=== PATIENT | male | born 1950 | race Caucasian/White ===

== ENCOUNTER → 2016-10-02 | Outpatient (CLI) | payer MEDICARE, MEDICAID ==
[~2016-10-02] MED LIST: /PANT40TA; /WARF25TA; /WARF5TA; ALBU83IN; ALBU83IN INH; AMO500 PO; ARIC10TA PO; ASPEC81 PO; ATROVENT0.02%; COMBAER6 INH; DILA100C; DRIS50002 PO; FERR325T3 PO; FIBE625T PO; FIBERCON PO; HABITROL14 TOPICAL; HABITROL21 TOPICAL; HABITROL7 TOPICAL; IPRASOL4 INH; KEPPRA; LASI40TA PO; METAMUCIL PO; NICOTROLIN PO; No Historical Meds; PRED10TA PO; PROT1TAB2 PO; PROTONIX40 PO; PULM0.5S INH; ROBITUSSDM PO; TRAN15TA; TYLE325T5 PO; TYLENOL500 PO; VYTORIN10 PO; WELLBSR150 PO; ZANTAC150 PO; ZETI10TA; ZETI10TA2 PO; ZETIA PO; ZITH250T PO; ZOCO10TA; ZOCO10TA PO; ZOCOR10 PO; [UNRECOGNIZED DRUG - CODE] PO; [UNRECOGNIZED DRUG - CODE] PO; fibercon
[2016-10-02 09:35] LABS: INR 0.96
[2016-10-02 09:36] LABS: BASO # 0.1 K/mm3 (0.0-0.2); BASO % 1.9 % (0.0-1.0); EOS # 0.2 K/mm3 (0.0-0.50); EOS % 2.5 % (0.0-3.0); LARGE UNSTAINED CELL # 0.1 K/mm3 (0.0-0.4); LARGE UNSTAINED CELL % 1.8 % (0.0-4.0); LYMPH # 1.8 K/mm3 (1.5-4.5); LYMPH % 22.4 % (24.0-44.0); MEAN CORPUSCULAR HEMOGLOBIN 30.8 pg (27.0-33.0); MEAN CORPUSCULAR HGB CONC 33.6 g/dl (32.0-36.5); MEAN CORPUSCULAR VOLUME 91.8 fl (80.0-96.0); MONO # 0.5 K/mm3 (0.0-0.8); MONO % 6.9 % (0.0-5.0); NEUTROPHILS # 4.7 K/mm3 (1.8-7.7); NEUTROPHILS % 64.4 % (36.0-66.0); PLATELET COUNT, AUTOMATED 187 k/mm3 (150-450); RED CELL DISTRIBUTION WIDTH 12.6 % (11.5-14.5); WHITE BLOOD COUNT 7.3 K/mm3 (4.0-10.0)
[2016-10-02 10:00] LABS: VITAMIN B12 LEVEL 485 PG/ML (247-911)
[2016-10-02 10:06] LABS: ALBUMIN 3.8 GM/DL (3.2-5.2); ALBUMIN/GLOBULIN RATIO 1.36 (1.00-1.93); ALKALINE PHOSPHATASE 85 U/L (45-117); ALT/SGPT 23 U/L (12-78); ANION GAP 7 MEQ/L (8-16); AST/SGOT 23 U/L (15-37); BILIRUBIN,TOTAL 0.4 MG/DL (0.2-1.0); BLOOD UREA NITROGEN 13 MG/DL (7-18); CARBON DIOXIDE LEVEL 37 MEQ/L (21-32); CHLORIDE LEVEL 100 MEQ/L (98-107); GLOMERULAR FILTRATION RATE > 60.0 (>49); GLUCOSE, FASTING 88 MG/DL (80-110); POTASSIUM SERUM 3.4 MEQ/L (3.5-5.1); SODIUM LEVEL 144 MEQ/L (136-145); TOTAL PROTEIN 6.6 GM/DL (6.4-8.2)
[2016-10-04 10:48] LABS: PRETREATED FOLATE FOR RBCFOL 9.4 NG/ML
== END ==
LOC: M WUC 08:12
PROVIDERS: ATTEND Family Medicine
DX: Z01.818 Encounter for other preprocedural examination (principal); F03.90 Unspecified dementia, unspecified severity, without behavioral disturbance, psychotic disturbance, mood disturbance, and anxiety

== ENCOUNTER → 2016-10-10 | Outpatient (CLI) | payer MEDICARE, MEDICAID ==
[~2016-10-10] MED LIST changes: +COMBIVENT MDI INH
[2016-10-10 12:00] LABS: MEAN CORPUSCULAR HEMOGLOBIN 32.1 pg (27.0-33.0); MEAN CORPUSCULAR HGB CONC 34.8 g/dl (32.0-36.5); MEAN CORPUSCULAR VOLUME 92.2 fl (80.0-96.0); WHITE BLOOD COUNT 9.5 K/mm3 (4.0-10.0)
[2016-10-10 12:08] LABS: ALBUMIN 3.9 GM/DL (3.2-5.2); ANION GAP 6 MEQ/L (8-16); BLOOD UREA NITROGEN 12 MG/DL (7-18); CALCIUM LEVEL 8.9 MG/DL (8.8-10.2); CARBON DIOXIDE LEVEL 37 MEQ/L (21-32); CHLORIDE LEVEL 98 MEQ/L (98-107); CREATININE FOR GFR 0.78 MG/DL (0.70-1.30); GLOMERULAR FILTRATION RATE > 60.0 (>49); GLUCOSE, FASTING 106 MG/DL (80-110); PHOSPHORUS LEVEL 2.6 MG/DL (2.5-4.9); POTASSIUM SERUM 3.8 MEQ/L (3.5-5.1); SODIUM LEVEL 141 MEQ/L (136-145)
== END ==
LOC: M SMT 08:09
PROVIDERS: ATTEND Dentist Oral and Maxillofacial Surgery
DX: Z01.818 Encounter for other preprocedural examination (principal); K02.9 Dental caries, unspecified

== ENCOUNTER → 2016-10-11 | Day surgery (SDC) | payer MEDICARE, MEDICAID ==
[~2016-10-11] VITALS: Ht 165.1 cm; Wt 73.5 kg
[~2016-10-11] MED LIST changes: +GLYCOPYRROLATE INJ 0.2 MG/ML 2 ML VIAL As Ordered ONE; +IBUPROFEN 100 MG/5 ML SUSP UDC As Ordered ONE; +IBUPROFEN 100 MG/5 ML SUSP UDC PO ONE; +LIDOCAINE 2% INJ 100 MG/5 ML SDV (FOR ANES.) As Ordered ONE; +LIDOCAINE 2% W/ EPINEPHRINE 1.7 ML DENTAL INJ As Ordered ONE; +LIDOCAINE 2% W/ EPINEPHRINE 1.7 ML DENTAL INJ XX ONE; +LR 1,000 ML IV SCH; +METOCLOPRAMIDE INJ 10MG/2ML VIAL (J2765) As Ordered ONE; +METOCLOPRAMIDE INJ 10MG/2ML VIAL (J2765) IV PRN; +MIDAZOLAM INJ 2 MG/2 ML VIAL (J2250) As Ordered ONE; +NEOSTIGMINE 1MG/ML 5 ML SYRINGE (J2710) As Ordered ONE; +ONDANSETRON 4MG/2ML VIAL (J2405) As Ordered ONE; +ONDANSETRON 4MG/2ML VIAL (J2405) IV PRN; +PROPOFOL 200 MG/20 ML VIAL As Ordered ONE; +ROCURONIUM BROMIDE 50 MG/5 ML VIAL As Ordered ONE; +dexameTHASONE 4 MG/ML 1ML VIAL (J1100) As Ordered ONE; +fentaNYL 100 MCG/2 ML INJECTION (J3010) As Ordered ONE
[2016-10-11] MEDS: fentaNYL 100 MCG/2 ML INJECTION (J3010) IV PRN ×2 (12:43→12:50)
[2016-10-11 14:32] VITALS: BP 125/81
--- NOTE | 2016-10-11 16:47 | RO ---
DATE OF PROCEDURE: 10/11/2016 PREPROCEDURE DIAGNOSIS: Carious and nonrestorable teeth #6, 7, 8, 9, 10, 11, 20, 22, 27. POSTPROCEDURE DIAGNOSIS: Carious and nonrestorable teeth #6, 7, 8, 9, 10, 11, 20, 22, 27 with the addition of retained roots of tooth #12. OPERATIVE PROCEDURE: Surgical removal of all remaining teeth, 6, 7, 8, 9, 10, 11, 12, 20, 22 and 27. SURGEON: Chris Garzon DMD SUPERVISOR WOUND: ANESTHESIA: General endotracheal. INDICATION: He is a 65-year-old male who has high functioning mental retardation as well as asthma history on multiple medications. The patient requires removal of all remaining teeth due to carious and periodontal disease felt necessary to be performed in the operating room under general anesthesia. DESCRIPTION OF PROCEDURE: The patient was brought to the OR per anesthesia, placed supine upon the OR table. Wherein general endotracheal anesthesia was undertaken without difficulty. After using sterile prep and drape, for intraoral procedure, throat pack was placed. 2% Xylocaine with 1:100,000 epinephrine, approximately 4 mL were injected in infiltration fashion along remaining teeth. Attention first to the mandible, 20, 22 and 27. After laying buccal flaps in these areas after incision with #15 scalpel blade, buccal bone was removed as necessary with Gary drill and copious sterile saline for access as well as to mobilize the teeth, tooth #20 in particular had caries deep and the tooth fractured down to approximately the apical one-third remaining root which had to be elevated separately. The teeth were then elevated and removed. Bone was smoothed. The sockets were lightly curetted, irrigated and enclosed with Gelfoam #3-0 gut interrupted sutures for hemostasis. Attention then turned to the maxilla of teeth #6 through 12. A #15 scalpel blade used to make a full thickness incision, carried from the distal buccal releases on bilateral maxilla. Carried forward to the midline. Full thickness flap was then raised, the periosteal elevator exposed in the area of the broken down retained teeth. Bucca bone support was removed as necessary for access and to mobilize them. The teeth were then elevated and delivered with upper forceps. The buccal alveoloplasty was performed as necessary and sockets were lightly curetted, irrigated copiously and then closed with #3-0 gut continuous interlocking suture. At the termination of the procedure, the oropharynx was inspected, found to be free of debris with no active heme. Throat pack was removed and patient was awakened per anesthesia. ESTIMATED BLOOD LOSS: Approximately 30 mL. FLUIDS: 1200 mL of crystalloid solution. COUNTS: Needle and sponge counts were correct. Teeth were sent for identification only to pathology. DISPOSITION: The patient was extubated in the operating room, taken to the recovery room breathing spontaneously in stable condition.
== END | disposition home or self-care (01) ==
LOC: M SDC 09:06
PROVIDERS: ATTEND Dentist Oral and Maxillofacial Surgery
DX: K02.9 Dental caries, unspecified (principal); I10 Essential (primary) hypertension; J44.9 Chronic obstructive pulmonary disease, unspecified; Z99.81 Dependence on supplemental oxygen; F70 Mild intellectual disabilities; K21.9 Gastro-esophageal reflux disease without esophagitis; K59.00 Constipation, unspecified; F03.90 Unspecified dementia, unspecified severity, without behavioral disturbance, psychotic disturbance, mood disturbance, and anxiety
CPT/HCPCS: 41899; 88300; J1100; J2250; J2405; J2710; J2765; J3010

== ENCOUNTER 2016-10-14 15:58 | Inpatient (IN) | payer MEDICARE, MEDICAID ==
[~2016-10-14] VITALS: Ht 172.7 cm; Wt 57.8 kg
[~2016-10-14 15:58] MED LIST changes: -COMBIVENT MDI INH; -GLYCOPYRROLATE INJ 0.2 MG/ML 2 ML VIAL As Ordered ONE; -IBUPROFEN 100 MG/5 ML SUSP UDC As Ordered ONE; -IBUPROFEN 100 MG/5 ML SUSP UDC PO ONE; -LIDOCAINE 2% INJ 100 MG/5 ML SDV (FOR ANES.) As Ordered ONE; -LIDOCAINE 2% W/ EPINEPHRINE 1.7 ML DENTAL INJ As Ordered ONE; -LIDOCAINE 2% W/ EPINEPHRINE 1.7 ML DENTAL INJ XX ONE; -LR 1,000 ML IV SCH; -METOCLOPRAMIDE INJ 10MG/2ML VIAL (J2765) As Ordered ONE; -METOCLOPRAMIDE INJ 10MG/2ML VIAL (J2765) IV PRN; -MIDAZOLAM INJ 2 MG/2 ML VIAL (J2250) As Ordered ONE; -NEOSTIGMINE 1MG/ML 5 ML SYRINGE (J2710) As Ordered ONE; -ONDANSETRON 4MG/2ML VIAL (J2405) As Ordered ONE; -ONDANSETRON 4MG/2ML VIAL (J2405) IV PRN; -PROPOFOL 200 MG/20 ML VIAL As Ordered ONE; -ROCURONIUM BROMIDE 50 MG/5 ML VIAL As Ordered ONE; -dexameTHASONE 4 MG/ML 1ML VIAL (J1100) As Ordered ONE; -fentaNYL 100 MCG/2 ML INJECTION (J3010) As Ordered ONE
[2016-10-14 18:20] LABS: BASO % 0.1 % (0.0-1.0); EOS % 0.3 % (0.0-3.0); LARGE UNSTAINED CELL # 0.1 K/mm3 (0.0-0.4); LYMPH # 0.8 K/mm3 (1.5-4.5); MEAN CORPUSCULAR HEMOGLOBIN 31.6 pg (27.0-33.0); MEAN CORPUSCULAR HGB CONC 34.2 g/dl (32.0-36.5); MEAN CORPUSCULAR VOLUME 92.4 fl (80.0-96.0); MONO # 0.9 K/mm3 (0.0-0.8); NEUTROPHILS # 10.7 K/mm3 (1.8-7.7); NEUTROPHILS % 85.6 % (36.0-66.0); PLATELET COUNT, AUTOMATED 172 k/mm3 (150-450); RED CELL DISTRIBUTION WIDTH 11.8 % (11.5-14.5); WHITE BLOOD COUNT 12.5 K/mm3 (4.0-10.0)
[2016-10-14 18:32] LABS: ALBUMIN/GLOBULIN RATIO 0.79 (1.00-1.93); ALKALINE PHOSPHATASE 84 U/L (45-117); ALT/SGPT 19 U/L (12-78); ANION GAP 5 MEQ/L (8-16); AST/SGOT 17 U/L (15-37); BILIRUBIN,DIRECT 0.1 MG/DL (0.0-0.2); BILIRUBIN,TOTAL 0.3 MG/DL (0.2-1.0); BLOOD UREA NITROGEN 6 MG/DL (7-18); CALCIUM LEVEL 8.3 MG/DL (8.8-10.2); CARBON DIOXIDE LEVEL 35 MEQ/L (21-32); CHLORIDE LEVEL 97 MEQ/L (98-107); CREATININE FOR GFR 0.67 MG/DL (0.70-1.30); GLOMERULAR FILTRATION RATE > 60.0 (>49); GLUCOSE, FASTING 128 MG/DL (80-110); POTASSIUM SERUM 3.4 MEQ/L (3.5-5.1); SODIUM LEVEL 137 MEQ/L (136-145); TOTAL PROTEIN 6.8 GM/DL (6.4-8.2)
[2016-10-14] MEDS ORDERED: ACETAMINOPHEN 325 MG TAB As Ordered ONE (18:35)
--- NOTE | 2016-10-14 19:07 | REP ---
Chest x-ray: Two views. History: Fever. Comparison chest x-ray is from June 24, 2016. Findings: There is a fairly large dense infiltrate in the left lower lobe. Some consolidation is seen in the lingular segment distribution as well. There is slight blunting of the left posterior pleural angle. Heart is at the upper range of normal in size. There are old healed rib fractures on the right and an old healed clavicle fracture is seen on the left. Impression: Infiltrates in the left base involving the left lower lobe and lingula consistent with pneumonia. Signed by Delroy Steward MD 10/14/2016 07:47 P
[2016-10-14] MEDS ORDERED: IPRASOL4 INH (21:51)
[2016-10-14] MEDS ORDERED: COMBIVENT MDI INH (21:51)
[2016-10-14] MEDS ORDERED: cefTRIAXone SOD 1 GM VIAL (J0696) As Ordered ONE (21:54)
[2016-10-14] MEDS ORDERED: AZITHROMYCIN INJ 500MG VIAL (J0456) As Ordered ONE (21:54)
[2016-10-14] MEDS ORDERED: BISACODYL 5 MG TAB PO PRN (23:00)
[2016-10-14] MEDS ORDERED: METOCLOPRAMIDE INJ 10MG/2ML VIAL (J2765) IV PRN (23:00)
--- NOTE | 2016-10-14 23:50 | EDDOCDS ---
Nurse's Notes [facility] Name: Guido Hu Age: 65 yrs Sex: Male : 1950 Arrival Date: 10/14/2016 Time: 15:58 Bed 15 Private MD: Diagnosis: Pneumonia, unspecified organism;Abnormal electrocardiogram [ECG] [EKG] Presentation: 10/14 16:04 Presenting complaint: EMS states: pt had 10 teeth pulled 4 days ago and today started mk4 shivering and had a low oxygen. Adult Sepsis Screening: The patient does not have new or worsening altered mentation. Systolic blood pressure is greater than 100. Patient has a qSOFA score of 1- Negative Sepsis Screen. Suicide/Homicide risk assessment- Unable to assess, due to patient's chronic mental disability. 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 Transition of care: patient was received from [facility]. 16:04 Acuity: MANISHA Level 2 [facility] 16:04 Method Of Arrival: Ambulance 4 Triage Assessment: 16:13 General: Appears in no apparent distress. mk4 Historical: - Allergies: no known allergies; - Home Meds: 1. Pulmicort 0.5 mg/2 mL Inhl nbsp 2 mL 2 times per day (Last dose: 10/14/2016 08:00) 2. Lasix 40 mg Oral tab 1 tab once daily (Last dose: 10/14/2016 08:00) 3. Protonix 40 mg Oral TbEC 1 tab once daily (Last dose: 10/14/2016 08:00) 4. FiberCon 625 mg Oral tab 625 mg twice a day (Last dose: 10/14/2016 08:00) 5. ferrous sulfate 325 mg (65 mg iron) Oral cpER 325 mg twice a day (Last dose: 10/14/2016 08:00) 6. Zetia 10 mg Oral tab 1 tab nightly (Last dose: 10/13/2016 22:00) 7. Zocor 10 mg Oral tab 1 tab nightly (Last dose: 10/13/2016 22:00) 8. Aricept 10 mg Oral tab 1 tab nightly (Last dose: 10/13/2016 21:00) 9. Oxygen 3 liter daily 10. ipratroplum 0.5-albuterol neb four times a day 11. Drisdol 50,000 unit Oral cap once wkly (Last dose: 10/08/2016) 12. Combivent 18-103 mcg/actuation Inhl aero 2 puffs 6 times per day as needed, 2 puffs - PMHx: Borderline Personality Disorder; COPD; Diabetes - NIDDM: controlled; Hypercholesterolemia; Left upper DVT; Mild Intellectual disability; - PSHx: none; - Social history: Smoking status: Patient states was never smoker of tobacco. Patient is hearing impaired. - Family history: Not pertinent. - : The pt / caregiver states he / she is not on anticoagulants. Home medication list is obtained from the facility NOV. - Exposure Risk Screening:: None identified. Screenin:44 Screening information is obtained from residence staff. Fall risk: No risks identified. hs1 Assistance ADL's: Requires assistance with meal preparation, this assistance is provided by residence staff, housework, assistance is provided by residence staff, medication administration, assistance is provided by residence staff. Abuse/DV Screen: The patient / caregiver reports he/she is: not in a situation that causes fear, pain or injury. Nutritional screening: No deficits noted. Advance Directives: There is no active DNR order. home support. Assessment: 16:40 General: Appears in no apparent distress, comfortable, Behavior is appropriate for age, hs1 cooperative. Pain: Denies pain. Neurological: Level of Consciousness is awake, alert, Oriented to person, place, time. EENT: Eyes with exudate noted from left eye. Respiratory: Airway is patent Respiratory effort is even, unlabored, Respiratory pattern is regular, symmetrical. Derm: Skin is pink, warm & dry. normal. Derm: Skin is red, on left eye. 22:05 Reassessment: Patient appears in no apparent distress at this time. Patient states tm5 symptoms have improved. pt voices no complaints at this time, is watching TV, Caregiver at bedside with pt . 23:12 General: SBAR tubed & faxed to [facility]. tm5 23:46 General: called [facility] & pt can be transferred to the floor in about 10 minutes. tm5 Vital Signs: 16:08 BP 132 / 60; Pulse 98; Resp 22; Temp 103.8(TE); Pulse Ox 94% on 3 lpm NC; dem1 16:22 BP 117 / 54 (auto/); hs1 16:23 Pulse 90 MON; Pulse Ox 95% ; hs1 16:37 BP 117 / 55 (auto/); hs1 16:38 Pulse 84 MON; Pulse Ox 97% ; hs1 16:52 BP 114 / 54 (auto/); hs1 16:53 Pulse 84 MON; Pulse Ox 98% ; hs1 17:07 BP 121 / 58 (auto/); hs1 17:08 Pulse 86 MON; Pulse Ox 98% ; hs1 17:22 BP 121 / 58 (auto/); hs1 17:22 Pulse 84 MON; Pulse Ox 99% ; hs1 17:37 BP 130 / 60 (auto/); hs1 17:37 Pulse 88 MON; Resp 18; Pulse Ox 98% ; hs1 17:48 Temp 100.3(O); hs1 17:52 BP 124 / 58 (auto/); hs1 17:53 Pulse 86 MON; Pulse Ox 95% ; hs1 18:07 BP 114 / 57 (auto/); hs1 18:08 Pulse 88 MON; Pulse Ox 95% ; hs1 18:22 BP 135 / 62 (auto/); hs1 18:23 Pulse 94 MON; Pulse Ox 95% ; hs1 18:37 BP 112 / 57 (auto/); hs1 18:37 Pulse 90 MON; Pulse Ox 93% ; hs1 22:05 BP 126 / 58; Pulse 78; Resp 18; Pulse Ox 96% on R/A; Pain 0/10; tm5 23:08 BP 111 / 79; Pulse 84; Resp 20; Temp 99.3(O); Pulse Ox 96% on R/A; Pain 0/10; tm5 Vitals: 16:08 Log In Time N/A - ambulance arrival. [facility] ED Course: 16:00 Patient visited by Elvira Corado, Lead Maintenance Technician. deg 16:00 Patient moved to Waiting deg 16:01 Patient moved to 15 deg 16:06 Triage Initiated mk4 16:09 Patient visited by Sandy Hernandez. dem1 17:14 Patient visited by Pam Uribe PCA. ct3 17:45 Patient visited by Nati Eli RN. hs1 17:49 The patient / caregiver is instructed regarding the plan of care and ED course. hs1 17:49 Inserted saline lock: 20 gauge in left antecubital area and blood collected. The hs1 patient tolerated the procedure well. 17:56 Roggie, El, MD is Attending Physician. br1 18:07 -Blood Culture Sent. hs1 18:07 CBC with Diff Sent. hs1 18:07 Lactic Acid (Kumar tube on ice) Sent. hs1 18:07 Urine Culture Sent. hs1 18:07 Urinalysis Sent. hs1 18:08 Patient visited by El Khanna MD. br1 18:08 MED Profile Sent. hs1 18:08 Liver Profile Sent. hs1 18:08 BNP Sent. hs1 18:21 Patient visited by Pam Uribe PCA. ct3 18:21 EKG done. (by ED staff). Reviewed by El Khanna MD. ct3 18:35 [facility] Payment Agreement was scanned into [employer] and attached to record. gjb 19:01 BLOOD CULTURES Sent. cln 19:13 Patient visited by Apolinar Liu PCA. kb5 19:37 Patient visited by Hazel Cosby RN. tm5 19:45 Chest, 2 View (pa\E\lat) Returned. EDMS 20:11 Patient visited by Apolinar Liu PCA. kb5 20:49 Patient visited by Hazel Cosby,DASIA. tm5 21:09 Patient visited by Hazel Cosby RN. tm5 21:10 Patient visited by Hazel Cosby RN. tm5 21:53 Manisha Madison is Hospitalizing Provider. br1 22:05 Awaiting bed assignment. tm5 22:38 Patient visited by Hazel Cosby RN. tm5 22:46 Patient visited by Hazel Cosby RN. tm5 22:46 Visited by Hospitalist Vicky at bedside for admission eval. tm5 23:06 Patient visited by Hazel Cosby RN. tm5 23:12 Patient visited by Hazel Cosby RN. tm5 23:46 Patient visited by Hazel Cosby RN. tm5 23:46 No procedures done that require assistance. alie Administered Medications: 18:40 Drug: Acetaminophen 650 mg [acetaminophen 325 mg tablet (2 tabs)] Route: PO; hs1 19:25 Follow up: Response: No Adverse Reaction; Pain is decreased tm5 22:05 Drug: cefTRIAXone 1 grams [ceftriaxone 1 gram solution for injection] Route: IVPB; tm5 Infused Over: 30 mins; Site: left antecubital; 22:38 Follow up: IV Status: Completed infusion; IV Intake: 50ml tm5 22:38 Drug: azithromycin 500 mg [azithromycin 500 mg intravenous solution] Route: IVPB; tm5 Infused Over: 1 hrs; Site: left antecubital; Intake: 22:38 IV: 50.00ml; Total: 50.00ml. tm5 Order Results: Lab Order: CBC with Diff; SPEC'M 10/14/16 17:32 Test: WHITE BLOOD COUNT; Value: 12.5; Range: 4.0-10.0; Abnormal: Above high normal; Units: K/mm3; Status: F Test: RED BLOOD COUNT; Value: 3.72; Range: 4.30-6.10; Abnormal: Below low normal; Units: M/mm3; Status: F Test: HEMOGLOBIN; Value: 11.8; Range: 14.0-18.0; Abnormal: Below low normal; Units: g/dl; Status: F Test: HEMATOCRIT; Value: 34.4; Range: 42.0-52.0; Abnormal: Below low normal; Units: %; Status: F Test: MEAN CORPUSCULAR VOLUME; Value: 92.4; Range: 80.0-96.0; Units: fl; Status: F Test: MEAN CORPUSCULAR HEMOGLOBIN; Value: 31.6; Range: 27.0-33.0; Units: pg; Status: F Test: MEAN CORPUSCULAR HGB CONC; Value: 34.2; Range: 32.0-36.5; Units: g/dl; Status: F Test: RED CELL DISTRIBUTION WIDTH; Value: 11.8; Range: 11.5-14.5; Units: %; Status: F Test: PLATELET COUNT, AUTOMATED; Value: 172; Range: 150-450; Units: k/mm3; Status: F Test: NEUTROPHILS %; Value: 85.6; Range: 36.0-66.0; Abnormal: Above high normal; Units: %; Status: F Test: LYMPH %; Value: 6.0; Range: 24.0-44.0; Abnormal: Below low normal; Units: %; Status: F Test: MONO %; Value: 7.0; Range: 0.0-5.0; Abnormal: Above high normal; Units: %; Status: F Test: EOS %; Value: 0.3; Range: 0.0-3.0; Units: %; Status: F Test: BASO %; Value: 0.1; Range: 0.0-1.0; Units: %; Status: F Test: LARGE UNSTAINED CELL %; Value: 1.0; Range: 0.0-4.0; Units: %; Status: F Test: NEUTROPHILS #; Value: 10.7; Range: 1.8-7.7; Abnormal: Above high normal; Units: K/mm3; Status: F Test: LYMPH #; Value: 0.8; Range: 1.5-4.5; Abnormal: Below low normal; Units: K/mm3; Status: F Test: MONO #; Value: 0.9; Range: 0.0-0.8; Abnormal: Above high normal; Units: K/mm3; Status: F Test: EOS #; Value: 0.0; Range: 0.0-0.50; Units: K/mm3; Status: F Test: BASO #; Value: 0.0; Range: 0.0-0.2; Units: K/mm3; Status: F Test: LARGE UNSTAINED CELL #; Value: 0.1; Range: 0.0-0.4; Units: K/mm3; Status: F Lab Order: Lactic Acid (Kumar tube on ice); SPEC'M 10/14/16 17:32 Test: LACTIC ACID LEVEL, LACTATE; Value: 0.8; Range: 0.4-2.0; Units: MMOL/L; Status: F Lab Order: Liver Profile; SPEC'M 10/14/16 17:32 Test: AST/SGOT; Value: 17; Range: 15-37; Units: U/L; Status: F Test: ALT/SGPT; Value: 19; Range: 12-78; Units: U/L; Status: F Test: ALKALINE PHOSPHATASE; Value: 84; Range: 45-117; Units: U/L; Status: F Test: BILIRUBIN,TOTAL; Value: 0.3; Range: 0.2-1.0; Units: MG/DL; Status: F Test: BILIRUBIN,DIRECT; Value: 0.1; Range: 0.0-0.2; Units: MG/DL; Status: F Test: TOTAL PROTEIN; Value: 6.8; Range: 6.4-8.2; Units: GM/DL; Status: F Test: ALBUMIN; Value: 3.0; Range: 3.2-5.2; Abnormal: Below low normal; Units: GM/DL; Status: F Test: ALBUMIN/GLOBULIN RATIO; Value: 0.79; Range: 1.00-1.93; Abnormal: Below low normal; Status: F Lab Order: MED Profile; [facility] 10/14/16 17:32 Test: GLUCOSE, FASTING; Value: 128; Range: 80-110; Abnormal: Above high normal; Units: MG/DL; Status: F Test: BLOOD UREA NITROGEN; Value: 6; Range: 7-18; Abnormal: Below low normal; Units: MG/DL; Status: F Test: CREATININE FOR GFR; Value: 0.67; Range: 0.70-1.30; Abnormal: Below low normal; Units: MG/DL; Status: F Test: GLOMERULAR FILTRATION RATE; Value: > 60.0; Range: >49; Status: F Test: SODIUM LEVEL; Value: 137; Range: 136-145; Units: MEQ/L; Status: F Test: POTASSIUM SERUM; Value: 3.4; Range: 3.5-5.1; Abnormal: Below low normal; Units: MEQ/L; Status: F Test: CHLORIDE LEVEL; Value: 97; Range: 98-107; Abnormal: Below low normal; Units: MEQ/L; Status: F Test: CARBON DIOXIDE LEVEL; Value: 35; Range: 21-32; Abnormal: Above high normal; Units: MEQ/L; Status: F Test: ANION GAP; Value: 5; Range: 8-16; Abnormal: Below low normal; Units: MEQ/L; Status: F Test: CALCIUM LEVEL; Value: 8.3; Range: 8.8-10.2; Abnormal: Below low normal; Units: MG/DL; Status: F Test Note: ; Units are mL/min/1.73 m2 Chronic Kidney Disease Staging per NKF: Stage I & II GFR >=60 Normal to Mildly Decreased Stage III GFR 30-59 Moderately Decreased Stage IV GFR 15-29 Severely Decreased Stage V GFR <15 Very Little GFR Left ESRD GFR <15 on LIVESTOCK FEEDER Lab Order: Urinalysis; SPEC'M 10/14/16 18:31 Test: APPEARANCE, URINE; Value: CLEAR; Range: CLEAR; Status: F Test: COLOR, URINE; Value: YELLOW; Range: YELLOW; Status: F Test: PH,URINE; Value: 7.0; Range: 5.0-9.0; Units: UNITS; Status: F Test: SPECIFIC GRAVITY URINE AUTO; Value: 1.019; Range: 1.002-1.035; Status: F Test: PROTEIN, URINE AUTO; Value: 2+; Range: NEGATIVE; Abnormal: Above high normal; Units: mg/dL; Status: F Test: GLUCOSE, URINE (UA) AUTO; Value: NEGATIVE; Range: NEGATIVE; Units: mg/dL; Status: F Test: KETONE, URINE AUTO; Value: 1+; Range: NEGATIVE; Abnormal: Above high normal; Units: mg/dL; Status: F Test: UROBILINOGEN, URINE AUTO; Value: 4.0; Range: 0.0-2.0; Abnormal: Above high normal; Units: mg/dL; Status: F Test: BILIRUBIN, URINE AUTO; Value: NEGATIVE; Range: NEGATIVE; Status: F Test: NITRITE, URINE AUTO; Value: NEGATIVE; Range: NEGATIVE; Status: F Test: LEUKOCYTE ESTERASE, URINE AUTO; Value: NEGATIVE; Range: NEGATIVE; Status: F Test: BLOOD, URINE BLOOD; Value: NEGATIVE; Range: NEGATIVE; Status: F Test: WBC, URINE AUTO; Value: 2; Range: 0-3; Units: /HPF; Status: F Test: RBC, URINE AUTO; Value: 3; Range: 0-3; Units: /HPF; Status: F Test: BACTERIA, URINE AUTO; Value: NEGATIVE; Range: NEGATIVE; Status: F Test: SQUAMOUS EPITHELIAL CELL UR AU; Value: 0; Range: 0-6; Units: /HPF; Status: F Test: MUCUS, URINE; Value: SMALL; Range: NEGATIVE; Status: F Test: HYALINE CAST, URINE AUTO; Value: 0; Range: 0-1; Units: /LPF; Status: F Lab Order: BNP; SPEC'M 10/14/16 17:32 Test: BRAIN NATRIURETIC PEPTIDE; Value: 223; Range: <100; Abnormal: Above high normal; Units: PG/ML; Status: F Lab Order: -Influenza A&B Rapid Antigen - Nose; SPEC'M 10/14/16 18:46 Test: INFLUENZA A RAPID SCR by ICA; Value: INFLUENZA A RESULTS NEGATIVE; Status: F Test: INFLUENZA A RAPID SCR by ICA; Value: Comments:; Status: F Test: INFLUENZA B RAPID SCR by ICA; Value: INFLUENZA B RESULTS NEGATIVE; Status: F Test Note: ; The Influenza test is a direct rapid immunoassay for the qualitative detection of Influenza viral antigen. Cell culture (Viral Culture) testing should be considered to confirm NEGATIVE results and to assist in detecting other viruses that can provide similar clinical symptoms. Please contact the lab within 24 hours ([phone]) if confirmatory testing is desired. Lab Order: TROPONIN; SPEC'M 10/14/16 17:32 Test: TROPONIN I; Value: < 0.02; Range: < 0.10; Units: NG/ML; Status: F Test Note: ; Troponin I Reference Interval for Siemens ditlo LOCI: 99th Percentile= 0.00-0.045 ng/ml Risk Stratification: <= 0.10 ng/ml Decreased Risk for Adverse Clinical Events. 0.10-1.50 ng/ml Increased Risk for Adverse Clinical Events. Evaluation of additional criterion and/or repeat testing in 2-6 hours is suggested to rule out myocardial damage. >= 1.50 ng/ml Indicative of Myocardial Injury. Radiology Order: Chest, 2 View (pa\E\lat) Test: Chest, 2 View (pa\E\lat) REASON FOR EXAMINATION: fever; Chest x-ray: Two views.; ; History: Fever.; ; Comparison chest x-ray is from June 24, 2016.; ; Findings: There is a fairly large dense infiltrate in the left lower lobe. Some; consolidation is seen in the lingular segment distribution as well. There is; slight blunting of the left posterior pleural angle. Heart is at the upper range; of normal in size. There are old healed rib fractures on the right and an old; healed clavicle fracture is seen on the left.; ; Impression:; ; Infiltrates in the left base involving the left lower lobe and lingula consistent; with pneumonia.; ; ; Signed by; Delroy Steward MD 10/14/2016 07:47 P; Outcome: 21:53 Decision to Hospitalize by Provider. br1 23:46 Discharge Assessment: patient administered narcotics - no. The following High Risk alie Discharge criteria are identified: None. Admitted to Med/Surg accompanied by tech, via stretcher, with chart. Condition: stable. No special radiology studies were completed. Property :Personal belongings accompany Pt. 23:49 Patient left the ED. alie Signatures: Dispatcher [employer] EDMS Elvira Corado, Lead Maintenance Technician Unit deg Angelica Suero, RN RN Apolinar Sharif, HEALTH PROMOTION MANAGER HEALTH PROMOTION MANAGER kb5 El Khanna MD MD br1 Nati Eli RN RN hs1 Pam Uribe, HEALTH PROMOTION MANAGER HEALTH PROMOTION MANAGER ct3 Sandy Hernandez dem1 Isela Jensen RN RN mk4 Kristel Morgan Crystal, HEALTH PROMOTION MANAGER HEALTH PROMOTION MANAGER cln Hazel Cosby,RN RN tm5 Corrections: (The following items were deleted from the chart) 18:15 18:08 TROPONIN+LAB sent. [address] MTDD
--- NOTE | 2016-10-14 23:50 | EDDOCDS ---
Physician Documentation [facility] Name: Guido Hu Age: 65 yrs Sex: Male : 1950 Arrival Date: 10/14/2016 Time: 15:58 Bed 15 Private MD: Disposition: 10/14/16 21:53 Hospitalization ordered by Manisha Madison for Inpatient Admission. Preliminary diagnosis are Pneumonia, unspecified organism, Abnormal electrocardiogram [ECG] [EKG]. - Bed requested for 4 [place]. - Status is Inpatient Admission. alie - Condition is Stable. - Problem is new. - Symptoms are unchanged. Historical: - Allergies: no known allergies; - Home Meds: 1. Pulmicort 0.5 mg/2 mL Inhl nbsp 2 mL 2 times per day (Last dose: 10/14/2016 08:00) 2. Lasix 40 mg Oral tab 1 tab once daily (Last dose: 10/14/2016 08:00) 3. Protonix 40 mg Oral TbEC 1 tab once daily (Last dose: 10/14/2016 08:00) 4. FiberCon 625 mg Oral tab 625 mg twice a day (Last dose: 10/14/2016 08:00) 5. ferrous sulfate 325 mg (65 mg iron) Oral cpER 325 mg twice a day (Last dose: 10/14/2016 08:00) 6. Zetia 10 mg Oral tab 1 tab nightly (Last dose: 10/13/2016 22:00) 7. Zocor 10 mg Oral tab 1 tab nightly (Last dose: 10/13/2016 22:00) 8. Aricept 10 mg Oral tab 1 tab nightly (Last dose: 10/13/2016 21:00) 9. Oxygen 3 liter daily 10. ipratroplum 0.5-albuterol neb four times a day 11. Drisdol 50,000 unit Oral cap once wkly (Last dose: 10/08/2016) 12. Combivent 18-103 mcg/actuation Inhl aero 2 puffs 6 times per day as needed, 2 puffs - PMHx: Borderline Personality Disorder; COPD; Diabetes - NIDDM: controlled; Hypercholesterolemia; Left upper DVT; Mild Intellectual disability; - PSHx: none; - Social history: Smoking status: Patient states was never smoker of tobacco. Patient is hearing impaired. - Family history: Not pertinent. - : The pt / caregiver states he / she is not on anticoagulants. Home medication list is obtained from the facility MAR. - Exposure Risk Screening:: None identified. Vital Signs: 10/14 16:08 BP 132 / 60; Pulse 98; Resp 22; Temp 103.8(TE); Pulse Ox 94% on 3 lpm NC; dem1 16:22 BP 117 / 54 (auto/); hs1 16:23 Pulse 90 MON; Pulse Ox 95% ; hs1 16:37 BP 117 / 55 (auto/); hs1 16:38 Pulse 84 MON; Pulse Ox 97% ; hs1 16:52 BP 114 / 54 (auto/); hs1 16:53 Pulse 84 MON; Pulse Ox 98% ; hs1 17:07 BP 121 / 58 (auto/); hs1 17:08 Pulse 86 MON; Pulse Ox 98% ; hs1 17:22 BP 121 / 58 (auto/); hs1 17:22 Pulse 84 MON; Pulse Ox 99% ; hs1 17:37 BP 130 / 60 (auto/); hs1 17:37 Pulse 88 MON; Resp 18; Pulse Ox 98% ; hs1 17:48 Temp 100.3(O); hs1 17:52 BP 124 / 58 (auto/); hs1 17:53 Pulse 86 MON; Pulse Ox 95% ; hs1 18:07 BP 114 / 57 (auto/); hs1 18:08 Pulse 88 MON; Pulse Ox 95% ; hs1 18:22 BP 135 / 62 (auto/); hs1 18:23 Pulse 94 MON; Pulse Ox 95% ; hs1 18:37 BP 112 / 57 (auto/); hs1 18:37 Pulse 90 MON; Pulse Ox 93% ; hs1 22:05 BP 126 / 58; Pulse 78; Resp 18; Pulse Ox 96% on R/A; Pain 0/10; tm5 23:08 BP 111 / 79; Pulse 84; Resp 20; Temp 99.3(O); Pulse Ox 96% on R/A; Pain 0/10; tm5 MDM: 18:06 -Blood Culture (Adults Only), peripheral from different site, or from device/port/PICC br1 etc. if present ordered. 18:06 Diazo Technician/Pulse Ox/q 15 min VS ordered. br1 18:06 CBC with Diff Ordered. EDMS 18:06 Lactic Acid (Kumar tube on ice) Ordered. EDMS 18:06 Liver Profile Ordered. EDMS 18:06 MED Profile Ordered. EDMS 18:06 Urinalysis Ordered. EDMS 18:06 -Blood Culture Ordered. EDMS 18:06 Urine Culture Ordered. EDMS 18:07 Chest, 2 View (pa\E\lat) Ordered. EDMS 18:07 ECG WITH READING ER PHYS+CARDIAG ordered. EDMS 18:07 BNP Ordered. EDMS 18:07 -Influenza A&B Rapid Antigen - Nose Ordered. EDMS 18:07 Acetaminophen Tablet 650 mg PO once ordered. br1 18:09 -Blood Culture (Adults Only), peripheral from different site, or from device/port/PICC deg etc. if present complete. 18:11 BLOOD CULTURES Ordered. EDMS 18:15 TROPONIN Ordered. EDMS 18:32 Financial registration complete. [facility] 18:35 [facility] Payment Agreement was scanned into [employer] and attached to record. gjb 20:56 CBC with Diff Reviewed. br1 20:56 Liver Profile Reviewed. br1 20:56 MED Profile Reviewed. br1 20:56 Urinalysis Reviewed. br1 20:56 BNP Reviewed. br1 20:56 Lactic Acid (Kumar tube on ice) Reviewed. br1 20:56 -Influenza A&B Rapid Antigen - Nose Reviewed. br1 20:56 TROPONIN Reviewed. br1 20:56 Chest, 2 View (pa\E\lat) Reviewed. br1 21:04 BED REQUEST+ADM ordered. EDMS 21:51 cefTRIAXone 1 grams IVPB once over 30 mins; dilute in 50mL of NS or D5W ordered. br1 21:51 azithromycin 500 mg IVPB once over 1 hrs; dilute in 250mL of D5W or NS ordered. br1 23:01 Admission / Observation Status ordered. EDMS 23:01 OTHER CUSTOM DIETS ordered. EDMS 23:01 ARTERIAL BLOOD GAS Ordered. EDMS 23:01 CBC WITH DIFFERENTIAL Ordered. EDMS 23:01 BASIC METABOLIC PROFILE Ordered. EDMS Administered Medications: 18:40 Drug: Acetaminophen 650 mg [acetaminophen 325 mg tablet (2 tabs)] Route: PO; hs1 19:25 Follow up: Response: No Adverse Reaction; Pain is decreased tm5 22:05 Drug: cefTRIAXone 1 grams [ceftriaxone 1 gram solution for injection] Route: IVPB; tm5 Infused Over: 30 mins; Site: left antecubital; 22:38 Follow up: IV Status: Completed infusion; IV Intake: 50ml tm5 22:38 Drug: azithromycin 500 mg [azithromycin 500 mg intravenous solution] Route: IVPB; tm5 Infused Over: 1 hrs; Site: left antecubital; Signatures: Dispatcher [employer] EDMS Elvira Corado, [employer] deg Angelica Suero RN RN Burt Gamble, [employer] ml3 El Khanna MD MD br1 Isela Jensen RN RN mk4 Beck, Gabriela gjb Matice, Tonya, RN RN tm5 Nati Eli RN hs1 The chart was reviewed and I authenticate all verbal orders and agree with the evaluation and treatment provided.Corrections: (The following items were deleted from the chart) 18:15 18:07 TROPONIN+LAB ordered. EDMS EDMS 19:25 18:07 Oxygen at 4L/Min NC or Home dosage ordered. br1 tm5 Attachments: 18:35 [facility] Payment Agreement gjb [email or web address]
[2016-10-15] VITALS: BP 112/59
[2016-10-15] MEDS: DONEPEZIL 5 MG TAB PO SCH ×2 (00:32→21:24)
[2016-10-15] MEDS: ACETAMINOPHEN 500 MG TAB PO SCH ×4 (00:32→21:24)
[2016-10-15] MEDS: FERROUS SULFATE 325MG TAB PO SCH ×3 (00:32→21:24)
[2016-10-15] MEDS: SENOKOT S TAB PO SCH ×3 (00:32→21:24)
[2016-10-15] MEDS: EZETIMIBE 10 MG TAB (ZETIA) PO SCH ×2 (00:32→21:24)
[2016-10-15] MEDS: NS 1,000 ML IV SCH ×3 (00:33→22:43)
[2016-10-15] MEDS: SIMVASTATIN 10 MG TAB PO SCH ×2 (00:33→21:24)
[2016-10-15] MEDS: IPRATROPIUM 0.5MG/ALBUTEROL 2.5MG INH SOL UD 3ML (DUONEB)(J7620) NEB SCH ×4 (01:32→19:42)
[2016-10-15 01:34] VITALS: O2SAT 95
[2016-10-15] MEDS: OFLOXACIN 0.3 % (OCUFLOX) OPTH SOL 5ML OS SCH ×5 (01:39→21:24)
--- NOTE | 2016-10-15 03:19 | HPE ---
DATE OF ADMISSION: 10/14/2016 PRIMARY CARE PROVIDER: Quentin Mullins MD. CHIEF COMPLAINT: Patient is a [facility] ([facility]) patient. Patient was noted to be less responsive today and then he started having shivering. Temperature was checked, which was 103 at the [facility] and also at the same time his oxygen saturation dropped to high 70s, low 80s with 3 liters oxygen, so he was sent to the emergency room for evaluation. PAST MEDICAL HISTORY: 1. Chronic obstructive pulmonary disease (COPD). 2. Chronic hypoxic respiratory failure on 3 liters of oxygen. 3. Hyperlipidemia. 4. Dementia. 5. Mental retardation. 6. Iron deficiency. 7. History of left upper extremity deep venous thrombosis (DVT). 8. Borderline personality disorder. 9. Gastroesophageal reflux disease (GERD). 10. Chronic venous insufficiency with bilateral lower extremity edema intermittently. HISTORY OF PRESENT ILLNESS: This is a 65-year-old male with mild cognitive impairment, resident of [facility], who was noted to have abnormal behavior this morning. He was more sleepy than usual and seemed to be lying down, which is not his usual self. He was then noted to be shivering and his oxygen saturation had dropped to low 80s and high 70s. His temperature was checked, which showed 103 at the [facility]. He has also been coughing for the past 2 days, green-colored phlegm. Patient had four tooth extractions done 4 days ago. The patient was sent to the emergency room for evaluation. In the emergency department (ED), patient had a chest x-ray, which showed left lower lobe infiltrates consistent with pneumonia, so the patient is being admitted for left lower lobe pneumonia. PAST SURGICAL HISTORY: None. SOCIAL HISTORY: Patient does not smoke or use alcohol or recreational drugs. ALLERGIES: No known allergies. HOME MEDICATIONS: - Tylenol 650 mg every 4 hours as needed for pain or fever - albuterol ipratropium nebulizer solution four times a day - Pulmicort nebulizer solution twice a day - FiberCon 625 mg by mouth twice a day - Aricept 10 mg at bedtime - Zetia 10 mg at bedtime - ferrous sulfate 325 mg by mouth twice a day - Lasix 40 mg daily - pantoprazole 40 mg daily - Zocor 10 mg at bedtime - vitamin D 50,000 units once a week - Combivent two-puff inhalation every 4 hours as needed for shortness of breath REVIEW OF SYSTEMS: Denied any abdominal pain, diarrhea, nausea or vomiting. Denied any chest pain. Does have shortness of breath and cough. Did have fever and chills. PHYSICAL EXAMINATION: VITAL SIGNS: Blood pressure 112/57, pulse 90, respiratory rate 18, temperature on admission was 103.8, but then improved to 100.3, pulse oximetry 93% with 3 liters nasal cannula. GENERAL: Patient awake, cooperative, not in any acute distress. HEENT: Normocephalic, atraumatic. Moist mucous membranes. There is discharge through the left eye. CHEST: There are coarse breath sounds and crackles at the left base. CARDIOVASCULAR: S1, S2 regular. No rub, murmur or gallop. ABDOMEN: Soft, nontender, bowel sounds present. EXTREMITIES: No edema. LABORATORY DATA: WBC 12.5, hemoglobin 11.8, platelets 172. Sodium 137, potassium 3.4, chloride 97, bicarbonate 35, BUN 6, creatinine 0.6. BNP 223, calcium 8.3, lactic acid 0.8, glucose 128. Urinalysis clean. Chest x-ray shows infiltrates at the left base involving the left lower lobe and lingula consistent with pneumonia. ASSESSMENT AND PLAN: This is a 65-year-old male from [facility] ([facility], admitted for left lower lobe pneumonia. PLAN: 1. For left lower lobe pneumonia, could be community-acquired pneumonia versus aspiration pneumonia as patient recently had dental procedure done 4 days ago, so will give treatment with ceftriaxone, azithromycin and metronidazole to cover for anaerobes. 2. Chronic obstructive pulmonary disease (COPD). Will continue with nebulizers. 3. Acute on chronic hypoxic and hypercarbic respiratory failure. Patient is normally on 3 liters nasal cannula at [facility]. However, today he had decompensated to 79-80% at the same level of oxygen; however, now has improved. 4. Dyslipidemia. Will continue with simvastatin and Zetia. 5. Iron deficiency. Will continue with ferrous sulfate. 6. Gastroesophageal reflux disease (GERD). Will continue pantoprazole. 7. Mild mental retardation and dementia. Will continue with donepezil. 8. History of chronic venous insufficiency. At present, no edema, so will hold Lasix at present and will give hydration in view of his pneumonia and fever. 9. Possible conjunctivitis. Looks like bacterial. Will give ofloxacin eye drops. 10. Deep venous thrombosis (DVT) prophylaxis has been ordered. 11. Gastrointestinal (GI) prophylaxis has been ordered.
[2016-10-15] MEDS: metroNIDAZOLE 500 MG in APPROPRIATE DILUENT 1 EA IV SCH ×3 (05:47→22:43)
[2016-10-15 06:00] VITALS: BP 123/59
[2016-10-15 06:39] LABS: BASO % 0.2 % (0.0-1.0); EOS # 0.1 K/mm3 (0.0-0.50); EOS % 0.8 % (0.0-3.0); LARGE UNSTAINED CELL # 0.2 K/mm3 (0.0-0.4); LARGE UNSTAINED CELL % 1.8 % (0.0-4.0); LYMPH # 1.1 K/mm3 (1.5-4.5); LYMPH % 9.5 % (24.0-44.0); MEAN CORPUSCULAR HEMOGLOBIN 31.8 pg (27.0-33.0); MEAN CORPUSCULAR HGB CONC 34.3 g/dl (32.0-36.5); MEAN CORPUSCULAR VOLUME 92.7 fl (80.0-96.0); MONO # 0.7 K/mm3 (0.0-0.8); MONO % 5.9 % (0.0-5.0); NEUTROPHILS # 9.4 K/mm3 (1.8-7.7); NEUTROPHILS % 81.8 % (36.0-66.0); PLATELET COUNT, AUTOMATED 161 k/mm3 (150-450); WHITE BLOOD COUNT 11.5 K/mm3 (4.0-10.0)
[2016-10-15 06:57] LABS: ANION GAP 5 MEQ/L (8-16); BLOOD UREA NITROGEN 5 MG/DL (7-18); CALCIUM LEVEL 8.3 MG/DL (8.8-10.2); CARBON DIOXIDE LEVEL 35 MEQ/L (21-32); CHLORIDE LEVEL 102 MEQ/L (98-107); CREATININE FOR GFR 0.49 MG/DL (0.70-1.30); GLOMERULAR FILTRATION RATE > 60.0 (>49); GLUCOSE, FASTING 87 MG/DL (80-110); POTASSIUM SERUM 3.3 MEQ/L (3.5-5.1); SODIUM LEVEL 142 MEQ/L (136-145)
[2016-10-15] MEDS: BUDESONIDE 0.5 MG/2 ML INHALATION SUSPENSION INH SCH ×2 (07:36→19:42)
[2016-10-15] MEDS: AZITHROMYCIN 250 MG TAB PO SCH (09:13)
[2016-10-15] MEDS: ENOXAPARIN 40 MG/0.4 ML SYRINGE (J1650) SC SCH (09:14)
[2016-10-15] MEDS: PANTOPRAZOLE 40MG INJ (PROTONIX) (C9113) IV SCH (09:14)
--- NOTE | 2016-10-15 11:22 | IPNPDOC ---
Assessment/Plan Date Seen The patient was seen on 10/15/16. Problems Problems: (1) Pneumonia Status: Acute Problem Text: LLL. Ceftriaxone and Azithromycin day #2 (2) COPD with acute exacerbation Status: Acute Problem Text: GOLD stage 4 COPD. Chronic hypoxia with oxygen dependence. 3LNC. Saturations are stable. Plan / VTE VTE Prophylaxis Ordered?: Yes (Lovenox) Plan Plan Text Attending note: I saw and evaluated the patient, and I agree with the plan of care as discussed and documented in the note. Iván Schmid MD Subjective Review of Systems CC/HPI The patient is a 65-year-old male admitted with a reason for visit of Pneumonia. Events since last encounter Offers no c/o. Eating and drinking well. on altered diet due to recent oral surgery. Constitutional: Reports: Fever (low grade), Denies: Chills Skin: Denies: Rash Pulmonary: Reports: Cough, Dyspnea Cardiovascular: Denies: Chest Pain, Palpitations Gastrointestinal: Denies: Abdominal Pain, Nausea, Vomiting Genitourinary: Denies: Dysuria Objective Physical Examination General Exam: Positive: Alert, No Acute Distress Eye Exam: Positive: PERRLA Neck Exam: Positive: Supple, Negative: JVD Chest Exam: Positive: Clear to auscultation, Normal air movement Heart Exam: Positive: Normal S1, Normal S2, Rate Normal Abdomen Exam: Positive: Normal bowel sounds, Soft, Negative: Tenderness Extremity Exam: Negative: Clubbing, Cyanosis, Edema Skin Exam: Positive: Nl turgor and temperature Vital Signs/I&O Vital Signs Date Time Temp Pulse Resp B/P Pulse Ox O2 Delivery O2 Flow Rate FiO2 10/15/16 06:00 98.0 75 20 123/59 98 Nasal Cannula 3.0 I&O- Last 24 Hours up to 6 AM 10/15/16 06:00 Intake Total 880 ml Output Total 200 ml Balance 680 ml Laboratory Data Labs 24H Laboratory Tests 2 10/14/16 17:32: Aspartate Amino Transf (AST/SGOT) 17, Alanine Aminotransferase (ALT/SGPT) 19, Alkaline Phosphatase 84, Total Bilirubin 0.3, Direct Bilirubin 0.1, Albumin 3.0L , Albumin/Globulin Ratio 0.79L, Anion Gap 5L, B-Type Natriuretic Peptide 223H, White Blood Count 12.5H, Red Blood Count 3.72L, Hemoglobin 11.8L, Hematocrit 34.4L, Mean Corpuscular Volume 92.4, Mean Corpuscular Hemoglobin 31.6, Mean Corpuscular Hemoglobin Concent 34.2, Red Cell Distribution Width 11.8, Platelet Count 172, Neutrophils (%) (Auto) 85.6H, Lymphocytes (%) (Auto) 6.0L, Monocytes (%) (Auto) 7.0H, Eosinophils (%) (Auto) 0.3, Basophils (%) (Auto) 0.1, Neutrophils # (Auto) 10.7H, Lymphocytes # (Auto) 0.8L, Monocytes # (Auto) 0.9H, Eosinophils # (Auto) 0.0, Basophils # (Auto) 0.0, Calcium Level 8.3L, Glomerular Filtration Rate > 60.0, Lactic Acid Level 0.8, Large Unclassified Cells # 0.1, Large Unclassified Cells % 1.0, Total Protein 6.8, Troponin I < 0.02 10/14/16 18:31: Urine Amorphous Sediment , Urine Appearance CLEAR, Urine Color YELLOW, Urine pH 7.0, Urine Specific Robinson 1.019, Urine Protein 2+H, Urine Glucose (UA) NEGATIVE, Urine Ketones 1+H, Urine Urobilinogen 4.0H, Urine Bilirubin NEGATIVE, Urine Leukocyte Esterase NEGATIVE, Urine Bacteria (Auto) NEGATIVE, Urine Blood NEGATIVE, Urine Calcium Carbonate Cryst(Auto) , Urine Calcium Oxalate Cryst ( Auto) , Urine Calcium Phosphate Scarlet (Auto) , Urine Cellular Casts , Urine Cystine Crystals , Urine Granular Casts (Auto) , Urine Hyaline Casts (Auto) 0, Urine Leucine Crystals , Urine Mucus (Auto) SMALL, Urine Nitrite NEGATIVE, Urine Oval Fat Bodies (Auto) , Urine RBC (Auto) 3, Urine Renal Epithelial Cells , Urine Sperm (Auto) , Urine Squamous Epithelial Cells 0, Urine Transitional Epithelial Cells , Urine Trichomonas (Auto) , Urine Triple Phosphate Cryst (Auto ) , Urine Tyrosine Crystals , Urine Uric Acid Crystals (Auto) , Urine WBC (Auto ) 2, Urine Waxy Casts (Auto) , Urine Yeast-Like Cells (Auto) 10/15/16 06:00: Anion Gap 5L, White Blood Count 11.5H, Red Blood Count 3.37L, Hemoglobin 10.7L, Hematocrit 31.2L, Mean Corpuscular Volume 92.7, Mean Corpuscular Hemoglobin 31.8 , Mean Corpuscular Hemoglobin Concent 34.3, Red Cell Distribution Width 12.0, Platelet Count 161, Neutrophils (%) (Auto) 81.8H, Lymphocytes (%) (Auto) 9.5L, Monocytes (%) (Auto) 5.9H, Eosinophils (%) (Auto) 0.8, Basophils (%) (Auto) 0.2 , Neutrophils # (Auto) 9.4H, Lymphocytes # (Auto) 1.1L, Monocytes # (Auto) 0.7, Eosinophils # (Auto) 0.1, Basophils # (Auto) 0.0, Calcium Level 8.3L, Glomerular Filtration Rate > 60.0, Large Unclassified Cells # 0.2, Large Unclassified Cells % 1.8, Blood Urea Nitrogen 5L, Creatinine 0.49L, Sodium Level 142, Potassium Level 3.3L, Chloride Level 102, Carbon Dioxide Level 35H CBC/BMP Laboratory Tests 10/14/16 17:32 Red Blood Count 3.72 L, Mean Corpuscular Volume 92.4, Mean Corpuscular Hemoglobin 31.6, Mean Corpuscular Hemoglobin Concent 34.2, Red Cell Distribution Width 11.8, Neutrophils (%) (Auto) 85.6 H, Lymphocytes (%) (Auto) 6.0 L, Monocytes (%) (Auto) 7.0 H, Eosinophils (%) (Auto) 0.3, Basophils (%) ( Auto) 0.1, Neutrophils # (Auto) 10.7 H, Lymphocytes # (Auto) 0.8 L, Monocytes # (Auto) 0.9 H, Eosinophils # (Auto) 0.0, Basophils # (Auto) 0.0 10/15/16 06:00 Red Blood Count 3.37 L, Mean Corpuscular Volume 92.7, Mean Corpuscular Hemoglobin 31.8, Mean Corpuscular Hemoglobin Concent 34.3, Red Cell Distribution Width 12.0, Neutrophils (%) (Auto) 81.8 H, Lymphocytes (%) (Auto) 9.5 L, Monocytes (%) (Auto) 5.9 H, Eosinophils (%) (Auto) 0.8, Basophils (%) ( Auto) 0.2, Neutrophils # (Auto) 9.4 H, Lymphocytes # (Auto) 1.1 L, Monocytes # ( Auto) 0.7, Eosinophils # (Auto) 0.1, Basophils # (Auto) 0.0, Calcium Level 8.3 L Microbiology Microbiology 10/14/16 Blood Culture, Received Pending 10/14/16 Blood Culture, Received Pending 10/14/16 Influenza Virus Type A Antigen - Final, Complete 10/14/16 Influenza Virus Type B Antigen - Final, Complete 10/14/16 Urine Culture, Received Pending Henna Arias Oct 15, 2016 11:22 IVÁN SCHMID MD Oct 22, 2016 14:01
[2016-10-15 14:00] VITALS: BP 121/56
[2016-10-15] MEDS: cefTRIAXone SOD 1 GM in D5W MINI-BAG PLUS 50 ML IV SCH (21:25)
[2016-10-15 22:00] VITALS: BP 109/55
[2016-10-16] MEDS: IPRATROPIUM 0.5MG/ALBUTEROL 2.5MG INH SOL UD 3ML (DUONEB)(J7620) NEB SCH ×5 (01:24→23:00)
[2016-10-16] MEDS: ACETAMINOPHEN 500 MG TAB PO SCH ×3 (05:31→21:42)
[2016-10-16] MEDS: metroNIDAZOLE 500 MG in APPROPRIATE DILUENT 1 EA IV SCH ×3 (05:31→21:42)
[2016-10-16 06:00] VITALS: BP 122/62
[2016-10-16 06:15] LABS: BASO % 0.4 % (0.0-1.0); EOS # 0.2 K/mm3 (0.0-0.50); EOS % 1.8 % (0.0-3.0); LARGE UNSTAINED CELL # 0.2 K/mm3 (0.0-0.4); LARGE UNSTAINED CELL % 1.4 % (0.0-4.0); LYMPH # 1.3 K/mm3 (1.5-4.5); LYMPH % 9.8 % (24.0-44.0); MONO # 0.9 K/mm3 (0.0-0.8); MONO % 8.2 % (0.0-5.0); NEUTROPHILS # 8.8 K/mm3 (1.8-7.7); NEUTROPHILS % 78.4 % (36.0-66.0); PLATELET COUNT, AUTOMATED 188 k/mm3 (150-450); RED CELL DISTRIBUTION WIDTH 12.9 % (11.5-14.5); WHITE BLOOD COUNT 11.2 K/mm3 (4.0-10.0)
[2016-10-16 06:33] LABS: ANION GAP 6 MEQ/L (8-16); BLOOD UREA NITROGEN 5 MG/DL (7-18); CALCIUM LEVEL 8.1 MG/DL (8.8-10.2); CARBON DIOXIDE LEVEL 33 MEQ/L (21-32); CHLORIDE LEVEL 104 MEQ/L (98-107); CREATININE FOR GFR 0.47 MG/DL (0.70-1.30); GLOMERULAR FILTRATION RATE > 60.0 (>49); GLUCOSE, FASTING 106 MG/DL (80-110); POTASSIUM SERUM 3.5 MEQ/L (3.5-5.1); SODIUM LEVEL 143 MEQ/L (136-145)
[2016-10-16] MEDS: BUDESONIDE 0.5 MG/2 ML INHALATION SUSPENSION INH SCH ×2 (07:20→19:44)
--- NOTE | 2016-10-16 07:49 | ECGEPIP ---
Stationary ECG Study [facility] - ED Test Date: 2016-10-14 Pat Name: NICKOLAS COLLADO Department: Room: [place] [address] Gender: M Clean Up Helper Banquet: ct : 1950 Requested By: DANIELE Daniel Order Number: [id number] Reading MD: Joana Carvajal Measurements Intervals [place] Rate: 87 P: 67 SC: 131 QRS: 51 QRSD: 94 T: -60 QT: 243 QTc: 294 Interpretive Statements SINUS RHYTHM NONSPECIFIC ST & T-WAVE ABNORMALITY, MORE PRONOUNCED COMPARED 08/13/15 Electronically Signed On 10-16-2016 7:49:33 EST by Joana Carvajal
--- NOTE | 2016-10-16 08:03 | IPNPDOC ---
Assessment/Plan Date Seen The patient was seen on 10/16/16. Problems Problems: (1) Pneumonia Status: Acute Problem Text: LLL. Ceftriaxone and Azithromycin day #3 (2) COPD with acute exacerbation Status: Acute Problem Text: GOLD stage 4 COPD. Chronic hypoxia with oxygen dependence. 3LNC. Saturations are stable. Plan / VTE VTE Prophylaxis Ordered?: Yes (Lovenox) Plan Plan Text Attending note: I saw and evaluated the patient, and I agree with the plan of care as discussed and documented. Iván Schmid MD Subjective Review of Systems CC/HPI The patient is a 65-year-old male admitted with a reason for visit of Pneumonia. Events since last encounter Denies c/o. Per Nursing staff, eating and drinking well. Constitutional: Reports: Fever, Denies: Chills Skin: Denies: Rash Pulmonary: Reports: Cough, Dyspnea Cardiovascular: Denies: Chest Pain, Orthopnea, Palpitations Gastrointestinal: Denies: Abdominal Pain, Constipation, Diarrhea, Nausea, Vomiting Genitourinary: Denies: Dysuria, Frequency Psych: Reports: Mood Normal Objective Physical Examination General Exam: Positive: Alert, No Acute Distress Eye Exam: Positive: PERRLA Neck Exam: Positive: Supple, Negative: JVD Chest Exam: Positive: Clear to auscultation, Normal air movement Heart Exam: Positive: Normal S1, Normal S2, Rate Normal Abdomen Exam: Positive: Normal bowel sounds, Soft, Negative: Tenderness Extremity Exam: Negative: Clubbing, Cyanosis, Edema Skin Exam: Positive: Nl turgor and temperature Psych Exam: Positive: Mental status NL Vital Signs/I&O Vital Signs Date Time Temp Pulse Resp B/P Pulse Ox O2 Delivery O2 Flow Rate FiO2 10/16/16 06:00 99.1 87 18 122/62 97 Nasal Cannula 3.0 I&O- Last 24 Hours up to 6 AM 10/16/16 06:00 Intake Total 4450 ml Output Total 1475 ml Balance 2975 ml Laboratory Data Labs 24H Laboratory Tests 2 10/16/16 05:54: Anion Gap 6L, White Blood Count 11.2H, Red Blood Count 3.45L, Hemoglobin 10.7L, Hematocrit 33.4L, Mean Corpuscular Volume 97.0H, Mean Corpuscular Hemoglobin 31.0, Mean Corpuscular Hemoglobin Concent 32.0, Red Cell Distribution Width 12.9 , Platelet Count 188, Neutrophils (%) (Auto) 78.4H, Lymphocytes (%) (Auto) 9.8L , Monocytes (%) (Auto) 8.2H, Eosinophils (%) (Auto) 1.8, Basophils (%) (Auto) 0.4, Neutrophils # (Auto) 8.8H, Lymphocytes # (Auto) 1.3L, Monocytes # (Auto) 0.9H, Eosinophils # (Auto) 0.2, Basophils # (Auto) 0.0, Blood Urea Nitrogen 5L, Creatinine 0.47L, Sodium Level 143, Potassium Level 3.5, Chloride Level 104, Carbon Dioxide Level 33H, Calcium Level 8.1L, Glomerular Filtration Rate > 60.0 , Large Unclassified Cells # 0.2, Large Unclassified Cells % 1.4 CBC/BMP Laboratory Tests 10/16/16 05:54 Calcium Level 8.1 L, Red Blood Count 3.45 L, Mean Corpuscular Volume 97.0 H, Mean Corpuscular Hemoglobin 31.0, Mean Corpuscular Hemoglobin Concent 32.0, Red Cell Distribution Width 12.9, Neutrophils (%) (Auto) 78.4 H, Lymphocytes (%) ( Auto) 9.8 L, Monocytes (%) (Auto) 8.2 H, Eosinophils (%) (Auto) 1.8, Basophils ( %) (Auto) 0.4, Neutrophils # (Auto) 8.8 H, Lymphocytes # (Auto) 1.3 L, Monocytes # (Auto) 0.9 H, Eosinophils # (Auto) 0.2, Basophils # (Auto) 0.0 Microbiology Microbiology 10/14/16 Blood Culture - Preliminary, Resulted No growth after 24 hours . All specim... 10/14/16 Blood Culture - Preliminary, Resulted No growth after 24 hours . All specim... 10/15/16 Stool Occult Blood (REFUGIO) - Final, Complete 10/15/16 Gram Stain - Final, Resulted 10/15/16 Sputum Culture, Resulted Pending 10/14/16 Influenza Virus Type A Antigen - Final, Complete 10/14/16 Influenza Virus Type B Antigen - Final, Complete 10/14/16 Urine Culture, Received Pending Henna Arias Oct 16, 2016 08:03 IVÁN SCHMID MD Oct 22, 2016 19:24
[2016-10-16] MEDS: FERROUS SULFATE 325MG TAB PO SCH ×2 (08:42→20:01)
[2016-10-16] MEDS: SENOKOT S TAB PO SCH ×2 (08:42→20:01)
[2016-10-16] MEDS: AZITHROMYCIN 250 MG TAB PO SCH (08:42)
[2016-10-16] MEDS: PANTOPRAZOLE 40MG INJ (PROTONIX) (C9113) IV SCH (08:43)
[2016-10-16] MEDS: OFLOXACIN 0.3 % (OCUFLOX) OPTH SOL 5ML OS SCH ×4 (08:43→20:00)
[2016-10-16] MEDS: ENOXAPARIN 40 MG/0.4 ML SYRINGE (J1650) SC SCH (08:43)
[2016-10-16] MEDS: NS 1,000 ML IV SCH ×2 (11:21→21:42)
[2016-10-16 14:00] VITALS: BP 117/55
[2016-10-16] MEDS: SIMVASTATIN 10 MG TAB PO SCH (20:00)
[2016-10-16] MEDS: DONEPEZIL 5 MG TAB PO SCH (20:00)
[2016-10-16] MEDS: cefTRIAXone SOD 1 GM in D5W MINI-BAG PLUS 50 ML IV SCH (20:00)
[2016-10-16] MEDS: EZETIMIBE 10 MG TAB (ZETIA) PO SCH (20:01)
[2016-10-17] VITALS (8 sets, daily range): BP systolic 107–136; BP diastolic 51–75
[2016-10-17] MEDS: NS 1,000 ML IV SCH (00:50)
--- NOTE | 2016-10-17 00:50 | EDDOCDS ---
Physician Documentation [facility] Name: Guido Hu Age: 65 yrs Sex: Male : 1950 Arrival Date: 10/14/2016 Time: 15:58 Bed 15 Private MD: Disposition: 10/14/16 21:53 Hospitalization ordered by Manisha Madison for Inpatient Admission. Preliminary diagnosis are Pneumonia, unspecified organism, Abnormal electrocardiogram [ECG] [EKG]. - Bed requested for 4 [place]. - Status is Inpatient Admission. alie - Condition is Stable. - Problem is new. - Symptoms are unchanged. Historical: - Allergies: no known allergies; - Home Meds: 1. Pulmicort 0.5 mg/2 mL Inhl nbsp 2 mL 2 times per day (Last dose: 10/14/2016 08:00) 2. Lasix 40 mg Oral tab 1 tab once daily (Last dose: 10/14/2016 08:00) 3. Protonix 40 mg Oral TbEC 1 tab once daily (Last dose: 10/14/2016 08:00) 4. FiberCon 625 mg Oral tab 625 mg twice a day (Last dose: 10/14/2016 08:00) 5. ferrous sulfate 325 mg (65 mg iron) Oral cpER 325 mg twice a day (Last dose: 10/14/2016 08:00) 6. Zetia 10 mg Oral tab 1 tab nightly (Last dose: 10/13/2016 22:00) 7. Zocor 10 mg Oral tab 1 tab nightly (Last dose: 10/13/2016 22:00) 8. Aricept 10 mg Oral tab 1 tab nightly (Last dose: 10/13/2016 21:00) 9. Oxygen 3 liter daily 10. ipratroplum 0.5-albuterol neb four times a day 11. Drisdol 50,000 unit Oral cap once wkly (Last dose: 10/08/2016) 12. Combivent 18-103 mcg/actuation Inhl aero 2 puffs 6 times per day as needed, 2 puffs - PMHx: Borderline Personality Disorder; COPD; Diabetes - NIDDM: controlled; Hypercholesterolemia; Left upper DVT; Mild Intellectual disability; - PSHx: none; - Social history: Smoking status: Patient states was never smoker of tobacco. Patient is hearing impaired. - Family history: Not pertinent. - : The pt / caregiver states he / she is not on anticoagulants. Home medication list is obtained from the facility MAR. - Exposure Risk Screening:: None identified. Vital Signs: 10/14 16:08 BP 132 / 60; Pulse 98; Resp 22; Temp 103.8(TE); Pulse Ox 94% on 3 lpm NC; dem1 16:22 BP 117 / 54 (auto/); hs1 16:23 Pulse 90 MON; Pulse Ox 95% ; hs1 16:37 BP 117 / 55 (auto/); hs1 16:38 Pulse 84 MON; Pulse Ox 97% ; hs1 16:52 BP 114 / 54 (auto/); hs1 16:53 Pulse 84 MON; Pulse Ox 98% ; hs1 17:07 BP 121 / 58 (auto/); hs1 17:08 Pulse 86 MON; Pulse Ox 98% ; hs1 17:22 BP 121 / 58 (auto/); hs1 17:22 Pulse 84 MON; Pulse Ox 99% ; hs1 17:37 BP 130 / 60 (auto/); hs1 17:37 Pulse 88 MON; Resp 18; Pulse Ox 98% ; hs1 17:48 Temp 100.3(O); hs1 17:52 BP 124 / 58 (auto/); hs1 17:53 Pulse 86 MON; Pulse Ox 95% ; hs1 18:07 BP 114 / 57 (auto/); hs1 18:08 Pulse 88 MON; Pulse Ox 95% ; hs1 18:22 BP 135 / 62 (auto/); hs1 18:23 Pulse 94 MON; Pulse Ox 95% ; hs1 18:37 BP 112 / 57 (auto/); hs1 18:37 Pulse 90 MON; Pulse Ox 93% ; hs1 22:05 BP 126 / 58; Pulse 78; Resp 18; Pulse Ox 96% on R/A; Pain 0/10; tm5 23:08 BP 111 / 79; Pulse 84; Resp 20; Temp 99.3(O); Pulse Ox 96% on R/A; Pain 0/10; tm5 MDM: 18:06 -Blood Culture (Adults Only), peripheral from different site, or from device/port/PICC br1 etc. if present ordered. 18:06 Group Chief Operator/Pulse Ox/q 15 min VS ordered. br1 18:06 CBC with Diff Ordered. EDMS 18:06 Lactic Acid (Kumar tube on ice) Ordered. EDMS 18:06 Liver Profile Ordered. EDMS 18:06 MED Profile Ordered. EDMS 18:06 Urinalysis Ordered. EDMS 18:06 -Blood Culture Ordered. EDMS 18:06 Urine Culture Ordered. EDMS 18:07 Chest, 2 View (pa\E\lat) Ordered. EDMS 18:07 ECG WITH READING ER PHYS+CARDIAG ordered. EDMS 18:07 BNP Ordered. EDMS 18:07 -Influenza A&B Rapid Antigen - Nose Ordered. EDMS 18:07 Acetaminophen Tablet 650 mg PO once ordered. br1 18:09 -Blood Culture (Adults Only), peripheral from different site, or from device/port/PICC deg etc. if present complete. 18:11 BLOOD CULTURES Ordered. EDMS 18:15 TROPONIN Ordered. EDMS 18:32 Financial registration complete. [facility] 18:35 [facility] Payment Agreement was scanned into [employer] and attached to record. gjb 20:56 CBC with Diff Reviewed. br1 20:56 Liver Profile Reviewed. br1 20:56 MED Profile Reviewed. br1 20:56 Urinalysis Reviewed. br1 20:56 BNP Reviewed. br1 20:56 Lactic Acid (Kumar tube on ice) Reviewed. br1 20:56 -Influenza A&B Rapid Antigen - Nose Reviewed. br1 20:56 TROPONIN Reviewed. br1 20:56 Chest, 2 View (pa\E\lat) Reviewed. br1 21:04 BED REQUEST+ADM ordered. EDMS 21:51 cefTRIAXone 1 grams IVPB once over 30 mins; dilute in 50mL of NS or D5W ordered. br1 21:51 azithromycin 500 mg IVPB once over 1 hrs; dilute in 250mL of D5W or NS ordered. br1 23:01 Admission / Observation Status ordered. EDMS 23:01 OTHER CUSTOM DIETS ordered. EDMS 23:01 ARTERIAL BLOOD GAS Ordered. EDMS 23:01 CBC WITH DIFFERENTIAL Ordered. EDMS 23:01 BASIC METABOLIC PROFILE Ordered. EDMS 10/15 11:00 T-Sheet-- Draft Copy was scanned into [employer] and attached to record. gb Administered Medications: 10/14 18:40 Drug: Acetaminophen 650 mg [acetaminophen 325 mg tablet (2 tabs)] Route: PO; hs1 19:25 Follow up: Response: No Adverse Reaction; Pain is decreased tm5 22:05 Drug: cefTRIAXone 1 grams [ceftriaxone 1 gram solution for injection] Route: IVPB; tm5 Infused Over: 30 mins; Site: left antecubital; 22:38 Follow up: IV Status: Completed infusion; IV Intake: 50ml tm5 22:38 Drug: azithromycin 500 mg [azithromycin 500 mg intravenous solution] Route: IVPB; tm5 Infused Over: 1 hrs; Site: left antecubital; Signatures: Dispatcher [employer] EDMS Elvira Corado, Biomass Facilitator Unit deg [place], Angelica Lua, RN RN Nehal Villegas, Reg Reg gb Vivien, Burt, Biomass Facilitator Unit ml3 El Khanna MD MD br1 Isela Jensen RN RN mk4 Kristel Morganb Hazel Cosby RN RN tm5 Nati Eli RN hs1 The chart was reviewed and I authenticate all verbal orders and agree with the evaluation and treatment provided.Corrections: (The following items were deleted from the chart) 18:15 18:07 TROPONIN+LAB ordered. EDMS EDMS 19:25 18:07 Oxygen at 4L/Min NC or Home dosage ordered. br1 tm5 Attachments: 18:35 [facility] Payment Agreement gjb 10/15 11:00 T-Sheet-- Draft Copy gb Chart Complete MTDD
--- NOTE | 2016-10-17 00:50 | EDDOCDS ---
Physician Documentation [facility] Name: Guido Hu Age: 65 yrs Sex: Male : 1950 Arrival Date: 10/14/2016 Time: 15:58 Bed 15 Private MD: Disposition: 10/14/16 21:53 Hospitalization ordered by Manisha Madison for Inpatient Admission. Preliminary diagnosis are Pneumonia, unspecified organism, Abnormal electrocardiogram [ECG] [EKG]. - Bed requested for 4 [place]. - Status is Inpatient Admission. alie - Condition is Stable. - Problem is new. - Symptoms are unchanged. Historical: - Allergies: no known allergies; - Home Meds: 1. Pulmicort 0.5 mg/2 mL Inhl nbsp 2 mL 2 times per day (Last dose: 10/14/2016 08:00) 2. Lasix 40 mg Oral tab 1 tab once daily (Last dose: 10/14/2016 08:00) 3. Protonix 40 mg Oral TbEC 1 tab once daily (Last dose: 10/14/2016 08:00) 4. FiberCon 625 mg Oral tab 625 mg twice a day (Last dose: 10/14/2016 08:00) 5. ferrous sulfate 325 mg (65 mg iron) Oral cpER 325 mg twice a day (Last dose: 10/14/2016 08:00) 6. Zetia 10 mg Oral tab 1 tab nightly (Last dose: 10/13/2016 22:00) 7. Zocor 10 mg Oral tab 1 tab nightly (Last dose: 10/13/2016 22:00) 8. Aricept 10 mg Oral tab 1 tab nightly (Last dose: 10/13/2016 21:00) 9. Oxygen 3 liter daily 10. ipratroplum 0.5-albuterol neb four times a day 11. Drisdol 50,000 unit Oral cap once wkly (Last dose: 10/08/2016) 12. Combivent 18-103 mcg/actuation Inhl aero 2 puffs 6 times per day as needed, 2 puffs - PMHx: Borderline Personality Disorder; COPD; Diabetes - NIDDM: controlled; Hypercholesterolemia; Left upper DVT; Mild Intellectual disability; - PSHx: none; - Social history: Smoking status: Patient states was never smoker of tobacco. Patient is hearing impaired. - Family history: Not pertinent. - : The pt / caregiver states he / she is not on anticoagulants. Home medication list is obtained from the facility MAR. - Exposure Risk Screening:: None identified. Vital Signs: 10/14 16:08 BP 132 / 60; Pulse 98; Resp 22; Temp 103.8(TE); Pulse Ox 94% on 3 lpm NC; dem1 16:22 BP 117 / 54 (auto/); hs1 16:23 Pulse 90 MON; Pulse Ox 95% ; hs1 16:37 BP 117 / 55 (auto/); hs1 16:38 Pulse 84 MON; Pulse Ox 97% ; hs1 16:52 BP 114 / 54 (auto/); hs1 16:53 Pulse 84 MON; Pulse Ox 98% ; hs1 17:07 BP 121 / 58 (auto/); hs1 17:08 Pulse 86 MON; Pulse Ox 98% ; hs1 17:22 BP 121 / 58 (auto/); hs1 17:22 Pulse 84 MON; Pulse Ox 99% ; hs1 17:37 BP 130 / 60 (auto/); hs1 17:37 Pulse 88 MON; Resp 18; Pulse Ox 98% ; hs1 17:48 Temp 100.3(O); hs1 17:52 BP 124 / 58 (auto/); hs1 17:53 Pulse 86 MON; Pulse Ox 95% ; hs1 18:07 BP 114 / 57 (auto/); hs1 18:08 Pulse 88 MON; Pulse Ox 95% ; hs1 18:22 BP 135 / 62 (auto/); hs1 18:23 Pulse 94 MON; Pulse Ox 95% ; hs1 18:37 BP 112 / 57 (auto/); hs1 18:37 Pulse 90 MON; Pulse Ox 93% ; hs1 22:05 BP 126 / 58; Pulse 78; Resp 18; Pulse Ox 96% on R/A; Pain 0/10; tm5 23:08 BP 111 / 79; Pulse 84; Resp 20; Temp 99.3(O); Pulse Ox 96% on R/A; Pain 0/10; tm5 MDM: 18:06 -Blood Culture (Adults Only), peripheral from different site, or from device/port/PICC br1 etc. if present ordered. 18:06 Underwriting Specialist/Pulse Ox/q 15 min VS ordered. br1 18:06 CBC with Diff Ordered. EDMS 18:06 Lactic Acid (Kumar tube on ice) Ordered. EDMS 18:06 Liver Profile Ordered. EDMS 18:06 MED Profile Ordered. EDMS 18:06 Urinalysis Ordered. EDMS 18:06 -Blood Culture Ordered. EDMS 18:06 Urine Culture Ordered. EDMS 18:07 Chest, 2 View (pa\E\lat) Ordered. EDMS 18:07 ECG WITH READING ER PHYS+CARDIAG ordered. EDMS 18:07 BNP Ordered. EDMS 18:07 -Influenza A&B Rapid Antigen - Nose Ordered. EDMS 18:07 Acetaminophen Tablet 650 mg PO once ordered. br1 18:09 -Blood Culture (Adults Only), peripheral from different site, or from device/port/PICC deg etc. if present complete. 18:11 BLOOD CULTURES Ordered. EDMS 18:15 TROPONIN Ordered. EDMS 18:32 Financial registration complete. [facility] 18:35 [facility] Payment Agreement was scanned into [employer] and attached to record. gjb 20:56 CBC with Diff Reviewed. br1 20:56 Liver Profile Reviewed. br1 20:56 MED Profile Reviewed. br1 20:56 Urinalysis Reviewed. br1 20:56 BNP Reviewed. br1 20:56 Lactic Acid (Kumar tube on ice) Reviewed. br1 20:56 -Influenza A&B Rapid Antigen - Nose Reviewed. br1 20:56 TROPONIN Reviewed. br1 20:56 Chest, 2 View (pa\E\lat) Reviewed. br1 21:04 BED REQUEST+ADM ordered. EDMS 21:51 cefTRIAXone 1 grams IVPB once over 30 mins; dilute in 50mL of NS or D5W ordered. br1 21:51 azithromycin 500 mg IVPB once over 1 hrs; dilute in 250mL of D5W or NS ordered. br1 23:01 Admission / Observation Status ordered. EDMS 23:01 OTHER CUSTOM DIETS ordered. EDMS 23:01 ARTERIAL BLOOD GAS Ordered. EDMS 23:01 CBC WITH DIFFERENTIAL Ordered. EDMS 23:01 BASIC METABOLIC PROFILE Ordered. EDMS 10/15 11:00 T-Sheet-- Draft Copy was scanned into [employer] and attached to record. gb Administered Medications: 10/14 18:40 Drug: Acetaminophen 650 mg [acetaminophen 325 mg tablet (2 tabs)] Route: PO; hs1 19:25 Follow up: Response: No Adverse Reaction; Pain is decreased tm5 22:05 Drug: cefTRIAXone 1 grams [ceftriaxone 1 gram solution for injection] Route: IVPB; tm5 Infused Over: 30 mins; Site: left antecubital; 22:38 Follow up: IV Status: Completed infusion; IV Intake: 50ml tm5 22:38 Drug: azithromycin 500 mg [azithromycin 500 mg intravenous solution] Route: IVPB; tm5 Infused Over: 1 hrs; Site: left antecubital; Signatures: Dispatcher [employer] EDMS Elvira Corado, High School Math Teacher Unit deg [place], Angelica Lua, RN RN Nehal Villegas, Reg Reg gb Vivien, Burt, High School Math Teacher Unit ml3 El Khanna MD MD br1 Isela Jensen RN RN mk4 Kristel Morganb Hazel Cosby RN RN tm5 Nati Eli RN hs1 The chart was reviewed and I authenticate all verbal orders and agree with the evaluation and treatment provided.Corrections: (The following items were deleted from the chart) 18:15 18:07 TROPONIN+LAB ordered. EDMS EDMS 19:25 18:07 Oxygen at 4L/Min NC or Home dosage ordered. br1 tm5 Attachments: 18:35 [facility] Payment Agreement gjb 10/15 11:00 T-Sheet-- Draft Copy gb Chart Complete MTDD
--- NOTE | 2016-10-17 00:51 | EDDOCDS ---
Nurse's Notes [facility] Name: Guido Hu Age: 65 yrs Sex: Male : 1950 Arrival Date: 10/14/2016 Time: 15:58 Bed 15 Private MD: Diagnosis: Pneumonia, unspecified organism;Abnormal electrocardiogram [ECG] [EKG] Presentation: 10/14 16:04 Presenting complaint: EMS states: pt had 10 teeth pulled 4 days ago and today started mk4 shivering and had a low oxygen. Adult Sepsis Screening: The patient does not have new or worsening altered mentation. Systolic blood pressure is greater than 100. Patient has a qSOFA score of 1- Negative Sepsis Screen. Suicide/Homicide risk assessment- Unable to assess, due to patient's chronic mental disability. 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 Transition of care: patient was received from [facility]. 16:04 Acuity: MANISHA Level 2 [facility] 16:04 Method Of Arrival: Ambulance 4 Triage Assessment: 16:13 General: Appears in no apparent distress. mk4 Historical: - Allergies: no known allergies; - Home Meds: 1. Pulmicort 0.5 mg/2 mL Inhl nbsp 2 mL 2 times per day (Last dose: 10/14/2016 08:00) 2. Lasix 40 mg Oral tab 1 tab once daily (Last dose: 10/14/2016 08:00) 3. Protonix 40 mg Oral TbEC 1 tab once daily (Last dose: 10/14/2016 08:00) 4. FiberCon 625 mg Oral tab 625 mg twice a day (Last dose: 10/14/2016 08:00) 5. ferrous sulfate 325 mg (65 mg iron) Oral cpER 325 mg twice a day (Last dose: 10/14/2016 08:00) 6. Zetia 10 mg Oral tab 1 tab nightly (Last dose: 10/13/2016 22:00) 7. Zocor 10 mg Oral tab 1 tab nightly (Last dose: 10/13/2016 22:00) 8. Aricept 10 mg Oral tab 1 tab nightly (Last dose: 10/13/2016 21:00) 9. Oxygen 3 liter daily 10. ipratroplum 0.5-albuterol neb four times a day 11. Drisdol 50,000 unit Oral cap once wkly (Last dose: 10/08/2016) 12. Combivent 18-103 mcg/actuation Inhl aero 2 puffs 6 times per day as needed, 2 puffs - PMHx: Borderline Personality Disorder; COPD; Diabetes - NIDDM: controlled; Hypercholesterolemia; Left upper DVT; Mild Intellectual disability; - PSHx: none; - Social history: Smoking status: Patient states was never smoker of tobacco. Patient is hearing impaired. - Family history: Not pertinent. - : The pt / caregiver states he / she is not on anticoagulants. Home medication list is obtained from the facility NOV. - Exposure Risk Screening:: None identified. Screenin:44 Screening information is obtained from residence staff. Fall risk: No risks identified. hs1 Assistance ADL's: Requires assistance with meal preparation, this assistance is provided by residence staff, housework, assistance is provided by residence staff, medication administration, assistance is provided by residence staff. Abuse/DV Screen: The patient / caregiver reports he/she is: not in a situation that causes fear, pain or injury. Nutritional screening: No deficits noted. Advance Directives: There is no active DNR order. home support. Assessment: 16:40 General: Appears in no apparent distress, comfortable, Behavior is appropriate for age, hs1 cooperative. Pain: Denies pain. Neurological: Level of Consciousness is awake, alert, Oriented to person, place, time. EENT: Eyes with exudate noted from left eye. Respiratory: Airway is patent Respiratory effort is even, unlabored, Respiratory pattern is regular, symmetrical. Derm: Skin is pink, warm & dry. normal. Derm: Skin is red, on left eye. 22:05 Reassessment: Patient appears in no apparent distress at this time. Patient states tm5 symptoms have improved. pt voices no complaints at this time, is watching TV, Caregiver at bedside with pt . 23:12 General: SBAR tubed & faxed to 4 [facility]. tm5 23:46 General: called 4 [facility] & pt can be transferred to the floor in about 10 minutes. tm5 Vital Signs: 16:08 BP 132 / 60; Pulse 98; Resp 22; Temp 103.8(TE); Pulse Ox 94% on 3 lpm NC; dem1 16:22 BP 117 / 54 (auto/); hs1 16:23 Pulse 90 MON; Pulse Ox 95% ; hs1 16:37 BP 117 / 55 (auto/); hs1 16:38 Pulse 84 MON; Pulse Ox 97% ; hs1 16:52 BP 114 / 54 (auto/); hs1 16:53 Pulse 84 MON; Pulse Ox 98% ; hs1 17:07 BP 121 / 58 (auto/); hs1 17:08 Pulse 86 MON; Pulse Ox 98% ; hs1 17:22 BP 121 / 58 (auto/); hs1 17:22 Pulse 84 MON; Pulse Ox 99% ; hs1 17:37 BP 130 / 60 (auto/); hs1 17:37 Pulse 88 MON; Resp 18; Pulse Ox 98% ; hs1 17:48 Temp 100.3(O); hs1 17:52 BP 124 / 58 (auto/); hs1 17:53 Pulse 86 MON; Pulse Ox 95% ; hs1 18:07 BP 114 / 57 (auto/); hs1 18:08 Pulse 88 MON; Pulse Ox 95% ; hs1 18:22 BP 135 / 62 (auto/); hs1 18:23 Pulse 94 MON; Pulse Ox 95% ; hs1 18:37 BP 112 / 57 (auto/); hs1 18:37 Pulse 90 MON; Pulse Ox 93% ; hs1 22:05 BP 126 / 58; Pulse 78; Resp 18; Pulse Ox 96% on R/A; Pain 0/10; tm5 23:08 BP 111 / 79; Pulse 84; Resp 20; Temp 99.3(O); Pulse Ox 96% on R/A; Pain 0/10; tm5 Vitals: 16:08 Log In Time N/A - ambulance arrival. [facility] ED Course: 16:00 Patient visited by Elvira Corado, Chicken Buyer. deg 16:00 Patient moved to Waiting deg 16:01 Patient moved to 15 deg 16:06 Triage Initiated mk4 16:09 Patient visited by Sandy Hernandez. dem1 17:14 Patient visited by Pam Uribe PCA. ct3 17:45 Patient visited by Nati Eli RN. hs1 17:49 The patient / caregiver is instructed regarding the plan of care and ED course. hs1 17:49 Inserted saline lock: 20 gauge in left antecubital area and blood collected. The hs1 patient tolerated the procedure well. 17:56 Roggie, El, MD is Attending Physician. br1 18:07 -Blood Culture Sent. hs1 18:07 CBC with Diff Sent. hs1 18:07 Lactic Acid (Kumar tube on ice) Sent. hs1 18:07 Urine Culture Sent. hs1 18:07 Urinalysis Sent. hs1 18:08 Patient visited by El Khanna MD. br1 18:08 MED Profile Sent. hs1 18:08 Liver Profile Sent. hs1 18:08 BNP Sent. hs1 18:21 Patient visited by Pam Uribe PCA. ct3 18:21 EKG done. (by ED staff). Reviewed by El Khanna MD. ct3 18:35 [facility] Payment Agreement was scanned into [employer] and attached to record. gjb 19:01 BLOOD CULTURES Sent. cln 19:13 Patient visited by Apolinar Liu PCA. kb5 19:37 Patient visited by Hazel Cosby RN. tm5 19:45 Chest, 2 View (pa\E\lat) Returned. EDMS 20:11 Patient visited by Apolinar Liu PCA. kb5 20:49 Patient visited by Hazel Cosby,DASIA. tm5 21:09 Patient visited by Hazel Cosby,DASIA. tm5 21:10 Patient visited by Hazel Cosby,DASIA. tm5 21:53 Manisha Madison is Hospitalizing Provider. br1 22:05 Awaiting bed assignment. tm5 22:38 Patient visited by Hazel Cosby,DASIA. tm5 22:46 Patient visited by Hazel Cosby,DASIA. tm5 22:46 Visited by Hospitalist Vicky at bedside for admission eval. tm5 23:06 Patient visited by Hazel Cosby RN. tm5 23:12 Patient visited by Hazel Cosby,DASIA. tm5 23:46 Patient visited by Hazel Cosby RN. tm5 23:46 No procedures done that require assistance. sep 29 11:00 T-Sheet-- Draft Copy was scanned into [employer] and attached to record. gb Administered Medications: 10/14 18:40 Drug: Acetaminophen 650 mg [acetaminophen 325 mg tablet (2 tabs)] Route: PO; hs1 19:25 Follow up: Response: No Adverse Reaction; Pain is decreased tm5 22:05 Drug: cefTRIAXone 1 grams [ceftriaxone 1 gram solution for injection] Route: IVPB; tm5 Infused Over: 30 mins; Site: left antecubital; 22:38 Follow up: IV Status: Completed infusion; IV Intake: 50ml tm5 22:38 Drug: azithromycin 500 mg [azithromycin 500 mg intravenous solution] Route: IVPB; tm5 Infused Over: 1 hrs; Site: left antecubital; Intake: 22:38 IV: 50.00ml; Total: 50.00ml. tm5 Order Results: Lab Order: CBC with Diff; SPEC'M 10/14/16 17:32 Test: WHITE BLOOD COUNT; Value: 12.5; Range: 4.0-10.0; Abnormal: Above high normal; Units: K/mm3; Status: F Test: RED BLOOD COUNT; Value: 3.72; Range: 4.30-6.10; Abnormal: Below low normal; Units: M/mm3; Status: F Test: HEMOGLOBIN; Value: 11.8; Range: 14.0-18.0; Abnormal: Below low normal; Units: g/dl; Status: F Test: HEMATOCRIT; Value: 34.4; Range: 42.0-52.0; Abnormal: Below low normal; Units: %; Status: F Test: MEAN CORPUSCULAR VOLUME; Value: 92.4; Range: 80.0-96.0; Units: fl; Status: F Test: MEAN CORPUSCULAR HEMOGLOBIN; Value: 31.6; Range: 27.0-33.0; Units: pg; Status: F Test: MEAN CORPUSCULAR HGB CONC; Value: 34.2; Range: 32.0-36.5; Units: g/dl; Status: F Test: RED CELL DISTRIBUTION WIDTH; Value: 11.8; Range: 11.5-14.5; Units: %; Status: F Test: PLATELET COUNT, AUTOMATED; Value: 172; Range: 150-450; Units: k/mm3; Status: F Test: NEUTROPHILS %; Value: 85.6; Range: 36.0-66.0; Abnormal: Above high normal; Units: %; Status: F Test: LYMPH %; Value: 6.0; Range: 24.0-44.0; Abnormal: Below low normal; Units: %; Status: F Test: MONO %; Value: 7.0; Range: 0.0-5.0; Abnormal: Above high normal; Units: %; Status: F Test: EOS %; Value: 0.3; Range: 0.0-3.0; Units: %; Status: F Test: BASO %; Value: 0.1; Range: 0.0-1.0; Units: %; Status: F Test: LARGE UNSTAINED CELL %; Value: 1.0; Range: 0.0-4.0; Units: %; Status: F Test: NEUTROPHILS #; Value: 10.7; Range: 1.8-7.7; Abnormal: Above high normal; Units: K/mm3; Status: F Test: LYMPH #; Value: 0.8; Range: 1.5-4.5; Abnormal: Below low normal; Units: K/mm3; Status: F Test: MONO #; Value: 0.9; Range: 0.0-0.8; Abnormal: Above high normal; Units: K/mm3; Status: F Test: EOS #; Value: 0.0; Range: 0.0-0.50; Units: K/mm3; Status: F Test: BASO #; Value: 0.0; Range: 0.0-0.2; Units: K/mm3; Status: F Test: LARGE UNSTAINED CELL #; Value: 0.1; Range: 0.0-0.4; Units: K/mm3; Status: F Lab Order: Lactic Acid (Kumar tube on ice); SPEC'M 10/14/16 17:32 Test: LACTIC ACID LEVEL, LACTATE; Value: 0.8; Range: 0.4-2.0; Units: MMOL/L; Status: F Lab Order: Liver Profile; SPEC'M 10/14/16 17:32 Test: AST/SGOT; Value: 17; Range: 15-37; Units: U/L; Status: F Test: ALT/SGPT; Value: 19; Range: 12-78; Units: U/L; Status: F Test: ALKALINE PHOSPHATASE; Value: 84; Range: 45-117; Units: U/L; Status: F Test: BILIRUBIN,TOTAL; Value: 0.3; Range: 0.2-1.0; Units: MG/DL; Status: F Test: BILIRUBIN,DIRECT; Value: 0.1; Range: 0.0-0.2; Units: MG/DL; Status: F Test: TOTAL PROTEIN; Value: 6.8; Range: 6.4-8.2; Units: GM/DL; Status: F Test: ALBUMIN; Value: 3.0; Range: 3.2-5.2; Abnormal: Below low normal; Units: GM/DL; Status: F Test: ALBUMIN/GLOBULIN RATIO; Value: 0.79; Range: 1.00-1.93; Abnormal: Below low normal; Status: F Lab Order: MED Profile; [facility]'M 10/14/16 17:32 Test: GLUCOSE, FASTING; Value: 128; Range: 80-110; Abnormal: Above high normal; Units: MG/DL; Status: F Test: BLOOD UREA NITROGEN; Value: 6; Range: 7-18; Abnormal: Below low normal; Units: MG/DL; Status: F Test: CREATININE FOR GFR; Value: 0.67; Range: 0.70-1.30; Abnormal: Below low normal; Units: MG/DL; Status: F Test: GLOMERULAR FILTRATION RATE; Value: > 60.0; Range: >49; Status: F Test: SODIUM LEVEL; Value: 137; Range: 136-145; Units: MEQ/L; Status: F Test: POTASSIUM SERUM; Value: 3.4; Range: 3.5-5.1; Abnormal: Below low normal; Units: MEQ/L; Status: F Test: CHLORIDE LEVEL; Value: 97; Range: 98-107; Abnormal: Below low normal; Units: MEQ/L; Status: F Test: CARBON DIOXIDE LEVEL; Value: 35; Range: 21-32; Abnormal: Above high normal; Units: MEQ/L; Status: F Test: ANION GAP; Value: 5; Range: 8-16; Abnormal: Below low normal; Units: MEQ/L; Status: F Test: CALCIUM LEVEL; Value: 8.3; Range: 8.8-10.2; Abnormal: Below low normal; Units: MG/DL; Status: F Test Note: ; Units are mL/min/1.73 m2 Chronic Kidney Disease Staging per NKF: Stage I & II GFR >=60 Normal to Mildly Decreased Stage III GFR 30-59 Moderately Decreased Stage IV GFR 15-29 Severely Decreased Stage V GFR <15 Very Little GFR Left ESRD GFR <15 on COVER STITCH MACHINE OPERATOR Lab Order: Urinalysis; SPEC'M 10/14/16 18:31 Test: APPEARANCE, URINE; Value: CLEAR; Range: CLEAR; Status: F Test: COLOR, URINE; Value: YELLOW; Range: YELLOW; Status: F Test: PH,URINE; Value: 7.0; Range: 5.0-9.0; Units: UNITS; Status: F Test: SPECIFIC GRAVITY URINE AUTO; Value: 1.019; Range: 1.002-1.035; Status: F Test: PROTEIN, URINE AUTO; Value: 2+; Range: NEGATIVE; Abnormal: Above high normal; Units: mg/dL; Status: F Test: GLUCOSE, URINE (UA) AUTO; Value: NEGATIVE; Range: NEGATIVE; Units: mg/dL; Status: F Test: KETONE, URINE AUTO; Value: 1+; Range: NEGATIVE; Abnormal: Above high normal; Units: mg/dL; Status: F Test: UROBILINOGEN, URINE AUTO; Value: 4.0; Range: 0.0-2.0; Abnormal: Above high normal; Units: mg/dL; Status: F Test: BILIRUBIN, URINE AUTO; Value: NEGATIVE; Range: NEGATIVE; Status: F Test: NITRITE, URINE AUTO; Value: NEGATIVE; Range: NEGATIVE; Status: F Test: LEUKOCYTE ESTERASE, URINE AUTO; Value: NEGATIVE; Range: NEGATIVE; Status: F Test: BLOOD, URINE BLOOD; Value: NEGATIVE; Range: NEGATIVE; Status: F Test: WBC, URINE AUTO; Value: 2; Range: 0-3; Units: /HPF; Status: F Test: RBC, URINE AUTO; Value: 3; Range: 0-3; Units: /HPF; Status: F Test: BACTERIA, URINE AUTO; Value: NEGATIVE; Range: NEGATIVE; Status: F Test: SQUAMOUS EPITHELIAL CELL UR AU; Value: 0; Range: 0-6; Units: /HPF; Status: F Test: MUCUS, URINE; Value: SMALL; Range: NEGATIVE; Status: F Test: HYALINE CAST, URINE AUTO; Value: 0; Range: 0-1; Units: /LPF; Status: F Lab Order: BNP; SPEC'M 10/14/16 17:32 Test: BRAIN NATRIURETIC PEPTIDE; Value: 223; Range: <100; Abnormal: Above high normal; Units: PG/ML; Status: F Lab Order: -Influenza A&B Rapid Antigen - Nose; SPEC'M 10/14/16 18:46 Test: INFLUENZA A RAPID SCR by ICA; Value: INFLUENZA A RESULTS NEGATIVE; Status: F Test: INFLUENZA A RAPID SCR by ICA; Value: Comments:; Status: F Test: INFLUENZA B RAPID SCR by ICA; Value: INFLUENZA B RESULTS NEGATIVE; Status: F Test Note: ; The Influenza test is a direct rapid immunoassay for the qualitative detection of Influenza viral antigen. Cell culture (Viral Culture) testing should be considered to confirm NEGATIVE results and to assist in detecting other viruses that can provide similar clinical symptoms. Please contact the lab within 24 hours ([phone]) if confirmatory testing is desired. Lab Order: TROPONIN; SPEC'M 10/14/16 17:32 Test: TROPONIN I; Value: < 0.02; Range: < 0.10; Units: NG/ML; Status: F Test Note: ; Troponin I Reference Interval for Siemens Ippies LOCI: 99th Percentile= 0.00-0.045 ng/ml Risk Stratification: <= 0.10 ng/ml Decreased Risk for Adverse Clinical Events. 0.10-1.50 ng/ml Increased Risk for Adverse Clinical Events. Evaluation of additional criterion and/or repeat testing in 2-6 hours is suggested to rule out myocardial damage. >= 1.50 ng/ml Indicative of Myocardial Injury. Radiology Order: Chest, 2 View (pa\E\lat) Test: Chest, 2 View (pa\E\lat) REASON FOR EXAMINATION: fever; Chest x-ray: Two views.; ; History: Fever.; ; Comparison chest x-ray is from June 24, 2016.; ; Findings: There is a fairly large dense infiltrate in the left lower lobe. Some; consolidation is seen in the lingular segment distribution as well. There is; slight blunting of the left posterior pleural angle. Heart is at the upper range; of normal in size. There are old healed rib fractures on the right and an old; healed clavicle fracture is seen on the left.; ; Impression:; ; Infiltrates in the left base involving the left lower lobe and lingula consistent; with pneumonia.; ; ; Signed by; Delroy Steward MD 10/14/2016 07:47 P; Outcome: 21:53 Decision to Hospitalize by Provider. br1 23:46 Discharge Assessment: patient administered narcotics - no. The following High Risk alie Discharge criteria are identified: None. Admitted to Med/Surg accompanied by tech, via stretcher, with chart. Condition: stable. No special radiology studies were completed. Property :Personal belongings accompany Pt. 23:49 Patient left the ED. alie Signatures: Dispatcher [employer] EDMS Elvira Corado, Chicken Buyer Unit deg Pio, Angelica Lua, RN RN alie Johnson, Nehal, Reg Reg gb [place], Apolinar, PRINT CUTTER PRINT CUTTER kb5 El Khanna MD MD br1 Nati Eli RN RN hs1 Pam Uribe, PRINT CUTTER PRINT CUTTER ct3 Sandy Hernandez dem1 Isela Jensen RN RN mk4 Kristel Morgan Crystal, PRINT CUTTER PRINT CUTTER cln Hazel Cosby,RN RN tm5 Corrections: (The following items were deleted from the chart) 18:15 18:08 TROPONIN+LAB sent. hs1 EDDE Chart Complete MTDD
[2016-10-17] MEDS: metroNIDAZOLE 500 MG in APPROPRIATE DILUENT 1 EA IV SCH (05:36)
[2016-10-17] MEDS: ACETAMINOPHEN 500 MG TAB PO SCH ×3 (05:36→21:32)
[2016-10-17] MEDS ORDERED: IPRATROPIUM 0.5MG/ALBUTEROL 2.5MG INH SOL UD 3ML (DUONEB)(J7620) NEB ONE (05:45)
[2016-10-17 05:57] LABS: BASO % 0.3 % (0.0-1.0); EOS # 0.2 K/mm3 (0.0-0.50); EOS % 1.7 % (0.0-3.0); LARGE UNSTAINED CELL # 0.1 K/mm3 (0.0-0.4); LARGE UNSTAINED CELL % 1.3 % (0.0-4.0); LYMPH % 9.2 % (24.0-44.0); MEAN CORPUSCULAR HEMOGLOBIN 30.8 pg (27.0-33.0); MEAN CORPUSCULAR HGB CONC 32.2 g/dl (32.0-36.5); MEAN CORPUSCULAR VOLUME 95.5 fl (80.0-96.0); MONO # 0.6 K/mm3 (0.0-0.8); MONO % 5.3 % (0.0-5.0); NEUTROPHILS # 8.7 K/mm3 (1.8-7.7); NEUTROPHILS % 82.2 % (36.0-66.0); PLATELET COUNT, AUTOMATED 224 k/mm3 (150-450); RED CELL DISTRIBUTION WIDTH 12.1 % (11.5-14.5); WHITE BLOOD COUNT 10.6 K/mm3 (4.0-10.0)
[2016-10-17 06:13] LABS: ANION GAP 6 MEQ/L (8-16); BLOOD UREA NITROGEN 4 MG/DL (7-18); CALCIUM LEVEL 8.4 MG/DL (8.8-10.2); CARBON DIOXIDE LEVEL 34 MEQ/L (21-32); CHLORIDE LEVEL 103 MEQ/L (98-107); CREATININE FOR GFR 0.46 MG/DL (0.70-1.30); GLOMERULAR FILTRATION RATE > 60.0 (>49); GLUCOSE, FASTING 116 MG/DL (80-110); POTASSIUM SERUM 3.6 MEQ/L (3.5-5.1); SODIUM LEVEL 143 MEQ/L (136-145)
[2016-10-17 06:22] LABS: ABG PARTIAL PRESSURE O2 63.2 mmHg (75.0-100.0); ABG STANDARD HCO3 30.8 MEQ/L (22.0-26.0); ABG TOTAL CO2 37.1 MEQ/L (23.0-31.0); ABG pH (ARTERIAL) 7.323 UNITS (7.350-7.450)
--- NOTE | 2016-10-17 06:50 | REPUSA ---
CLINICAL HISTORY: Shortness of breath. COMMENTS: The cardiac silhouette is enlarged. There is evidence for pulmonary venous congestion compatible with CHF. Bilateral basilar air space opacities of the lungs. There is no definite radiographic evidence for a lung mass or consolidation. Atherosclerosis. Bony structures appear normal. IMPRESSION: 1. Enlarged cardiac silhouette. 2. Pulmonary venous congestion compatible with CHF. Bilateral basilar air space opacities of the lung s. Probably congestion. Thank you for your kind referral of this patient.
[2016-10-17] MEDS ORDERED: FUROSEMIDE 40 MG/4 ML VIAL (J1940) IV ONE ×2 (07:30→14:00)
[2016-10-17] MEDS: IPRATROPIUM 0.5MG/ALBUTEROL 2.5MG INH SOL UD 3ML (DUONEB)(J7620) NEB SCH ×3 (07:49→19:59)
[2016-10-17] MEDS: BUDESONIDE 0.5 MG/2 ML INHALATION SUSPENSION INH SCH ×2 (07:49→19:59)
[2016-10-17] MEDS: PANTOPRAZOLE 40MG INJ (PROTONIX) (C9113) IV SCH (09:37)
[2016-10-17] MEDS: SENOKOT S TAB PO SCH ×2 (09:37→21:31)
[2016-10-17] MEDS: AZITHROMYCIN 250 MG TAB PO SCH (09:37)
[2016-10-17] MEDS: ENOXAPARIN 40 MG/0.4 ML SYRINGE (J1650) SC SCH (09:37)
[2016-10-17] MEDS: OFLOXACIN 0.3 % (OCUFLOX) OPTH SOL 5ML OS SCH ×4 (09:37→21:32)
[2016-10-17] MEDS: FERROUS SULFATE 325MG TAB PO SCH ×2 (09:38→21:32)
--- NOTE | 2016-10-17 10:23 | CCN ---
DATE: 10/17/2016 I was called to see this 65-year-old male admitted on the with community-acquired pneumonia. He was started on antibiotics but respiratory distress ensued and oxygen saturations fell this morning. There is extensive past medical history of mental retardation, dementia, chronic obstructive pulmonary disease (40 pack-years of smoking), seizure disorder, diverticulitis, anemia, irritable bowel syndrome, a remote history of positive PPD and possible INH therapy for this, upper extremity deep vein thrombosis (DVT) secondary to trauma in 2008. At bedside, he is ill appearing, awake, able to answer simple questions, in moderate to severe respiratory distress. His temperature is 101.9, maximum temperature (t-max) for the past 24 hours 102, pulse rate 96, respirations 32 and labored, blood pressure 127/58. On review of the record, his fluid balance is positive by 6.98 liters since admission. HEENT: Pupils are round and react to light. Oral mucosa is pink, moist. Neck is supple. Jugular veins are 3 cm distended. Carotid upstroke sluggish but no bruit. HEART: Sounds are regular without appreciable murmur. There is an S3. LUNGS: Breath sounds are diminished bilaterally with wet rales one-third of the way up. Chest is symmetric. Increased in its AP diameter. Moves symmetrically with accessory muscles engaged at this point. ABDOMEN: Soft with some bowel sounds in the right lower quadrant. EXTREMITIES: Cool. Pulses are palpable times four. Diagnostic studies reviewed. His white count is 10.6, hemoglobin 10.9, hematocrit 33.9, platelet count 224,000. Sodium is 143, potassium 3.6, chloride 103, CO2 34, BUN 4, creatinine 0.46, glucose 116. An arterial blood gas shows a pH 7.32, pCO2 69, pO2 63. Chest x-ray just performed, image was reviewed and shows bilateral interstitial infiltrates, worse than on admission. Formal report is pending. The primary problem requiring critical attention is acute respiratory failure. We will increase supplemental oxygen to maintain his saturation 90% plus or minus two. Pulmonary edema. The patient is nearly 7 liters positive Lasix has been administered, and he is diuresing well at this moment. We will recheck an arterial blood gas. Hypercarbia. I suspect that this is secondary to reduced lung compliance related to pulmonary edema. I would anticipate that this will resolve with diuretic therapy. If not, the patient will need to have noninvasive positive pressure ventilation performed. Chronic obstructive pulmonary disease is a presumptive diagnosis based on 40 pack-years of cigarette smoking and appears accurate on physical findings. He is receiving nebulized therapy. We will ask respiratory therapy to deliver the nebulized treatments with EZ Pap to facilitate better deposition of medications. Community-acquired pneumonia. The patient had a left lower lobe infiltrate on admission and has had fever and white cell count elevation. This is day #2 of Rocephin and azithromycin. Cultures of the sputum are pending. I would discontinue the Flagyl at this point as it is not effective for anaerobes above diaphragm. Deep vein thrombosis (DVT) prophylaxis is being addressed with enoxaparin. Ulcer prophylaxis is being addressed with Protonix. The patient's condition is at this moment critical. Prognosis is good. We will closely monitor his progress. 78 minutes was spent in provision of bedside critical care and coordination.
[2016-10-17 10:35] LABS: ABG BASE EXCESS 10.6 (-2.0-2.0); ABG HCO3 37.2 MEQ/L (22.0-26.0); ABG PARTIAL PRESSURE O2 140.7 mmHg (75.0-100.0); ABG STANDARD HCO3 34.4 MEQ/L (22.0-26.0); ABG TOTAL CO2 39.1 MEQ/L (23.0-31.0); ABG pH (ARTERIAL) 7.401 UNITS (7.350-7.450)
[2016-10-17 10:36] LABS: ABG PARTIAL PRESSURE CO2 61.3 mmHg (35.0-45.0)
--- NOTE | 2016-10-17 11:58 | IPN ---
DATE OF DICTATION: 10/17/2016 Very pleasant 65-year-old gentleman with a past medical history of significant mitral regurgitation (MR), chronic obstructive pulmonary disease (COPD) with chronic hypoxic respiratory failure on 3 liters oxygen nasal cannula, dementia, iron deficiency, borderline personality disorder, and gastroesophageal reflux disorder (GERD). Patient was admitted with a left lower lobe pneumonia, questionable community acquired versus aspiration pneumonia. The patient had a recent dental procedure prior to presentation. Patient was started on azithromycin and ceftriaxone, has been tolerating well until overnight when patient developed some significantly tachypnea and complaints of dyspnea. Patient received a one time nebulizer of DuoNeb with some mild relief, however, has remained tachypneic in the mid 20s to upper 30s, has developed fever with a temperature of 102.1 max, most recent at 0623 at 100.9, heart rate has also elevated into the 90-101 range and oxygen saturation has dropped from 94% at 10 p.m. last evening to 90% this morning. ABG was completed, showed bicarbonate of 30.8, pH 7.323, pCO2 of 69, pO2 of 63. CMP shows stable creatinine of 0.46 with a glomerular filtration rate above 60, sodium is stable at 143, potassium is 3.6. Hemoglobin and hematocrit show continuing gradual decline in his white count. On admission, white count was 12,000. Today he is 10,000. Hemoglobin and hematocrit are stable at 10 and 33. On review of input and output, patient does have a significant plus fluid balance in 3 liter range. He has been receiving IV fluids, however, has been tolerating oral well as well as routine diet while in the hospital. PHYSICAL EXAMINATION: Patient is slightly tachypneic, oxygen tubing is pitting into his face. His fingers are swollen and puffy. He does have some very slight edema in the lower extremities and his compression stockings are cutting into his legs at the level of the knee. CARDIOVASCULAR: Heart rate and rhythm are regular. PULMONARY: Lungs demonstrate crackles up to the mid lung. Patient is mildly distressed yet not severely acute and is tachypneic with simple conversation. ASSESSMENT: 1. Left lower lobe pneumonia. 2. End stage chronic obstructive pulmonary disease (COPD). 3. Probable volume overload from IV fluid resuscitation. 4. History of mitral regurgitation. 5. History of dementia. 6. History of hyperlipidemia. 7. History of iron deficiency. 8. Borderline personality disorder. PLAN: Patient will be transferred to progressive care unit (PCU) for further monitoring, Lasix 40 mg IV times one now, strict input and output will be maintained. We will order some as needed nebulizers as patient did not have that available. Pulmonology was consulted, Dr. Garcai will see patient today for further recommendations.
[2016-10-17 13:17] LABS: ALBUMIN 2.3 GM/DL (3.2-5.2); ALBUMIN/GLOBULIN RATIO 0.82 (1.00-1.93); ALKALINE PHOSPHATASE 67 U/L (45-117); ALT/SGPT 16 U/L (12-78); ANION GAP 5 MEQ/L (8-16); AST/SGOT 13 U/L (15-37); BILIRUBIN,TOTAL 0.3 MG/DL (0.2-1.0); BLOOD UREA NITROGEN 5 MG/DL (7-18); CALCIUM LEVEL 7.9 MG/DL (8.8-10.2); CARBON DIOXIDE LEVEL 39 MEQ/L (21-32); CHLORIDE LEVEL 100 MEQ/L (98-107); CREATININE FOR GFR 0.46 MG/DL (0.70-1.30); GLOMERULAR FILTRATION RATE > 60.0 (>49); GLUCOSE, FASTING 92 MG/DL (80-110); POTASSIUM SERUM 3.3 MEQ/L (3.5-5.1); SODIUM LEVEL 144 MEQ/L (136-145); TOTAL PROTEIN 5.1 GM/DL (6.4-8.2)
[2016-10-17] MEDS: POTASSIUM CHLORIDE 10 MEQ SR TABLET PO SCH ×2 (14:15→21:33)
--- NOTE | 2016-10-17 15:26 | IPN ---
DATE: 10/17/2016 Guido developed some borderline hypotension after his diuresis. Systolic pressures are down to the 100 range. I evaluated him at approximately 3 p.m. He is alert, conversant, well-perfused, skin was warm. He said he felt a little lightheaded when he sat up, no syncope. Lungs had fewer rales than this morning. Heart regular rate, rhythm. Abdomen soft, nontender. IMPRESSION: Relative hypotension from diuresis. PLAN: Will hold his Lasix for the rest of the day. I think he has benefited from the diuresis he has received so far. If he gets anymore hypotensive, we will have to give him some fluids, but I would like to avoid that as I think he is volume overloaded.
[2016-10-17 17:06] LABS: ABG BASE EXCESS 12.8 (-2.0-2.0); ABG HCO3 39.2 MEQ/L (22.0-26.0); ABG PARTIAL PRESSURE CO2 61.8 mmHg (35.0-45.0); ABG PARTIAL PRESSURE O2 100.5 mmHg (75.0-100.0); ABG STANDARD HCO3 36.5 MEQ/L (22.0-26.0); ABG TOTAL CO2 41.1 MEQ/L (23.0-31.0)
[2016-10-17] MEDS: DONEPEZIL 5 MG TAB PO SCH (21:31)
[2016-10-17] MEDS: EZETIMIBE 10 MG TAB (ZETIA) PO SCH (21:31)
[2016-10-17] MEDS: SIMVASTATIN 10 MG TAB PO SCH (21:32)
[2016-10-17] MEDS: cefTRIAXone SOD 1 GM in D5W MINI-BAG PLUS 50 ML IV SCH (21:32)
[2016-10-18] MEDS: IPRATROPIUM 0.5MG/ALBUTEROL 2.5MG INH SOL UD 3ML (DUONEB)(J7620) NEB SCH ×5 (01:38→19:31)
[2016-10-18 02:00] VITALS: BP 133/63
[2016-10-18] MEDS ORDERED: ALBUTEROL SULFATE 2.5 MG/0.5 ML INH NEB SOLN NEB PRN (04:15)
[2016-10-18] MEDS ORDERED: FUROSEMIDE 20 MG/2 ML VIAL (J1940) IV ONE ×2 (04:15→08:00)
[2016-10-18 05:45] VITALS: BP 141/63
[2016-10-18] MEDS: ACETAMINOPHEN 500 MG TAB PO SCH ×3 (06:02→21:13)
[2016-10-18 07:14] LABS: BASO % 0.3 % (0.0-1.0); EOS # 0.2 K/mm3 (0.0-0.50); EOS % 1.7 % (0.0-3.0); LARGE UNSTAINED CELL # 0.1 K/mm3 (0.0-0.4); LARGE UNSTAINED CELL % 1.1 % (0.0-4.0); LYMPH # 0.7 K/mm3 (1.5-4.5); LYMPH % 7.1 % (24.0-44.0); MEAN CORPUSCULAR HEMOGLOBIN 31.2 pg (27.0-33.0); MEAN CORPUSCULAR VOLUME 94.6 fl (80.0-96.0); MONO # 0.5 K/mm3 (0.0-0.8); MONO % 5.8 % (0.0-5.0); NEUTROPHILS # 7.8 K/mm3 (1.8-7.7); PLATELET COUNT, AUTOMATED 229 k/mm3 (150-450); WHITE BLOOD COUNT 9.3 K/mm3 (4.0-10.0)
[2016-10-18] MEDS: BUDESONIDE 0.5 MG/2 ML INHALATION SUSPENSION INH SCH ×2 (07:16→19:31)
[2016-10-18 07:31] LABS: ANION GAP 5 MEQ/L (8-16); BLOOD UREA NITROGEN 8 MG/DL (7-18); CALCIUM LEVEL 8.6 MG/DL (8.8-10.2); CARBON DIOXIDE LEVEL 40 MEQ/L (21-32); CHLORIDE LEVEL 101 MEQ/L (98-107); CREATININE FOR GFR 0.46 MG/DL (0.70-1.30); GLOMERULAR FILTRATION RATE > 60.0 (>49); GLUCOSE, FASTING 98 MG/DL (80-110); POTASSIUM SERUM 3.8 MEQ/L (3.5-5.1); SODIUM LEVEL 146 MEQ/L (136-145)
--- NOTE | 2016-10-18 07:51 | IPNPDOC ---
Assessment/Plan Date Seen The patient was seen on 10/18/16. Problems Problems: (1) Pneumonia Status: Acute Problem Text: LLL. Ceftriaxone and Azithromycin day #4 (2) COPD with acute exacerbation Status: Acute Problem Text: GOLD stage 4 COPD. Chronic hypoxia with oxygen dependence. 3LNC. Saturations are stable. (3) Fluid volume excess Status: Acute Problem Specific Plan: Monitor Clinically Problem Text: Continue to diurese. Monitor I/o. Lasix 20 mg IV now. Daily weights. No IVF Plan / VTE VTE Prophylaxis Ordered?: Yes (Lovenox) Plan Plan Text Attending note: I saw and evaluated the patient, and agree with the plan of care as discussed and documented. Iván Schmid MD Subjective Review of Systems CC/HPI The patient is a 65-year-old male admitted with a reason for visit of Pneumonia. Events since last encounter Treated for fluid volume overload. Received 40mg IV Lasix with excellent diuresis. Had slight hypotension so second dose held. Received Lasix 20 mg at 0400. net negative of -300 at this time. patient states feeling better. Constitutional: Reports: Fever (100.5) ENT: Denies: Dysphagia, Ear Pain, Head Aches Skin: Denies: Breakdown, Lesions, Rash Pulmonary: Reports: Dyspnea, Denies: Cough Cardiovascular: Denies: Chest Pain, Lt Headedness, Orthopnea, Palpitations, Paroxysmal Noc. Dyspnea Gastrointestinal: Denies: Abdominal Pain, Diarrhea, Nausea, Vomiting Genitourinary: Reports: Frequency (secondary to Lasix), Denies: Dysuria, Incontinence, Retention Psych: Reports: Mood Normal, Denies: Depression, Memory Issues Objective Physical Examination General Exam: Positive: Alert, No Acute Distress Eye Exam: Positive: PERRLA Neck Exam: Positive: Supple, Negative: JVD Chest Exam: Positive: Normal air movement (bibasilar), Rales Heart Exam: Positive: Normal S1, Normal S2, Rate Normal Abdomen Exam: Positive: Normal bowel sounds, Soft, Negative: Tenderness Extremity Exam: Negative: Clubbing, Cyanosis, Edema Skin Exam: Positive: Nl turgor and temperature Psych Exam: Positive: Mental status NL Vital Signs/I&O Vital Signs Date Time Temp Pulse Resp B/P Pulse Ox O2 Delivery O2 Flow Rate FiO2 10/18/16 05:45 100.7 90 19 141/63 95 Nasal Cannula 3.0 I&O- Last 24 Hours up to 6 AM 10/18/16 06:00 Intake Total 950 ml Output Total 1775 ml Balance -825 ml Laboratory Data Labs 24H Laboratory Tests 2 10/17/16 10:24: Arterial Blood pH 7.401, Arterial Blood Partial Pressure CO2 61.3*H, Arterial Blood Partial Pressure O2 140.7H, Arterial Blood Total CO2 39.1H, Arterial Blood HCO3 37.2H, Arterial Blood Base Excess 10.6H, Arterial Blood Oxygen Saturation 99.1H, Blood Gas Bicarbonate Standard 34.4H 10/17/16 12:25: Blood Urea Nitrogen 5L, Creatinine 0.46L, Sodium Level 144, Potassium Level 3.3L , Chloride Level 100, Carbon Dioxide Level 39H, Calcium Level 7.9L, Aspartate Amino Transf (AST/SGOT) 13L, Alanine Aminotransferase (ALT/SGPT) 16, Alkaline Phosphatase 67, Total Bilirubin 0.3, Total Protein 5.1#L, Albumin 2.3#L, Albumin /Globulin Ratio 0.82L, Anion Gap 5L, Glomerular Filtration Rate > 60.0 10/17/16 16:54: Arterial Blood pH 7.420, Arterial Blood Partial Pressure CO2 61.8*H, Arterial Blood Partial Pressure O2 100.5H, Arterial Blood Total CO2 41.1H, Arterial Blood HCO3 39.2H, Arterial Blood Base Excess 12.8H, Arterial Blood Oxygen Saturation 97.9, Blood Gas Bicarbonate Standard 36.5H, Bedside Glucose (Misc Panel) 111 10/18/16 07:03: Blood Urea Nitrogen 8#, Creatinine 0.46L, Sodium Level 146H, Potassium Level 3.8 , Chloride Level 101, Carbon Dioxide Level 40H, Calcium Level 8.6L, Anion Gap 5L , Glomerular Filtration Rate > 60.0, White Blood Count 9.3, Red Blood Count 3.31L, Hemoglobin 10.3L, Hematocrit 31.3L, Mean Corpuscular Volume 94.6, Mean Corpuscular Hemoglobin 31.2, Mean Corpuscular Hemoglobin Concent 33.0, Red Cell Distribution Width 12.0, Platelet Count 229, Neutrophils (%) (Auto) 84.0H, Lymphocytes (%) (Auto) 7.1L, Monocytes (%) (Auto) 5.8H, Eosinophils (%) (Auto) 1.7, Basophils (%) (Auto) 0.3, Neutrophils # (Auto) 7.8H, Lymphocytes # (Auto) 0.7L, Monocytes # (Auto) 0.5, Eosinophils # (Auto) 0.2, Basophils # (Auto) 0.0, Large Unclassified Cells # 0.1, Large Unclassified Cells % 1.1 CBC/BMP Laboratory Tests 10/17/16 12:25 Calcium Level 7.9 L, Aspartate Amino Transf (AST/SGOT) 13 L, Alanine Aminotransferase (ALT/SGPT) 16, Alkaline Phosphatase 67, Total Bilirubin 0.3, Total Protein 5.1 #L, Albumin 2.3 #L 10/18/16 07:03 Calcium Level 8.6 L, Red Blood Count 3.31 L, Mean Corpuscular Volume 94.6, Mean Corpuscular Hemoglobin 31.2, Mean Corpuscular Hemoglobin Concent 33.0, Red Cell Distribution Width 12.0, Neutrophils (%) (Auto) 84.0 H, Lymphocytes (%) (Auto) 7.1 L, Monocytes (%) (Auto) 5.8 H, Eosinophils (%) (Auto) 1.7, Basophils (%) ( Auto) 0.3, Neutrophils # (Auto) 7.8 H, Lymphocytes # (Auto) 0.7 L, Monocytes # ( Auto) 0.5, Eosinophils # (Auto) 0.2, Basophils # (Auto) 0.0 FSBS Laboratory Tests Test 10/17/16 16:54 Range/Units Bedside Glucose (Misc Panel) 111 80-115 MG/DL Microbiology Microbiology 10/14/16 Blood Culture - Preliminary, Resulted No Growth after 72 hours. All specime... 10/14/16 Blood Culture - Preliminary, Resulted No Growth after 72 hours. All specime... 10/15/16 Stool Occult Blood (REFUGIO) - Final, Complete 10/15/16 Gram Stain - Final, Complete 10/15/16 Sputum Culture - Final, Complete 10/14/16 Influenza Virus Type A Antigen - Final, Complete 10/14/16 Influenza Virus Type B Antigen - Final, Complete 10/14/16 Urine Culture - Final, Complete Henna Arias Oct 18, 2016 07:51 IVÁN SCHMID MD Oct 22, 2016 19:38
[2016-10-18] MEDS: POTASSIUM CHLORIDE 10 MEQ SR TABLET PO SCH ×2 (08:34→21:14)
[2016-10-18] MEDS: PANTOPRAZOLE 40MG TAB (PROTONIX) PO SCH (08:35)
[2016-10-18] MEDS: FERROUS SULFATE 325MG TAB PO SCH ×2 (08:35→21:14)
[2016-10-18] MEDS: AZITHROMYCIN 250 MG TAB PO SCH (08:35)
[2016-10-18] MEDS: SENOKOT S TAB PO SCH ×2 (08:35→21:12)
[2016-10-18] MEDS: OFLOXACIN 0.3 % (OCUFLOX) OPTH SOL 5ML OS SCH ×4 (08:35→21:13)
[2016-10-18] MEDS: ENOXAPARIN 40 MG/0.4 ML SYRINGE (J1650) SC SCH (08:35)
[2016-10-18 10:00] VITALS: BP 109/53
[2016-10-18 14:00] VITALS: BP 111/57
[2016-10-18 18:00] VITALS: BP 125/59
[2016-10-18] MEDS: FUROSEMIDE 40 MG TAB PO SCH (18:51)
[2016-10-18] MEDS: EZETIMIBE 10 MG TAB (ZETIA) PO SCH (21:12)
[2016-10-18] MEDS: cefTRIAXone SOD 1 GM in D5W MINI-BAG PLUS 50 ML IV SCH (21:13)
[2016-10-18] MEDS: DONEPEZIL 5 MG TAB PO SCH (21:13)
[2016-10-18] MEDS: SIMVASTATIN 10 MG TAB PO SCH (21:14)
[2016-10-18 22:00] VITALS: BP 120/58
[2016-10-19] MEDS: IPRATROPIUM 0.5MG/ALBUTEROL 2.5MG INH SOL UD 3ML (DUONEB)(J7620) NEB SCH ×2 (01:01→07:20)
[2016-10-19 02:00] VITALS: BP 118/63
[2016-10-19] MEDS: ACETAMINOPHEN 500 MG TAB PO SCH (05:29)
[2016-10-19 06:00] VITALS: BP 114/63
[2016-10-19 06:18] LABS: BASO % 0.4 % (0.0-1.0); EOS # 0.3 K/mm3 (0.0-0.50); LARGE UNSTAINED CELL # 0.2 K/mm3 (0.0-0.4); LARGE UNSTAINED CELL % 1.9 % (0.0-4.0); LYMPH # 1.2 K/mm3 (1.5-4.5); LYMPH % 14.9 % (24.0-44.0); MEAN CORPUSCULAR HEMOGLOBIN 31.4 pg (27.0-33.0); MEAN CORPUSCULAR VOLUME 95.1 fl (80.0-96.0); MONO # 0.6 K/mm3 (0.0-0.8); MONO % 7.1 % (0.0-5.0); NEUTROPHILS # 5.9 K/mm3 (1.8-7.7); NEUTROPHILS % 71.7 % (36.0-66.0); PLATELET COUNT, AUTOMATED 257 k/mm3 (150-450); WHITE BLOOD COUNT 8.3 K/mm3 (4.0-10.0)
[2016-10-19 06:32] LABS: ANION GAP 3 MEQ/L (8-16); BLOOD UREA NITROGEN 8 MG/DL (7-18); CALCIUM LEVEL 8.7 MG/DL (8.8-10.2); CARBON DIOXIDE LEVEL 41 MEQ/L (21-32); CHLORIDE LEVEL 100 MEQ/L (98-107); CREATININE FOR GFR 0.49 MG/DL (0.70-1.30); GLOMERULAR FILTRATION RATE > 60.0 (>49); GLUCOSE, FASTING 97 MG/DL (80-110); POTASSIUM SERUM 3.8 MEQ/L (3.5-5.1); SODIUM LEVEL 144 MEQ/L (136-145)
[2016-10-19] MEDS: BUDESONIDE 0.5 MG/2 ML INHALATION SUSPENSION INH SCH (07:20)
[2016-10-19] MEDS: FERROUS SULFATE 325MG TAB PO SCH (09:43)
[2016-10-19] MEDS: AZITHROMYCIN 250 MG TAB PO SCH (09:43)
[2016-10-19] MEDS: SENOKOT S TAB PO SCH (09:43)
[2016-10-19] MEDS: PANTOPRAZOLE 40MG TAB (PROTONIX) PO SCH (09:43)
[2016-10-19] MEDS: FUROSEMIDE 40 MG TAB PO SCH (09:43)
[2016-10-19] MEDS: OFLOXACIN 0.3 % (OCUFLOX) OPTH SOL 5ML OS SCH (09:44)
[2016-10-19] MEDS: ENOXAPARIN 40 MG/0.4 ML SYRINGE (J1650) SC SCH (09:44)
[2016-10-19] MEDS: POTASSIUM CHLORIDE 10 MEQ SR TABLET PO SCH (09:44)
[2016-10-19 10:00] VITALS: BP 111/56
[2016-10-19] MEDS ORDERED: CEFT500T3 PO (10:18)
--- NOTE | 2016-10-19 11:33 | REP ---
Chest x-ray: Two views. History: Follow up vascular congestion. Left lower lobe pneumonia. Comparison chest x-ray October 17, 2016. Findings: There is blunting of the lateral and posterior pleural angles indicating bilateral pleural effusions, left larger than right. This is unchanged from October 17, 2016 radiographs. The heart is at the upper range of normal in size. Pulmonary vasculature is not increased. There is evidence of an old healed fracture of the left clavicle. No other bony abnormality is appreciated. Impression: Bilateral pleural effusions, left greater than right. Signed by Delroy Steward MD 10/19/2016 01:14 P
--- NOTE | 2016-10-20 10:39 | DSES ---
DATE OF ADMISSION: 10/14/2016 DATE OF DISCHARGE: 10/19/2016 PRIMARY CARE PROVIDER: Dr. Quentin Mullins ATTENDING PHYSICIAN: Dr. Quentin Mullins HISTORY OF PRESENT ILLNESS: This is a [facility] ([facility]) client who is noted to be less responsive and having shivering at home along with a fever of 103 and oxygen saturation in the 70s to low 80s on his usual use of three liters nasal cannula. The patient was sent to the emergency room. Emergency department (ED) workup showed left lower lobe pneumonia which was considered community-acquired versus aspiration pneumonia as the patient had a prior dental procedure four days prior to his admission. HOSPITAL COURSE: The patient was placed on azithromycin and Rocephin IV. He tolerated that well. He continued with his regular nebulizers as well as as-needed medications. On 10/17/2016, the patient was found to have increasing hypoxia, tachypnea, dyspnea, and an elevated heart rate. He was found to have an arterial blood gas (ABG) with a bicarbonate of 30.8, pH of 7.3, pCO2 69, pO2 63, and was found to have significant fluid volume overload and congestive heart failure (CHF) with vascular congestion on his chest x-ray. The patient was aggressively diuresed and tolerated that well. His IV fluids were stopped. The patient was placed on oral Lasix 40 mg twice a day per his home dosing yesterday and he has tolerated that well. He was able to ambulate to the bathroom and throughout his room on his routine dose of three liters nasal cannula without difficulty. PHYSICAL EXAMINATION: Today, blood pressure 114/63, respiratory rate 18, heart rate 75, temperature 97.6, oxygen saturation 94% on three liters nasal cannula. HEENT: Neck is supple without lymphadenopathy. CARDIOVASCULAR: Heart rate and rhythm are regular. PULMONARY: Lungs are diminished bibasilar, however, clear throughout. ABDOMEN: Soft and nontender with positive bowel sounds times all four quadrants. EXTREMITIES: Bilateral lower extremities are without edema. NEUROLOGIC: He is at his baseline behavior. No visible tremor. He is cooperative. ASSESSMENT: 1. Left lower lobe pneumonia. 2. Episode of fluid volume overload with congestive heart failure (CHF) exacerbation. 3. Chronic obstructive pulmonary disease (COPD). 4. Chronic hypoxic respiratory failure on three liters of oxygen. 5. Hyperlipidemia. 6. Dementia. 7. Mental retardation (MR). 8. Iron deficiency. 9. Borderline personality disorder. 10. Gastroesophageal reflux disease. 11. History of chronic venous insufficiency with bilateral lower extremity edema intermittently. PLAN: The patient will be discharged home to [facility] ([facility] The patient may return to day habilitation and previous activities. The patient will followup with his primary care provider (PCP) within the next 5-7 days. DISCHARGE MEDICATIONS: Are as follows: - Ceftin 500 mg one by mouth twice a day - Tylenol 650 mg by mouth every four hours as needed for mild pain or fever - DuoNeb one inhalation four times a day - Pulmicort nebulizer 0.5 mg inhalation twice a day - FiberCon 625 mg by mouth twice a day - Aricept 10 mg by mouth at bedtime - Zetia 10 mg by mouth at bedtime - ferrous sulfate 325 mg by mouth twice a day - Lasix 40 mg by mouth daily - Protonix 40 mg by mouth daily - simvastatin 10 mg by mouth at bedtime - vitamin D 50,000 international units by mouth weekly - Combivent every four hours as needed for shortness of breath The patient is discharge in stable satisfactory condition with no further questions at the time of discharge. He will return to his [facility] ([facility]) house today.
== END 2016-10-19 13:59 | disposition home or self-care (01) | DRG 193 ==
LOC: M ED 15:58 → M ED INP 23:01 → M MSPAV 23:58
PROVIDERS: ADMIT Internal Medicine Nephrology; ATTEND Family Medicine
DX: J18.9 Pneumonia, unspecified organism (principal); J96.22 Acute and chronic respiratory failure with hypercapnia; J96.21 Acute and chronic respiratory failure with hypoxia; J44.1 Chronic obstructive pulmonary disease with (acute) exacerbation; I50.1 Left ventricular failure, unspecified; K02.9 Dental caries, unspecified; F70 Mild intellectual disabilities; K21.9 Gastro-esophageal reflux disease without esophagitis; D50.9 Iron deficiency anemia, unspecified; F03.90 Unspecified dementia, unspecified severity, without behavioral disturbance, psychotic disturbance, mood disturbance, and anxiety; E78.5 Hyperlipidemia, unspecified; I87.2 Venous insufficiency (chronic) (peripheral); F60.3 Borderline personality disorder; Z79.899 Other long term (current) drug therapy; Z99.81 Dependence on supplemental oxygen; F17.210 Nicotine dependence, cigarettes, uncomplicated

== ENCOUNTER → 2016-10-25 | Outpatient (CLI) | payer MEDICARE, MEDICAID ==
[~2016-10-25] MED LIST changes: +CEFT500T3 PO; +COMBIVENT MDI INH
--- NOTE | 2016-10-25 10:59 | REP ---
CHEST X-RAY: Two views. HISTORY: Follow-up pneumonia. Comparison chest x-ray October 19, 2016 FINDINGS: There is a small amount of subpulmonic fluid suspected on the left. The right pleural angles are sharp on today's chest x-ray. Some linear fibrosis versus plate-like atelectasis is seen in the left base. Heart is not enlarged. No new infiltrate is seen. Oxygen tubing is seen. There are degenerative changes in the thoracic spine. IMPRESSION: Chest x-ray is improved. A small subpulmonic left pleural effusion is suspected. Linear fibrosis versus atelectasis left base. No new infiltrate. Signed by Delroy Steward MD 10/25/2016 01:51 P
== END ==
LOC: M WUC 10:33
PROVIDERS: ATTEND Physician Assistant Medical
DX: J18.1 Lobar pneumonia, unspecified organism (principal)
CPT/HCPCS: 71020; G0463

== ENCOUNTER → 2016-11-13 | Outpatient (CLI) | payer MEDICARE, MEDICAID ==
--- NOTE | 2016-11-13 15:02 | REP ---
Clinical: Acute respiratory infection. Technique: PA and lateral. Comparison: 10/25/2016. Findings: Lung alcaraz demonstrate chronic interstitial changes without acute consolidation, effusion, or pneumothorax. A subtle nodular density in the left lower lung zone midclavicular line cannot be excluded. Mediastinum and cardiac silhouette normal. Skeletal structures demonstrate old healed rib fractures and left clavicle fracture. Impression: 1. Chronic stable interstitial changes. 2. Cannot exclude small left lower lobe density and chest CT may be warranted for further investigation. Signed by Abdullahi Douglas MD 11/13/2016 02:54 P
[2016-11-13 16:39] LABS: BASO % 0.7 % (0.0-1.0); EOS # 0.2 K/mm3 (0.0-0.50); EOS % 3.1 % (0.0-3.0); LARGE UNSTAINED CELL # 0.1 K/mm3 (0.0-0.4); LARGE UNSTAINED CELL % 1.2 % (0.0-4.0); MEAN CORPUSCULAR HEMOGLOBIN 32.3 pg (27.0-33.0); MEAN CORPUSCULAR HGB CONC 33.9 g/dl (32.0-36.5); MEAN CORPUSCULAR VOLUME 95.4 fl (80.0-96.0); MONO # 0.4 K/mm3 (0.0-0.8); MONO % 7.6 % (0.0-5.0); NEUTROPHILS % 70.4 % (36.0-66.0); PLATELET COUNT, AUTOMATED 124 k/mm3 (150-450); RED CELL DISTRIBUTION WIDTH 12.4 % (11.5-14.5); WHITE BLOOD COUNT 5.6 K/mm3 (4.0-10.0)
[2016-11-13 17:01] LABS: ANION GAP 5 MEQ/L (8-16); BLOOD UREA NITROGEN 12 MG/DL (7-18); CALCIUM LEVEL 8.8 MG/DL (8.8-10.2); CARBON DIOXIDE LEVEL 40 MEQ/L (21-32); CHLORIDE LEVEL 97 MEQ/L (98-107); CREATININE FOR GFR 0.71 MG/DL (0.70-1.30); GLOMERULAR FILTRATION RATE > 60.0 (>49); GLUCOSE, FASTING 108 MG/DL (80-110); MAGNESIUM LEVEL 2.1 MG/DL (1.8-2.4); POTASSIUM SERUM 3.7 MEQ/L (3.5-5.1); SODIUM LEVEL 142 MEQ/L (136-145)
== END ==
LOC: M WUC 14:08
PROVIDERS: ATTEND Physician Assistant Medical
DX: J06.9 Acute upper respiratory infection, unspecified (principal)
CPT/HCPCS: 36415; 71020; 80048; 83735; 85025; G0463

== ENCOUNTER → 2016-11-14 | Outpatient (CLI) | payer MEDICARE, MEDICAID | LOC: M WUC 08:35 | PROVIDERS: ATTEND Physician Assistant Medical | DX: J06.9 Acute upper respiratory infection, unspecified (principal) ==

== ENCOUNTER → 2016-11-29 | Outpatient (CLI) | payer MEDICARE, MEDICAID ==
--- NOTE | 2016-11-29 17:36 | REP ---
RIGHT ANKLE: Four views of the right ankle are performed. There is no acute fracture or dislocation. Moderate sized spur is seen at the anterior distal end of the tibia. There is mild subchondral sclerosis on both sides of the tibiotalar joint. Ankle mortise is anatomic. There is also a small posterior tibial spur. IMPRESSION: Arthritic changes as above. No acute fracture or dislocation. The moderate sized anterior tibial spur likely causes impingement at the anterior aspect of the ankle. Signed by Ted Kumar MD 11/29/2016 08:38 P
--- NOTE | 2016-11-29 17:39 | REP ---
RIGHT FOOT SERIES: Four views of the right foot are performed. Possible subtle lucency is seen at the base of the 4th metatarsal possibly representing a stress fracture. I see no other evidence of acute fracture or dislocation. Distal tibial spurring is again noted. Oval ossific density is seen lateral to the distal calcaneus and another is seen medially in relation to the talus. These may represent accessory ossicles or old fractures. There are mild degenerative changes of the interphalangeal joints of the toes. IMPRESSION: Possible stress fracture base of 4th metatarsal. Signed by Ted Kumar MD 11/29/2016 08:38 P
== END ==
LOC: M WUC 16:47
PROVIDERS: ATTEND Physician Assistant
DX: M25.571 Pain in right ankle and joints of right foot (principal); M77.31 Calcaneal spur, right foot; M19.071 Primary osteoarthritis, right ankle and foot

== ENCOUNTER → 2016-12-03 | Outpatient (CLI) | payer MEDICARE, MEDICAID ==
[~2016-12-03] MED LIST changes: +ISOVUE-370 76% 100ML VIAL (Q9967) As Ordered ONE
--- NOTE | 2016-12-03 12:17 | REP ---
CT STUDY OF THE CHEST WITH IV CONTRAST: HISTORY: Lung mass. Comparison chest CT study, August 13, 2015. Comparison chest x-ray, November 13, 2016 shows a parenchymal density at the left lung base possible mass. CT CONTRAST DOSE: 75 mL of intravenous Isovue-[address] FINDINGS: There is a zone of pleuroparenchymal fibrosis versus atelectasis in the lingular segment of the left upper lobe. This is felt to be responsible for the soft tissue density on the recent radiographs. It is unchanged from [address] study. The previously noted right middle lobe and left upper lobe infiltrates have resolved. Lung alcaraz are otherwise clear. No pulmonary nodule or mass lesion is seen. No pleural or pericardial effusion is seen. No hilar or mediastinal mass or adenopathy is observed. There is mild vascular calcification noted including left coronary artery vascular calcification. Thoracic aorta is normal in caliber and homogeneous in contrast enhancement. Bone window settings show no bony destructive lesion. IMPRESSION: Fibroatelectatic changes in the lingular segment of the left upper lobe. No nodule or mass lesion seen. No acute disease. Signed by Delroy Steward MD 12/03/2016 03:21 P
== END ==
LOC: M RAD 10:02
PROVIDERS: ATTEND Physician Assistant Medical
DX: R91.8 Other nonspecific abnormal finding of lung field (principal); J84.10 Pulmonary fibrosis, unspecified
CPT/HCPCS: 71260; Q9967

== ENCOUNTER 2016-12-15 17:12 | Observation (INO) | payer MEDICARE, MEDICAID ==
[~2016-12-15] VITALS: Ht 167.6 cm; Wt 68.2 kg
[2016-12-15] MEDS: DONEPEZIL 5 MG TAB PO SCH (04:06)
[2016-12-15] MEDS: FERROUS SULFATE 325MG TAB PO SCH (04:06)
[2016-12-15] MEDS: EZETIMIBE 10 MG TAB (ZETIA) PO SCH (04:07)
[2016-12-15] MEDS: SIMVASTATIN 10 MG TAB PO SCH (04:07)
[~2016-12-15 17:12] MED LIST changes: -DELT1TAB PO; -LASI20TA PO
[2016-12-15] MEDS ORDERED: PULM0.5S INH (17:24)
[2016-12-15] MEDS ORDERED: LASI20TA PO (17:24)
[2016-12-15] MEDS ORDERED: predniSONE 20 MG TAB PO ONE (20:15)
[2016-12-15] MEDS: IPRATROPIUM 0.5MG/ALBUTEROL 2.5MG INH SOL UD 3ML (DUONEB)(J7620) NEB SCH ×3 (20:32→21:24)
[2016-12-15] MEDS ORDERED: ALBUTEROL SULFATE 2.5 MG/0.5 ML INH NEB SOLN INH ONE (22:15)
[2016-12-15 23:44] LABS: BASO % 0.5 % (0.0-1.0); EOS % 0.5 % (0.0-3.0); LARGE UNSTAINED CELL # 0.1 K/mm3 (0.0-0.4); LARGE UNSTAINED CELL % 1.4 % (0.0-4.0); LYMPH # 0.7 K/mm3 (1.5-4.5); LYMPH % 15.5 % (24.0-44.0); MEAN CORPUSCULAR HEMOGLOBIN 30.9 pg (27.0-33.0); MEAN CORPUSCULAR HGB CONC 33.7 g/dl (32.0-36.5); MEAN CORPUSCULAR VOLUME 91.6 fl (80.0-96.0); MONO # 0.1 K/mm3 (0.0-0.8); MONO % 2.5 % (0.0-5.0); NEUTROPHILS # 3.4 K/mm3 (1.8-7.7); NEUTROPHILS % 79.6 % (36.0-66.0); PLATELET COUNT, AUTOMATED 129 k/mm3 (150-450); WHITE BLOOD COUNT 4.2 K/mm3 (4.0-10.0)
[2016-12-16 00:05] LABS: ANION GAP 7 MEQ/L (8-16); BLOOD UREA NITROGEN 15 MG/DL (7-18); CALCIUM LEVEL 8.5 MG/DL (8.8-10.2); CARBON DIOXIDE LEVEL 32 MEQ/L (21-32); CHLORIDE LEVEL 105 MEQ/L (98-107); CREATININE FOR GFR 0.82 MG/DL (0.70-1.30); GLOMERULAR FILTRATION RATE > 60.0 (>49); GLUCOSE, FASTING 200 MG/DL (80-110); POTASSIUM SERUM 3.8 MEQ/L (3.5-5.1); SODIUM LEVEL 144 MEQ/L (136-145)
[2016-12-16] MEDS ORDERED: COMBAER6 INH (00:57)
[2016-12-16] MEDS ORDERED: IPRATROPIUM 0.5MG/ALBUTEROL 2.5MG INH SOL UD 3ML (DUONEB)(J7620) NEB PRN (01:30)
[2016-12-16] MEDS ORDERED: ACETAMINOPHEN TAB 650MG DOSE (2X325MG) PO PRN (01:30)
[2016-12-16] MEDS ORDERED: methylPREDNISolone INJ 125 MG/2 ML VIAL (J2930) IV ONE (01:30)
[2016-12-16] MEDS: IPRATROPIUM 0.5MG/ALBUTEROL 2.5MG INH SOL UD 3ML (DUONEB)(J7620) NEB SCH ×4 (02:00→19:43)
--- NOTE | 2016-12-16 02:20 | HPEPDOC ---
General Date of Admission Dec 16, 2016 at 01:50 Chief Complaint The patient is a 65-year-old male Presented to the ER with cough. History of Present Illness Patient is a 65 year old male with a PMHx of COPD on 3L Home O2, DLP, Mental retardation, Dementia, Iron deficiency, Hx of LUE DVT, Borderline personality disorder, Chronic venous insufficiency and GERD. Patient was at [facility] and began to develop a cough over the last 2 days. Patient is a poor historian and is unable to provide any details to his history. His construction scheduler is present and providing answers. They note that he has been having a productive cough with white foamy sputum. No fevers, chest pain, nausea, vomiting, abdominal pain, constipation, diarrhea or dysuria was reported. In the ER patient was found to be wheezing and given nebulizer treatments and prednisone PO. There was no resolution of his symptoms and hospitalist service was called for admission of acute COPD exacerbation. Home Medications Scheduled Albuterol/Ipratropium (Ipratropium [place]/Albut 0.5-2.5 (3) mg/3Ml) 1 Corinne Corinne 1 CORINNE INH QID (Reported) Budesonide (Pulmicort) 0.5 Mg/2 Ml Reshma 0.5 MG INH BID (Reported) Calcium Polycarbophil (Fibercon) 625 Mg Tab 625 MG PO BID (Reported) Donepezil Hydrochloride (Aricept) 10 Mg Tab 10 MG PO QHS (Reported) Ezetimibe (Zetia) 10 Mg Tab 10 MG PO QHS (Reported) Ferrous Sulfate (Ferrous Sulfate) 325 Mg Tab 325 MG PO BID (Reported) Furosemide (Lasix) 20 Mg Tab 20 MG PO DAILY (Reported) Simvastatin (Zocor) 10 Mg Tab 10 MG PO QHS (Reported) Vitamin D (Drisdol) 50,000 Unit Cap 1.25 MG PO QWEEK (Reported) TAKES TUESDAYS @ QHS Scheduled PRN Acetaminophen (Tylenol) 325 Mg Tab 650 MG PO Q4HP PRN PRN MILD PAIN OR FEVER ( Reported) Albuterol/Ipratropium (Combivent Respimat 20-100 Mcg/Act) 1 Aer Aer 1 PUFF INH Q4H PRN PRN SHORTNESS OF BREATH (Reported) Allergies Coded Allergies: No Known Allergies (Verified , 10/07/16) Past Medical History Medical History COPD on 3L Home O2, DLP, Mental retardation, Dementia, Iron deficiency, Hx of LUE DVT, Borderline personality disorder, Chronic venous insufficiency and GERD. Surgical History Teeth extraction Family History - Non-contributory Social History - Denies the use of alcohol or illicit drugs; Smoking history in the past noted by caregiver - Denies recent travel or sick contacts - Lives at [facility] Review of Symptoms Other systems Unable to obtain from patient Vital Signs - Vitals: BP 122/75, HR 75, RR 16, Sat 97%NC3L, Temp 97.4F - General: Lying in bed, No acute distress, Speaking in full sentences, AAOx3 - HEENT: NC, AT, Pinpoint pupils, EOMI - CVS: RRR, +S1S2, - Murmurs / rubs / gallops - Lungs: Fair air entry bilaterally, Diffuse expiratory wheezing - Abdomen: Soft, Non-distended, Non-tender, + Bowel sounds x 4 - Extremities: + PPx4, No lower extremity edema, No calf tenderness - Neuro: No focal motor or sensory deficit - Skin: No visible rashes Laboratory Data Labs 24H Laboratory Tests 2 12/15/16 23:34: Anion Gap 7L, B-Type Natriuretic Peptide 48.3, White Blood Count 4.2, Red Blood Count 4.00L, Hemoglobin 12.3L, Hematocrit 36.6L, Mean Corpuscular Volume 91.6, Mean Corpuscular Hemoglobin 30.9, Mean Corpuscular Hemoglobin Concent 33.7, Red Cell Distribution Width 12.0, Platelet Count 129L, Neutrophils (%) (Auto) 79.6H , Lymphocytes (%) (Auto) 15.5L, Monocytes (%) (Auto) 2.5, Eosinophils (%) (Auto ) 0.5, Basophils (%) (Auto) 0.5, Neutrophils # (Auto) 3.4, Lymphocytes # (Auto) 0.7L, Monocytes # (Auto) 0.1, Eosinophils # (Auto) 0.0, Basophils # (Auto) 0.0, Blood Urea Nitrogen 15, Creatinine 0.82, Sodium Level 144, Potassium Level 3.8, Chloride Level 105, Carbon Dioxide Level 32, Calcium Level 8.5L, Glomerular Filtration Rate > 60.0, Lactic Acid (Sepsis) 1.9, Large Unclassified Cells # 0.1 , Large Unclassified Cells % 1.4 CBC/BMP Laboratory Tests 12/15/16 23:34 Calcium Level 8.5 L, Red Blood Count 4.00 L, Mean Corpuscular Volume 91.6, Mean Corpuscular Hemoglobin 30.9, Mean Corpuscular Hemoglobin Concent 33.7, Red Cell Distribution Width 12.0, Neutrophils (%) (Auto) 79.6 H, Lymphocytes (%) (Auto) 15.5 L, Monocytes (%) (Auto) 2.5, Eosinophils (%) (Auto) 0.5, Basophils (%) ( Auto) 0.5, Neutrophils # (Auto) 3.4, Lymphocytes # (Auto) 0.7 L, Monocytes # ( Auto) 0.1, Eosinophils # (Auto) 0.0, Basophils # (Auto) 0.0 Microbiology Microbiology 12/15/16 Blood Culture, Received Pending 12/15/16 Blood Culture, Received Pending 12/15/16 Influenza Virus Type A Antigen - Final, Complete 12/15/16 Influenza Virus Type B Antigen - Final, Complete Plan / VTE VTE Prophylaxis Ordered?: Yes Plan Plan Productive cough and wheezing likely 2/2 acute COPD exacerbation, less likely pneumonia - Presented with productive cough for 2 days, no reported fevers - Physical reveals expiratory wheezing bilaterally - No elevation in WBC or lactic acid; Influenza negative - Urgent care center where patient went to earlier revealed no acute infiltrate / fluid overload - In ER has received duoneb therapy and prednisone - Will check blood cultures and sputum cultures - c/w pulmicort - Will start duoneb treatment inpatient and load with solumedrol and maintain at 60 IV q6h Normocytic anemia - Hg appear to be at baseline - will monitor for now DLP - c/w ezetimibe and simvastatin Mental retardation and dementia - c/w donepezil Iron deficiency - c/w ferrous sulfate Hx of LUE DVT Borderline personality disorder Chronic venous insufficiency - c/w furosemide GERD - c/w DVT prophylaxis - Will start CHRISTOPHER Toledo MD Dec 16, 2016 02:20
[2016-12-16 02:22] VITALS: BP 116/56
--- NOTE | 2016-12-16 02:28 | ECGEPIP ---
Stationary ECG Study [facility] - ED Test Date: 2016-12-15 Pat Name: NICKOLAS COLLADO Department: Room: - Gender: M Laboratory Operations Coordinator: PereiraB: 1950 Requested By: Kranthi Hung Order Number: [id number] Reading MD: Kranthi Soares Measurements Intervals [place] Rate: 78 P: 63 ND: 134 QRS: 51 QRSD: 84 T: 47 QT: 381 QTc: 437 Interpretive Statements SINUS RHYTHM NSTTW ABNORMALITIES SIMILAR TO 10/14/16 Electronically Signed On 12-16-2016 2:28:06 EDT by Kranthi Soares
[2016-12-16 06:00] VITALS: BP 115/57
[2016-12-16] MEDS: BUDESONIDE 0.5 MG/2 ML INHALATION SUSPENSION INH SCH ×2 (07:21→19:43)
[2016-12-16] MEDS: FERROUS SULFATE 325MG TAB PO SCH ×2 (09:47→20:57)
[2016-12-16] MEDS: FUROSEMIDE 20 MG TAB PO SCH (09:48)
[2016-12-16] MEDS: methylPREDNISolone INJ 125 MG/2 ML VIAL (J2930) IV SCH ×2 (09:48→17:27)
[2016-12-16] MEDS: ENOXAPARIN 40 MG/0.4 ML SYRINGE (J1650) SC SCH (09:48)
--- NOTE | 2016-12-16 10:17 | IPNPDOC ---
Subjective Date Seen The patient was seen on 12/16/16. Subjective Chief Complaint/HPI The patient is a 65-year-old male admitted with a reason for visit of Breathing Diff. Events since last encounter Pt states he is feeling better today. States breathing is better. Denies pain. Constitutional: Denies: Chills, Fever Pulmonary: Reports: Dyspnea Cardiovascular: Denies: Chest Pain Gastrointestinal: Denies: Abdominal Pain, Nausea, Vomiting Objective Physical Examination General Exam: Positive: Alert, No Acute Distress Neck Exam: Positive: Supple, Negative: JVD Chest Exam: Positive: Diminished, Rhonchi, Wheezing Heart Exam: Positive: Rate Normal, Regular Rhythm Abdomen Exam: Positive: Normal bowel sounds, Soft, Negative: Tenderness Extremity Exam: Negative: Edema Assessment /Plan Problems (1) COPD with acute exacerbation Status: Acute Problem Specific Plan: Monitor Clinically, Repeat Labs Problem Text: On IV solumedrol 60 mg IV q6hrs. Not on ABx. WBC was 4.2 in ER yesterday. Recheck CBC today. Currently afebrile. (2) Anemia Status: Chronic Problem Specific Plan: Monitor Clinically, Repeat Labs Problem Text: H/O Fe Def Anemia. On Iron. Recheck CBC today. (3) Dyslipidemia Status: Chronic Problem Specific Plan: Monitor Clinically Problem Text: On Zocor and Zetia. (4) Dementia Status: Chronic (5) Chronic venous insufficiency Status: Chronic Problem Specific Plan: Monitor Clinically Problem Text: On Lasix. Plan/VTE VTE Prophylaxis Ordered?: Yes VS, I&O, 24H, Fishbone Vital Signs/I&O Vital Signs Date Time Temp Pulse Resp B/P Pulse Ox O2 Delivery O2 Flow Rate FiO2 12/16/16 06:00 97.3 67 19 115/57 97 Nasal Cannula 3.0 12/15/16 19:48 21 I&O- Last 24 Hours up to 6 AM 12/16/16 06:00 Intake Total 0 ml Output Total 375 ml Balance -375 ml Laboratory Data 24H LABS Laboratory Tests 2 12/15/16 23:34: Anion Gap 7L, B-Type Natriuretic Peptide 48.3, White Blood Count 4.2, Red Blood Count 4.00L, Hemoglobin 12.3L, Hematocrit 36.6L, Mean Corpuscular Volume 91.6, Mean Corpuscular Hemoglobin 30.9, Mean Corpuscular Hemoglobin Concent 33.7, Red Cell Distribution Width 12.0, Platelet Count 129L, Neutrophils (%) (Auto) 79.6H , Lymphocytes (%) (Auto) 15.5L, Monocytes (%) (Auto) 2.5, Eosinophils (%) (Auto ) 0.5, Basophils (%) (Auto) 0.5, Neutrophils # (Auto) 3.4, Lymphocytes # (Auto) 0.7L, Monocytes # (Auto) 0.1, Eosinophils # (Auto) 0.0, Basophils # (Auto) 0.0, Blood Urea Nitrogen 15, Creatinine 0.82, Sodium Level 144, Potassium Level 3.8, Chloride Level 105, Carbon Dioxide Level 32, Calcium Level 8.5L, Glomerular Filtration Rate > 60.0, Lactic Acid (Sepsis) 1.9, Large Unclassified Cells # 0.1 , Large Unclassified Cells % 1.4 CBC/BMP Laboratory Tests 12/15/16 23:34 Calcium Level 8.5 L, Red Blood Count 4.00 L, Mean Corpuscular Volume 91.6, Mean Corpuscular Hemoglobin 30.9, Mean Corpuscular Hemoglobin Concent 33.7, Red Cell Distribution Width 12.0, Neutrophils (%) (Auto) 79.6 H, Lymphocytes (%) (Auto) 15.5 L, Monocytes (%) (Auto) 2.5, Eosinophils (%) (Auto) 0.5, Basophils (%) ( Auto) 0.5, Neutrophils # (Auto) 3.4, Lymphocytes # (Auto) 0.7 L, Monocytes # ( Auto) 0.1, Eosinophils # (Auto) 0.0, Basophils # (Auto) 0.0 Microbiology Microbiology 12/15/16 Blood Culture, Received Pending 12/15/16 Blood Culture, Received Pending 12/15/16 Influenza Virus Type A Antigen - Final, Complete 12/15/16 Influenza Virus Type B Antigen - Final, Complete Reji Ely Dec 16, 2016 10:17
[2016-12-16 14:00] VITALS: BP_SYST 111; BP_SYST 124; BP_DIAS 54; BP_DIAS 61
[2016-12-16] MEDS: SIMVASTATIN 10 MG TAB PO SCH (20:57)
[2016-12-16] MEDS: DONEPEZIL 5 MG TAB PO SCH (20:57)
[2016-12-16] MEDS: EZETIMIBE 10 MG TAB (ZETIA) PO SCH (20:57)
[2016-12-16 22:00] VITALS: BP 116/56
[2016-12-17] MEDS: methylPREDNISolone INJ 125 MG/2 ML VIAL (J2930) IV SCH ×2 (02:25→09:18)
[2016-12-17] MEDS: IPRATROPIUM 0.5MG/ALBUTEROL 2.5MG INH SOL UD 3ML (DUONEB)(J7620) NEB SCH ×4 (02:43→19:55)
[2016-12-17 05:56] LABS: EOS % 0.1 % (0.0-3.0); LARGE UNSTAINED CELL # 0.1 K/mm3 (0.0-0.4); LARGE UNSTAINED CELL % 1.2 % (0.0-4.0); LYMPH % 9.6 % (24.0-44.0); MEAN CORPUSCULAR HEMOGLOBIN 30.8 pg (27.0-33.0); MEAN CORPUSCULAR HGB CONC 33.4 g/dl (32.0-36.5); MEAN CORPUSCULAR VOLUME 92.4 fl (80.0-96.0); MONO # 0.3 K/mm3 (0.0-0.8); MONO % 3.4 % (0.0-5.0); NEUTROPHILS # 7.9 K/mm3 (1.8-7.7); NEUTROPHILS % 85.7 % (36.0-66.0); PLATELET COUNT, AUTOMATED 150 k/mm3 (150-450); WHITE BLOOD COUNT 9.2 K/mm3 (4.0-10.0)
[2016-12-17 06:00] VITALS: BP 106/59
[2016-12-17 06:10] LABS: ALBUMIN/GLOBULIN RATIO 0.91 (1.00-1.93); ALKALINE PHOSPHATASE 75 U/L (45-117); ALT/SGPT 49 U/L (12-78); ANION GAP 4 MEQ/L (8-16); AST/SGOT 28 U/L (15-37); BILIRUBIN,TOTAL 0.2 MG/DL (0.2-1.0); BLOOD UREA NITROGEN 12 MG/DL (7-18); CALCIUM LEVEL 8.7 MG/DL (8.8-10.2); CARBON DIOXIDE LEVEL 31 MEQ/L (21-32); CHLORIDE LEVEL 105 MEQ/L (98-107); CREATININE FOR GFR 0.59 MG/DL (0.70-1.30); GLOMERULAR FILTRATION RATE > 60.0 (>49); GLUCOSE, FASTING 151 MG/DL (80-110); MAGNESIUM LEVEL 2.2 MG/DL (1.8-2.4); POTASSIUM SERUM 4.4 MEQ/L (3.5-5.1); SODIUM LEVEL 140 MEQ/L (136-145); TOTAL PROTEIN 6.3 GM/DL (6.4-8.2)
[2016-12-17] MEDS: BUDESONIDE 0.5 MG/2 ML INHALATION SUSPENSION INH SCH ×2 (08:30→19:55)
[2016-12-17] MEDS: ENOXAPARIN 40 MG/0.4 ML SYRINGE (J1650) SC SCH (09:20)
[2016-12-17] MEDS: FUROSEMIDE 20 MG TAB PO SCH (09:20)
[2016-12-17] MEDS: FERROUS SULFATE 325MG TAB PO SCH ×2 (09:20→21:19)
--- NOTE | 2016-12-17 10:57 | IPNPDOC ---
Subjective Date Seen The patient was seen on 12/17/16. Subjective Chief Complaint/HPI The patient is a 65-year-old male admitted with a reason for visit of Breathing Diff. Events since last encounter Patient "feels better" No issues per [facility] nursing staff No [facility] staff in room Constitutional: Denies: Chills, Fever Pulmonary: Denies: Cough, Dyspnea Cardiovascular: Denies: Chest Pain, Palpitations Gastrointestinal: Denies: Abdominal Pain, Constipation, Diarrhea, Nausea, Vomiting Objective Physical Examination General Exam: Positive: Alert (Bright, alert, sitting up on bedside, no signs of dyspnea), No Acute Distress Neck Exam: Positive: Supple, Negative: JVD Chest Exam: Positive: Clear to auscultation (Had some scattered wheezes that cleared with cough. No W/R/R after cough) Heart Exam: Positive: Rate Normal, Regular Rhythm Abdomen Exam: Positive: Normal bowel sounds, Soft, Negative: Tenderness Extremity Exam: Negative: Edema Assessment /Plan Problems (1) COPD with acute exacerbation Status: Acute Problem Specific Plan: Monitor Clinically, Repeat Labs Problem Text: On IV solumedrol 60 mg IV q6hrs. Not on ABx. WBC was 4.2 in ER yesterday. Recheck CBC today. Currently afebrile. 12/17/16 - Resp status improved. Change to po Prednisone D/C home in am if remains stable continue chronic O2, nebs. No abx needed currently (2) Anemia Status: Chronic Problem Specific Plan: Monitor Clinically, Repeat Labs Problem Text: H/O Fe Def Anemia. On Iron. Recheck CBC today. 12/17 - Hgb down slightly - monitor trend (3) Dyslipidemia Status: Chronic Problem Specific Plan: Monitor Clinically Problem Text: On Zocor and Zetia. (4) Dementia Status: Chronic (5) Chronic venous insufficiency Status: Chronic Problem Specific Plan: Monitor Clinically Problem Text: On Lasix. Plan/VTE VTE Prophylaxis Ordered?: Yes Plan Attending attestation: I saw and evaluated the patient, and I agree with the plan of care as discussed and documented by Odilia Schmid MD VS, I&O, 24H, Fishbone Vital Signs/I&O Vital Signs Date Time Temp Pulse Resp B/P Pulse Ox O2 Delivery O2 Flow Rate FiO2 12/17/16 06:00 98.4 65 18 106/59 94 Nasal Cannula 2.0 12/15/16 19:48 21 I&O- Last 24 Hours up to 6 AM 12/17/16 06:00 Intake Total 2750 ml Output Total 1755 ml Balance 995 ml Laboratory Data 24H LABS Laboratory Tests 2 12/17/16 05:26: Blood Urea Nitrogen 12, Creatinine 0.59L, Sodium Level 140, Potassium Level 4.4 , Chloride Level 105, Carbon Dioxide Level 31, Calcium Level 8.7L, Aspartate Amino Transf (AST/SGOT) 28, Alanine Aminotransferase (ALT/SGPT) 49, Alkaline Phosphatase 75, Total Bilirubin 0.2, Total Protein 6.3L, Albumin 3.0L, Albumin/ Globulin Ratio 0.91L, Anion Gap 4L, White Blood Count 9.2, Red Blood Count 3.72L , Hemoglobin 11.5L, Hematocrit 34.4L, Mean Corpuscular Volume 92.4, Mean Corpuscular Hemoglobin 30.8, Mean Corpuscular Hemoglobin Concent 33.4, Red Cell Distribution Width 12.0, Platelet Count 150, Neutrophils (%) (Auto) 85.7H, Lymphocytes (%) (Auto) 9.6L, Monocytes (%) (Auto) 3.4, Eosinophils (%) (Auto) 0.1, Basophils (%) (Auto) 0.0, Neutrophils # (Auto) 7.9H, Lymphocytes # (Auto) 1.0L, Monocytes # (Auto) 0.3, Eosinophils # (Auto) 0.0, Basophils # (Auto) 0.0, Glomerular Filtration Rate > 60.0, Large Unclassified Cells # 0.1, Large Unclassified Cells % 1.2, Magnesium Level 2.2 CBC/BMP Laboratory Tests 12/17/16 05:26 Calcium Level 8.7 L, Aspartate Amino Transf (AST/SGOT) 28, Alanine Aminotransferase (ALT/SGPT) 49, Alkaline Phosphatase 75, Total Bilirubin 0.2, Total Protein 6.3 L, Albumin 3.0 L, Red Blood Count 3.72 L, Mean Corpuscular Volume 92.4, Mean Corpuscular Hemoglobin 30.8, Mean Corpuscular Hemoglobin Concent 33.4, Red Cell Distribution Width 12.0, Neutrophils (%) (Auto) 85.7 H, Lymphocytes (%) (Auto) 9.6 L, Monocytes (%) (Auto) 3.4, Eosinophils (%) (Auto) 0.1, Basophils (%) (Auto) 0.0, Neutrophils # (Auto) 7.9 H, Lymphocytes # (Auto) 1.0 L, Monocytes # (Auto) 0.3, Eosinophils # (Auto) 0.0, Basophils # (Auto) 0.0 Microbiology Microbiology 12/15/16 Blood Culture - Preliminary, Resulted No growth after 24 hours . All specim... 12/15/16 Blood Culture - Preliminary, Resulted No growth after 24 hours . All specim... 12/15/16 Influenza Virus Type A Antigen - Final, Complete 12/15/16 Influenza Virus Type B Antigen - Final, Complete ODILIA PEPE PA-C Dec 17, 2016 10:57 PARRISH SCHMID MD Dec 17, 2016 18:54
[2016-12-17 15:00] VITALS: BP 114/59
[2016-12-17] MEDS: DONEPEZIL 5 MG TAB PO SCH (21:19)
[2016-12-17] MEDS: EZETIMIBE 10 MG TAB (ZETIA) PO SCH (21:19)
[2016-12-17] MEDS: SIMVASTATIN 10 MG TAB PO SCH (21:19)
[2016-12-17 22:00] VITALS: BP 109/57
[2016-12-18] MEDS: IPRATROPIUM 0.5MG/ALBUTEROL 2.5MG INH SOL UD 3ML (DUONEB)(J7620) NEB SCH ×3 (01:32→13:37)
[2016-12-18 06:00] VITALS: BP 116/58
[2016-12-18 07:04] LABS: BASO % 0.1 % (0.0-1.0); EOS % 0.1 % (0.0-3.0); LARGE UNSTAINED CELL % 0.9 % (0.0-4.0); LYMPH # 1.7 K/mm3 (1.5-4.5); LYMPH % 13.1 % (24.0-44.0); MEAN CORPUSCULAR HEMOGLOBIN 30.9 pg (27.0-33.0); MEAN CORPUSCULAR HGB CONC 33.6 g/dl (32.0-36.5); MONO # 0.9 K/mm3 (0.0-0.8); MONO % 7.2 % (0.0-5.0); NEUTROPHILS # 9.6 K/mm3 (1.8-7.7); NEUTROPHILS % 78.6 % (36.0-66.0); PLATELET COUNT, AUTOMATED 159 k/mm3 (150-450); RED CELL DISTRIBUTION WIDTH 12.5 % (11.5-14.5); WHITE BLOOD COUNT 12.2 K/mm3 (4.0-10.0)
[2016-12-18 07:18] LABS: ALBUMIN 2.7 GM/DL (3.2-5.2); ALKALINE PHOSPHATASE 63 U/L (45-117); ALT/SGPT 53 U/L (12-78); ANION GAP 5 MEQ/L (8-16); AST/SGOT 24 U/L (15-37); BILIRUBIN,TOTAL 0.2 MG/DL (0.2-1.0); BLOOD UREA NITROGEN 15 MG/DL (7-18); CALCIUM LEVEL 8.2 MG/DL (8.8-10.2); CARBON DIOXIDE LEVEL 33 MEQ/L (21-32); CHLORIDE LEVEL 105 MEQ/L (98-107); CREATININE FOR GFR 0.52 MG/DL (0.70-1.30); GLOMERULAR FILTRATION RATE > 60.0 (>49); GLUCOSE, FASTING 81 MG/DL (80-110); MAGNESIUM LEVEL 2.2 MG/DL (1.8-2.4); POTASSIUM SERUM 3.9 MEQ/L (3.5-5.1); SODIUM LEVEL 143 MEQ/L (136-145); TOTAL PROTEIN 5.7 GM/DL (6.4-8.2)
[2016-12-18] MEDS: BUDESONIDE 0.5 MG/2 ML INHALATION SUSPENSION INH SCH (07:42)
[2016-12-18] MEDS ORDERED: predniSONE 20 MG TAB PO SCH (09:00)
[2016-12-18] MEDS: FUROSEMIDE 20 MG TAB PO SCH (10:28)
[2016-12-18] MEDS: ENOXAPARIN 40 MG/0.4 ML SYRINGE (J1650) SC SCH (10:28)
[2016-12-18] MEDS: FERROUS SULFATE 325MG TAB PO SCH (10:28)
[2016-12-18 14:00] VITALS: BP 107/57
[2016-12-18] MEDS ORDERED: DELT1TAB PO (15:40)
== END 2016-12-18 17:22 | disposition home or self-care (01) ==
LOC: M ED 18:49 → M MSPAV 18:50 → UNDOADMOB 12-16 01:50 → M ED INP 12-16 01:50 → INTOOBSV 12-16 01:50 → M ED INP 12-16 02:20 → M MSPAV 12-16 02:20 → UNDODISOB 12-18 17:22
PROVIDERS: ADMIT Internal Medicine; ATTEND Family Medicine
DX: J44.1 Chronic obstructive pulmonary disease with (acute) exacerbation (principal); Z99.81 Dependence on supplemental oxygen; I73.9 Peripheral vascular disease, unspecified; E78.4 Other hyperlipidemia; D50.9 Iron deficiency anemia, unspecified; Z79.51 Long term (current) use of inhaled steroids; F79 Unspecified intellectual disabilities; F03.90 Unspecified dementia, unspecified severity, without behavioral disturbance, psychotic disturbance, mood disturbance, and anxiety; Z86.79 Personal history of other diseases of the circulatory system; Z79.899 Other long term (current) drug therapy; R05 Cough; R50.9 Fever, unspecified
CPT/HCPCS: 36415; 71020; 80048; 80053; 83605; 83735; 83880; 85025; 87040; 87804; 93005; 93041; 94640; 94760; 96372; 96376; 99285; G0378; J1650; J2930

== ENCOUNTER → 2016-12-15 | Outpatient (CLI) | payer MEDICARE, MEDICAID ==
[~2016-12-15] MED LIST changes: +DELT1TAB PO; -ISOVUE-370 76% 100ML VIAL (Q9967) As Ordered ONE; +LASI20TA PO
--- NOTE | 2016-12-16 07:06 | REP ---
Chest x-ray: Two views. History: Cough. Comparison study: November 13, 2016. Findings: The patient is rotated to the left for the current radiograph. The lungs are symmetrically aerated and clear. Heart is not enlarged. Pleural angles are sharp. There is diffuse osteopenia. Thoracic vertebral body heights are preserved. There is an old healed fracture of the left clavicle. Impression: No active disease. Signed by Delroy Steward MD 12/16/2016 11:40 A
== END ==
LOC: M WUC 16:29
PROVIDERS: ATTEND Physician Assistant
DX: R05 Cough (principal); R50.9 Fever, unspecified

== ENCOUNTER 2017-03-24 16:21 | Emergency (ER) | payer MEDICARE, MEDICAID ==
[~2017-03-24 16:21] MED LIST changes: -ARIC10TA PO; +ARIC1TAB2 PO; +DELT1TAB PO; +LASI20TA PO; -ZETI10TA2 PO; +ZETI10TA30 PO
[2017-03-24] MEDS ORDERED: ASPIRIN 81 MG CHEW TABLET PO ONE (17:00)
[2017-03-24] MEDS: ALBUTEROL SULFATE 2.5 MG/0.5 ML INH NEB SOLN NEB PRN ×3 (17:14→18:09)
--- NOTE | 2017-03-24 17:23 | REP ---
Clinical: Dyspnea and cough. Comparison: 12/15/2016. Technique: AP and lateral views. Findings: Mediastinum and cardiac silhouette are normal. Lung alcaraz demonstrate chronic interstitial changes similar to prior examination. Subtle superimposed left basilar atelectasis cannot be excluded. No focal consolidation, effusion, or pneumothorax. Skeletal structures stable. Impression: Chronic stable changes compared to prior examination. Subtle acute atelectasis cannot be excluded. Signed by Abdullahi Douglas MD 03/24/2017 05:14 P
[2017-03-24 17:31] LABS: VENOUS BASE EXCESS 10.3 (-2.0-2.0); VENOUS O2 SATURATION 73.3 % (60.0-80.0); VENOUS PARTIAL PRESSURE CO2 75.6 mmHg (38.0-50.0); VENOUS PARTIAL PRESSURE O2 39.8 mmHg (30.0-50.0); VENOUS STANDARD HCO3 33.5 MEQ/L; VENOUS TOTAL CO2 41.6 MEQ/L (24.0-28.0)
[2017-03-24 17:33] LABS: BASO % 0.3 % (0.0-1.0); EOS % 0.2 % (0.0-3.0); LARGE UNSTAINED CELL # 0.2 K/mm3 (0.0-0.4); LARGE UNSTAINED CELL % 1.2 % (0.0-4.0); LYMPH # 1.4 K/mm3 (1.5-4.5); LYMPH % 9.2 % (24.0-44.0); MEAN CORPUSCULAR HEMOGLOBIN 31.9 pg (27.0-33.0); MEAN CORPUSCULAR HGB CONC 33.7 g/dl (32.0-36.5); MEAN CORPUSCULAR VOLUME 94.5 fl (80.0-96.0); MONO # 1.1 K/mm3 (0.0-0.8); MONO % 7.3 % (0.0-5.0); NEUTROPHILS # 12.5 K/mm3 (1.8-7.7); NEUTROPHILS % 81.7 % (36.0-66.0); PLATELET COUNT, AUTOMATED 152 k/mm3 (150-450); RED CELL DISTRIBUTION WIDTH 12.4 % (11.5-14.5); WHITE BLOOD COUNT 15.2 K/mm3 (4.0-10.0)
[2017-03-24 17:40] LABS: INR 1.07
[2017-03-24 18:08] LABS: ALBUMIN 3.4 GM/DL (3.2-5.2); ALBUMIN/GLOBULIN RATIO 1.03 (1.00-1.93); ALKALINE PHOSPHATASE 79 U/L (45-117); ALT/SGPT 21 U/L (12-78); ANION GAP 3 MEQ/L (8-16); AST/SGOT 18 U/L (15-37); BILIRUBIN,DIRECT 0.1 MG/DL (0.0-0.2); BILIRUBIN,TOTAL 0.4 MG/DL (0.2-1.0); BLOOD UREA NITROGEN 8 MG/DL (7-18); CALCIUM LEVEL 9.1 MG/DL (8.8-10.2); CARBON DIOXIDE LEVEL 39 MEQ/L (21-32); CHLORIDE LEVEL 97 MEQ/L (98-107); CREATININE FOR GFR 0.65 MG/DL (0.70-1.30); GLOMERULAR FILTRATION RATE > 60.0 (>49); GLUCOSE, FASTING 106 MG/DL (80-110); POTASSIUM SERUM 3.7 MEQ/L (3.5-5.1); SODIUM LEVEL 139 MEQ/L (136-145); TOTAL PROTEIN 6.7 GM/DL (6.4-8.2)
[2017-03-24] MEDS ORDERED: ALBUTEROL 90 MCG/ACT 8GM HFA INHALER INH ONE (18:15)
[2017-03-24] MEDS ORDERED: ALBU17IN2 INH (18:49)
[2017-03-24] MEDS ORDERED: AVEL1TAB3 PO (18:49)
[2017-03-24 19:05] VITALS: BP 116/55
--- NOTE | 2017-03-24 20:09 | ECGEPIP ---
Stationary ECG Study [facility] - ED Test Date: 2017-03-24 Pat Name: NICKOLAS COLLADO Department: Room: - Gender: M Chief Pharmacist: : 1950 Requested By: FREDDY VILLAGOMEZ Order Number: [id number] Reading MD: Joana Carvajal Measurements Intervals [place] Rate: 72 P: 66 MO: 145 QRS: 48 QRSD: 88 T: 47 QT: 366 QTc: 403 Interpretive Statements SINUS RHYTHM NONSPECIFIC ST & T-WAVE ABNORMALITY SIMILAR 12/15/16 Electronically Signed On 03-24-2017 20:08:52 EDT by Joana Carvajal
== END 2017-03-24 19:15 | disposition home or self-care (01) ==
LOC: M ED 17:03
DX: J44.1 Chronic obstructive pulmonary disease with (acute) exacerbation (principal); J45.909 Unspecified asthma, uncomplicated; E78.5 Hyperlipidemia, unspecified; Z87.891 Personal history of nicotine dependence; Z79.899 Other long term (current) drug therapy; Z79.52 Long term (current) use of systemic steroids
CPT/HCPCS: 71020; 80048; 80076; 82550; 82553; 82803; 83605; 83880; 84484; 85025; 85610; 87040; 93005; 93041; 94640; 99285; G0463

== ENCOUNTER 2017-03-27 21:12 | Inpatient (IN) | payer MEDICARE, MEDICAID ==
[~2017-03-27] VITALS: Ht 167.6 cm; Wt 90.9 kg
[~2017-03-27 21:12] MED LIST changes: +ALBU17IN2 INH; +AVEL1TAB3 PO
[2017-03-27] MEDS ORDERED: VANCOMYCIN HCL 750 MG, VIAL MATE ADAPTER 1 EACH in D5W 250 ML IV ONE (22:45)
[2017-03-27] MEDS ORDERED: ERTAPENEM SODIUM 1 GM in NS MINI-BAG PLUS 50 ML IV ONE (22:45)
[2017-03-27 22:55] LABS: VENOUS BASE EXCESS 12.6 (-2.0-2.0); VENOUS O2 SATURATION 98.9 % (60.0-80.0); VENOUS PARTIAL PRESSURE CO2 62.6 mmHg (38.0-50.0); VENOUS PARTIAL PRESSURE O2 143.8 mmHg (30.0-50.0); VENOUS STANDARD HCO3 36.4 MEQ/L; VENOUS TOTAL CO2 41.4 MEQ/L (24.0-28.0)
[2017-03-27 22:56] LABS: BASO % 0.6 % (0.0-1.0); EOS # 0.1 K/mm3 (0.0-0.50); EOS % 1.4 % (0.0-3.0); LARGE UNSTAINED CELL # 0.1 K/mm3 (0.0-0.4); LYMPH # 0.7 K/mm3 (1.5-4.5); LYMPH % 7.2 % (24.0-44.0); MEAN CORPUSCULAR HEMOGLOBIN 31.1 pg (27.0-33.0); MEAN CORPUSCULAR HGB CONC 33.7 g/dl (32.0-36.5); MEAN CORPUSCULAR VOLUME 92.2 fl (80.0-96.0); MONO # 0.8 K/mm3 (0.0-0.8); MONO % 8.5 % (0.0-5.0); NEUTROPHILS # 7.3 K/mm3 (1.8-7.7); NEUTROPHILS % 81.3 % (36.0-66.0); PLATELET COUNT, AUTOMATED 200 k/mm3 (150-450); RED CELL DISTRIBUTION WIDTH 12.4 % (11.5-14.5)
[2017-03-27 23:21] LABS: ANION GAP 4 MEQ/L (8-16); BLOOD UREA NITROGEN 13 MG/DL (7-18); CALCIUM LEVEL 8.7 MG/DL (8.8-10.2); CARBON DIOXIDE LEVEL 39 MEQ/L (21-32); CHLORIDE LEVEL 97 MEQ/L (98-107); GLOMERULAR FILTRATION RATE > 60.0 (>49); GLUCOSE, FASTING 188 MG/DL (80-110); POTASSIUM SERUM 3.4 MEQ/L (3.5-5.1); SODIUM LEVEL 140 MEQ/L (136-145)
[2017-03-27] MEDS ORDERED: dexameTHASONE 20 MG/5 ML VIAL (J1100) IV ONE (23:30)
[2017-03-27] MEDS: IPRATROPIUM 0.5MG/ALBUTEROL 2.5MG INH SOL UD 3ML (DUONEB)(J7620) NEB SCH ×2 (23:48→23:49)
[2017-03-28] MEDS ORDERED: SIMV10TA2 PO (02:35)
[2017-03-28] MEDS ORDERED: FIBE62TA PO (02:35)
[2017-03-28] MEDS ORDERED: BUDE0.5S6 INH (02:35)
[2017-03-28] MEDS ORDERED: FERR325T3 PO (02:35)
[2017-03-28] MEDS ORDERED: ALBU17IN2 INH (02:35)
[2017-03-28] MEDS ORDERED: DONETAB6 PO (02:35)
[2017-03-28] MEDS ORDERED: DRIS50002 PO (02:35)
[2017-03-28] MEDS ORDERED: AVEL1TAB3 PO (02:35)
[2017-03-28] MEDS ORDERED: LASI20TA PO (02:35)
[2017-03-28] MEDS ORDERED: ZETI10TA30 PO (02:35)
--- NOTE | 2017-03-28 03:12 | HPEPDOC ---
General Date of Admission Chief Complaint The patient is a 66-year-old male admitted with a reason for visit of Diff Breathing. Source: Patient, intermediate records, [facility] Caregiver/Aid Exam Limitations: Dementia, Hard of hearing Timing/Duration: 24 hours Severity: Moderate History of Present Illness Mr. Hu is a pleasant 66 y/o [facility] resident with past medical history of COPD , intellectual disability, baseline dementia, Iron deficiency, history of LUE DVT, Borderline personality disorder, Chronic venous insufficiency and GERD who is coming in today with CC of SOB and cough that began one day ago as per [facility] aid who is at bedside. The pt himself is a poor historian so much of the HPI is obtained via the aid and past medical records. The pt. experienced one episode of vomiting up his coffee this morning with elevated temperatures yesterday of 101 F. He is alert and awake but has baseline dementia but is at his normal cognitive state as per [facility] aid. He did not complain of any diarrhea, pain with urination or abdominal pain in general, in fact most of the questions on ROS were "no" and that he was "doing fine". He normally wears 3 L O2 at the nursing facility. Home Medications Scheduled Budesonide (Budesonide) 0.5 Mg/2 Ml Neb, 1 VIAL INH BID, (Reported) Calcium Polycarbophil (Fiber-Lax) 1 Ea Tab, 1 EA PO BID, (Reported) Donepezil Hcl (Donepezil HCl) 10 Mg Tab, 10 MG PO QHS, (Reported) Ezetimibe (Zetia) 10 Mg Tab, 10 MG PO QHS, (Reported) Ferrous Sulfate (Ferrous Sulfate) 325 Mg Tab, 325 MG PO BID, (Reported) Furosemide (Lasix) 20 Mg Tab, 20 MG PO DAILY, (Reported) Moxifloxacin Hydrochloride (Avelox) 400 Mg Tab, 400 MG PO DAILY, (Reported) FILLED 03/24/17 FOR 7 DAYS--TO END 03/31/17 Simvastatin (Simvastatin) 10 Mg Tab, 10 MG PO QHS, (Reported) Vitamin D (Drisdol) 50,000 Unit Cap, 50,000 UNIT PO QWEEK, (Reported) QHS--- ON TUESDAYS Scheduled PRN Albuterol Sulfate (Proventil Hfa) 167 Puff/6.7 Gm Aers, 2 PUFFS INH Q4H PRN for SHORTNESS OF BREATH, (Reported) Allergies Coded Allergies: No Known Allergies (Verified , 10/07/16) Past Medical History Medical History COPD GERD BPD DLP intellectual disability dementia Family History Significant Family History: No pertinent family hx Social History * Smoker: former Smoker Alcohol: Denies Drugs: denies Psychosocial History: Other (BPD, intellectual disability, baseline dementia) [facility] resident Review of Symptoms Constitutional: Denies: Chills, Fever Eyes: Denies: Vision change Skin: Denies: Rash Pulmonary: Reports: Dyspnea, Cough Cardiovascular: Denies: Chest Pain, Palpitations Gastrointestinal: Reports: Nausea, Vomiting, Denies: Abdominal Pain, Diarrhea Genitourinary: Denies: Dysuria Neurological: Denies: Weakness Psych: Reports: Mood Normal Physical Examination General Exam: Positive: Alert, Cooperative, No Acute Distress Eye Exam: Positive: Conjunctiva & lids normal ENT Exam: Positive: Atraumatic, Mucous membr. moist/pink Neck Exam: Positive: Supple Chest Exam: Positive: Wheezing (LLL), Diminished, Negative: Clear to auscultation, Normal air movement, Rales, Rhonchi (LLL) Heart Exam: Positive: Rate Normal, Normal S1, Normal S2, Negative: Murmurs, Rubs Abdomen Exam: Positive: Normal bowel sounds, Soft, Negative: Tenderness, Hepatospenomegaly, Mass Psych Exam: Positive: Other (baseline intellectual disability and dementia) Vital Signs Vital Signs Date Time Temp Pulse Resp B/P (MAP) Pulse Ox O2 Delivery O2 Flow Rate FiO2 03/28/17 01:57 86 97 03/27/17 21:54 03/27/17 21:35 99.9 18 Nasal Cannula 3.0 Laboratory Data Labs 24H Laboratory Tests 2 03/27/17 22:46: White Blood Count 9.0, Red Blood Count 3.63L, Hemoglobin 11.3L, Hematocrit 33.5L , Mean Corpuscular Volume 92.2, Mean Corpuscular Hemoglobin 31.1, Mean Corpuscular Hemoglobin Concent 33.7, Red Cell Distribution Width 12.4, Platelet Count 200, Neutrophils (%) (Auto) 81.3H, Lymphocytes (%) (Auto) 7.2L, Monocytes (%) (Auto) 8.5H, Eosinophils (%) (Auto) 1.4, Basophils (%) (Auto) 0.6, Neutrophils # (Auto) 7.3, Lymphocytes # (Auto) 0.7L, Monocytes # (Auto) 0.8, Eosinophils # (Auto) 0.1, Basophils # (Auto) 0.0, Large Unclassified Cells % 1.0 , Large Unclassified Cells # 0.1, Blood Gas Bicarbonate Standard 36.4, Venous Blood pH 7.418, Venous Blood Partial Pressure CO2 62.6H, Venous Blood Partial Pressure O2 143.8H, Venous Blood Total Carbon Dioxide 41.4H, Venous Blood HCO3 39.5H, Venous Blood Oxygen Saturation 98.9H, Venous Blood Base Excess 12.6H, Anion Gap 4L, Glomerular Filtration Rate > 60.0, Lactic Acid Level 1.0, Blood Urea Nitrogen 13, Creatinine 0.60L, Sodium Level 140, Potassium Level 3.4L, Chloride Level 97L, Carbon Dioxide Level 39H, Calcium Level 8.7L CBC/BMP Laboratory Tests 03/27/17 22:46 Red Blood Count 3.63 L, Mean Corpuscular Volume 92.2, Mean Corpuscular Hemoglobin 31.1, Mean Corpuscular Hemoglobin Concent 33.7, Red Cell Distribution Width 12.4, Neutrophils (%) (Auto) 81.3 H, Lymphocytes (%) (Auto) 7.2 L, Monocytes (%) (Auto) 8.5 H, Eosinophils (%) (Auto) 1.4, Basophils (%) ( Auto) 0.6, Neutrophils # (Auto) 7.3, Lymphocytes # (Auto) 0.7 L, Monocytes # ( Auto) 0.8, Eosinophils # (Auto) 0.1, Basophils # (Auto) 0.0, Calcium Level 8.7 L Microbiology Microbiology 03/27/17 Blood Culture, Received Pending 03/27/17 Blood Culture, Received Pending Problems (1) Pneumonia Status: Acute Response to Treatment: Stable Problem Text: suspect SOB and cough is from [facility] pneumonia, CXR demonstrates changes from 03-24-17 imaging in [facility] WBC 9.0, down from 15.2 on 03-24-17 will order sputum culture pt is on 3 L O2 at home-continue here to titrate 88-92% hx. of COPD w/ most recent exacerbation 11/2016. begin antibiotic treatment for suspected HAP- Zosyn 3.375 gm IV q6h (2) Dementia Status: Chronic Response to Treatment: Stable Problem Text: continue home medications (3) Dyslipidemia Status: Chronic Response to Treatment: Stable Problem Text: continue home medications (4) DVT prophylaxis Status: Acute Response to Treatment: Stable Problem Text: SCD TEDS Plan / VTE VTE Prophylaxis Ordered?: Yes GME ATTESTATION GME ATTESTATION My preceptor for this patient encounter was physically present in the building during the encounter and was fully available. As needed, all aspects of the patient interview, examination, medical decision making process, and medical care plan development were reviewed and approved by the preceptor. Preceptor is aware and concurs with the plan as stated in the body of this note and will attest to such by his/her cosignature. MARTIN TURNER DO Mar 28, 2017 03:12
[2017-03-28 05:00] VITALS: BP 129/62
[2017-03-28 06:00] VITALS: BP 126/59
[2017-03-28] MEDS: PIPERACILLIN/TAZOBACTAM SOD 3.375 GM in D5W MINI-BAG PLUS 50 ML IV SCH ×3 (06:29→18:40)
[2017-03-28] MEDS: IPRATROPIUM 0.5MG/ALBUTEROL 2.5MG INH SOL UD 3ML (DUONEB)(J7620) NEB SCH ×3 (07:04→20:19)
--- NOTE | 2017-03-28 07:59 | REP ---
Clinical: Dyspnea. Technique: PA and lateral. Comparison: 03/24/2017. Findings: Bibasilar infiltrates and layering effusions are appreciated along with increased interstitial markings. No pneumothorax. Mediastinum and cardiac silhouette within normal limits. Skeletal structures intact. Impression: Chronic interstitial changes with superimposed bibasilar atelectasis and small layering effusions. Signed by Abdullahi Douglas MD 03/28/2017 07:51 A
[2017-03-28] MEDS: FIBER-CON 625 MG TAB PO SCH ×2 (08:39→20:16)
[2017-03-28] MEDS: FERROUS SULFATE 325MG TAB PO SCH ×2 (08:39→20:16)
[2017-03-28 08:49] LABS: MEAN CORPUSCULAR HEMOGLOBIN 31.5 pg (27.0-33.0); MEAN CORPUSCULAR HGB CONC 33.8 g/dl (32.0-36.5); RED CELL DISTRIBUTION WIDTH 12.5 % (11.5-14.5); WHITE BLOOD COUNT 6.4 K/mm3 (4.0-10.0)
[2017-03-28 09:45] LABS: ANION GAP 6 MEQ/L (8-16); BLOOD UREA NITROGEN 10 MG/DL (7-18); CALCIUM LEVEL 8.5 MG/DL (8.8-10.2); CARBON DIOXIDE LEVEL 36 MEQ/L (21-32); CHLORIDE LEVEL 100 MEQ/L (98-107); CREATININE FOR GFR 0.55 MG/DL (0.70-1.30); GLOMERULAR FILTRATION RATE > 60.0 (>49); GLUCOSE, FASTING 200 MG/DL (80-110); POTASSIUM SERUM 3.7 MEQ/L (3.5-5.1); SODIUM LEVEL 142 MEQ/L (136-145)
--- NOTE | 2017-03-28 10:23 | IPNPDOC ---
Subjective Date Seen The patient was seen on 03/28/17. Subjective Chief Complaint/HPI The patient is a 66-year-old male admitted with a reason for visit of Pneumonia. Events since last encounter Pt this morning without new concerns. He denies pain. Nursing without concerns. ROS information obtained but questionable accuracy d/t disability, dementia. General: Denies: Fatigue Constitutional: Denies: Chills, Fever ENT: Denies: Head Aches Pulmonary: Denies: Dyspnea, Cough Cardiovascular: Denies: Chest Pain, Palpitations Gastrointestinal: Denies: Nausea, Vomiting, Diarrhea Neurological: Denies: Weakness Objective Physical Examination General Exam: Positive: Alert, Cooperative, No Acute Distress ENT Exam: Positive: Atraumatic, Mucous membr. moist/pink Neck Exam: Positive: Supple Chest Exam: Positive: Rhonchi (LLL), Wheezing (scattered throughout), Diminished, Negative: Clear to auscultation, Normal air movement, Rales Heart Exam: Positive: Rate Normal, Normal S1, Normal S2, Negative: Murmurs, Rubs Abdomen Exam: Positive: Normal bowel sounds, Soft, Negative: Tenderness, Hepatospenomegaly, Mass Psych Exam: Positive: Other (baseline intellectual disability and dementia) Assessment /Plan Problems (1) Pneumonia Status: Acute Response to Treatment: Stable Problem Text: Zosyn D1 (received erta and vanco in ED) no h/o nor concern for MRSA 03/28 WBC nl, afebrile, O2 at 3LMP (same as HD) 03/27 suspect SOB and cough is from [facility] pneumonia, CXR demonstrates changes from 03-24-17 imaging in [facility] pt is on 3 L O2 at home-continue here to titrate 88-92% hx. of COPD w/ most recent exacerbation 11/2016. 03/28/17 SCX P 03/27/17 BCX x 2 P 03/27/17 CXR chronic interstitial change (2) Dementia Status: Chronic Response to Treatment: Stable Problem Text: continue home medications (3) Dyslipidemia Status: Chronic Response to Treatment: Stable Problem Text: continue home medications (4) COPD (chronic obstructive pulmonary disease) Status: Chronic Problem Text: exacerbation, 2 PN Plan/VTE VTE Prophylaxis Ordered?: Yes Plan Anticipated Discharge: Home ([facility] Resident) VS, I&O, 24H, Fishbone Vital Signs/I&O Vital Signs Date Time Temp Pulse Resp B/P (MAP) Pulse Ox O2 Delivery O2 Flow Rate FiO2 03/28/17 06:00 97.6 93 15 126/59 (81) 96 Nasal Cannula 3.0 I&O- Last 24 Hours up to 6 AM 03/28/17 05:59 Intake Total 325 ml Balance 325 ml Laboratory Data 24H LABS Laboratory Tests 2 03/27/17 22:46: White Blood Count 9.0, Red Blood Count 3.63L, Hemoglobin 11.3L, Hematocrit 33.5L , Mean Corpuscular Volume 92.2, Mean Corpuscular Hemoglobin 31.1, Mean Corpuscular Hemoglobin Concent 33.7, Red Cell Distribution Width 12.4, Platelet Count 200, Neutrophils (%) (Auto) 81.3H, Lymphocytes (%) (Auto) 7.2L, Monocytes (%) (Auto) 8.5H, Eosinophils (%) (Auto) 1.4, Basophils (%) (Auto) 0.6, Neutrophils # (Auto) 7.3, Lymphocytes # (Auto) 0.7L, Monocytes # (Auto) 0.8, Eosinophils # (Auto) 0.1, Basophils # (Auto) 0.0, Large Unclassified Cells % 1.0 , Large Unclassified Cells # 0.1, Blood Gas Bicarbonate Standard 36.4, Venous Blood pH 7.418, Venous Blood Partial Pressure CO2 62.6H, Venous Blood Partial Pressure O2 143.8H, Venous Blood Total Carbon Dioxide 41.4H, Venous Blood HCO3 39.5H, Venous Blood Oxygen Saturation 98.9H, Venous Blood Base Excess 12.6H, Anion Gap 4L, Glomerular Filtration Rate > 60.0, Lactic Acid Level 1.0, Blood Urea Nitrogen 13, Creatinine 0.60L, Sodium Level 140, Potassium Level 3.4L, Chloride Level 97L, Carbon Dioxide Level 39H, Calcium Level 8.7L 03/28/17 08:37: Anion Gap 6L, Glomerular Filtration Rate > 60.0, Blood Urea Nitrogen 10, Creatinine 0.55L, Sodium Level 142, Potassium Level 3.7, Chloride Level 100, Carbon Dioxide Level 36H, Calcium Level 8.5L CBC/BMP Laboratory Tests 03/27/17 22:46 Red Blood Count 3.63 L, Mean Corpuscular Volume 92.2, Mean Corpuscular Hemoglobin 31.1, Mean Corpuscular Hemoglobin Concent 33.7, Red Cell Distribution Width 12.4, Neutrophils (%) (Auto) 81.3 H, Lymphocytes (%) (Auto) 7.2 L, Monocytes (%) (Auto) 8.5 H, Eosinophils (%) (Auto) 1.4, Basophils (%) ( Auto) 0.6, Neutrophils # (Auto) 7.3, Lymphocytes # (Auto) 0.7 L, Monocytes # ( Auto) 0.8, Eosinophils # (Auto) 0.1, Basophils # (Auto) 0.0, Calcium Level 8.7 L 03/28/17 08:37 Red Blood Count 3.55 L, Mean Corpuscular Volume 93.0, Mean Corpuscular Hemoglobin 31.5, Mean Corpuscular Hemoglobin Concent 33.8, Red Cell Distribution Width 12.5, Calcium Level 8.5 L Microbiology Microbiology 03/27/17 Blood Culture, Received Pending 03/27/17 Blood Culture, Received Pending 03/28/17 Gram Stain, Received Pending 03/28/17 Sputum Culture, Received Pending LIZZIE KRUSE PA-C Mar 28, 2017 10:23 Quentin Mullins M.D. Mar 28, 2017 15:09
[2017-03-28] MEDS: methylPREDNISolone INJ 125 MG/2 ML VIAL (J2930) IV SCH (18:40)
[2017-03-28] MEDS: EZETIMIBE 10 MG TAB (ZETIA) PO SCH (20:16)
[2017-03-28] MEDS: SIMVASTATIN 10 MG TAB PO SCH (20:16)
[2017-03-28] MEDS: DONEPEZIL 5 MG TAB PO SCH (20:16)
[2017-03-28 22:00] VITALS: BP 115/56
[2017-03-29] MEDS: PIPERACILLIN/TAZOBACTAM SOD 3.375 GM in D5W MINI-BAG PLUS 50 ML IV SCH ×4 (00:54→19:04)
[2017-03-29 05:48] LABS: BASO % 0.1 % (0.0-1.0); EOS % 0.1 % (0.0-3.0); LARGE UNSTAINED CELL # 0.1 K/mm3 (0.0-0.4); LARGE UNSTAINED CELL % 0.5 % (0.0-4.0); LYMPH % 8.2 % (24.0-44.0); MEAN CORPUSCULAR HEMOGLOBIN 30.5 pg (27.0-33.0); MEAN CORPUSCULAR HGB CONC 33.2 g/dl (32.0-36.5); MONO # 0.5 K/mm3 (0.0-0.8); NEUTROPHILS % 87.2 % (36.0-66.0); PLATELET COUNT, AUTOMATED 244 k/mm3 (150-450); RED CELL DISTRIBUTION WIDTH 12.5 % (11.5-14.5); WHITE BLOOD COUNT 11.5 K/mm3 (4.0-10.0)
[2017-03-29 06:00] VITALS: BP 107/54
[2017-03-29 06:03] LABS: ANION GAP 6 MEQ/L (8-16); BLOOD UREA NITROGEN 13 MG/DL (7-18); CARBON DIOXIDE LEVEL 35 MEQ/L (21-32); CHLORIDE LEVEL 100 MEQ/L (98-107); GLOMERULAR FILTRATION RATE > 60.0 (>49); GLUCOSE, FASTING 164 MG/DL (80-110); POTASSIUM SERUM 3.7 MEQ/L (3.5-5.1); SODIUM LEVEL 141 MEQ/L (136-145)
[2017-03-29] MEDS: IPRATROPIUM 0.5MG/ALBUTEROL 2.5MG INH SOL UD 3ML (DUONEB)(J7620) NEB SCH ×3 (07:32→20:36)
[2017-03-29] MEDS: FERROUS SULFATE 325MG TAB PO SCH ×2 (10:53→21:11)
[2017-03-29] MEDS: FIBER-CON 625 MG TAB PO SCH ×2 (10:53→21:00)
[2017-03-29] MEDS: methylPREDNISolone INJ 125 MG/2 ML VIAL (J2930) IV SCH (10:54)
[2017-03-29 14:00] VITALS: BP 121/58
--- NOTE | 2017-03-29 15:44 | IPNPDOC ---
Subjective Date Seen The patient was seen on 03/29/17. Subjective Chief Complaint/HPI The patient is a 66-year-old male admitted with a reason for visit of Pneumonia. Events since last encounter Patient states that he is feeling better. Breathing well. No complaints or concerns, however patient generally does not answer questions appropriately due to underlying dementia. Constitutional: Denies: Chills, Fever, Malaise Pulmonary: Denies: Dyspnea, Cough Cardiovascular: Denies: Chest Pain, Palpitations Gastrointestinal: Denies: Nausea, Vomiting, Abdominal Pain, Diarrhea, Constipation Neurological: Reports: Confusion Other systems Accurate review of systems unobtainable due to baseline mental status Objective Physical Examination General Exam: Positive: Alert, Cooperative, No Acute Distress ENT Exam: Positive: Atraumatic, Mucous membr. moist/pink Neck Exam: Positive: Supple Chest Exam: Positive: Rhonchi (LLL), Wheezing (scattered throughout), Diminished, Negative: Clear to auscultation, Normal air movement, Rales Heart Exam: Positive: Rate Normal, Normal S1, Normal S2, Negative: Murmurs, Rubs Abdomen Exam: Positive: Normal bowel sounds, Soft, Negative: Tenderness, Hepatospenomegaly, Mass Skin Exam: Positive: Nl turgor and temperature Neuro Exam: Positive: Normal Speech Psych Exam: Positive: Other (baseline intellectual disability and dementia) Assessment /Plan Problems (1) Pneumonia Status: Acute Response to Treatment: Stable Problem Text: Patient improving on IV antibiotics for left lower lobe pneumonia. No fevers, vital signs stable. (2) Dementia Status: Chronic Response to Treatment: Stable Problem Text: continue home medications (3) Dyslipidemia Status: Chronic Response to Treatment: Stable Problem Text: continue home medications (4) COPD (chronic obstructive pulmonary disease) Status: Chronic Problem Text: exacerbation, 2 PN Plan/VTE VTE Prophylaxis Ordered?: Yes Plan Anticipated Discharge: Home ([facility] Resident) VS, I&O, 24H, [place] Vital Signs/I&O Vital Signs Date Time Temp Pulse Resp B/P (MAP) Pulse Ox O2 Delivery O2 Flow Rate FiO2 03/29/17 06:00 97.3 73 18 107/54 (71) 90 Room Air 03/28/17 06:00 3.0 I&O- Last 24 Hours up to 6 AM 03/29/17 06:00 Intake Total 570 ml Output Total 800 ml Balance -230 ml Laboratory Data 24H LABS Laboratory Tests 2 03/29/17 05:18: White Blood Count 11.5H, Red Blood Count 3.56L, Hemoglobin 10.8L, Hematocrit 32.7L, Mean Corpuscular Volume 92.0, Mean Corpuscular Hemoglobin 30.5, Mean Corpuscular Hemoglobin Concent 33.2, Red Cell Distribution Width 12.5, Platelet Count 244, Neutrophils (%) (Auto) 87.2H, Lymphocytes (%) (Auto) 8.2L, Monocytes (%) (Auto) 4.0, Eosinophils (%) (Auto) 0.1, Basophils (%) (Auto) 0.1, Neutrophils # (Auto) 10.0H, Lymphocytes # (Auto) 1.0L, Monocytes # (Auto) 0.5, Eosinophils # (Auto) 0.0, Basophils # (Auto) 0.0, Large Unclassified Cells % 0.5 , Large Unclassified Cells # 0.1, Anion Gap 6L, Glomerular Filtration Rate > 60.0, Blood Urea Nitrogen 13, Creatinine 0.60L, Sodium Level 141, Potassium Level 3.7, Chloride Level 100, Carbon Dioxide Level 35H, Calcium Level 9.0 CBC/BMP Laboratory Tests 03/29/17 05:18 Red Blood Count 3.56 L, Mean Corpuscular Volume 92.0, Mean Corpuscular Hemoglobin 30.5, Mean Corpuscular Hemoglobin Concent 33.2, Red Cell Distribution Width 12.5, Neutrophils (%) (Auto) 87.2 H, Lymphocytes (%) (Auto) 8.2 L, Monocytes (%) (Auto) 4.0, Eosinophils (%) (Auto) 0.1, Basophils (%) (Auto ) 0.1, Neutrophils # (Auto) 10.0 H, Lymphocytes # (Auto) 1.0 L, Monocytes # ( Auto) 0.5, Eosinophils # (Auto) 0.0, Basophils # (Auto) 0.0, Calcium Level 9.0 Microbiology Microbiology 03/27/17 Blood Culture - Preliminary, Resulted No growth after 24 hours . All specim... 03/27/17 Blood Culture - Preliminary, Resulted No growth after 24 hours . All specim... 03/28/17 Gram Stain - Final, Resulted 03/28/17 Sputum Culture, Resulted Pending PARRISH SCHMID MD Mar 29, 2017 15:44
[2017-03-29] MEDS: SIMVASTATIN 10 MG TAB PO SCH (21:12)
[2017-03-29] MEDS: DONEPEZIL 5 MG TAB PO SCH (21:12)
[2017-03-29] MEDS: EZETIMIBE 10 MG TAB (ZETIA) PO SCH (21:12)
[2017-03-29 22:00] VITALS: BP 121/68
[2017-03-30] MEDS: PIPERACILLIN/TAZOBACTAM SOD 3.375 GM in D5W MINI-BAG PLUS 50 ML IV SCH ×3 (01:24→11:59)
[2017-03-30 06:00] VITALS: BP 134/61
[2017-03-30 06:49] LABS: BASO % 0.3 % (0.0-1.0); EOS % 0.2 % (0.0-3.0); LARGE UNSTAINED CELL # 0.1 K/mm3 (0.0-0.4); LYMPH # 1.9 K/mm3 (1.5-4.5); LYMPH % 12.6 % (24.0-44.0); MEAN CORPUSCULAR HEMOGLOBIN 31.7 pg (27.0-33.0); MEAN CORPUSCULAR HGB CONC 34.3 g/dl (32.0-36.5); MEAN CORPUSCULAR VOLUME 92.5 fl (80.0-96.0); MONO # 0.9 K/mm3 (0.0-0.8); MONO % 6.4 % (0.0-5.0); NEUTROPHILS % 79.5 % (36.0-66.0); PLATELET COUNT, AUTOMATED 299 k/mm3 (150-450); RED CELL DISTRIBUTION WIDTH 12.7 % (11.5-14.5); WHITE BLOOD COUNT 13.9 K/mm3 (4.0-10.0)
[2017-03-30 06:59] LABS: ANION GAP 5 MEQ/L (8-16); BLOOD UREA NITROGEN 15 MG/DL (7-18); CALCIUM LEVEL 8.9 MG/DL (8.8-10.2); CARBON DIOXIDE LEVEL 33 MEQ/L (21-32); CHLORIDE LEVEL 103 MEQ/L (98-107); CREATININE FOR GFR 0.65 MG/DL (0.70-1.30); GLOMERULAR FILTRATION RATE > 60.0 (>49); GLUCOSE, FASTING 86 MG/DL (80-110); POTASSIUM SERUM 3.8 MEQ/L (3.5-5.1); SODIUM LEVEL 141 MEQ/L (136-145)
[2017-03-30] MEDS: IPRATROPIUM 0.5MG/ALBUTEROL 2.5MG INH SOL UD 3ML (DUONEB)(J7620) NEB SCH ×3 (07:03→20:13)
[2017-03-30] MEDS: FERROUS SULFATE 325MG TAB PO SCH ×2 (09:37→20:35)
[2017-03-30] MEDS: FIBER-CON 625 MG TAB PO SCH ×2 (09:37→22:07)
[2017-03-30] MEDS: methylPREDNISolone INJ 125 MG/2 ML VIAL (J2930) IV SCH (09:44)
[2017-03-30 14:00] VITALS: BP 128/59
--- NOTE | 2017-03-30 15:45 | IPNPDOC ---
Subjective Date Seen The patient was seen on 03/30/17. Subjective Chief Complaint/HPI The patient is a 66-year-old male admitted with a reason for visit of Pneumonia. Events since last encounter Patient states that he is breathing well today. Denies shortness of breath. No complaints or concerns, however seems to answer all questions in the same fashion. Constitutional: Denies: Chills, Fever, Malaise Pulmonary: Denies: Dyspnea, Cough Cardiovascular: Denies: Chest Pain Gastrointestinal: Denies: Nausea, Vomiting, Abdominal Pain, Diarrhea, Constipation Neurological: Reports: Confusion Other systems 10 point review systems generally unobtainable due to patient's baseline mental status Objective Physical Examination General Exam: Positive: Alert, Cooperative, No Acute Distress ENT Exam: Positive: Atraumatic, Mucous membr. moist/pink Neck Exam: Positive: Supple Chest Exam: Positive: Rhonchi (LLL), Wheezing (scattered throughout), Diminished, Negative: Clear to auscultation, Normal air movement, Rales Heart Exam: Positive: Rate Normal, Normal S1, Normal S2, Negative: Murmurs, Rubs Abdomen Exam: Positive: Normal bowel sounds, Soft, Negative: Tenderness, Hepatospenomegaly, Mass Skin Exam: Positive: Nl turgor and temperature Neuro Exam: Positive: Normal Speech Psych Exam: Positive: Other (baseline intellectual disability and dementia) Assessment /Plan Problems (1) Pneumonia Status: Acute Response to Treatment: Stable Problem Text: Patient improving on IV antibiotics for left lower lobe pneumonia. No fevers, vital signs stable. Currently breathing well on room air. -Transition to by mouth Levaquin in anticipation for discharge (2) Dementia Status: Chronic Response to Treatment: Stable Problem Text: continue home medications (3) Dyslipidemia Status: Chronic Response to Treatment: Stable Problem Text: continue home medications (4) COPD (chronic obstructive pulmonary disease) Status: Chronic Problem Text: exacerbation, 2 PN Plan/VTE VTE Prophylaxis Ordered?: Yes Plan Anticipated Discharge: Home ([facility] Resident) Disposition Anticipated discharge on Friday VS, I&O, 24H, Fishbone Vital Signs/I&O Vital Signs Date Time Temp Pulse Resp B/P (MAP) Pulse Ox O2 Delivery O2 Flow Rate FiO2 03/30/17 06:00 98.2 73 20 134/61 (85) 92 Room Air 03/28/17 06:00 3.0 I&O- Last 24 Hours up to 6 AM 03/30/17 05:59 Intake Total 2180 ml Balance 2180 ml Laboratory Data 24H LABS Laboratory Tests 2 03/30/17 06:06: White Blood Count 13.9H, Red Blood Count 3.76L, Hemoglobin 11.9L, Hematocrit 34.8L, Mean Corpuscular Volume 92.5, Mean Corpuscular Hemoglobin 31.7, Mean Corpuscular Hemoglobin Concent 34.3, Red Cell Distribution Width 12.7, Platelet Count 299, Neutrophils (%) (Auto) 79.5H, Lymphocytes (%) (Auto) 12.6L, Monocytes (%) (Auto) 6.4H, Eosinophils (%) (Auto) 0.2, Basophils (%) (Auto) 0.3 , Neutrophils # (Auto) 11.0H, Lymphocytes # (Auto) 1.9, Monocytes # (Auto) 0.9H , Eosinophils # (Auto) 0.0, Basophils # (Auto) 0.0, Large Unclassified Cells % 1.0, Large Unclassified Cells # 0.1, Anion Gap 5L, Glomerular Filtration Rate > 60.0, Blood Urea Nitrogen 15, Creatinine 0.65L, Sodium Level 141, Potassium Level 3.8, Chloride Level 103, Carbon Dioxide Level 33H, Calcium Level 8.9 CBC/BMP Laboratory Tests 03/30/17 06:06 Red Blood Count 3.76 L, Mean Corpuscular Volume 92.5, Mean Corpuscular Hemoglobin 31.7, Mean Corpuscular Hemoglobin Concent 34.3, Red Cell Distribution Width 12.7, Neutrophils (%) (Auto) 79.5 H, Lymphocytes (%) (Auto) 12.6 L, Monocytes (%) (Auto) 6.4 H, Eosinophils (%) (Auto) 0.2, Basophils (%) ( Auto) 0.3, Neutrophils # (Auto) 11.0 H, Lymphocytes # (Auto) 1.9, Monocytes # ( Auto) 0.9 H, Eosinophils # (Auto) 0.0, Basophils # (Auto) 0.0, Calcium Level 8.9 Microbiology Microbiology 03/27/17 Blood Culture - Preliminary, Resulted No Growth after 48 hours. All Specime... 03/27/17 Blood Culture - Preliminary, Resulted No Growth after 48 hours. All Specime... 03/28/17 Gram Stain - Final, Complete 03/28/17 Sputum Culture - Final, Complete Yeast Like Organism PARRISH SCHMID MD Mar 30, 2017 15:45
[2017-03-30] MEDS: DONEPEZIL 5 MG TAB PO SCH (20:35)
[2017-03-30] MEDS: SIMVASTATIN 10 MG TAB PO SCH (20:35)
[2017-03-30] MEDS: EZETIMIBE 10 MG TAB (ZETIA) PO SCH (20:35)
[2017-03-30 22:00] VITALS: BP 123/62
[2017-03-31 06:00] VITALS: BP 132/61
[2017-03-31] MEDS ORDERED: LevoFLOXacin 750 MG TABLET PO SCH (06:00)
[2017-03-31 07:09] LABS: ADD MANUAL DIFFER YES; MEAN CORPUSCULAR HEMOGLOBIN 31.8 pg (27.0-33.0); MEAN CORPUSCULAR HGB CONC 34.5 g/dl (32.0-36.5); MEAN CORPUSCULAR VOLUME 92.2 fl (80.0-96.0); PLATELET COUNT, AUTOMATED 344 k/mm3 (150-450); RED CELL DISTRIBUTION WIDTH 12.4 % (11.5-14.5); WHITE BLOOD COUNT 14.1 K/mm3 (4.0-10.0)
[2017-03-31 07:28] LABS: ANION GAP 6 MEQ/L (8-16); BLOOD UREA NITROGEN 12 MG/DL (7-18); CALCIUM LEVEL 8.6 MG/DL (8.8-10.2); CARBON DIOXIDE LEVEL 32 MEQ/L (21-32); CHLORIDE LEVEL 103 MEQ/L (98-107); CREATININE FOR GFR 0.58 MG/DL (0.70-1.30); GLOMERULAR FILTRATION RATE > 60.0 (>49); GLUCOSE, FASTING 72 MG/DL (80-110); SODIUM LEVEL 141 MEQ/L (136-145)
[2017-03-31 07:30] LABS: BANDS 2 % (< 11); EOSINOPHILS 2 % (0-5)
[2017-03-31] MEDS: IPRATROPIUM 0.5MG/ALBUTEROL 2.5MG INH SOL UD 3ML (DUONEB)(J7620) NEB SCH (07:31)
[2017-03-31] MEDS: FERROUS SULFATE 325MG TAB PO SCH (09:00)
[2017-03-31] MEDS: methylPREDNISolone INJ 125 MG/2 ML VIAL (J2930) IV SCH (09:00)
[2017-03-31] MEDS ORDERED: PRED10TA2 PO (09:43)
[2017-03-31] MEDS ORDERED: IPRASOL4 NEB (09:43)
[2017-03-31] MEDS ORDERED: LEVA750T7 PO (09:43)
--- NOTE | 2017-03-31 10:27 | DSES ---
DATE OF ADMISSION: 03/28/2017 DATE OF DISCHARGE: 03/31/2017 PRIMARY CARE PHYSICIAN: Quentin Mullins MD ATTENDING PHYSICIAN: Henri Lucio MD HISTORY OF PRESENT ILLNESS: Guido Hu is a 66-year-old male patient of Dr. Mullins and [facility] resident. The patient has a history of chronic obstructive pulmonary disease (COPD), intellectual disability, and baseline dementia. He went to the ER with shortness of breath and cough. Workup showed left lower lobe pneumonia and the patient was admitted for further evaluation and treatment. The patient had been in the ER on the 03/24 and had been on moxifloxacin from that time. He had been on supplemental oxygen. He was continued on supplemental oxygen at admission, however this was later weaned to room air. The patient was started on IV Zosyn. This was discontinued the day prior to discharge and the patient was changed to oral Levaquin. He was on IV Solu-Medrol. Sputum culture did show a few yeastlike organism. Blood cultures were negative times two. By day of discharge the patient was doing well and had been off supplemental oxygen for a couple days. He has remained afebrile. He will be discharged home today with instruction to follow up with Dr. Mullins in a week. PHYSICAL EXAMINATION: VITALS: Temperature 97.2, pulse 64, respiratory rate 18, blood pressure is 132/61, oxygen saturation is 96% room air. GENERAL: The patient is alert, no acute distress. CHEST: Clear to auscultation bilaterally. No wheezes, rales or rhonchi. HEART: Regular rate and rhythm. ABDOMEN: Positive bowel sounds, soft, nontender. EXTREMITIES: No clubbing, cyanosis or edema. LABORATORY DATA: WBC 14.1, hemoglobin 12.8, hematocrit 37.1, platelets 344. Sodium 141, potassium 4.0, chloride 103, carbon dioxide 32, BUN 12, creatinine 0.58, glucose 72, calcium 8.6. MEDICATIONS: - albuterol/ipratropium three times a day - levofloxacin 750 mg by mouth daily times seven days - prednisone 10 mg six tablets by mouth daily times three days, then four tablets by mouth daily times three days, then two tablets by mouth daily times three days, then one tablet by mouth daily times three days and then stop - puffer every 4 hours as needed shortness of breath - budesonide twice a day - fiber-lax twice a day - donepezil 10 mg by mouth at bedtime - Zetia 10 mg by mouth daily - ferrous sulfate 325 mg by mouth twice a day - Lasix 20 mg by mouth daily - simvastatin 10 mg by mouth at bedtime - Drisdol 50,000 units by mouth every week DISCHARGE INSTRUCTIONS: Followup with Dr. Mullins in a week. Diet is 2 grams salt. Activity as tolerated. DISCHARGE DIAGNOSES: Left lower lobe pneumonia. Dementia. Dyslipidemia. Chronic obstructive pulmonary disease (COPD). cc: Quentin Mullins MD MTDD
== END 2017-03-31 10:15 | disposition home or self-care (01) | DRG 190 ==
LOC: EDBD 21:12 → M ED 21:12 → M ED INP 03-28 03:43 → M MS5PR 03-28 04:40
PROVIDERS: ADMIT Hospitalist; ATTEND Family Medicine
DX: J44.0 Chronic obstructive pulmonary disease with (acute) lower respiratory infection (principal); J18.9 Pneumonia, unspecified organism; J96.10 Chronic respiratory failure, unspecified whether with hypoxia or hypercapnia; F03.90 Unspecified dementia, unspecified severity, without behavioral disturbance, psychotic disturbance, mood disturbance, and anxiety; F79 Unspecified intellectual disabilities; E78.5 Hyperlipidemia, unspecified; Z79.899 Other long term (current) drug therapy; I87.2 Venous insufficiency (chronic) (peripheral); Z86.718 Personal history of other venous thrombosis and embolism; F60.3 Borderline personality disorder; K21.9 Gastro-esophageal reflux disease without esophagitis

== ENCOUNTER → 2017-04-24 | Outpatient (REF) | payer MEDICARE, MEDICAID ==
[~2017-04-24] MED LIST changes: +BUDE0.5S6 INH; +DONETAB6 PO; +FIBE62TA PO; +IPRASOL4 NEB; +LEVA750T7 PO; +PRED10TA2 PO; +SIMV10TA2 PO
[2017-04-24 13:33] LABS: BASO % 0.7 % (0.0-1.0); EOS # 0.2 K/mm3 (0.0-0.50); EOS % 3.6 % (0.0-3.0); LARGE UNSTAINED CELL # 0.1 K/mm3 (0.0-0.4); LARGE UNSTAINED CELL % 1.4 % (0.0-4.0); LYMPH # 0.5 K/mm3 (1.5-4.5); LYMPH % 7.3 % (24.0-44.0); MEAN CORPUSCULAR HEMOGLOBIN 31.3 pg (27.0-33.0); MEAN CORPUSCULAR HGB CONC 33.2 g/dl (32.0-36.5); MEAN CORPUSCULAR VOLUME 94.1 fl (80.0-96.0); MONO # 0.6 K/mm3 (0.0-0.8); MONO % 8.4 % (0.0-5.0); NEUTROPHILS # 5.4 K/mm3 (1.8-7.7); NEUTROPHILS % 78.5 % (36.0-66.0); PLATELET COUNT, AUTOMATED 230 k/mm3 (150-450); RED CELL DISTRIBUTION WIDTH 12.3 % (11.5-14.5); WHITE BLOOD COUNT 6.9 K/mm3 (4.0-10.0)
[2017-04-24 14:18] LABS: ALBUMIN 3.1 GM/DL (3.2-5.2); ALBUMIN/GLOBULIN RATIO 1.03 (1.00-1.93); ALKALINE PHOSPHATASE 80 U/L (45-117); ALT/SGPT 20 U/L (12-78); ANION GAP 4 MEQ/L (8-16); AST/SGOT 16 U/L (15-37); BILIRUBIN,TOTAL 0.2 MG/DL (0.2-1.0); BLOOD UREA NITROGEN 11 MG/DL (7-18); CARBON DIOXIDE LEVEL 38 MEQ/L (21-32); CHLORIDE LEVEL 94 MEQ/L (98-107); CHOLESTEROL LEVEL 168 MG/DL (<200); CREATININE FOR GFR 0.54 MG/DL (0.70-1.30); FERRITIN 806 NG/ML (26-388); GLOMERULAR FILTRATION RATE > 60.0 (>49); GLUCOSE, FASTING 122 MG/DL (80-110); PERCENT SATURATION 7.8 % (19.7-37.4); POTASSIUM SERUM 4.1 MEQ/L (3.5-5.1); SODIUM LEVEL 136 MEQ/L (136-145); TOTAL IRON BINDING CAPACITY 306 UG/DL (250-450); TOTAL PROTEIN 6.1 GM/DL (6.4-8.2); TRIGLYCERIDES LEVEL 98 MG/DL (<150)
== END ==
LOC: M SFHCPLAZ 09:19
PROVIDERS: ATTEND Family Medicine
DX: D50.9 Iron deficiency anemia, unspecified (principal); E78.2 Mixed hyperlipidemia; Z12.5 Encounter for screening for malignant neoplasm of prostate; E55.9 Vitamin D deficiency, unspecified
CPT/HCPCS: 36415; 80053; 80061; 82306; 82550; 82728; 83550; 83970; 85025; 86140; G0103; G0463

== ENCOUNTER → 2017-07-21 | Outpatient (REF) | payer MEDICARE, MEDICAID ==
[2017-07-21 13:09] LABS: MEAN CORPUSCULAR HEMOGLOBIN 29.6 pg (27.0-33.0); MEAN CORPUSCULAR HGB CONC 32.1 g/dl (32.0-36.5); MEAN CORPUSCULAR VOLUME 92.2 fl (80.0-96.0); RED CELL DISTRIBUTION WIDTH 13.4 % (11.5-14.5); WHITE BLOOD COUNT 7.2 10^3/uL (4.0-10.0)
[2017-07-21 13:25] LABS: CBCMD ORDERED? YES (YES)
[2017-07-21 13:57] LABS: EOSINOPHILS 3 % (0-5)
[2017-07-21 14:03] LABS: ALBUMIN 3.7 GM/DL (3.2-5.2); ALBUMIN/GLOBULIN RATIO 1.37 (1.00-1.93); ALKALINE PHOSPHATASE 74 U/L (45-117); ALT/SGPT 26 U/L (12-78); ANION GAP 4 MEQ/L (8-16); AST/SGOT 20 U/L (15-37); BILIRUBIN,TOTAL 0.2 MG/DL (0.2-1.0); BLOOD UREA NITROGEN 15 MG/DL (7-18); CALCIUM LEVEL 8.9 MG/DL (8.8-10.2); CARBON DIOXIDE LEVEL 39 MEQ/L (21-32); CHLORIDE LEVEL 100 MEQ/L (98-107); GLOMERULAR FILTRATION RATE > 60.0 (>49); GLUCOSE, FASTING 86 MG/DL (80-110); MAGNESIUM LEVEL 2.4 MG/DL (1.8-2.4); PERCENT SATURATION 30.5 % (19.7-50.0); SODIUM LEVEL 143 MEQ/L (136-145); TOTAL IRON BINDING CAPACITY 275 UG/DL (250-450); TOTAL PROTEIN 6.4 GM/DL (6.4-8.2)
[2017-07-23 08:07] LABS: ERYTHROCYTE PROTOPORPHYRIN 34 ug/dL (0-34); ZINC PROTOPORPHYRIN 37 ug/dL (0-38)
== END ==
LOC: M SFHCPLAZ 11:42
PROVIDERS: ATTEND Family Medicine
DX: D50.9 Iron deficiency anemia, unspecified (principal)
CPT/HCPCS: 80053; 83550; 83735; 84202; 85007; 85027; 86140; 86334; G0463

== ENCOUNTER → 2017-08-12 | Outpatient (REF) | payer MEDICARE, MEDICAID ==
[2017-08-12 14:02] LABS: BASO % 0.8 % (0.0-1.0); EOS # 0.2 10^3/uL (0.0-0.50); EOS % 3.7 % (0.0-3.0); IMMATURE GRANULOCYTE % 0.4 % (0-0); LYMPH # 1.2 10^3/uL (1.5-4.5); LYMPH % 24.4 % (24.0-44.0); MEAN CORPUSCULAR HEMOGLOBIN 30.2 pg (27.0-33.0); MEAN CORPUSCULAR HGB CONC 32.6 g/dl (32.0-36.5); MEAN CORPUSCULAR VOLUME 92.6 fl (80.0-96.0); MONO # 0.7 10^3/uL (0.0-0.8); MONO % 13.2 % (0.0-5.0); NEUTROPHILS # 2.9 10^3/uL (1.8-7.7); NEUTROPHILS % 57.5 % (36.0-66.0); PLATELET COUNT, AUTOMATED 183 10^3/uL (150-450); RED CELL DISTRIBUTION WIDTH 13.6 % (11.5-14.5); WHITE BLOOD COUNT 5.1 10^3/uL (4.0-10.0)
== END ==
LOC: M SFHCPLAZ 12:13
PROVIDERS: ATTEND Physician Assistant Medical
DX: S50.871A Other superficial bite of right forearm, initial encounter (principal); W57.XXXA Bitten or stung by nonvenomous insect and other nonvenomous arthropods, initial encounter; R21 Rash and other nonspecific skin eruption; S50.11XD Contusion of right forearm, subsequent encounter; Y92.018 Other place in single-family (private) house as the place of occurrence of the external cause; Y93.9 Activity, unspecified; Y99.8 Other external cause status
CPT/HCPCS: 85025; G0463

== ENCOUNTER → 2017-10-09 | Outpatient (REF) | payer MEDICARE, MEDICAID ==
[2017-10-09 16:08] LABS: RETIC HEMOGLOBIN EQUIVALENT 36.2 pg (24-36); RETICULOCYTE # 71.4 10^9/L (17-77); RETICULOCYTE % 1.8 % (0.5-1.5)
[2017-10-09 16:12] LABS: BASO # 0.1 10^3/uL (0.0-0.2); BASO % 0.7 % (0.0-1.0); EOS # 0.2 10^3/uL (0.0-0.50); HEMATOCRIT 38.8 % (42.0-52.0); HEMOGLOBIN 12.8 g/dl (14.0-18.0); IMMATURE GRANULOCYTE % 0.4 % (0-0); LYMPH # 1.7 10^3/uL (1.5-4.5); LYMPH % 24.3 % (24.0-44.0); MEAN CORPUSCULAR HEMOGLOBIN 30.9 pg (27.0-33.0); MEAN CORPUSCULAR VOLUME 93.7 fl (80.0-96.0); MONO # 0.8 10^3/uL (0.0-0.8); MONO % 11.7 % (0.0-5.0); NEUTROPHILS # 4.3 10^3/uL (1.8-7.7); NEUTROPHILS % 59.9 % (36.0-66.0); PLATELET COUNT, AUTOMATED 230 10^3/uL (150-450); RED BLOOD COUNT 4.14 10^6/uL (4.30-6.10); RED CELL DISTRIBUTION WIDTH 12.2 % (11.5-14.5); WHITE BLOOD COUNT 7.1 10^3/uL (4.0-10.0)
[2017-10-09 18:38] LABS: ALBUMIN 4.1 GM/DL (3.2-5.2); ALBUMIN/GLOBULIN RATIO 1.46 (1.00-1.93); ALKALINE PHOSPHATASE 86 U/L (45-117); ALT/SGPT 27 U/L (12-78); ANION GAP 4 MEQ/L (8-16); AST/SGOT 27 U/L (7-37); BILIRUBIN,TOTAL 0.2 MG/DL (0.2-1.0); BLOOD UREA NITROGEN 14 MG/DL (7-18); CALCIUM LEVEL 9.3 MG/DL (8.8-10.2); CARBON DIOXIDE LEVEL 38 MEQ/L (21-32); CHLORIDE LEVEL 101 MEQ/L (98-107); CREATININE FOR GFR 0.63 MG/DL (0.70-1.30); FREE T4 1.16 NG/DL (0.76-1.46); GLOMERULAR FILTRATION RATE > 60.0 (>49); GLUCOSE, FASTING 86 MG/DL (80-110); POTASSIUM SERUM 4.2 MEQ/L (3.5-5.1); SODIUM LEVEL 143 MEQ/L (136-145); TOTAL PROTEIN 6.9 GM/DL (6.4-8.2)
[2017-10-09 22:42] LABS: TOTAL 25(OH) VITAMIN D 94.1 NG/ML (30.0-100.0)
[2017-10-09 22:43] LABS: PTH INTACT 42.7 PG/ML (14.0-72.0); VITAMIN B12 LEVEL 633 PG/ML (247-911)
== END ==
LOC: M SFHCPLAZ 13:26
DX: D50.9 Iron deficiency anemia, unspecified (principal); E55.9 Vitamin D deficiency, unspecified; E78.2 Mixed hyperlipidemia
CPT/HCPCS: 84443

== ENCOUNTER 2017-10-25 18:14 | Emergency (ER) | payer MEDICARE, MEDICAID ==
[2017-10-25] MEDS: NORCO, ANEXSIA 5/325MG TABLET (HYDROcodone/ACETAMINOPHEN) PO (21:00)
== END 2017-10-26 | disposition home or self-care (01) ==
LOC: M ED 10-26
DX: S00.03XA Contusion of scalp, initial encounter (principal); S00.81XA Abrasion of other part of head, initial encounter; S00.83XA Contusion of other part of head, initial encounter; W01.0XXA Fall on same level from slipping, tripping and stumbling without subsequent striking against object, initial encounter; Y92.099 Unspecified place in other non-institutional residence as the place of occurrence of the external cause; Y93.02 Activity, running; E11.9 Type 2 diabetes mellitus without complications; F79 Unspecified intellectual disabilities; F03.90 Unspecified dementia, unspecified severity, without behavioral disturbance, psychotic disturbance, mood disturbance, and anxiety; J44.9 Chronic obstructive pulmonary disease, unspecified; Z87.891 Personal history of nicotine dependence; H40.9 Unspecified glaucoma; Z79.899 Other long term (current) drug therapy
CPT/HCPCS: 73130

== ENCOUNTER 2017-12-01 22:57 | Inpatient (IN) | payer MEDICARE, MEDICAID ==
[2017-12-02 00:58] LABS: BASO # 0.1 10^3/uL (0.0-0.2); BASO % 0.3 % (0.0-1.0); HEMATOCRIT 39.6 % (42.0-52.0); HEMOGLOBIN 13.4 g/dl (14.0-18.0); IMMATURE GRANULOCYTE % 0.6 % (0-3.0); LYMPH # 1.3 10^3/uL (1.5-4.5); LYMPH % 6.4 % (24.0-44.0); MEAN CORPUSCULAR HEMOGLOBIN 30.8 pg (27.0-33.0); MEAN CORPUSCULAR HGB CONC 33.8 g/dl (32.0-36.5); MONO # 1.2 10^3/uL (0.0-0.8); NEUTROPHILS # 17.8 10^3/uL (1.8-7.7); NEUTROPHILS % 86.7 % (36.0-66.0); PLATELET COUNT, AUTOMATED 191 10^3/uL (150-450); RED BLOOD COUNT 4.35 10^6/uL (4.30-6.10); RED CELL DISTRIBUTION WIDTH 11.8 % (11.5-14.5); WHITE BLOOD COUNT 20.5 10^3/uL (4.0-10.0)
[2017-12-02 01:14] LABS: ANION GAP 6 MEQ/L (8-16); BLOOD UREA NITROGEN 14 MG/DL (7-18); CALCIUM LEVEL 9.1 MG/DL (8.8-10.2); CARBON DIOXIDE LEVEL 33 MEQ/L (21-32); CHLORIDE LEVEL 98 MEQ/L (98-107); GLOMERULAR FILTRATION RATE > 60.0 (>49); GLUCOSE, FASTING 166 MG/DL (70-100); POTASSIUM SERUM 4.1 MEQ/L (3.5-5.1); SODIUM LEVEL 137 MEQ/L (136-145)
[2017-12-02 01:22] LABS: INFLUENZA A AMPLIFICATION NEGATIVE (NEGATIVE); INFLUENZA B AMPLIFICATION NEGATIVE (NEGATIVE)
[2017-12-02 01:33] LABS: LACTIC ACID SEPSIS PROTOCOL 2.1 MMOL/L (0.4-2.0)
[2017-12-02] MEDS: ACETAMINOPHEN 650 MG SUPP PR (01:38)
[2017-12-02] MEDS: NS 500 ML IV ×2 (01:38→10:27)
[2017-12-02] MEDS: ONDANSETRON 4MG/2ML VIAL (J2405) IV (01:38)
[2017-12-02 01:50] LABS: ABG BASE EXCESS 8.9 (-2.0-2.0); ABG HCO3 35.3 MEQ/L (22.0-26.0); ABG O2 SATURATION 96.6 % (95.0-99.0); ABG PARTIAL PRESSURE CO2 56.5 mmHg (35.0-45.0); ABG PARTIAL PRESSURE O2 85.2 mmHg (75.0-100.0); ABG STANDARD HCO3 32.6 MEQ/L (22.0-26.0); ABG pH (ARTERIAL) 7.413 UNITS (7.350-7.450)
[2017-12-02 01:55] LABS: APPEARANCE, URINE HAZY (CLEAR); BACTERIA, URINE AUTO NEGATIVE (NEGATIVE); BILIRUBIN, URINE AUTO NEGATIVE (NEGATIVE); BLOOD, URINE BLOOD NEGATIVE (NEGATIVE); COLOR, URINE YELLOW (YELLOW); GLUCOSE, URINE (UA) AUTO NEGATIVE (NEGATIVE); KETONE, URINE AUTO NEGATIVE (NEGATIVE); LEUKOCYTE ESTERASE, URINE AUTO NEGATIVE (NEGATIVE); MUCUS, URINE SMALL (NEGATIVE); NITRITE, URINE AUTO NEGATIVE (NEGATIVE); PROTEIN, URINE AUTO 1+ mg/dL (NEGATIVE); RBC, URINE AUTO 2 /HPF (0-3); SPECIFIC GRAVITY URINE AUTO 1.023 (1.002-1.035); SQUAMOUS EPITHELIAL CELL UR AU 0 /HPF (0-6); UROBILINOGEN, URINE AUTO 0.2 mg/dL (0.0-2.0); WBC, URINE AUTO 0 /HPF (0-3)
[2017-12-02] MEDS ORDERED: CEFUROXIME SODIUM 1.5 GM in D5W MINI-BAG PLUS 50 ML IV (02:15)
[2017-12-02] MEDS: PIPERACILLIN/TAZOBACTAM SOD 3.375 GM in APPROPRIATE DILUENT 1 EA IV ×4 (02:35→22:00)
[2017-12-02] MEDS ORDERED: ISOVUE-370 76% 100ML VIAL (Q9967) As Ordered (03:10)
[2017-12-02] MEDS: FUROSEMIDE 100 MG/10 ML VIAL (J1940) IV (03:48)
[2017-12-02] MEDS: VANCOMYCIN HCL 1,000 MG, VIAL MATE ADAPTER 1 EACH in D5W 250 ML IV ×3 (04:15→22:00)
[2017-12-02 05:39] LABS: HEMATOCRIT 36.5 % (42.0-52.0); HEMOGLOBIN 12.3 g/dl (14.0-18.0); MEAN CORPUSCULAR HEMOGLOBIN 31.2 pg (27.0-33.0); MEAN CORPUSCULAR HGB CONC 33.7 g/dl (32.0-36.5); MEAN CORPUSCULAR VOLUME 92.6 fl (80.0-96.0); PLATELET COUNT, AUTOMATED 152 10^3/uL (150-450); RED BLOOD COUNT 3.94 10^6/uL (4.30-6.10); RED CELL DISTRIBUTION WIDTH 11.9 % (11.5-14.5); WHITE BLOOD COUNT 21.5 10^3/uL (4.0-10.0)
[2017-12-02 06:01] LABS: ESTIMATED AVERAGE GLUCOSE 111 MG/DL (60-110); HEMOGLOBIN A1c 5.5 %
[2017-12-02 06:05] LABS: ANION GAP 6 MEQ/L (8-16); BLOOD UREA NITROGEN 13 MG/DL (7-18); CARBON DIOXIDE LEVEL 35 MEQ/L (21-32); CHLORIDE LEVEL 100 MEQ/L (98-107); CREATININE FOR GFR 0.92 MG/DL (0.70-1.30); GLOMERULAR FILTRATION RATE > 60.0 (>49); GLUCOSE, FASTING 145 MG/DL (70-100); MAGNESIUM LEVEL 1.8 MG/DL (1.8-2.4); POTASSIUM SERUM 3.4 MEQ/L (3.5-5.1); SODIUM LEVEL 141 MEQ/L (136-145); THYROID STIMULATING HORMONE 0.554 uIU/ML (0.358-3.740)
[2017-12-02] MEDS: HEPARIN SOD (PORCINE) 5000 UNITS/ML VIAL SC ×3 (06:24→22:00)
[2017-12-02] MEDS: POTASSIUM CHLORIDE 10 MEQ SR TABLET PO ×3 (06:46→14:59)
[2017-12-02] MEDS: BUDESONIDE 0.5 MG/2 ML INHALATION SUSPENSION INH ×2 (08:15→19:49)
[2017-12-02] MEDS: IPRATROPIUM 0.5MG/ALBUTEROL 2.5MG INH SOL UD 3ML (DUONEB)(J7620) NEB (08:15)
[2017-12-02] MEDS: PANTOPRAZOLE 40MG TAB (PROTONIX) PO (10:24)
[2017-12-02] MEDS: FIBER-CON 625 MG TAB PO ×2 (10:24→20:37)
[2017-12-02] MEDS: FERROUS SULFATE 325MG TAB PO ×2 (10:24→20:37)
[2017-12-02] MEDS: ACETAMINOPHEN TAB 650MG DOSE (2X325MG) PO (12:11)
[2017-12-02] MEDS: DONEPEZIL 5 MG TAB PO (20:37)
[2017-12-02] MEDS: SIMVASTATIN 10 MG TAB PO (20:37)
[2017-12-02] MEDS: EZETIMIBE 10 MG TAB (ZETIA) PO (20:37)
[2017-12-03 04:46] LABS: HEMATOCRIT 39.4 % (42.0-52.0); HEMOGLOBIN 12.7 g/dl (14.0-18.0); MEAN CORPUSCULAR HEMOGLOBIN 30.8 pg (27.0-33.0); MEAN CORPUSCULAR HGB CONC 32.2 g/dl (32.0-36.5); MEAN CORPUSCULAR VOLUME 95.6 fl (80.0-96.0); PLATELET COUNT, AUTOMATED 127 10^3/uL (150-450); RED BLOOD COUNT 4.12 10^6/uL (4.30-6.10); RED CELL DISTRIBUTION WIDTH 12.1 % (11.5-14.5); WHITE BLOOD COUNT 16.1 10^3/uL (4.0-10.0)
[2017-12-03 05:03] LABS: ANION GAP 2 MEQ/L (8-16); BLOOD UREA NITROGEN 11 MG/DL (7-18); CALCIUM LEVEL 8.7 MG/DL (8.8-10.2); CARBON DIOXIDE LEVEL 34 MEQ/L (21-32); CHLORIDE LEVEL 104 MEQ/L (98-107); GLOMERULAR FILTRATION RATE > 60.0 (>49); GLUCOSE, FASTING 96 MG/DL (70-100); MAGNESIUM LEVEL 2.2 MG/DL (1.8-2.4); POTASSIUM SERUM 4.2 MEQ/L (3.5-5.1); SODIUM LEVEL 140 MEQ/L (136-145)
[2017-12-03] MEDS: PIPERACILLIN/TAZOBACTAM SOD 3.375 GM in APPROPRIATE DILUENT 1 EA IV ×3 (05:17→20:54)
[2017-12-03] MEDS: HEPARIN SOD (PORCINE) 5000 UNITS/ML VIAL SC (05:17)
[2017-12-03] MEDS: BUDESONIDE 0.5 MG/2 ML INHALATION SUSPENSION INH ×2 (07:57→19:44)
[2017-12-03 08:10] LABS: ABG BASE EXCESS 4.3 (-2.0-2.0); ABG HCO3 32.7 MEQ/L (22.0-26.0); ABG O2 SATURATION 97.7 % (95.0-99.0); ABG PARTIAL PRESSURE O2 97.5 mmHg (75.0-100.0); ABG STANDARD HCO3 28.3 MEQ/L (22.0-26.0); ABG TOTAL CO2 34.8 MEQ/L (23.0-31.0); ABG pH (ARTERIAL) 7.299 UNITS (7.350-7.450)
[2017-12-03 08:14] LABS: ABG PARTIAL PRESSURE CO2 68.2 mmHg (35.0-45.0)
[2017-12-03 10:00] LABS: ABG BASE EXCESS 5.9 (-2.0-2.0); ABG HCO3 34.5 MEQ/L (22.0-26.0); ABG O2 SATURATION 98.9 % (95.0-99.0); ABG PARTIAL PRESSURE O2 136.7 mmHg (75.0-100.0); ABG STANDARD HCO3 29.9 MEQ/L (22.0-26.0); ABG TOTAL CO2 36.6 MEQ/L (23.0-31.0); ABG pH (ARTERIAL) 7.311 UNITS (7.350-7.450)
[2017-12-03 10:04] LABS: ABG PARTIAL PRESSURE CO2 69.9 mmHg (35.0-45.0)
[2017-12-03] MEDS: FERROUS SULFATE 325MG TAB PO ×2 (10:06→20:54)
[2017-12-03] MEDS: SODIUM CHLORIDE 0.9% 1000 ML IV (10:06)
[2017-12-03] MEDS: PANTOPRAZOLE 40MG TAB (PROTONIX) PO (10:06)
[2017-12-03] MEDS: FIBER-CON 625 MG TAB PO ×2 (10:06→20:54)
[2017-12-03 10:38] LABS: LACTIC ACID SEPSIS PROTOCOL 1.4 MMOL/L (0.4-2.0)
[2017-12-03] MEDS: VANCOMYCIN HCL 1,000 MG, VIAL MATE ADAPTER 1 EACH in D5W 250 ML IV ×3 (11:04→20:54)
[2017-12-03] MEDS: NS 1,000 ML IV (11:51)
[2017-12-03 15:33] LABS: BEDSIDE GLUCOSE 93 MG/DL (80-115)
[2017-12-03 16:28] LABS: ABG BASE EXCESS 3.5 (-2.0-2.0); ABG HCO3 30.5 MEQ/L (22.0-26.0); ABG O2 SATURATION 96.7 % (95.0-99.0); ABG PARTIAL PRESSURE CO2 57.7 mmHg (35.0-45.0); ABG PARTIAL PRESSURE O2 86.5 mmHg (75.0-100.0); ABG STANDARD HCO3 27.6 MEQ/L (22.0-26.0); ABG TOTAL CO2 32.3 MEQ/L (23.0-31.0); ABG pH (ARTERIAL) 7.341 UNITS (7.350-7.450)
[2017-12-03] MEDS: DONEPEZIL 5 MG TAB PO (20:53)
[2017-12-03] MEDS: SIMVASTATIN 10 MG TAB PO (20:54)
[2017-12-03] MEDS: EZETIMIBE 10 MG TAB (ZETIA) PO (20:54)
[2017-12-04 00:10] LABS: HSV-1 DNA Negative (Negative); HSV-2 DNA Negative (Negative)
[2017-12-04 04:53] LABS: HEMOGLOBIN 11.3 g/dl (14.0-18.0); MEAN CORPUSCULAR HEMOGLOBIN 31.4 pg (27.0-33.0); MEAN CORPUSCULAR HGB CONC 32.3 g/dl (32.0-36.5); MEAN CORPUSCULAR VOLUME 97.2 fl (80.0-96.0); PLATELET COUNT, AUTOMATED 125 10^3/uL (150-450); RED CELL DISTRIBUTION WIDTH 12.2 % (11.5-14.5); WHITE BLOOD COUNT 10.9 10^3/uL (4.0-10.0)
[2017-12-04 05:18] LABS: ANION GAP 3 MEQ/L (8-16); BLOOD UREA NITROGEN 8 MG/DL (7-18); CALCIUM LEVEL 8.4 MG/DL (8.8-10.2); CARBON DIOXIDE LEVEL 33 MEQ/L (21-32); CHLORIDE LEVEL 108 MEQ/L (98-107); CREATININE FOR GFR 0.47 MG/DL (0.70-1.30); GLOMERULAR FILTRATION RATE > 60.0 (>49); GLUCOSE, FASTING 85 MG/DL (70-100); MAGNESIUM LEVEL 2.2 MG/DL (1.8-2.4); POTASSIUM SERUM 4.1 MEQ/L (3.5-5.1); SODIUM LEVEL 144 MEQ/L (136-145)
[2017-12-04] MEDS: PIPERACILLIN/TAZOBACTAM SOD 3.375 GM in APPROPRIATE DILUENT 1 EA IV ×2 (06:24→13:43)
[2017-12-04] MEDS: BUDESONIDE 0.5 MG/2 ML INHALATION SUSPENSION INH ×2 (07:34→19:53)
[2017-12-04] MEDS: IPRATROPIUM 0.5MG/ALBUTEROL 2.5MG INH SOL UD 3ML (DUONEB)(J7620) NEB (07:34)
[2017-12-04] MEDS: FERROUS SULFATE 325MG TAB PO ×2 (08:59→20:11)
[2017-12-04] MEDS: FIBER-CON 625 MG TAB PO (08:59)
[2017-12-04] MEDS: ENOXAPARIN 30 MG/0.3 ML SYR (J1650) SC (08:59)
[2017-12-04] MEDS: PANTOPRAZOLE 40MG TAB (PROTONIX) PO (08:59)
[2017-12-04] MEDS: NS 1,000 ML IV ×2 (09:33→18:07)
[2017-12-04] MEDS: VANCOMYCIN HCL 1,000 MG, VIAL MATE ADAPTER 1 EACH in D5W 250 ML IV (09:44)
[2017-12-04] MEDS: CEFTRIAXONE SOD 1 GM in APPROPRIATE DILUENT 1 EA IV (18:07)
[2017-12-04] MEDS: EZETIMIBE 10 MG TAB (ZETIA) PO (20:11)
[2017-12-04] MEDS: DONEPEZIL 5 MG TAB PO (20:12)
[2017-12-04] MEDS: SIMVASTATIN 10 MG TAB PO (20:12)
[2017-12-04] MEDS: ACETAMINOPHEN TAB 650MG DOSE (2X325MG) PO (23:01)
[2017-12-05] MEDS: NS 1,000 ML IV ×2 (01:00→07:53)
[2017-12-05 04:43] LABS: HEMATOCRIT 34.9 % (42.0-52.0); HEMOGLOBIN 11.2 g/dl (14.0-18.0); MEAN CORPUSCULAR HEMOGLOBIN 30.9 pg (27.0-33.0); MEAN CORPUSCULAR HGB CONC 32.1 g/dl (32.0-36.5); MEAN CORPUSCULAR VOLUME 96.1 fl (80.0-96.0); PLATELET COUNT, AUTOMATED 137 10^3/uL (150-450); RED BLOOD COUNT 3.63 10^6/uL (4.30-6.10); RED CELL DISTRIBUTION WIDTH 11.9 % (11.5-14.5); WHITE BLOOD COUNT 8.2 10^3/uL (4.0-10.0)
[2017-12-05 05:01] LABS: ANION GAP 6 MEQ/L (8-16); BLOOD UREA NITROGEN 13 MG/DL (7-18); CALCIUM LEVEL 8.3 MG/DL (8.8-10.2); CARBON DIOXIDE LEVEL 33 MEQ/L (21-32); CHLORIDE LEVEL 108 MEQ/L (98-107); CREATININE FOR GFR 0.83 MG/DL (0.70-1.30); GLUCOSE, FASTING 84 MG/DL (70-100); POTASSIUM SERUM 3.7 MEQ/L (3.5-5.1); SODIUM LEVEL 147 MEQ/L (136-145)
[2017-12-05 05:04] LABS: GLOMERULAR FILTRATION RATE > 60.0 (>49)
[2017-12-05] MEDS: BUDESONIDE 0.5 MG/2 ML INHALATION SUSPENSION INH ×2 (07:38→20:09)
[2017-12-05] MEDS: FERROUS SULFATE 325MG TAB PO ×2 (07:52→21:38)
[2017-12-05] MEDS: ENOXAPARIN 30 MG/0.3 ML SYR (J1650) SC (07:52)
[2017-12-05] MEDS: PANTOPRAZOLE 40MG TAB (PROTONIX) PO (07:52)
[2017-12-05] MEDS: METOPROLOL 5 MG/5 ML VIAL IV (10:01)
[2017-12-05] MEDS: METOPROLOL TART 50 MG TAB PO ×2 (10:01→18:26)
[2017-12-05 10:59] LABS: CK-MB VALUE MASS 1.4 NG/ML (0.0-3.6); CPK CREATINE PHOSPHOKINASE 69 U/L (39-308); MB/CK RELATIVE INDEX 2.02 (< OR =4); TROPONIN I < 0.02 NG/ML (< 0.10)
[2017-12-05] MEDS: DIGOXIN INJ 0.5 MG/2 ML AMP (J1160) IV ×3 (11:32→17:03)
[2017-12-05] MEDS: CEFTRIAXONE SOD 1 GM in APPROPRIATE DILUENT 1 EA IV (17:03)
[2017-12-05] MEDS: AMIODARONE 200 MG TAB (PACERONE) PO ×2 (17:04→21:38)
[2017-12-05] MEDS: APIXABAN 5 MG TAB (ELIQUIS) PO (21:38)
[2017-12-05] MEDS: EZETIMIBE 10 MG TAB (ZETIA) PO (21:38)
[2017-12-05] MEDS: SIMVASTATIN 10 MG TAB PO (21:38)
[2017-12-05] MEDS: DONEPEZIL 5 MG TAB PO (21:38)
[2017-12-06] MEDS: METOPROLOL TART 50 MG TAB PO ×4 (00:09→17:39)
[2017-12-06 04:37] LABS: HEMATOCRIT 34.3 % (42.0-52.0); MEAN CORPUSCULAR HEMOGLOBIN 31.1 pg (27.0-33.0); MEAN CORPUSCULAR HGB CONC 32.1 g/dl (32.0-36.5); MEAN CORPUSCULAR VOLUME 96.9 fl (80.0-96.0); PLATELET COUNT, AUTOMATED 143 10^3/uL (150-450); RED BLOOD COUNT 3.54 10^6/uL (4.30-6.10); WHITE BLOOD COUNT 8.8 10^3/uL (4.0-10.0)
[2017-12-06 04:54] LABS: ANION GAP 3 MEQ/L (8-16); BLOOD UREA NITROGEN 18 MG/DL (7-18); CALCIUM LEVEL 9.3 MG/DL (8.8-10.2); CARBON DIOXIDE LEVEL 37 MEQ/L (21-32); CHLORIDE LEVEL 109 MEQ/L (98-107); CREATININE FOR GFR 0.87 MG/DL (0.70-1.30); GLOMERULAR FILTRATION RATE > 60.0 (>49); GLUCOSE, FASTING 120 MG/DL (70-100); MAGNESIUM LEVEL 2.5 MG/DL (1.8-2.4); POTASSIUM SERUM 3.9 MEQ/L (3.5-5.1); SODIUM LEVEL 149 MEQ/L (136-145)
[2017-12-06] MEDS: BUDESONIDE 0.5 MG/2 ML INHALATION SUSPENSION INH ×2 (07:11→18:28)
[2017-12-06] MEDS: PANTOPRAZOLE 40MG TAB (PROTONIX) PO (09:13)
[2017-12-06] MEDS: AMIODARONE 200 MG TAB (PACERONE) PO (09:13)
[2017-12-06] MEDS: FERROUS SULFATE 325MG TAB PO ×2 (09:13→21:12)
[2017-12-06] MEDS: APIXABAN 5 MG TAB (ELIQUIS) PO ×2 (09:13→21:13)
[2017-12-06] MEDS ORDERED: SLF 3 ML SYR IV (14:45)
[2017-12-06] MEDS: CEFTRIAXONE SOD 1 GM in APPROPRIATE DILUENT 1 EA IV (17:32)
[2017-12-06] MEDS: EZETIMIBE 10 MG TAB (ZETIA) PO (21:12)
[2017-12-06] MEDS: DONEPEZIL 5 MG TAB PO (21:12)
[2017-12-06] MEDS: SLF 3 ML SYR IV (21:13)
[2017-12-06] MEDS: SIMVASTATIN 10 MG TAB PO (21:13)
[2017-12-07] MEDS: METOPROLOL TART 50 MG TAB PO ×4 (00:15→17:10)
[2017-12-07 04:38] LABS: HEMOGLOBIN 11.1 g/dl (14.0-18.0); MEAN CORPUSCULAR HEMOGLOBIN 30.3 pg (27.0-33.0); MEAN CORPUSCULAR HGB CONC 30.8 g/dl (32.0-36.5); MEAN CORPUSCULAR VOLUME 98.4 fl (80.0-96.0); PLATELET COUNT, AUTOMATED 167 10^3/uL (150-450); RED BLOOD COUNT 3.66 10^6/uL (4.30-6.10); RED CELL DISTRIBUTION WIDTH 12.1 % (11.5-14.5); WHITE BLOOD COUNT 10.8 10^3/uL (4.0-10.0)
[2017-12-07 04:53] LABS: ANION GAP 2 MEQ/L (8-16); BLOOD UREA NITROGEN 16 MG/DL (7-18); CALCIUM LEVEL 9.1 MG/DL (8.8-10.2); CARBON DIOXIDE LEVEL 39 MEQ/L (21-32); CHLORIDE LEVEL 110 MEQ/L (98-107); CREATININE FOR GFR 0.84 MG/DL (0.70-1.30); GLOMERULAR FILTRATION RATE > 60.0 (>49); GLUCOSE, FASTING 133 MG/DL (70-100); MAGNESIUM LEVEL 2.5 MG/DL (1.8-2.4); POTASSIUM SERUM 4.1 MEQ/L (3.5-5.1); SODIUM LEVEL 151 MEQ/L (136-145)
[2017-12-07] MEDS: SLF 3 ML SYR IV ×3 (05:58→21:50)
[2017-12-07] MEDS: BUDESONIDE 0.5 MG/2 ML INHALATION SUSPENSION INH ×2 (07:18→19:49)
[2017-12-07] MEDS: PANTOPRAZOLE 40MG TAB (PROTONIX) PO (09:28)
[2017-12-07] MEDS: FERROUS SULFATE 325MG TAB PO ×2 (09:28→21:49)
[2017-12-07] MEDS: APIXABAN 5 MG TAB (ELIQUIS) PO ×2 (09:28→21:49)
[2017-12-07] MEDS: CEFTRIAXONE SOD 1 GM in APPROPRIATE DILUENT 1 EA IV (17:09)
[2017-12-07] MEDS: DONEPEZIL 5 MG TAB PO (21:49)
[2017-12-07] MEDS: EZETIMIBE 10 MG TAB (ZETIA) PO (21:49)
[2017-12-07] MEDS: SIMVASTATIN 10 MG TAB PO (21:49)
[2017-12-08] MEDS: METOPROLOL TART 50 MG TAB PO ×4 (00:03→17:23)
[2017-12-08 05:20] LABS: HEMATOCRIT 33.5 % (42.0-52.0); HEMOGLOBIN 10.2 g/dl (14.0-18.0); MEAN CORPUSCULAR HEMOGLOBIN 30.6 pg (27.0-33.0); MEAN CORPUSCULAR HGB CONC 30.4 g/dl (32.0-36.5); MEAN CORPUSCULAR VOLUME 100.6 fl (80.0-96.0); PLATELET COUNT, AUTOMATED 180 10^3/uL (150-450); RED BLOOD COUNT 3.33 10^6/uL (4.30-6.10); RED CELL DISTRIBUTION WIDTH 11.9 % (11.5-14.5); WHITE BLOOD COUNT 9.7 10^3/uL (4.0-10.0)
[2017-12-08 05:44] LABS: ANION GAP 0 MEQ/L (8-16); BLOOD UREA NITROGEN 18 MG/DL (7-18); C REACTIVE PROTEIN QUANTITATIV 7.05 MG/DL (0.00-0.30); CALCIUM LEVEL 8.9 MG/DL (8.8-10.2); CARBON DIOXIDE LEVEL 44 MEQ/L (21-32); CHLORIDE LEVEL 109 MEQ/L (98-107); CREATININE FOR GFR 0.74 MG/DL (0.70-1.30); GLOMERULAR FILTRATION RATE > 60.0 (>49); GLUCOSE, FASTING 115 MG/DL (70-100); MAGNESIUM LEVEL 2.8 MG/DL (1.8-2.4); SODIUM LEVEL 153 MEQ/L (136-145)
[2017-12-08] MEDS: SLF 3 ML SYR IV ×3 (06:02→20:35)
[2017-12-08] MEDS: BUDESONIDE 0.5 MG/2 ML INHALATION SUSPENSION INH ×2 (07:03→20:22)
[2017-12-08] MEDS: APIXABAN 5 MG TAB (ELIQUIS) PO ×2 (08:44→20:34)
[2017-12-08] MEDS: PANTOPRAZOLE 40MG TAB (PROTONIX) PO (08:44)
[2017-12-08] MEDS: FERROUS SULFATE 325MG TAB PO ×2 (08:44→20:34)
[2017-12-08] MEDS: CEFTRIAXONE SOD 1 GM in APPROPRIATE DILUENT 1 EA IV (17:22)
[2017-12-08] MEDS: EZETIMIBE 10 MG TAB (ZETIA) PO (20:34)
[2017-12-08] MEDS: SIMVASTATIN 10 MG TAB PO (20:34)
[2017-12-08] MEDS: DONEPEZIL 5 MG TAB PO (20:34)
[2017-12-09] MEDS: METOPROLOL TART 50 MG TAB PO ×4 (01:06→17:08)
[2017-12-09 05:39] LABS: C REACTIVE PROTEIN QUANTITATIV 6.61 MG/DL (0.00-0.30)
[2017-12-09] MEDS: SLF 3 ML SYR IV ×3 (06:00→21:51)
[2017-12-09 07:40] LABS: BEDSIDE GLUCOSE 152 MG/DL (80-115)
[2017-12-09] MEDS: BUDESONIDE 0.5 MG/2 ML INHALATION SUSPENSION INH ×2 (07:42→19:57)
[2017-12-09] MEDS: APIXABAN 5 MG TAB (ELIQUIS) PO ×2 (08:56→21:51)
[2017-12-09] MEDS: FERROUS SULFATE 325MG TAB PO ×2 (08:56→21:52)
[2017-12-09] MEDS: PANTOPRAZOLE 40MG TAB (PROTONIX) PO (08:56)
[2017-12-09 10:49] LABS: BLOOD UREA NITROGEN 20 MG/DL (7-18); CALCIUM LEVEL 9.2 MG/DL (8.8-10.2); CHLORIDE LEVEL 107 MEQ/L (98-107); CREATININE FOR GFR 0.72 MG/DL (0.70-1.30); GLOMERULAR FILTRATION RATE > 60.0 (>49); GLUCOSE, FASTING 120 MG/DL (70-100); POTASSIUM SERUM 4.2 MEQ/L (3.5-5.1); SODIUM LEVEL 153 MEQ/L (136-145)
[2017-12-09 11:02] LABS: CARBON DIOXIDE LEVEL 51 MEQ/L (21-32)
[2017-12-09] MEDS: CEFTRIAXONE SOD 1 GM in APPROPRIATE DILUENT 1 EA IV (17:07)
[2017-12-09] MEDS: DONEPEZIL 5 MG TAB PO (21:51)
[2017-12-09] MEDS: EZETIMIBE 10 MG TAB (ZETIA) PO (21:52)
[2017-12-09] MEDS: SIMVASTATIN 10 MG TAB PO (21:52)
[2017-12-10] MEDS: METOPROLOL TART 50 MG TAB PO ×4 (00:48→13:54)
[2017-12-10] MEDS: SLF 3 ML SYR IV ×2 (06:37→13:54)
[2017-12-10 07:24] LABS: C REACTIVE PROTEIN QUANTITATIV 7.53 MG/DL (0.00-0.30)
[2017-12-10] MEDS: APIXABAN 5 MG TAB (ELIQUIS) PO (09:31)
[2017-12-10] MEDS: FERROUS SULFATE 325MG TAB PO (09:31)
[2017-12-10] MEDS: PANTOPRAZOLE 40MG TAB (PROTONIX) PO (09:31)
[2017-12-10] MEDS: BUDESONIDE 0.5 MG/2 ML INHALATION SUSPENSION INH (11:20)
== END 2017-12-10 14:45 | disposition home or self-care (01) | DRG 871 ==
LOC: M PCU 12-07 06:06 → M MS5PR 12-09 20:35 → M ED 22:57 → M ED INP 12-02 02:58 → M ICU 12-02 08:37
DX: A40.9 Streptococcal sepsis, unspecified (principal); J96.22 Acute and chronic respiratory failure with hypercapnia; R65.21 Severe sepsis with septic shock; L03.115 Cellulitis of right lower limb; F72 Severe intellectual disabilities; E87.2 Acidosis; J44.9 Chronic obstructive pulmonary disease, unspecified; I48.0 Paroxysmal atrial fibrillation; K21.9 Gastro-esophageal reflux disease without esophagitis; F03.90 Unspecified dementia, unspecified severity, without behavioral disturbance, psychotic disturbance, mood disturbance, and anxiety; D50.9 Iron deficiency anemia, unspecified; F60.3 Borderline personality disorder; Z79.899 Other long term (current) drug therapy; E78.5 Hyperlipidemia, unspecified; Z86.718 Personal history of other venous thrombosis and embolism; I87.2 Venous insufficiency (chronic) (peripheral); D69.6 Thrombocytopenia, unspecified; R13.10 Dysphagia, unspecified

== ENCOUNTER → 2017-12-18 | Outpatient (REF) | payer MEDICARE, MEDICAID ==
[2017-12-18 13:05] LABS: BASO % 0.6 % (0.0-1.0); EOS # 0.2 10^3/uL (0.0-0.50); EOS % 2.5 % (0.0-3.0); HEMATOCRIT 35.6 % (42.0-52.0); HEMOGLOBIN 11.6 g/dl (14.0-18.0); IMMATURE GRANULOCYTE % 0.4 % (0-3.0); LYMPH # 1.3 10^3/uL (1.5-4.5); MEAN CORPUSCULAR HEMOGLOBIN 31.2 pg (27.0-33.0); MEAN CORPUSCULAR HGB CONC 32.6 g/dl (32.0-36.5); MEAN CORPUSCULAR VOLUME 95.7 fl (80.0-96.0); MONO # 0.9 10^3/uL (0.0-0.8); NEUTROPHILS # 4.8 10^3/uL (1.8-7.7); NEUTROPHILS % 66.5 % (36.0-66.0); PLATELET COUNT, AUTOMATED 292 10^3/uL (150-450); RED BLOOD COUNT 3.72 10^6/uL (4.30-6.10); RED CELL DISTRIBUTION WIDTH 11.9 % (11.5-14.5); WHITE BLOOD COUNT 7.2 10^3/uL (4.0-10.0)
[2017-12-18 13:29] LABS: ALBUMIN 3.2 GM/DL (3.2-5.2); ALBUMIN/GLOBULIN RATIO 0.68 (1.00-1.93); ALKALINE PHOSPHATASE 83 U/L (45-117); ALT/SGPT 25 U/L (12-78); ANION GAP 5 MEQ/L (8-16); AST/SGOT 20 U/L (7-37); BILIRUBIN,TOTAL 0.2 MG/DL (0.2-1.0); BLOOD UREA NITROGEN 16 MG/DL (7-18); C REACTIVE PROTEIN QUANTITATIV 0.58 MG/DL (0.00-0.30); CARBON DIOXIDE LEVEL 37 MEQ/L (21-32); CHLORIDE LEVEL 99 MEQ/L (98-107); CREATININE FOR GFR 0.82 MG/DL (0.70-1.30); GLOMERULAR FILTRATION RATE > 60.0 (>49); GLUCOSE, FASTING 90 MG/DL (70-100); POTASSIUM SERUM 4.3 MEQ/L (3.5-5.1); SODIUM LEVEL 141 MEQ/L (136-145); TOTAL PROTEIN 7.9 GM/DL (6.4-8.2)
[2017-12-18 13:43] LABS: ERYTHROCYTE SEDIMENTATION RATE 69 mm/hr (0-20)
== END ==
LOC: M SFHCPLAZ 12:02
DX: L03.115 Cellulitis of right lower limb (principal)
CPT/HCPCS: 80053

== ENCOUNTER → 2018-01-12 | Outpatient (CLI) | payer MEDICARE, MEDICAID ==
[2018-01-12 16:23] LABS: BASO # 0.1 10^3/uL (0.0-0.2); EOS # 0.2 10^3/uL (0.0-0.50); EOS % 2.5 % (0.0-3.0); HEMATOCRIT 33.2 % (42.0-52.0); HEMOGLOBIN 10.6 g/dl (13.5-17.5); IMMATURE GRANULOCYTE % 0.7 % (0-3.0); LYMPH # 1.5 10^3/uL (1.5-4.5); LYMPH % 25.3 % (24.0-44.0); MEAN CORPUSCULAR HEMOGLOBIN 30.3 pg (27.0-33.0); MEAN CORPUSCULAR HGB CONC 31.9 g/dl (32.0-36.5); MEAN CORPUSCULAR VOLUME 94.9 fl (80.0-96.0); MONO # 0.6 10^3/uL (0.0-0.8); MONO % 9.7 % (0.0-5.0); NEUTROPHILS # 3.6 10^3/uL (1.8-7.7); NEUTROPHILS % 60.8 % (36.0-66.0); PLATELET COUNT, AUTOMATED 184 10^3/uL (150-450); RED CELL DISTRIBUTION WIDTH 12.1 % (11.5-14.5); RETIC HEMOGLOBIN EQUIVALENT 34.4 pg (24-36); RETICULOCYTE # 41.7 10^9/L (17-77); RETICULOCYTE % 1.2 % (0.5-1.5); WHITE BLOOD COUNT 5.9 10^3/uL (4.0-10.0)
[2018-01-12 16:41] LABS: ALBUMIN 3.8 GM/DL (3.2-5.2); ALBUMIN/GLOBULIN RATIO 0.97 (1.00-1.93); ALKALINE PHOSPHATASE 90 U/L (45-117); ALT/SGPT 15 U/L (12-78); ANION GAP 3 MEQ/L (8-16); AST/SGOT 18 U/L (7-37); BILIRUBIN,TOTAL 0.2 MG/DL (0.2-1.0); BLOOD UREA NITROGEN 16 MG/DL (7-18); C REACTIVE PROTEIN QUANTITATIV < 0.30 MG/DL (0.00-0.30); CALCIUM LEVEL 8.9 MG/DL (8.8-10.2); CARBON DIOXIDE LEVEL 37 MEQ/L (21-32); CHLORIDE LEVEL 98 MEQ/L (98-107); CREATININE FOR GFR 0.93 MG/DL (0.70-1.30); GLOMERULAR FILTRATION RATE > 60.0 (>49); GLUCOSE, FASTING 87 MG/DL (70-100); MAGNESIUM LEVEL 2.5 MG/DL (1.8-2.4); SODIUM LEVEL 138 MEQ/L (136-145); TOTAL PROTEIN 7.7 GM/DL (6.4-8.2)
[2018-01-12 16:44] LABS: POTASSIUM SERUM 5.4 MEQ/L (3.5-5.1)
[2018-01-12 16:51] LABS: ERYTHROCYTE SEDIMENTATION RATE 41 mm/hr (0-20)
== END ==
LOC: M WUC 11:26
DX: L03.115 Cellulitis of right lower limb (principal)
CPT/HCPCS: 83735

== ENCOUNTER → 2018-01-20 | Outpatient (CLI) | payer MEDICARE, MEDICAID ==
[2018-01-20 17:21] LABS: BASO # 0.1 10^3/uL (0.0-0.2); BASO % 0.8 % (0.0-1.0); EOS # 0.2 10^3/uL (0.0-0.50); HEMATOCRIT 32.2 % (42.0-52.0); HEMOGLOBIN 10.5 g/dl (13.5-17.5); IMMATURE GRANULOCYTE % 0.3 % (0-3.0); LYMPH # 1.6 10^3/uL (1.5-4.5); MEAN CORPUSCULAR HEMOGLOBIN 30.9 pg (27.0-33.0); MEAN CORPUSCULAR HGB CONC 32.6 g/dl (32.0-36.5); MEAN CORPUSCULAR VOLUME 94.7 fl (80.0-96.0); MONO # 0.6 10^3/uL (0.0-0.8); NEUTROPHILS # 3.8 10^3/uL (1.8-7.7); NEUTROPHILS % 60.9 % (36.0-66.0); PLATELET COUNT, AUTOMATED 221 10^3/uL (150-450); RED CELL DISTRIBUTION WIDTH 12.1 % (11.5-14.5); WHITE BLOOD COUNT 6.3 10^3/uL (4.0-10.0)
[2018-01-20 17:30] LABS: HEMATOCRIT 32.2 % (42.0-52.0)
[2018-01-20 18:30] LABS: ALBUMIN 3.8 GM/DL (3.2-5.2); ALBUMIN/GLOBULIN RATIO 1.12 (1.00-1.93); ALKALINE PHOSPHATASE 78 U/L (45-117); ALT/SGPT 19 U/L (12-78); ANION GAP 3 MEQ/L (8-16); AST/SGOT 19 U/L (7-37); BILIRUBIN,TOTAL 0.2 MG/DL (0.2-1.0); BLOOD UREA NITROGEN 16 MG/DL (7-18); CALCIUM LEVEL 8.7 MG/DL (8.8-10.2); CARBON DIOXIDE LEVEL 36 MEQ/L (21-32); CHLORIDE LEVEL 98 MEQ/L (98-107); CREATININE FOR GFR 0.91 MG/DL (0.70-1.30); GLOMERULAR FILTRATION RATE > 60.0 (>49); GLUCOSE, FASTING 100 MG/DL (70-100); POTASSIUM SERUM 4.3 MEQ/L (3.5-5.1); SODIUM LEVEL 137 MEQ/L (136-145); TOTAL PROTEIN 7.2 GM/DL (6.4-8.2)
== END ==
LOC: M WUC 13:49
DX: L03.115 Cellulitis of right lower limb (principal)
CPT/HCPCS: 80053

== ENCOUNTER → 2018-01-23 | Outpatient (CLI) | payer MEDICARE, MEDICAID ==
[2018-01-23 16:33] LABS: HEMATOCRIT 34.3 % (42.0-52.0); HEMOGLOBIN 11.1 g/dl (13.5-17.5); MEAN CORPUSCULAR HEMOGLOBIN 30.7 pg (27.0-33.0); MEAN CORPUSCULAR HGB CONC 32.4 g/dl (32.0-36.5); MEAN CORPUSCULAR VOLUME 94.8 fl (80.0-96.0); PLATELET COUNT, AUTOMATED 217 10^3/uL (150-450); RED BLOOD COUNT 3.62 10^6/uL (4.30-6.10); RED CELL DISTRIBUTION WIDTH 12.1 % (11.5-14.5); RETIC HEMOGLOBIN EQUIVALENT 36.3 pg (24-36); RETICULOCYTE % 1.2 % (0.5-1.5); WHITE BLOOD COUNT 5.7 10^3/uL (4.0-10.0)
[2018-01-23 16:47] LABS: FERRITIN 801 NG/ML (26-388); IRON (FE) 67 UG/DL (65-175); PERCENT SATURATION 24.7 % (19.7-50.0); TOTAL IRON BINDING CAPACITY 271 UG/DL (250-450)
== END ==
LOC: M WUC 14:54
DX: D64.9 Anemia, unspecified (principal)
CPT/HCPCS: 83550

== ENCOUNTER → 2018-02-12 | Outpatient (CLI) | payer MEDICARE, MEDICAID | LOC: M WUC 17:11 | DX: S22.31XA Fracture of one rib, right side, initial encounter for closed fracture (principal); X58.XXXA Exposure to other specified factors, initial encounter; Y92.89 Other specified places as the place of occurrence of the external cause | CPT/HCPCS: 71101 ==

== ENCOUNTER → 2018-04-27 | Outpatient (CLI) | payer MEDICARE, MEDICAID ==
[2018-04-27 17:13] LABS: BASO # 0.1 10^3/uL (0.0-0.2); BASO % 0.9 % (0.0-1.0); EOS # 0.2 10^3/uL (0.0-0.50); HEMATOCRIT 35.3 % (42.0-52.0); HEMOGLOBIN 11.5 g/dl (13.5-17.5); IMMATURE GRANULOCYTE % 0.4 % (0-3.0); LYMPH # 1.4 10^3/uL (1.5-4.5); LYMPH % 25.3 % (24.0-44.0); MEAN CORPUSCULAR HEMOGLOBIN 31.3 pg (27.0-33.0); MEAN CORPUSCULAR HGB CONC 32.6 g/dl (32.0-36.5); MEAN CORPUSCULAR VOLUME 96.2 fl (80.0-96.0); MONO # 0.6 10^3/uL (0.0-0.8); MONO % 11.4 % (0.0-5.0); NEUTROPHILS # 3.2 10^3/uL (1.8-7.7); PLATELET COUNT, AUTOMATED 228 10^3/uL (150-450); RED BLOOD COUNT 3.67 10^6/uL (4.30-6.10); RED CELL DISTRIBUTION WIDTH 11.7 % (11.5-14.5); RETIC HEMOGLOBIN EQUIVALENT 36.2 pg (24-36); RETICULOCYTE # 38.5 10^9/L (17-77); RETICULOCYTE % 1.1 % (0.5-1.5); WHITE BLOOD COUNT 5.4 10^3/uL (4.0-10.0)
[2018-04-27 17:22] LABS: PTH INTACT 59.6 PG/ML (18.5-88.0); TOTAL 25(OH) VITAMIN D 81.4 NG/ML (30.0-100.0)
[2018-04-27 17:23] LABS: VITAMIN B12 LEVEL 422 PG/ML (247-911)
[2018-04-27 17:43] LABS: C REACTIVE PROTEIN QUANTITATIV < 0.30 MG/DL (0.00-0.30); CHOLESTEROL LEVEL 152 MG/DL (<200); CHOLESTEROL RISK RATIO 3.102 (<5); CPK CREATINE PHOSPHOKINASE 102 U/L (39-308); HDL CHOLESTEROL 49 MG/DL (>40); LDL CHOLESTEROL 46.6 MG/DL (<100); NON-HDL-C 103 MG/DL; PSA SCREENING 0.14 NG/ML (< 4.0); TRIGLYCERIDES LEVEL 282 MG/DL (<150)
[2018-05-01 00:11] LABS: QUANTIFERON GOLD TB Negative (Negative); TB Test (QFT) Antigen 0.04 IU/mL (.); TB Test (QFT) Antigen Minus Ni <0.01 IU/mL (.); TB Test (QFT) Nil 0.06 IU/mL (.)
== END ==
LOC: M WUC 11:28
DX: D50.9 Iron deficiency anemia, unspecified (principal); E78.2 Mixed hyperlipidemia; Z12.5 Encounter for screening for malignant neoplasm of prostate; R76.11 Nonspecific reaction to tuberculin skin test without active tuberculosis; E55.9 Vitamin D deficiency, unspecified
CPT/HCPCS: 82550

== ENCOUNTER 2018-06-14 15:10 | Emergency (ER) | payer MEDICARE, MEDICAID ==
[2018-06-14] MEDS: NS 1,000 ML IV (15:30)
[2018-06-14 15:31] LABS: BASO # 0.1 10^3/uL (0.0-0.2); BASO % 0.3 % (0.0-1.0); EOS # 0.1 10^3/uL (0.0-0.50); EOS % 0.7 % (0.0-3.0); HEMATOCRIT 35.5 % (42.0-52.0); HEMOGLOBIN 11.9 g/dl (13.5-17.5); IMMATURE GRANULOCYTE % 0.5 % (0-3.0); LYMPH # 1.3 10^3/uL (1.5-4.5); LYMPH % 8.5 % (24.0-44.0); MEAN CORPUSCULAR HEMOGLOBIN 31.6 pg (27.0-33.0); MEAN CORPUSCULAR HGB CONC 33.5 g/dl (32.0-36.5); MEAN CORPUSCULAR VOLUME 94.4 fl (80.0-96.0); MONO # 0.9 10^3/uL (0.0-0.8); MONO % 5.7 % (0.0-5.0); NEUTROPHILS # 12.9 10^3/uL (1.8-7.7); NEUTROPHILS % 84.3 % (36.0-66.0); PLATELET COUNT, AUTOMATED 168 10^3/uL (150-450); RED BLOOD COUNT 3.76 10^6/uL (4.30-6.10); RED CELL DISTRIBUTION WIDTH 11.9 % (11.5-14.5); VENOUS BASE EXCESS 10.4 (-2.0-2.0); VENOUS HCO3 39.6 MEQ/L (23.0-27.0); VENOUS O2 SATURATION 61.9 % (60.0-80.0); VENOUS PH 7.323 UNITS (7.330-7.430); VENOUS STANDARD HCO3 33.3 MEQ/L; WHITE BLOOD COUNT 15.4 10^3/uL (4.0-10.0)
[2018-06-14 15:44] LABS: BEDSIDE GLUCOSE 92 MG/DL (80-115)
[2018-06-14 15:55] LABS: LACTIC ACID SEPSIS PROTOCOL 1.6 MMOL/L (0.4-2.0)
[2018-06-14 16:01] LABS: ACETAMINOPHEN LEVEL < 2.0 UG/ML (10.0-30.0); ALBUMIN/GLOBULIN RATIO 1.43 (1.00-1.93); ALKALINE PHOSPHATASE 86 U/L (45-117); ALT/SGPT 22 U/L (12-78); ANION GAP 6 MEQ/L (8-16); AST/SGOT 22 U/L (7-37); BILIRUBIN,DIRECT < 0.1 MG/DL (0.0-0.2); BILIRUBIN,TOTAL 0.3 MG/DL (0.2-1.0); BLOOD UREA NITROGEN 12 MG/DL (7-18); CALCIUM LEVEL 8.8 MG/DL (8.8-10.2); CARBON DIOXIDE LEVEL 37 MEQ/L (21-32); CHLORIDE LEVEL 96 MEQ/L (98-107); CPK CREATINE PHOSPHOKINASE 118 U/L (39-308); CREATININE FOR GFR 0.78 MG/DL (0.70-1.30); GLOMERULAR FILTRATION RATE > 60.0 (>49); GLUCOSE, FASTING 104 MG/DL (70-100); POTASSIUM SERUM 4.4 MEQ/L (3.5-5.1); SODIUM LEVEL 139 MEQ/L (136-145); TOTAL PROTEIN 6.8 GM/DL (6.4-8.2); TROPONIN I < 0.02 NG/ML (< 0.10)
[2018-06-14 17:38] LABS: AMORPHOUS SEDIMENT RFX SMALL (NEGATIVE); KETONE, URINE AUTO RFX TRACE mg/dL (NEGATIVE); MUCUS, URINE RFX SMALL (NEGATIVE); RBC, URINE AUTO RFX 8 /HPF (0-3); SPECIFIC GRAVITY UR AUTO RFX 1.013 (1.002-1.035); SQUAM EPITHELIAL CELL UR AURFX 0 /HPF (0-6)
[2018-06-14 17:39] LABS: LEUKOCYTE ESTERASE UR AUTO RFX 2+ (NEGATIVE); NITRITE, URINE AUTO RFX POSITIVE (NEGATIVE); WBC, URINE AUTO RFX 23 /HPF (0-3)
[2018-06-14] MEDS: ACETAMINOPHEN 325 MG TAB PO (17:40)
[2018-06-14 17:45] LABS: AMPHETAMINES LEVEL URINE NEGATIVE (NEGATIVE); BARBITURATES URINE NEGATIVE (NEGATIVE); BENZODIAZEPINES URINE NEGATIVE (NEGATIVE); CANNABINOIDS URINE NEGATIVE (NEGATIVE); COCAINE METABOLITE URINE NEGATIVE (NEGATIVE); METHADONE URINE NEGATIVE (NEGATIVE); OPIATES URINE NEGATIVE (NEGATIVE); PHENCYCLIDINE URINE NEGATIVE (NEGATIVE)
[2018-06-14] MEDS: CIPROFLOXACIN 400 MG in APPROPRIATE DILUENT 1 EA IV (17:49)
[2018-06-16 14:21] LABS: ETHYL ALCOHOL (ETHANOL) < 0.003 % (0.000-0.010)
== END 2018-06-14 20:11 | disposition home or self-care (01) ==
LOC: M ED 15:10
DX: R56.9 Unspecified convulsions (principal); N39.0 Urinary tract infection, site not specified; I51.9 Heart disease, unspecified; I10 Essential (primary) hypertension; J45.909 Unspecified asthma, uncomplicated; Z79.899 Other long term (current) drug therapy

== ENCOUNTER → 2018-06-16 | Outpatient (REF) | payer MEDICARE, MEDICAID ==
[2018-06-16 17:26] LABS: BASO % 0.1 % (0.0-1.0); EOS % 0.2 % (0.0-3.0); HEMATOCRIT 32.1 % (42.0-52.0); IMMATURE GRANULOCYTE % 0.8 % (0-3.0); LYMPH # 0.8 10^3/uL (1.5-4.5); LYMPH % 4.9 % (24.0-44.0); MEAN CORPUSCULAR HEMOGLOBIN 31.9 pg (27.0-33.0); MEAN CORPUSCULAR HGB CONC 34.3 g/dl (32.0-36.5); MONO # 1.3 10^3/uL (0.0-0.8); MONO % 8.2 % (0.0-5.0); NEUTROPHILS # 13.9 10^3/uL (1.8-7.7); NEUTROPHILS % 85.8 % (36.0-66.0); PLATELET COUNT, AUTOMATED 125 10^3/uL (150-450); RED BLOOD COUNT 3.45 10^6/uL (4.30-6.10); RED CELL DISTRIBUTION WIDTH 12.3 % (11.5-14.5); WHITE BLOOD COUNT 16.2 10^3/uL (4.0-10.0)
== END ==
LOC: M SFHCPLAZ 14:45
DX: N30.00 Acute cystitis without hematuria (principal)
CPT/HCPCS: 85025

== ENCOUNTER 2018-06-17 15:57 | Inpatient (IN) | payer MEDICARE, MEDICAID ==
[2018-06-17] MEDS: NS 1,000 ML IV ×2 (17:54→23:33)
[2018-06-17] MEDS: ACETAMINOPHEN 325 MG TAB PO (17:54)
[2018-06-17 18:09] LABS: BASO % 0.2 % (0.0-1.0); EOS # 0.1 10^3/uL (0.0-0.50); EOS % 0.6 % (0.0-3.0); HEMATOCRIT 32.6 % (42.0-52.0); HEMOGLOBIN 10.5 g/dl (13.5-17.5); IMMATURE GRANULOCYTE % 1.2 % (0-3.0); LYMPH # 0.6 10^3/uL (1.5-4.5); LYMPH % 7.1 % (24.0-44.0); MEAN CORPUSCULAR HEMOGLOBIN 30.5 pg (27.0-33.0); MEAN CORPUSCULAR HGB CONC 32.2 g/dl (32.0-36.5); MEAN CORPUSCULAR VOLUME 94.8 fl (80.0-96.0); MONO # 0.9 10^3/uL (0.0-0.8); MONO % 10.4 % (0.0-5.0); NEUTROPHILS # 7.2 10^3/uL (1.8-7.7); NEUTROPHILS % 80.5 % (36.0-66.0); PLATELET COUNT, AUTOMATED 132 10^3/uL (150-450); RED BLOOD COUNT 3.44 10^6/uL (4.30-6.10); RED CELL DISTRIBUTION WIDTH 12.3 % (11.5-14.5); WHITE BLOOD COUNT 8.9 10^3/uL (4.0-10.0)
[2018-06-17 18:17] LABS: INR 1.11; PROTHROMBIN TIME 14.5 SECONDS (12.1-14.4)
[2018-06-17 18:18] LABS: PARTIAL THROMBOPLASTIN TIME 38.7 SECONDS (25.4-37.6)
[2018-06-17 18:21] LABS: KETONE, URINE AUTO RFX NEGATIVE (NEGATIVE); LEUKOCYTE ESTERASE UR AUTO RFX 1+ (NEGATIVE); MUCUS, URINE RFX SMALL (NEGATIVE); NITRITE, URINE AUTO RFX NEGATIVE (NEGATIVE); RBC, URINE AUTO RFX 6 /HPF (0-3); SPECIFIC GRAVITY UR AUTO RFX 1.011 (1.002-1.035); SQUAM EPITHELIAL CELL UR AURFX 0 /HPF (0-6); WBC, URINE AUTO RFX 9 /HPF (0-3)
[2018-06-17 18:28] LABS: AMMONIA 10 uMOL/L (<32)
[2018-06-17 18:33] LABS: LACTIC ACID SEPSIS PROTOCOL 1.4 MMOL/L (0.4-2.0)
[2018-06-17 18:46] LABS: INFLUENZA A AMPLIFICATION NEGATIVE (NEGATIVE); INFLUENZA B AMPLIFICATION NEGATIVE (NEGATIVE)
[2018-06-17 19:12] LABS: ALBUMIN 2.8 GM/DL (3.2-5.2); ALBUMIN/GLOBULIN RATIO 0.88 (1.00-1.93); ALKALINE PHOSPHATASE 79 U/L (45-117); ALT/SGPT 24 U/L (12-78); ANION GAP 8 MEQ/L (8-16); AST/SGOT 33 U/L (7-37); BILIRUBIN,DIRECT < 0.1 MG/DL (0.0-0.2); BILIRUBIN,TOTAL 0.3 MG/DL (0.2-1.0); BLOOD UREA NITROGEN 11 MG/DL (7-18); CALCIUM LEVEL 8.6 MG/DL (8.8-10.2); CARBON DIOXIDE LEVEL 33 MEQ/L (21-32); CHLORIDE LEVEL 97 MEQ/L (98-107); CK-MB VALUE MASS < 1.0 NG/ML (<3.6); CPK CREATINE PHOSPHOKINASE 74 U/L (39-308); CREATININE FOR GFR 0.68 MG/DL (0.70-1.30); GLOMERULAR FILTRATION RATE > 60.0 (>49); GLUCOSE, FASTING 116 MG/DL (70-100); MB/CK RELATIVE INDEX 1.35 (< OR =4); POTASSIUM SERUM 4.1 MEQ/L (3.5-5.1); SODIUM LEVEL 138 MEQ/L (136-145); TROPONIN I < 0.02 NG/ML (< 0.10)
[2018-06-17] MEDS: ALBUTEROL SULFATE 2.5 MG/0.5 ML INH NEB SOLN NEB (19:21)
[2018-06-17] MEDS ORDERED: SODIUM CHLORIDE NASAL 0.65% SPRAY BTL (OCEAN) (23:30)
[2018-06-17] MEDS: SIMVASTATIN 10 MG TAB PO (23:48)
[2018-06-17] MEDS: DONEPEZIL 5 MG TAB PO (23:48)
[2018-06-17] MEDS: APIXABAN 5 MG TAB (ELIQUIS) PO (23:48)
[2018-06-17] MEDS: FIBER-CON 625 MG TAB PO (23:48)
[2018-06-17] MEDS: cefTRIAXone SOD 1 GM in D5W MINI-BAG PLUS 50 ML IV (23:50)
[2018-06-17] MEDS: METOPROLOL TART 50 MG TAB PO (23:50)
[2018-06-18] MEDS: AZITHROMYCIN INJ 500 MG, VIAL MATE ADAPTER 1 EACH in D5W 250 ML IV (00:57)
[2018-06-18 06:09] LABS: BASO % 0.4 % (0.0-1.0); EOS # 0.1 10^3/uL (0.0-0.50); EOS % 1.5 % (0.0-3.0); HEMATOCRIT 30.6 % (42.0-52.0); HEMOGLOBIN 9.8 g/dl (13.5-17.5); IMMATURE GRANULOCYTE % 1.7 % (0-3.0); LYMPH # 0.6 10^3/uL (1.5-4.5); LYMPH % 11.5 % (24.0-44.0); MEAN CORPUSCULAR HEMOGLOBIN 30.4 pg (27.0-33.0); MONO # 0.9 10^3/uL (0.0-0.8); MONO % 15.9 % (0.0-5.0); NEUTROPHILS # 3.7 10^3/uL (1.8-7.7); PLATELET COUNT, AUTOMATED 134 10^3/uL (150-450); RED BLOOD COUNT 3.22 10^6/uL (4.30-6.10); RED CELL DISTRIBUTION WIDTH 12.5 % (11.5-14.5); WHITE BLOOD COUNT 5.4 10^3/uL (4.0-10.0)
[2018-06-18 06:20] LABS: ANION GAP 6 MEQ/L (8-16); BLOOD UREA NITROGEN 8 MG/DL (7-18); CALCIUM LEVEL 8.7 MG/DL (8.8-10.2); CARBON DIOXIDE LEVEL 34 MEQ/L (21-32); CHLORIDE LEVEL 102 MEQ/L (98-107); CREATININE FOR GFR 0.63 MG/DL (0.70-1.30); GLOMERULAR FILTRATION RATE > 60.0 (>49); GLUCOSE, FASTING 94 MG/DL (70-100); POTASSIUM SERUM 3.6 MEQ/L (3.5-5.1); SODIUM LEVEL 142 MEQ/L (136-145)
[2018-06-18] MEDS: IPRATROPIUM 0.5MG/ALBUTEROL 2.5MG INH SOL UD 3ML (DUONEB)(J7620) NEB ×4 (07:15→21:31)
[2018-06-18] MEDS: BUDESONIDE 0.5 MG/2 ML INHALATION SUSPENSION INH ×2 (07:15→21:30)
[2018-06-18] MEDS: FUROSEMIDE 20 MG TAB PO (09:46)
[2018-06-18] MEDS: FIBER-CON 625 MG TAB PO ×2 (09:46→20:41)
[2018-06-18] MEDS: APIXABAN 5 MG TAB (ELIQUIS) PO ×2 (09:46→20:41)
[2018-06-18] MEDS: FERROUS SULFATE 325MG TAB PO (09:46)
[2018-06-18] MEDS: METOPROLOL TART 50 MG TAB PO ×2 (09:47→20:41)
[2018-06-18] MEDS: LACTIC ACID 12% LOTION 225 GM BTL TOP ×2 (09:52→22:00)
[2018-06-18] MEDS: NS 1,000 ML IV (12:22)
[2018-06-18] MEDS: ACETAMINOPHEN TAB 650MG DOSE (2X325MG) PO (15:43)
[2018-06-18] MEDS: SIMVASTATIN 10 MG TAB PO (20:41)
[2018-06-18] MEDS: predniSONE 20 MG TAB PO (20:41)
[2018-06-18] MEDS: DONEPEZIL 5 MG TAB PO (20:41)
[2018-06-18] MEDS: cefTRIAXone SOD 1 GM in D5W MINI-BAG PLUS 50 ML IV (23:01)
[2018-06-19] MEDS: NS 1,000 ML IV (00:07)
[2018-06-19] MEDS: AZITHROMYCIN INJ 500 MG, VIAL MATE ADAPTER 1 EACH in D5W 250 ML IV (00:07)
[2018-06-19 05:59] LABS: HEMATOCRIT 31.6 % (42.0-52.0); HEMOGLOBIN 10.1 g/dl (13.5-17.5); MEAN CORPUSCULAR HEMOGLOBIN 30.6 pg (27.0-33.0); MEAN CORPUSCULAR VOLUME 95.8 fl (80.0-96.0); PLATELET COUNT, AUTOMATED 167 10^3/uL (150-450); RED CELL DISTRIBUTION WIDTH 12.5 % (11.5-14.5)
[2018-06-19 06:04] LABS: ADD MANUAL DIFFER YES; DIFF SLIDE NUMBER 45; POS COUNT POS FLAG; POSITIVE MORPH POS FLAG
[2018-06-19 06:25] LABS: ANION GAP 4 MEQ/L (8-16); BLOOD UREA NITROGEN 11 MG/DL (7-18); CALCIUM LEVEL 8.7 MG/DL (8.8-10.2); CARBON DIOXIDE LEVEL 34 MEQ/L (21-32); CHLORIDE LEVEL 103 MEQ/L (98-107); GLOMERULAR FILTRATION RATE > 60.0 (>49); GLUCOSE, FASTING 168 MG/DL (70-100); SODIUM LEVEL 141 MEQ/L (136-145)
[2018-06-19 07:00] LABS: ATYPICAL LYMPH 2 % (0-5); BANDS 1 % (< 11); LYMPHOCYTES 9 % (16-52); MONOCYTES 8 % (0-8); NEUTROPHILS 80 % (35-75)
[2018-06-19 07:01] LABS: ANISOCYTOSIS 1+; PLATELET ESTIMATE NORMAL (NORMAL)
[2018-06-19] MEDS: IPRATROPIUM 0.5MG/ALBUTEROL 2.5MG INH SOL UD 3ML (DUONEB)(J7620) NEB ×4 (07:08→20:30)
[2018-06-19] MEDS: BUDESONIDE 0.5 MG/2 ML INHALATION SUSPENSION INH ×2 (07:08→20:30)
[2018-06-19] MEDS: FUROSEMIDE 20 MG TAB PO (08:57)
[2018-06-19] MEDS: METOPROLOL TART 50 MG TAB PO ×2 (08:57→21:33)
[2018-06-19] MEDS: FIBER-CON 625 MG TAB PO ×2 (08:58→21:31)
[2018-06-19] MEDS: LACTIC ACID 12% LOTION 225 GM BTL TOP ×2 (08:58→21:31)
[2018-06-19] MEDS: APIXABAN 5 MG TAB (ELIQUIS) PO ×2 (08:58→21:31)
[2018-06-19] MEDS: predniSONE 20 MG TAB PO ×2 (08:58→21:31)
[2018-06-19] MEDS: CEFDINIR 300 MG CAP (OMNICEF) PO ×2 (09:17→21:31)
[2018-06-19] MEDS: AZITHROMYCIN 250 MG TAB PO (09:17)
[2018-06-19] MEDS: SIMVASTATIN 10 MG TAB PO (21:30)
[2018-06-19] MEDS: DONEPEZIL 5 MG TAB PO (21:31)
[2018-06-20 06:06] LABS: HEMATOCRIT 29.8 % (42.0-52.0); HEMOGLOBIN 9.7 g/dl (13.5-17.5); MEAN CORPUSCULAR HEMOGLOBIN 30.7 pg (27.0-33.0); MEAN CORPUSCULAR HGB CONC 32.6 g/dl (32.0-36.5); MEAN CORPUSCULAR VOLUME 94.3 fl (80.0-96.0); PLATELET COUNT, AUTOMATED 218 10^3/uL (150-450); RED BLOOD COUNT 3.16 10^6/uL (4.30-6.10); RED CELL DISTRIBUTION WIDTH 12.5 % (11.5-14.5); WHITE BLOOD COUNT 8.2 10^3/uL (4.0-10.0)
[2018-06-20 06:14] LABS: POS COUNT POS FLAG; POSITIVE MORPH POS FLAG
[2018-06-20 06:15] LABS: ADD MANUAL DIFFER YES; DIFF SLIDE NUMBER 26
[2018-06-20 06:31] LABS: ANION GAP 8 MEQ/L (8-16); BLOOD UREA NITROGEN 14 MG/DL (7-18); CALCIUM LEVEL 9.3 MG/DL (8.8-10.2); CARBON DIOXIDE LEVEL 33 MEQ/L (21-32); CHLORIDE LEVEL 104 MEQ/L (98-107); CREATININE FOR GFR 0.61 MG/DL (0.70-1.30); GLOMERULAR FILTRATION RATE > 60.0 (>49); GLUCOSE, FASTING 142 MG/DL (70-100); POTASSIUM SERUM 3.8 MEQ/L (3.5-5.1); SODIUM LEVEL 145 MEQ/L (136-145)
[2018-06-20] MEDS: IPRATROPIUM 0.5MG/ALBUTEROL 2.5MG INH SOL UD 3ML (DUONEB)(J7620) NEB ×2 (07:09→11:07)
[2018-06-20] MEDS: BUDESONIDE 0.5 MG/2 ML INHALATION SUSPENSION INH (07:09)
[2018-06-20 07:18] LABS: ANISOCYTOSIS 1+; ATYPICAL LYMPH 1 % (0-5); BANDS 6 % (< 11); HYPOCHROMASIA 1+; LYMPHOCYTES 8 % (16-52); METAMYELOCYTES 1 % (0-0); MICROCYTOSIS 1+; MONOCYTES 2 % (0-8); MYELOCYTES 2 % (0-0); NEUTROPHILS 80 % (35-75); PLATELET ESTIMATE NORMAL (NORMAL)
[2018-06-20] MEDS: APIXABAN 5 MG TAB (ELIQUIS) PO (10:37)
[2018-06-20] MEDS: FERROUS SULFATE 325MG TAB PO (10:38)
[2018-06-20] MEDS: predniSONE 20 MG TAB PO (10:38)
[2018-06-20] MEDS: FUROSEMIDE 20 MG TAB PO (10:38)
[2018-06-20] MEDS: FIBER-CON 625 MG TAB PO (10:39)
[2018-06-20] MEDS: CEFDINIR 300 MG CAP (OMNICEF) PO (10:39)
[2018-06-20] MEDS: METOPROLOL TART 50 MG TAB PO (10:39)
[2018-06-20] MEDS: LACTIC ACID 12% LOTION 225 GM BTL TOP (10:39)
== END 2018-06-20 14:30 | disposition home or self-care (01) | DRG 194 ==
LOC: M ED 15:57 → M ED INP 21:37 → M MSPAV 23:18
DX: J18.9 Pneumonia, unspecified organism (principal); J44.1 Chronic obstructive pulmonary disease with (acute) exacerbation; K21.9 Gastro-esophageal reflux disease without esophagitis; Z99.81 Dependence on supplemental oxygen; D64.9 Anemia, unspecified; E78.00 Pure hypercholesterolemia, unspecified; I48.0 Paroxysmal atrial fibrillation; K59.00 Constipation, unspecified; M19.90 Unspecified osteoarthritis, unspecified site; Z79.01 Long term (current) use of anticoagulants; Z86.718 Personal history of other venous thrombosis and embolism; F09 Unspecified mental disorder due to known physiological condition; Z79.899 Other long term (current) drug therapy; I10 Essential (primary) hypertension; F03.90 Unspecified dementia, unspecified severity, without behavioral disturbance, psychotic disturbance, mood disturbance, and anxiety

== ENCOUNTER → 2018-06-30 | Outpatient (REF) | payer MEDICARE, MEDICAID ==
[2018-06-30 13:56] LABS: BASO % 0.3 % (0.0-1.0); EOS # 0.1 10^3/uL (0.0-0.50); EOS % 0.7 % (0.0-3.0); HEMATOCRIT 38.9 % (42.0-52.0); HEMOGLOBIN 12.4 g/dl (13.5-17.5); IMMATURE GRANULOCYTE % 1.2 % (0-3.0); LYMPH # 1.1 10^3/uL (1.5-4.5); LYMPH % 10.5 % (24.0-44.0); MEAN CORPUSCULAR HEMOGLOBIN 31.2 pg (27.0-33.0); MEAN CORPUSCULAR HGB CONC 31.9 g/dl (32.0-36.5); MEAN CORPUSCULAR VOLUME 97.7 fl (80.0-96.0); MONO # 0.8 10^3/uL (0.0-0.8); MONO % 7.7 % (0.0-5.0); NEUTROPHILS # 8.5 10^3/uL (1.8-7.7); NEUTROPHILS % 79.6 % (36.0-66.0); PLATELET COUNT, AUTOMATED 416 10^3/uL (150-450); RED BLOOD COUNT 3.98 10^6/uL (4.30-6.10); RED CELL DISTRIBUTION WIDTH 12.2 % (11.5-14.5); WHITE BLOOD COUNT 10.6 10^3/uL (4.0-10.0)
[2018-06-30 14:47] LABS: ALBUMIN 3.9 GM/DL (3.2-5.2); ALBUMIN/GLOBULIN RATIO 1.26 (1.00-1.93); ALKALINE PHOSPHATASE 89 U/L (45-117); ALT/SGPT 26 U/L (12-78); ANION GAP 6 MEQ/L (8-16); AST/SGOT 12 U/L (7-37); BILIRUBIN,TOTAL 0.4 MG/DL (0.2-1.0); BLOOD UREA NITROGEN 14 MG/DL (7-18); C REACTIVE PROTEIN QUANTITATIV < 0.30 MG/DL (0.00-0.30); CALCIUM LEVEL 9.7 MG/DL (8.8-10.2); CARBON DIOXIDE LEVEL 38 MEQ/L (21-32); CHLORIDE LEVEL 97 MEQ/L (98-107); CREATININE FOR GFR 0.72 MG/DL (0.70-1.30); GLOMERULAR FILTRATION RATE > 60.0 (>49); GLUCOSE, FASTING 93 MG/DL (70-100); POTASSIUM SERUM 4.9 MEQ/L (3.5-5.1); SODIUM LEVEL 141 MEQ/L (136-145)
== END ==
LOC: M SFHCPLAZ 11:03
DX: J18.1 Lobar pneumonia, unspecified organism (principal); T83.511S Infection and inflammatory reaction due to indwelling urethral catheter, sequela; X58.XXXA Exposure to other specified factors, initial encounter; Y92.89 Other specified places as the place of occurrence of the external cause
CPT/HCPCS: 80053

== ENCOUNTER → 2018-07-01 | Outpatient (CLI) | payer MEDICARE, MEDICAID | LOC: M WUC 08:52 | DX: Z87.01 Personal history of pneumonia (recurrent) (principal); Z87.81 Personal history of (healed) traumatic fracture | CPT/HCPCS: 71046 ==

== ENCOUNTER 2018-08-03 08:19 | Day surgery (SDC) | payer MEDICARE, MEDICAID ==
[~2018-08-03 08:19] MED LIST changes: -/PANT40TA; -/WARF25TA; -/WARF5TA; +ACETAMINOPHEN 325 MG TAB PO; -ALBU17IN2 INH; -ALBU83IN; -ALBU83IN INH; -AMO500 PO; -ARIC1TAB2 PO; -ASPEC81 PO; -ATROVENT0.02%; -AVEL1TAB3 PO; -BUDE0.5S6 INH; -CEFT500T3 PO; -COMBAER6 INH; -COMBIVENT MDI INH; -DELT1TAB PO; -DILA100C; -DONETAB6 PO; -DRIS50002 PO; -FERR325T3 PO; -FIBE625T PO; -FIBE62TA PO; -FIBERCON PO; -HABITROL14 TOPICAL; -HABITROL21 TOPICAL; -HABITROL7 TOPICAL; -IPRASOL4 INH; -IPRASOL4 NEB; -KEPPRA; -LASI20TA PO; -LASI40TA PO; -LEVA750T7 PO; -METAMUCIL PO; +MIDAZOLAM INJ 2 MG/2 ML VIAL (J2250) As Ordered; -NICOTROLIN PO; -No Historical Meds; +PHENYLEPHRINE HCL 10 % OPHTH. SOL 5ML OD; -PRED10TA PO; -PRED10TA2 PO; -PROT1TAB2 PO; -PROTONIX40 PO; -PULM0.5S INH; -ROBITUSSDM PO; -SIMV10TA2 PO; -TRAN15TA; -TYLE325T5 PO; -TYLENOL500 PO; -VYTORIN10 PO; -WELLBSR150 PO; -ZANTAC150 PO; -ZETI10TA; -ZETI10TA30 PO; -ZETIA PO; -ZITH250T PO; -ZOCO10TA; -ZOCO10TA PO; -ZOCOR10 PO; -[UNRECOGNIZED DRUG - CODE] PO; -[UNRECOGNIZED DRUG - CODE] PO; +fentaNYL 100 MCG/2 ML INJECTION (J3010) As Ordered; -fibercon
[2018-08-03] MEDS: POVIDONE-IODINE 5% OPHTH PREP SOL 30ML As Ordered ×2 (09:07→10:28)
[2018-08-03] MEDS: LIDOCAINE 3.5 % 1ML OPHTH TOPICAL GEL OU (09:17)
[2018-08-03] MEDS: OFLOXACIN 0.3 % (OCUFLOX) OPTH SOL 5ML OD (09:17)
[2018-08-03] MEDS: CYCLOPENTOLATE 2% OPHTH SOLN 2ML BTL OD (09:18)
[2018-08-03] MEDS: PHENYLEPHRINE 2.5% OPHTH SOL 2ML OD (09:19)
[2018-08-03] MEDS: TROPICAMIDE 1% OPHTH SOLN 2ML OD (09:19)
[2018-08-03] MEDS: TRIAMCINOLONE PRES FR 40 MG/ML 1ML(TRIESENCE)(OR EYE ONLY)(J3300 PER 1MG) As Ordered (10:28)
[2018-08-03] MEDS: MOXIFLOXACIN IN BSS 0.25MG/0.25ML INTRACAMERAL INJ (OR EYE ONLY)(J2280) As Ordered (10:28)
[2018-08-03] MEDS: BSS with VANC/TOB/EPI for EYE CASES IR (10:28)
[2018-08-03] MEDS: LIDOCAINE 1% SDV 5 ML VIAL As Ordered (10:28)
[2018-08-03] MEDS: HEALON DUET (HEALON 10MG/ML 0.55ML & HEALON ENDOCOAT 30MG/ML 0.85ML) As Ordered (10:28)
[2018-08-03] MEDS ORDERED: PROPOFOL 200 MG/20 ML VIAL As Ordered (11:09)
[2018-08-03] MEDS ORDERED: ONDANSETRON 4MG/2ML VIAL (J2405) As Ordered (11:09)
[2018-08-03] MEDS ORDERED: ePHEDrine SULFATE 25 MG/5 ML(5MG/ML) SYRINGE As Ordered (11:09)
[2018-08-03] MEDS ORDERED: dexameTHASONE 4 MG/ML 1ML VIAL (J1100) As Ordered (11:09)
[2018-08-03] MEDS ORDERED: LIDOCAINE 2% INJ 100 MG/5 ML SDV (FOR ANES.) As Ordered (11:09)
[2018-08-03] MEDS ORDERED: LR 1,000 ML IV (11:15)
[2018-08-03] MEDS ORDERED: TRIMETHOBENZAMIDE 300 MG CAP PO (11:15)
[2018-08-03] MEDS ORDERED: AcetaZOLAMIDE 500 MG ER CAP PO (11:15)
== END 2018-08-03 12:00 | disposition home or self-care (01) ==
LOC: M SDC 08:19
DX: H25.89 Other age-related cataract (principal); H57.03 Miosis; I10 Essential (primary) hypertension; I48.0 Paroxysmal atrial fibrillation; J44.9 Chronic obstructive pulmonary disease, unspecified; E78.2 Mixed hyperlipidemia; I87.2 Venous insufficiency (chronic) (peripheral); L03.115 Cellulitis of right lower limb; D75.89 Other specified diseases of blood and blood-forming organs; F03.90 Unspecified dementia, unspecified severity, without behavioral disturbance, psychotic disturbance, mood disturbance, and anxiety; D50.9 Iron deficiency anemia, unspecified; E55.9 Vitamin D deficiency, unspecified; K21.9 Gastro-esophageal reflux disease without esophagitis; K52.9 Noninfective gastroenteritis and colitis, unspecified; K57.32 Diverticulitis of large intestine without perforation or abscess without bleeding; M12.9 Arthropathy, unspecified; Z79.899 Other long term (current) drug therapy; Z86.711 Personal history of pulmonary embolism; Z86.718 Personal history of other venous thrombosis and embolism; Z87.891 Personal history of nicotine dependence
CPT/HCPCS: 66982

== ENCOUNTER 2018-08-28 18:26 | Emergency (ER) | payer MEDICARE, MEDICAID ==
[2018-08-28] MEDS: levETIRAcetam 250MG TABLET (KEPPRA) PO (20:00)
[2018-08-28 20:29] LABS: KETONE, URINE AUTO RFX NEGATIVE (NEGATIVE); LEUKOCYTE ESTERASE UR AUTO RFX NEGATIVE (NEGATIVE); NITRITE, URINE AUTO RFX NEGATIVE (NEGATIVE); RBC, URINE AUTO RFX 0 /HPF (0-3); SPECIFIC GRAVITY UR AUTO RFX 1.006 (1.002-1.035); SQUAM EPITHELIAL CELL UR AURFX 0 /HPF (0-6); WBC, URINE AUTO RFX 0 /HPF (0-3)
== END 2018-08-28 22:24 | disposition home or self-care (01) ==
LOC: M ED 18:26
DX: R56.9 Unspecified convulsions (principal); J44.9 Chronic obstructive pulmonary disease, unspecified; I48.91 Unspecified atrial fibrillation; K21.9 Gastro-esophageal reflux disease without esophagitis; Z79.899 Other long term (current) drug therapy; Z79.01 Long term (current) use of anticoagulants
CPT/HCPCS: 70450

== ENCOUNTER → 2018-09-04 | Outpatient (REF) | payer MEDICARE, MEDICAID ==
[~2018-09-04] MED LIST changes: +/PANT40TA; +/WARF25TA; +/WARF5TA; +ACET1TAB55 PO; -ACETAMINOPHEN 325 MG TAB PO; +ALBU17IN2 INH; +ALBU83IN; +ALBU83IN INH; +AMMO12LO TOP; +AMO500 PO; +ARIC1TAB2 PO; +ASPEC81 PO; +ATROVENT0.02%; +AVEL1TAB3 PO; +BUDE0.5S6 INH; +CEFD1CAP8 PO; +CEFD300CAP PO; +CEFT500T3 PO; +CIPR-249 PO; +CIPR1TAB20 PO; +COMBAER6 INH; +COMBIVENT MDI INH; +DELT1TAB PO; +DILA100C; +DONETAB6 PO; +DRIS50003 PO; +ELIQ5TAB PO; +FERR325T3 PO; +FIBE625T PO; +FIBE62TA PO; +FIBERCON PO; +HABITROL14 TOPICAL; +HABITROL21 TOPICAL; +HABITROL7 TOPICAL; +IPRA0.00 INH; +IPRA0.00 NEB; +KEFL250C11 PO; +KEPP1TAB PO; +KEPPRA; +LASI20TA PO; +LASI40TA PO; +LEVA750T7 PO; +LOPR1TAB6 PO; +METAMUCIL PO; +METO50TA7 PO; -MIDAZOLAM INJ 2 MG/2 ML VIAL (J2250) As Ordered; +NICOTROLIN PO; +No Historical Meds; +OCEA0.654; -PHENYLEPHRINE HCL 10 % OPHTH. SOL 5ML OD; +PRED10TA PO; +PRED10TA2 PO; +PRED20TA PO; +PROT1TAB2 PO; +PROTONIX40 PO; +PULM0.5S INH; +ROBITUSSDM PO; +SIMV10TA2 PO; +TRAN15TA; +TYLE325T5 PO; +TYLENOL500 PO; +VYTORIN10 PO; +WELLBSR150 PO; +ZANTAC150 PO; +ZETI10TA; +ZETI10TA30 PO; +ZETIA PO; +ZITH250T PO; +ZOCO10TA; +ZOCO10TA PO; +ZOCOR10 PO; +[UNRECOGNIZED DRUG - CODE] PO; +[UNRECOGNIZED DRUG - CODE] PO; -fentaNYL 100 MCG/2 ML INJECTION (J3010) As Ordered; +fibercon
[2018-09-04 13:17] LABS: BASO % 0.6 % (0.0-1.0); EOS # 0.1 10^3/uL (0.0-0.50); EOS % 1.5 % (0.0-3.0); HEMATOCRIT 38.5 % (42.0-52.0); HEMOGLOBIN 12.7 g/dl (13.5-17.5); LYMPH # 1.4 10^3/uL (1.5-4.5); LYMPH % 21.3 % (24.0-44.0); MEAN CORPUSCULAR HEMOGLOBIN 30.8 pg (27.0-33.0); MEAN CORPUSCULAR VOLUME 93.2 fl (80.0-96.0); MONO # 0.7 10^3/uL (0.0-0.8); MONO % 9.7 % (0.0-5.0); NEUTROPHILS # 4.5 10^3/uL (1.8-7.7); NEUTROPHILS % 66.5 % (36.0-66.0); PLATELET COUNT, AUTOMATED 237 10^3/uL (150-450); RED BLOOD COUNT 4.13 10^6/uL (4.30-6.10); WHITE BLOOD COUNT 6.7 10^3/uL (4.0-10.0)
[2018-09-04 13:49] LABS: ALBUMIN 4.1 GM/DL (3.2-5.2); ALT/SGPT 19 U/L (12-78); BILIRUBIN,TOTAL 0.3 MG/DL (0.2-1.0); BLOOD UREA NITROGEN 13 MG/DL (7-18); CALCIUM LEVEL 9.6 MG/DL (8.8-10.2); CARBON DIOXIDE LEVEL 38 MEQ/L (21-32); CHLORIDE LEVEL 98 MEQ/L (98-107); CREATININE FOR GFR 0.72 MG/DL (0.70-1.30); GLOMERULAR FILTRATION RATE > 60.0 (>49); GLUCOSE, FASTING 83 MG/DL (70-100); POTASSIUM SERUM 4.5 MEQ/L (3.5-5.1); SODIUM LEVEL 140 MEQ/L (136-145); TOTAL PROTEIN 6.9 GM/DL (6.4-8.2)
== END ==
LOC: M SFHCPLAZ 11:12
PROVIDERS: ATTEND Family Medicine
DX: L03.115 Cellulitis of right lower limb (principal)
CPT/HCPCS: 36415; 80053; 80180; 85025; G0463

== ENCOUNTER → 2018-10-29 | Outpatient (REF) | payer MEDICARE, MEDICAID ==
[~2018-10-29] MED LIST changes: +DEPA1TAB3 PO; -LASI20TA PO; +LASI20TA3 PO; -LASI40TA PO; +LASI40TA9 PO
[2018-10-29 13:08] LABS: BASO # 0.1 10^3/uL (0.0-0.2); EOS # 0.2 10^3/uL (0.0-0.50); EOS % 4.2 % (0.0-3.0); HEMATOCRIT 36.5 % (42.0-52.0); HEMOGLOBIN 11.8 g/dl (13.5-17.5); LYMPH # 1.2 10^3/uL (1.5-4.5); LYMPH % 22.9 % (24.0-44.0); MEAN CORPUSCULAR HEMOGLOBIN 29.9 pg (27.0-33.0); MEAN CORPUSCULAR HGB CONC 32.3 g/dl (32.0-36.5); MEAN CORPUSCULAR VOLUME 92.6 fl (80.0-96.0); MONO # 0.7 10^3/uL (0.0-0.8); MONO % 13.1 % (0.0-5.0); NEUTROPHILS # 2.9 10^3/uL (1.8-7.7); NEUTROPHILS % 58.4 % (36.0-66.0); PLATELET COUNT, AUTOMATED 228 10^3/uL (150-450); RED BLOOD COUNT 3.94 10^6/uL (4.30-6.10)
[2018-10-29 13:40] LABS: ALBUMIN 3.6 GM/DL (3.2-5.2); ALT/SGPT 20 U/L (12-78); BILIRUBIN,TOTAL 0.2 MG/DL (0.2-1.0); BLOOD UREA NITROGEN 10 MG/DL (7-18); CARBON DIOXIDE LEVEL 39 MEQ/L (21-32); CHLORIDE LEVEL 93 MEQ/L (98-107); CREATININE FOR GFR 0.62 MG/DL (0.70-1.30); FREE T4 1.06 NG/DL (0.76-1.46); GLOMERULAR FILTRATION RATE > 60.0 (>49); GLUCOSE, FASTING 92 MG/DL (70-100); POTASSIUM SERUM 4.3 MEQ/L (3.5-5.1); SODIUM LEVEL 137 MEQ/L (136-145); TOTAL PROTEIN 6.3 GM/DL (6.4-8.2); VALPROIC ACID (DEPAKOTE) 42.7 UG/ML (50.0-100.0)
== END ==
LOC: M SFHCPLAZ 11:52
PROVIDERS: ATTEND Family Medicine
DX: Z01.818 Encounter for other preprocedural examination (principal); I48.0 Paroxysmal atrial fibrillation
CPT/HCPCS: 36415; 80053; 80164; 84439; 84443; 85025; G0463

== ENCOUNTER 2018-11-04 08:07 | Day surgery (SDC) | payer MEDICARE, MEDICAID ==
[~2018-11-04] VITALS: Ht 167.6 cm; Wt 71.6 kg
[~2018-11-04 08:07] MED LIST changes: +ACETAMINOPHEN 325 MG TAB PO PRN; +BSS with VANC/TOB/EPI for EYE CASES IR ONE; +CYCLOPENTOLATE 2% OPHTH SOLN 2ML BTL OS ONE; +HEALON DUET PRO(HEALON 10MG/ML 0.55ML & HEALON ENDOCOAT 30MG/ML 0.85ML) As Ordered ONE; +LIDOCAINE 1% SDV 5 ML VIAL As Ordered ONE; +LIDOCAINE 3.5 % 1ML OPHTH TOPICAL GEL OU ONE; +MOXIFLOXACIN IN BSS 0.25MG/0.25ML INTRACAMERAL INJ (OR EYE ONLY)(J2280) As Ordered ONE; +OFLOXACIN 0.3 % (OCUFLOX) OPTH SOL 5ML OS ONE; +PHENYLEPHRINE 2.5% OPHTH SOL 2ML OS ONE; +PHENYLEPHRINE HCL 10 % OPHTH. SOL 5ML OS PRN; +POVIDONE-IODINE 5% OPHTH PREP SOL 30ML As Ordered ONE; +TRIAMCINOLONE PRES FR 40 MG/ML 1ML(TRIESENCE)(OR EYE ONLY)(J3300 PER 1MG) As Ordered ONE; +TROPICAMIDE 1% OPHTH SOLN 2ML OS ONE
[2018-11-04] MEDS ORDERED: MIDAZOLAM INJ 2 MG/2 ML VIAL (J2250) As Ordered ONE (09:17)
[2018-11-04] MEDS ORDERED: fentaNYL 100 MCG/2 ML INJECTION (J3010) As Ordered ONE (09:18)
[2018-11-04] MEDS ORDERED: PROPOFOL 200 MG/20 ML VIAL As Ordered ONE (09:27)
[2018-11-04] MEDS ORDERED: LIDOCAINE 2% INJ 100 MG/5 ML SDV (FOR ANES.) As Ordered ONE (09:27)
[2018-11-04] MEDS ORDERED: KETAMINE HCL 200 MG/20 ML VIAL As Ordered ONE (09:58)
[2018-11-04] MEDS ORDERED: TRYPAN BLUE 0.06 % 2.25 ML OPHTH SYR (VISIONBLUE) As Ordered ONE (10:10)
[2018-11-04] MEDS ORDERED: ACETYLCHOLINE OPHTH SOLN 1% 2ML (MIOCHOL-E) As Ordered ONE (10:18)
[2018-11-04] MEDS ORDERED: TRIMETHOBENZAMIDE 300 MG CAP PO PRN (11:15)
[2018-11-04] MEDS ORDERED: fentaNYL 100 MCG/2 ML INJECTION (J3010) IV PRN (11:15)
[2018-11-04] MEDS ORDERED: PERCOCET 5MG/325MG TAB PO PRN (11:15)
[2018-11-04] MEDS ORDERED: AcetaZOLAMIDE 500 MG ER CAP PO ONE (11:15)
[2018-11-04 11:20] VITALS: BP 150/68
--- NOTE | 2018-11-05 08:38 | RO ---
DATE OF PROCEDURE: 11/04/2018 PREPROCEDURE DIAGNOSES: Cataract left eye, myosis left eye. POSTPROCEDURE DIAGNOSES: Cataract left eye, myosis left eye. PROCEDURE: Phacoemulsification with intraocular lens implantation along with placement of a 7 mm Malyugin ring. SURGEON: Marie Balderas MD. SHOP SERVICE TECHNICIAN: None. ANESTHESIA: COMPLICATIONS: None. DESCRIPTION OF PROCEDURE: The patient was first intubated by the department of anesthesia following which the left eye was prepped and draped in a sterile fashion for opthalmic surgery and a lid speculum was placed. A sideport incision was made and EndoCoat was injected into the anterior chamber. Temporal clear corneal incision was then made with a 2.5 mm keratome followed by injection of a 7 mm Malyugin ring to dilate the pupil which was about 3.5 to 4 mm. Capsulorrhexis was then carried out for hydrodissection. Phacoemulsification was then carried out under dense settings in divide and conquer method followed by aspiration of the cortical material. Healon was then placed in the capsular bag and intraocular lens 21.5 AU00T0 was placed in the capsular bag. Excess viscoelastic was then aspirated. Wound was hydrated. Intracameral Moxifloxacin and sub-tenon triamcinolone injection was then given. Lid speculum was removed and patient was returned to recovery room after being extubated.
== END 2018-11-04 12:06 | disposition home or self-care (01) ==
LOC: M SDC 08:07
PROVIDERS: ATTEND Ophthalmology
DX: H26.9 Unspecified cataract (principal); H57.03 Miosis; I48.0 Paroxysmal atrial fibrillation; I10 Essential (primary) hypertension; J44.9 Chronic obstructive pulmonary disease, unspecified; E78.2 Mixed hyperlipidemia; K52.9 Noninfective gastroenteritis and colitis, unspecified; K58.9 Irritable bowel syndrome, unspecified; K57.30 Diverticulosis of large intestine without perforation or abscess without bleeding; M12.9 Arthropathy, unspecified; H91.93 Unspecified hearing loss, bilateral; G40.309 Generalized idiopathic epilepsy and epileptic syndromes, not intractable, without status epilepticus; L03.115 Cellulitis of right lower limb; I87.2 Venous insufficiency (chronic) (peripheral); F03.90 Unspecified dementia, unspecified severity, without behavioral disturbance, psychotic disturbance, mood disturbance, and anxiety; E55.9 Vitamin D deficiency, unspecified; K59.09 Other constipation; D75.89 Other specified diseases of blood and blood-forming organs; R76.11 Nonspecific reaction to tuberculin skin test without active tuberculosis; Z79.899 Other long term (current) drug therapy; Z79.01 Long term (current) use of anticoagulants; Z99.81 Dependence on supplemental oxygen; Z86.718 Personal history of other venous thrombosis and embolism; Z87.891 Personal history of nicotine dependence; Z98.41 Cataract extraction status, right eye
CPT/HCPCS: 66982; 92015; J2250; J2280; J3010; J3300; V2632

== ENCOUNTER → 2018-11-10 | Outpatient (REF) | payer MEDICARE, MEDICAID ==
[~2018-11-10] MED LIST changes: -ACETAMINOPHEN 325 MG TAB PO PRN; -BSS with VANC/TOB/EPI for EYE CASES IR ONE; -CYCLOPENTOLATE 2% OPHTH SOLN 2ML BTL OS ONE; -HEALON DUET PRO(HEALON 10MG/ML 0.55ML & HEALON ENDOCOAT 30MG/ML 0.85ML) As Ordered ONE; -LIDOCAINE 1% SDV 5 ML VIAL As Ordered ONE; -LIDOCAINE 3.5 % 1ML OPHTH TOPICAL GEL OU ONE; -MOXIFLOXACIN IN BSS 0.25MG/0.25ML INTRACAMERAL INJ (OR EYE ONLY)(J2280) As Ordered ONE; -OFLOXACIN 0.3 % (OCUFLOX) OPTH SOL 5ML OS ONE; -PHENYLEPHRINE 2.5% OPHTH SOL 2ML OS ONE; -PHENYLEPHRINE HCL 10 % OPHTH. SOL 5ML OS PRN; -POVIDONE-IODINE 5% OPHTH PREP SOL 30ML As Ordered ONE; -TRIAMCINOLONE PRES FR 40 MG/ML 1ML(TRIESENCE)(OR EYE ONLY)(J3300 PER 1MG) As Ordered ONE; -TROPICAMIDE 1% OPHTH SOLN 2ML OS ONE
[2018-11-10 16:35] LABS: APPEARANCE, URINE CLEAR (CLEAR); BACTERIA, URINE AUTO NEGATIVE (NEGATIVE); BILIRUBIN, URINE AUTO NEGATIVE (NEGATIVE); BLOOD, URINE BLOOD NEGATIVE (NEGATIVE); COLOR, URINE STRAW (YELLOW); GLUCOSE, URINE (UA) AUTO NEGATIVE (NEGATIVE); KETONE, URINE AUTO TRACE mg/dL (NEGATIVE); LEUKOCYTE ESTERASE, URINE AUTO NEGATIVE (NEGATIVE); NITRITE, URINE AUTO NEGATIVE (NEGATIVE); PROTEIN, URINE AUTO NEGATIVE (NEGATIVE); RBC, URINE AUTO 0 /HPF (0-3); SPECIFIC GRAVITY URINE AUTO 1.006 (1.002-1.035); SQUAMOUS EPITHELIAL CELL UR AU 0 /HPF (0-6); UROBILINOGEN, URINE AUTO 0.2 mg/dL (0.0-2.0); WBC, URINE AUTO 0 /HPF (0-3)
[2018-11-10 16:40] LABS: ALBUMIN 3.5 GM/DL (3.2-5.2); ALT/SGPT 25 U/L (12-78); BILIRUBIN,TOTAL 0.2 MG/DL (0.2-1.0); BLOOD UREA NITROGEN 8 MG/DL (7-18); CALCIUM LEVEL 8.7 MG/DL (8.8-10.2); CARBON DIOXIDE LEVEL 43 MEQ/L (21-32); CHLORIDE LEVEL 90 MEQ/L (98-107); CREATININE FOR GFR 0.52 MG/DL (0.70-1.30); GLOMERULAR FILTRATION RATE > 60.0 (>49); GLUCOSE, FASTING 96 MG/DL (70-100); POTASSIUM SERUM 4.1 MEQ/L (3.5-5.1); SODIUM LEVEL 135 MEQ/L (136-145); TOTAL PROTEIN 6.3 GM/DL (6.4-8.2)
[2018-11-10 16:41] LABS: BASO # 0.1 10^3/uL (0.0-0.2); BASO % 0.8 % (0.0-1.0); EOS # 0.3 10^3/uL (0.0-0.50); EOS % 4.2 % (0.0-3.0); HEMATOCRIT 37.1 % (42.0-52.0); HEMOGLOBIN 12.3 g/dl (13.5-17.5); LYMPH # 1.1 10^3/uL (1.5-4.5); LYMPH % 17.1 % (24.0-44.0); MEAN CORPUSCULAR HEMOGLOBIN 30.8 pg (27.0-33.0); MEAN CORPUSCULAR HGB CONC 33.2 g/dl (32.0-36.5); MEAN CORPUSCULAR VOLUME 92.8 fl (80.0-96.0); MONO % 15.3 % (0.0-5.0); NEUTROPHILS # 3.9 10^3/uL (1.8-7.7); NEUTROPHILS % 62.1 % (36.0-66.0); PLATELET COUNT, AUTOMATED 223 10^3/uL (150-450); WHITE BLOOD COUNT 6.2 10^3/uL (4.0-10.0)
== END ==
LOC: M SFHCPLAZ 13:05
PROVIDERS: ATTEND Physician Assistant Medical
DX: R35.0 Frequency of micturition (principal); R53.83 Other fatigue

== ENCOUNTER → 2019-02-20 | Outpatient (CLI) | payer MEDICARE, MEDICAID ==
[~2019-02-20] MED LIST changes: -/PANT40TA; -/WARF25TA; -/WARF5TA; +COUM1TAB17; +COUM1TAB18; +PRED-351 PO; -PRED10TA PO; +PROT1TAB2
[2019-02-20 11:09] LABS: BASO # 0.1 10^3/uL (0.0-0.2); BASO % 0.7 % (0.0-1.0); EOS # 0.1 10^3/uL (0.0-0.50); EOS % 1.7 % (0.0-3.0); HEMATOCRIT 37.8 % (42.0-52.0); HEMOGLOBIN 12.3 g/dl (13.5-17.5); LYMPH # 1.3 10^3/uL (1.5-4.5); MEAN CORPUSCULAR HEMOGLOBIN 31.2 pg (27.0-33.0); MEAN CORPUSCULAR HGB CONC 32.5 g/dl (32.0-36.5); MEAN CORPUSCULAR VOLUME 95.9 fl (80.0-96.0); MONO # 0.8 10^3/uL (0.0-0.8); MONO % 10.9 % (0.0-5.0); NEUTROPHILS # 4.8 10^3/uL (1.8-7.7); NEUTROPHILS % 68.3 % (36.0-66.0); PLATELET COUNT, AUTOMATED 195 10^3/uL (150-450); RED BLOOD COUNT 3.94 10^6/uL (4.30-6.10); WHITE BLOOD COUNT 7.1 10^3/uL (4.0-10.0)
[2019-02-20 11:20] LABS: ALBUMIN 3.6 GM/DL (3.2-5.2); ALT/SGPT 19 U/L (12-78); BILIRUBIN,TOTAL 0.4 MG/DL (0.2-1.0); BLOOD UREA NITROGEN 9 MG/DL (7-18); CARBON DIOXIDE LEVEL 39 MEQ/L (21-32); CHLORIDE LEVEL 100 MEQ/L (98-107); CHOLESTEROL LEVEL 186 MG/DL (<200); CHOLESTEROL RISK RATIO 2.547 (<5); CREATININE FOR GFR 0.67 MG/DL (0.70-1.30); GLOMERULAR FILTRATION RATE > 60.0 (>49); GLUCOSE, FASTING 92 MG/DL (70-100); HDL CHOLESTEROL 73 MG/DL (>40); LDL CHOLESTEROL 90 MG/DL (<100); NON-HDL-C 113 MG/DL; POTASSIUM SERUM 4.1 MEQ/L (3.5-5.1); SODIUM LEVEL 143 MEQ/L (136-145); TOTAL PROTEIN 6.5 GM/DL (6.4-8.2); TRIGLYCERIDES LEVEL 114 MG/DL (<150)
== END ==
LOC: M WUC 08:37
PROVIDERS: ATTEND Family Medicine
DX: D50.9 Iron deficiency anemia, unspecified (principal); E78.2 Mixed hyperlipidemia

== ENCOUNTER → 2019-05-29 | Outpatient (CLI) | payer MEDICARE, MEDICAID ==
[~2019-05-29] MED LIST changes: +ZETI10TA16 PO; -ZETI10TA30 PO
[2019-05-29 19:09] LABS: BASO % 0.8 % (0.0-1.0); EOS # 0.1 10^3/uL (0.0-0.50); EOS % 2.1 % (0.0-3.0); HEMATOCRIT 36.7 % (42.0-52.0); HEMOGLOBIN 11.8 g/dl (13.5-17.5); LYMPH # 1.2 10^3/uL (1.5-4.5); LYMPH % 24.6 % (24.0-44.0); MEAN CORPUSCULAR HEMOGLOBIN 30.4 pg (27.0-33.0); MEAN CORPUSCULAR HGB CONC 32.2 g/dl (32.0-36.5); MEAN CORPUSCULAR VOLUME 94.6 fl (80.0-96.0); MONO # 0.4 10^3/uL (0.0-0.8); MONO % 7.8 % (0.0-5.0); NEUTROPHILS % 64.3 % (36.0-66.0); PLATELET COUNT, AUTOMATED 203 10^3/uL (150-450); RED BLOOD COUNT 3.88 10^6/uL (4.30-6.10); WHITE BLOOD COUNT 4.7 10^3/uL (4.0-10.0)
[2019-05-29 19:31] LABS: ALBUMIN 3.7 GM/DL (3.2-5.2); ALT/SGPT 21 U/L (12-78); BILIRUBIN,TOTAL 0.3 MG/DL (0.2-1.0); BLOOD UREA NITROGEN 9 MG/DL (7-18); CARBON DIOXIDE LEVEL 38 MEQ/L (21-32); CHLORIDE LEVEL 98 MEQ/L (98-107); CREATININE FOR GFR 0.83 MG/DL (0.70-1.30); GLOMERULAR FILTRATION RATE > 60.0 (>49); GLUCOSE, FASTING 150 MG/DL (70-100); POTASSIUM SERUM 4.4 MEQ/L (3.5-5.1); SODIUM LEVEL 140 MEQ/L (136-145); TOTAL PROTEIN 6.2 GM/DL (6.4-8.2)
[2019-06-01 09:10] LABS: PTH INTACT 38.9 PG/ML (18.5-88.0); TOTAL 25(OH) VITAMIN D 90.2 NG/ML (30.0-100.0)
== END ==
LOC: M WUC 08:41
PROVIDERS: ATTEND Family Medicine
DX: Z12.5 Encounter for screening for malignant neoplasm of prostate (principal); E55.9 Vitamin D deficiency, unspecified

== ENCOUNTER → 2019-06-25 | Outpatient (CLI) | payer MEDICARE, MEDICAID ==
--- NOTE | 2019-06-29 14:42 | DEXA ---
AP SPINE L1 - L4 1.160 -0.3 -0.1 LT FEMUR TOTAL 0.925 -0.7 -0.5 LT NECK 0.895 -1.0 -0.1 RT FEMUR TOTAL 0.810 -1.6 -1.3 RT NECK 0.895 -1.0 -0.1 TOTAL BODY TOTAL OTHER COMMENTS: Normal bone densitometry of the spine. There is lumbar density of the hips. FOLLOW-UP: Recommendation for the next bone density exam: 2 years. KATT
== END ==
LOC: M WHC 10:08
PROVIDERS: ATTEND Family Medicine
DX: G40.309 Generalized idiopathic epilepsy and epileptic syndromes, not intractable, without status epilepticus (principal); J44.9 Chronic obstructive pulmonary disease, unspecified; E55.9 Vitamin D deficiency, unspecified; I51.7 Cardiomegaly; R11.2 Nausea with vomiting, unspecified; M85.88 Other specified disorders of bone density and structure, other site

== ENCOUNTER → 2019-06-25 | Outpatient (CLI) | payer MEDICARE, MEDICAID ==
--- NOTE | 2019-06-25 13:40 | REP ---
CHEST X-RAY: Two views. HISTORY: Nausea and vomiting. COMPARISON CHEST X-RAY: July 01, 2018. FINDINGS: There are multiple old healed rib fractures and there is an old healed fracture of the left clavicle unchanged. The lungs are hyperinflated but otherwise clear. Pleural angles are sharp. There is a small eventration of the posterior aspect of the left hemidiaphragm unchanged. Thoracic vertebral body heights are preserved. No other bony abnormality is seen. Heart is mildly enlarged unchanged. Cardiothoracic ratio measures 51.3%. The aorta is somewhat calcific. IMPRESSION: Mild cardiomegaly and hyperinflation. Old healed rib fractures. Otherwise no acute disease. Electronically Signed by Delroy Steward MD 06/25/2019 02:40 P
== END ==
LOC: M RAD 11:00
PROVIDERS: ATTEND Physician Assistant Medical
DX: I51.7 Cardiomegaly (principal); R11.2 Nausea with vomiting, unspecified

== ENCOUNTER → 2019-09-20 | Outpatient (REF) | payer MEDICARE, MEDICAID ==
[~2019-09-20] MED LIST changes: -SIMV10TA2 PO; +SIMV10TA21 PO
== END ==
LOC: M LAB REF 09:18
PROVIDERS: ATTEND Physician Assistant
DX: R05 Cough (principal)

== ENCOUNTER → 2019-09-20 | Outpatient (CLI) | payer MEDICARE, MEDICAID ==
--- NOTE | 2019-09-20 17:38 | REP ---
Clinical: Cough . Comparison: 06/25/2019 . Technique: PA and lateral. Findings: The mediastinum and cardiac silhouette are normal. The lung alcaraz the straight chronic interstitial changes without acute consolidation, effusion, or pneumothorax. Old healed right rib fractures noted. Old left clavicle fracture noted. Impression: 1. No acute cardiopulmonary process. Electronically Signed by Abdullahi Douglas MD 09/20/2019 05:29 P
[2019-09-20 20:44] LABS: BASO # 0.1 10^3/uL (0.0-0.2); BASO % 0.7 % (0.0-1.0); EOS # 0.2 10^3/uL (0.0-0.5); EOS % 2.3 % (0.0-3.0); HEMATOCRIT 36.7 % (42.0-52.0); HEMOGLOBIN 11.4 g/dl (13.5-17.5); LYMPH # 1.8 10^3/uL (1.5-5.0); LYMPH % 21.4 % (24.0-44.0); MEAN CORPUSCULAR HEMOGLOBIN 30.2 pg (27.0-33.0); MEAN CORPUSCULAR HGB CONC 31.1 g/dl (32.0-36.5); MEAN CORPUSCULAR VOLUME 97.3 fl (80.0-96.0); MONO # 0.8 10^3/uL (0.0-0.8); MONO % 10.2 % (0.0-5.0); NEUTROPHILS # 5.3 10^3/uL (1.5-8.5); NEUTROPHILS % 64.3 % (36.0-66.0); PLATELET COUNT, AUTOMATED 238 10^3/uL (150-450); RED BLOOD COUNT 3.77 10^6/uL (4.30-6.10); WHITE BLOOD COUNT 8.2 10^3/uL (4.0-10.0)
[2019-09-20 20:49] LABS: BLOOD UREA NITROGEN 12 MG/DL (7-18); CALCIUM LEVEL 9.3 MG/DL (8.8-10.2); CARBON DIOXIDE LEVEL 41 MEQ/L (21-32); CHLORIDE LEVEL 96 MEQ/L (98-107); CREATININE FOR GFR 0.66 MG/DL (0.70-1.30); GLOMERULAR FILTRATION RATE > 60.0 (>49); GLUCOSE, FASTING 95 MG/DL (70-100); POTASSIUM SERUM 4.1 MEQ/L (3.5-5.1); SODIUM LEVEL 141 MEQ/L (136-145)
== END ==
LOC: M WUC 17:10
PROVIDERS: ATTEND Physician Assistant
DX: R05 Cough (principal)

== ENCOUNTER → 2019-09-26 | Outpatient (CLI) | payer MEDICARE, MEDICAID ==
[2019-09-26 13:04] LABS: BASO # 0.1 10^3/uL (0.0-0.2); BASO % 0.5 % (0.0-1.0); EOS # 0.1 10^3/uL (0.0-0.5); EOS % 0.9 % (0.0-3.0); HEMOGLOBIN 11.4 g/dl (13.5-17.5); LYMPH # 2.5 10^3/uL (1.5-5.0); LYMPH % 21.5 % (24.0-44.0); MEAN CORPUSCULAR HEMOGLOBIN 29.8 pg (27.0-33.0); MEAN CORPUSCULAR HGB CONC 30.8 g/dl (32.0-36.5); MEAN CORPUSCULAR VOLUME 96.9 fl (80.0-96.0); MONO # 1.2 10^3/uL (0.0-0.8); MONO % 10.3 % (0.0-5.0); NEUTROPHILS # 7.7 10^3/uL (1.5-8.5); NEUTROPHILS % 65.6 % (36.0-66.0); PLATELET COUNT, AUTOMATED 233 10^3/uL (150-450); RED BLOOD COUNT 3.82 10^6/uL (4.30-6.10); WHITE BLOOD COUNT 11.7 10^3/uL (4.0-10.0)
[2019-09-26 13:15] LABS: ALBUMIN 3.4 GM/DL (3.2-5.2); ALT/SGPT 20 U/L (12-78); BILIRUBIN,TOTAL 0.3 MG/DL (0.2-1.0); BLOOD UREA NITROGEN 15 MG/DL (7-18); CALCIUM LEVEL 9.1 MG/DL (8.8-10.2); CARBON DIOXIDE LEVEL 39 MEQ/L (21-32); CHLORIDE LEVEL 99 MEQ/L (98-107); CHOLESTEROL LEVEL 206 MG/DL (<200); CHOLESTEROL RISK RATIO 2.607 (<5); CREATININE FOR GFR 0.74 MG/DL (0.70-1.30); FREE T4 1.13 NG/DL (0.76-1.46); GLOMERULAR FILTRATION RATE > 60.0 (>49); GLUCOSE, FASTING 79 MG/DL (70-100); HDL CHOLESTEROL 79 MG/DL (>40); LDL CHOLESTEROL 100 MG/DL (<100); NON-HDL-C 127 MG/DL; POTASSIUM SERUM 3.9 MEQ/L (3.5-5.1); SODIUM LEVEL 142 MEQ/L (136-145); TOTAL PROTEIN 6.4 GM/DL (6.4-8.2); TRIGLYCERIDES LEVEL 133 MG/DL (<150)
[2019-09-26 13:30] LABS: HEMOGLOBIN A1c 5.9 %
[2019-09-27 11:31] LABS: VITAMIN B12 LEVEL 349 PG/ML (247-911)
== END ==
LOC: M WUC 08:07
PROVIDERS: ATTEND Family Medicine
DX: D50.9 Iron deficiency anemia, unspecified (principal); E78.2 Mixed hyperlipidemia; R73.09 Other abnormal glucose

== ENCOUNTER → 2019-11-11 | Outpatient (CLI) | payer MEDICARE, MEDICAID ==
--- NOTE | 2019-11-11 15:49 | REPPI ---
Clinical: COPD. Technique: PA and lateral. Comparison: 09/20/2019. Findings: Mediastinum and cardiac silhouette are within normal limits and stable. Lung alcaraz demonstrate chronic changes related to COPD. No focal consolidation or effusion. No pneumothorax. Old healed right rib fractures noted. Impression: Chronic findings. No acute consolidation. If the patient remains symptomatic consider chest CT for further investigation. Electronically Signed by Abdullahi Douglas MD 11/11/2019 03:40 P
== END ==
LOC: M PLAIMG 15:19
PROVIDERS: ATTEND Family Medicine
DX: J44.9 Chronic obstructive pulmonary disease, unspecified (principal)
CPT/HCPCS: 71046; G0463

== ENCOUNTER → 2020-02-21 | Outpatient (CLI) | payer MEDICARE, MEDICAID ==
[2020-02-21 12:29] LABS: ALBUMIN 3.9 GM/DL (3.2-5.2); ALT/SGPT 28 U/L (12-78); BILIRUBIN,TOTAL 0.4 MG/DL (0.2-1.0); BLOOD UREA NITROGEN 7 MG/DL (7-18); C REACTIVE PROTEIN QUANTITATIV < 0.30 MG/DL (0.00-0.30); CALCIUM LEVEL 9.1 MG/DL (8.8-10.2); CARBON DIOXIDE LEVEL 38 MEQ/L (21-32); CHLORIDE LEVEL 99 MEQ/L (98-107); CHOLESTEROL LEVEL 153 MG/DL (<200); CHOLESTEROL RISK RATIO 2.185 (<5); CPK CREATINE PHOSPHOKINASE 163 U/L (39-308); GLOMERULAR FILTRATION RATE > 60.0 (>42); GLUCOSE, FASTING 95 MG/DL (70-100); HDL CHOLESTEROL 70 MG/DL (>40); LDL CHOLESTEROL 62 MG/DL (<100); NON-HDL-C 83 MG/DL; POTASSIUM SERUM 3.9 MEQ/L (3.5-5.1); SODIUM LEVEL 141 MEQ/L (136-145); TOTAL PROTEIN 6.8 GM/DL (6.4-8.2); TRIGLYCERIDES LEVEL 103 MG/DL (<150)
[2020-02-21 13:15] LABS: HEMOGLOBIN A1c 5.8 %
[2020-02-22 10:07] LABS: VITAMIN B12 LEVEL 412 PG/ML (247-911)
== END ==
LOC: M WUC 08:08
PROVIDERS: ATTEND Family Medicine
DX: Z12.5 Encounter for screening for malignant neoplasm of prostate (principal); E78.2 Mixed hyperlipidemia; R73.01 Impaired fasting glucose; D50.9 Iron deficiency anemia, unspecified
CPT/HCPCS: 36415; 80053; 80061; 82550; 82607; 83036; 86140; G0103

== ENCOUNTER → 2020-05-11 | Outpatient (REF) | payer MEDICARE, MEDICAID ==
[2020-06-14 11:55] LABS: APPEARANCE, URINE CLEAR (CLEAR); BACTERIA, URINE AUTO 1+ (NEGATIVE); BILIRUBIN, URINE AUTO NEGATIVE (NEGATIVE); BLOOD, URINE BLOOD NEGATIVE (NEGATIVE); COLOR, URINE STRAW (YELLOW); GLUCOSE, URINE (UA) AUTO NEGATIVE (NEGATIVE); KETONE, URINE AUTO NEGATIVE (NEGATIVE); LEUKOCYTE ESTERASE, URINE AUTO NEGATIVE (NEGATIVE); NITRITE, URINE AUTO NEGATIVE (NEGATIVE); PROTEIN, URINE AUTO NEGATIVE (NEGATIVE); RBC, URINE AUTO 0 /HPF (0-3); SPECIFIC GRAVITY URINE AUTO 1.005 (1.002-1.035); SQUAMOUS EPITHELIAL CELL UR AU 0 /HPF (0-6); UROBILINOGEN, URINE AUTO 0.2 mg/dL (0.0-2.0); WBC, URINE AUTO 0 /HPF (0-3)
== END ==
LOC: M SFHCPLAZ 14:09
PROVIDERS: ATTEND Family Medicine
DX: N39.0 Urinary tract infection, site not specified (principal)

== ENCOUNTER → 2020-06-27 | Outpatient (CLI) | payer MEDICARE, MEDICAID ==
--- NOTE | 2020-07-05 14:32 | REPPI ---
RIGHT ANKLE SERIES HISTORY: Pain. TECHNIQUE: Four views of the right ankle are performed. FINDINGS: There is no acute fracture or dislocation. The ankle mortise is anatomic. Tibiotalar joint is well maintained. There is mild spurring at the anterior aspect of the distal end of the tibia. This could cause anterior impingement. IMPRESSION: Mild spurring anterior distal end of the tibia could cause some degree of anterior impingement. Otherwise, unremarkable exam. MTDD
== END ==
LOC: M PLAIMG 15:24
PROVIDERS: ATTEND Nurse Practitioner Family
DX: M19.071 Primary osteoarthritis, right ankle and foot (principal); M79.671 Pain in right foot
CPT/HCPCS: 73610; 73630; G0463

== ENCOUNTER → 2020-07-28 | Outpatient (CLI) | payer MEDICARE, MEDICAID ==
--- NOTE | 2020-07-28 11:35 | REP ---
INDICATION: OVERACTIVE BLADDER MAIN REG. COMPARISON: None. TECHNIQUE: Real-time sonographic evaluation of urinary bladder performed. FINDINGS: The bladder measures 4.3 x 5.9 x 5.4 cm for total volume of approximately 90 cc. Postvoid residual is 43 cc, 48% of the regional volume. With Doppler color evaluation a right ureteral jet is visualized. A left ureteral jet is not seen. There appears to be mild diffuse thickening of the bladder wall without a focal mass. There is no intraluminal calculus. Prostate measures 2.7 x 2.2 x 2.3 cm for total volume of 7.2 cc. IMPRESSION: Mild thickening of the bladder wall. Postvoid residual as above. Right ureteral jet visualized, left ureteral jet is not seen. <Electronically signed by Ted Kumar > 07/28/20 [id number]
--- NOTE | 2020-07-28 11:37 | REP ---
INDICATION: OVERACTIVE BLADDER MAIN REG. COMPARISON: None. TECHNIQUE: Real-time sonographic evaluation of the kidneys is performed. FINDINGS: Renal cortical echogenicity pattern is normal bilaterally and contours are smooth. There is no right hydronephrosis. There is mild left hydronephrosis. There is mild left hydroureter. Prominent renal pyramids are noted on the right. Resistive index bilaterally is 0.80. No renal mass or calculus is visualized. The right kidney measures 9.9 x 5.0 x 4.1 cm. Left renal dimensions are 10.7 x 5.7 x 6.0 cm. IMPRESSION: Mild left hydronephrosis and hydroureter. Resistive index is identical for each kidney, 0.80. <Electronically signed by Ted Kumar > 07/28/20 [id number]
== END ==
LOC: M RAD 09:39
PROVIDERS: ATTEND Family Medicine
DX: N13.30 Unspecified hydronephrosis (principal); N13.4 Hydroureter; N32.81 Overactive bladder

== ENCOUNTER → 2020-08-02 | Outpatient (CLI) | payer MEDICARE, MEDICAID ==
[2020-08-02 12:11] LABS: BASO # 0.1 10^3/uL (0.0-0.2); BASO % 0.9 % (0.0-1.0); EOS # 0.2 10^3/uL (0.0-0.5); EOS % 3.7 % (0.0-3.0); HEMOGLOBIN 12.1 g/dl (13.5-17.5); LYMPH # 0.9 10^3/uL (1.5-5.0); LYMPH % 16.5 % (24.0-44.0); MEAN CORPUSCULAR HEMOGLOBIN 30.4 pg (27.0-33.0); MEAN CORPUSCULAR HGB CONC 31.8 g/dl (32.0-36.5); MEAN CORPUSCULAR VOLUME 95.5 fl (80.0-96.0); MONO # 0.8 10^3/uL (0.0-0.8); MONO % 13.2 % (0.0-5.0); NEUTROPHILS # 3.7 10^3/uL (1.5-8.5); NEUTROPHILS % 65.3 % (36.0-66.0); PLATELET COUNT, AUTOMATED 220 10^3/uL (150-450); RED BLOOD COUNT 3.98 10^6/uL (4.30-6.10); WHITE BLOOD COUNT 5.7 10^3/uL (4.0-10.0)
[2020-08-02 12:43] LABS: ALBUMIN 3.5 GM/DL (3.2-5.2); ALT/SGPT 23 U/L (12-78); BILIRUBIN,TOTAL 0.2 MG/DL (0.2-1.0); BLOOD UREA NITROGEN 13 MG/DL (7-18); CALCIUM LEVEL 9.4 MG/DL (8.8-10.2); CARBON DIOXIDE LEVEL 39 MEQ/L (21-32); CHLORIDE LEVEL 96 MEQ/L (98-107); CREATININE FOR GFR 0.61 MG/DL (0.70-1.30); GLOMERULAR FILTRATION RATE > 60.0 (>42); GLUCOSE, FASTING 97 MG/DL (70-100); POTASSIUM SERUM 4.7 MEQ/L (3.5-5.1); SODIUM LEVEL 138 MEQ/L (136-145); TOTAL PROTEIN 6.5 GM/DL (6.4-8.2)
== END ==
LOC: M WUC 09:58
PROVIDERS: ATTEND Physician Assistant Medical
DX: N13.30 Unspecified hydronephrosis (principal); D75.89 Other specified diseases of blood and blood-forming organs; K50.80 Crohn's disease of both small and large intestine without complications; K57.30 Diverticulosis of large intestine without perforation or abscess without bleeding; K40.90 Unilateral inguinal hernia, without obstruction or gangrene, not specified as recurrent
CPT/HCPCS: 36415; 74178; 80053; 85025; 85046; Q9967

== ENCOUNTER → 2020-08-02 | Outpatient (CLI) | payer MEDICARE, MEDICAID ==
[~2020-08-02] MED LIST changes: +ISOVUE-370 76% 100ML VIAL As Ordered ONE
--- NOTE | 2020-08-02 18:50 | REP ---
INDICATION: HYDRONEPHROSIS. COMPARISON: None TECHNIQUE: 100 cc Isovue 370. FINDINGS: The lung bases are clear. The pre contrast enhanced portion of the examination shows a patent splenic densities to be within normal limits. There is cholelithiasis. There is no nephroureterolithiasis, hydronephrosis, or hydroureter. There are no urinary bladder calcifications. The contrast-enhanced portion of the examination shows the liver, spleen, pancreas, adrenal glands, and right kidney to be within normal limits. Two tiny right renal cysts are noted. In the interpolar region of the left kidney there is a 1 cm sized mixed density lesion. This is seen with some evidence of contrast enhancement. The abdominal aorta and para-aortic regions are within normal limits. The bowel loops and the mesenteries are within normal limits. Note is made of descending colon diverticulosis. There is a small fat containing left inguinal hernia. There is no free fluid or free air. Delayed imaging throughout the examination shows a duplex collecting system in the left kidney which immediately connects at the level of the ureteropelvic junction. There is complete opacification of both renal collecting systems. The opacified portion of the urinary bladder shows no evidence of a filling defect. Bone window technique throughout the examination shows the osseous structures to be within normal limits. IMPRESSION: 1. Potentially enhancing left renal nodule measuring 1 cm and for which pre and post gadolinium enhanced renal MRI is recommended for further evaluation. A renal neoplasm cannot be ruled out by this exam. 2. Cholelithiasis 3. Diverticulosis. 4. Small left inguinal hernia as described above. 5. Other findings as described above. <Electronically signed by Prieto Mg > 08/02/20 [id number]
== END ==
LOC: M RAD 16:11
PROVIDERS: ATTEND Family Medicine
DX: N13.30 Unspecified hydronephrosis (principal); K80.20 Calculus of gallbladder without cholecystitis without obstruction; K57.30 Diverticulosis of large intestine without perforation or abscess without bleeding; K40.90 Unilateral inguinal hernia, without obstruction or gangrene, not specified as recurrent

== ENCOUNTER → 2021-01-20 | Outpatient (CLI) | payer MEDICARE, MEDICAID ==
[~2021-01-20] MED LIST changes: -ISOVUE-370 76% 100ML VIAL As Ordered ONE
[2021-01-20 09:54] LABS: BASO # 0.1 10^3/uL (0.0-0.2); EOS # 0.1 10^3/uL (0.0-0.5); HEMATOCRIT 40.2 % (42.0-52.0); HEMOGLOBIN 12.9 g/dl (13.5-17.5); LYMPH # 1.4 10^3/uL (1.5-5.0); LYMPH % 28.2 % (24.0-44.0); MEAN CORPUSCULAR HEMOGLOBIN 30.4 pg (27.0-33.0); MEAN CORPUSCULAR HGB CONC 32.1 g/dl (32.0-36.5); MEAN CORPUSCULAR VOLUME 94.6 fl (80.0-96.0); MONO # 0.6 10^3/uL (0.0-0.8); MONO % 11.9 % (2.0-8.0); NEUTROPHILS # 2.8 10^3/uL (1.5-8.5); NEUTROPHILS % 56.5 % (36.0-66.0); PLATELET COUNT, AUTOMATED 180 10^3/uL (150-450); RED BLOOD COUNT 4.25 10^6/uL (4.30-6.10)
[2021-01-20 10:26] LABS: ALT/SGPT 25 U/L (12-78); BILIRUBIN,TOTAL 0.4 MG/DL (0.2-1.0); BLOOD UREA NITROGEN 8 MG/DL (7-18); CALCIUM LEVEL 9.4 MG/DL (8.8-10.2); CARBON DIOXIDE LEVEL 38 MEQ/L (21-32); CHLORIDE LEVEL 102 MEQ/L (98-107); CHOLESTEROL LEVEL 183 MG/DL (<200); CHOLESTEROL RISK RATIO 2.407 (<5); CREATININE FOR GFR 0.62 MG/DL (0.70-1.30); FERRITIN 819 NG/ML (26-388); FREE T4 1.12 NG/DL (0.76-1.46); GLOMERULAR FILTRATION RATE > 60.0 (>42); GLUCOSE, FASTING 94 MG/DL (70-100); HDL CHOLESTEROL 76 MG/DL (>40); LDL CHOLESTEROL 82 MG/DL (<100); MAGNESIUM LEVEL 2.2 MG/DL (1.8-2.4); NON-HDL-C 107 MG/DL; NT-PRO BNP 444 PG/ML (<125); POTASSIUM SERUM 4.7 MEQ/L (3.5-5.1); SODIUM LEVEL 142 MEQ/L (136-145); TRIGLYCERIDES LEVEL 126 MG/DL (<150)
[2021-01-20 10:30] LABS: HEMOGLOBIN A1c 5.4 %
[2021-01-22 07:10] LABS: TOTAL 25(OH) VITAMIN D 120.6 NG/ML (30.0-100.0)
[2021-01-22 07:11] LABS: PTH INTACT 47.2 PG/ML (18.5-88.0)
== END ==
LOC: M LAB 09:14
PROVIDERS: ATTEND Family Medicine
DX: E78.2 Mixed hyperlipidemia (principal); D50.9 Iron deficiency anemia, unspecified; E55.9 Vitamin D deficiency, unspecified; R73.01 Impaired fasting glucose; Z79.899 Other long term (current) drug therapy

== ENCOUNTER → 2021-01-23 | Outpatient (CLI) | payer MEDICARE, MEDICAID ==
[~2021-01-23] MED LIST changes: +ISOVUE-370 76% 100ML VIAL As Ordered ONE
--- NOTE | 2021-01-23 16:00 | REP ---
INDICATION: RENAL MASS, LEFT. COMPARISON: Comparison CT study abdomen 02 August 2020.. TECHNIQUE: Pre and dual phase post-contrast helical scanning is acquired. The contrast enhancement dose is 100 mL of intravenous Isovue 370. 3 mm axial images are generated. Coronal and sagittal MPR images are provided. FINDINGS: Preliminary digital top ironer radiograph is unremarkable. Bowel gas pattern is normal. On noncontrast CT study, the liver parenchyma is diffusely dense compared to the spleen parenchyma question hemochromatosis. No focal liver mass lesion is seen. The liver is not felt to be enlarged. The spleen is normal in size homogeneous in texture. Normal adrenal glands are observed bilaterally. There is no evidence of pancreatic abnormality. The gallbladder contains calcified gallstone and is partially contracted. No biliary ductal dilation is observed. No retroperitoneal mass or adenopathy is seen. Normal appendix is observed. The kidneys enhance symmetrically. There is mild to moderate left-sided hydronephrosis and hydroureter affecting the proximal ureter. The distal ureter is not included in the field of view of this abdominal CT study. No hydronephrosis is seen on the right. There is multifocal cortical scarring and atrophy of the left kidney unchanged. Posteriorly at mid pole level, there is a peripherally projecting 1 cm stable cortical cyst. This does not show evidence of contrast enhancement on either postcontrast acquisition. It is unchanged in size. No renal mass lesion is observed. The right kidney contains a cyst in its lower pole cortex just less than a cm in diameter. This is also unchanged. IMPRESSION: 1. 1 cm peripheral cyst mid position left kidney. There is a 9 mm cyst in the lower pole the right kidney. These are stable since the August 02, [address] study. 2. Mild to moderate left-sided hydronephrosis and proximal hydroureter. This is a little more prominent than on the CT study of August 02, 2020. Etiology uncertain. 3. Cholelithiasis. 4. Somewhat hyperdense liver parenchyma relative to splenic parenchyma. Question hemochromatosis. <Electronically signed by Michel Steward > 01/23/21 [id number]
== END ==
LOC: M RAD 14:21
PROVIDERS: ATTEND Family Medicine
DX: N28.89 Other specified disorders of kidney and ureter (principal)
CPT/HCPCS: 74170; Q9967

== ENCOUNTER → 2021-07-20 | Outpatient (CLI) | payer MEDICARE, MEDICAID ==
[~2021-07-20] MED LIST changes: -ISOVUE-370 76% 100ML VIAL As Ordered ONE
[2021-07-20 09:53] LABS: BASO # 0.1 10^3/uL (0.0-0.2); BASO % 1.2 % (0.0-1.0); EOS # 0.1 10^3/uL (0.0-0.5); EOS % 2.4 % (0.0-3.0); HEMATOCRIT 35.9 % (42.0-52.0); HEMOGLOBIN 11.7 g/dl (13.5-17.5); LYMPH # 0.8 10^3/uL (1.5-5.0); LYMPH % 19.9 % (24.0-44.0); MEAN CORPUSCULAR HEMOGLOBIN 30.1 pg (27.0-33.0); MEAN CORPUSCULAR HGB CONC 32.6 g/dl (32.0-36.5); MEAN CORPUSCULAR VOLUME 92.3 fl (80.0-96.0); MONO # 0.5 10^3/uL (0.0-0.8); MONO % 12.9 % (2.0-8.0); NEUTROPHILS # 2.7 10^3/uL (1.5-8.5); NEUTROPHILS % 63.4 % (36.0-66.0); PLATELET COUNT, AUTOMATED 212 10^3/uL (150-450); RED BLOOD COUNT 3.89 10^6/uL (4.30-6.10); WHITE BLOOD COUNT 4.2 10^3/uL (4.0-10.0)
[2021-07-20 10:53] LABS: ALBUMIN 3.1 GM/DL (3.2-5.2); ALT/SGPT 22 U/L (12-78); BILIRUBIN,TOTAL 0.3 MG/DL (0.2-1.0); BLOOD UREA NITROGEN 10 MG/DL (7-18); CALCIUM LEVEL 8.8 MG/DL (8.8-10.2); CARBON DIOXIDE LEVEL 35 MEQ/L (21-32); CHLORIDE LEVEL 101 MEQ/L (98-107); CHOLESTEROL LEVEL 141 MG/DL (<200); CHOLESTEROL RISK RATIO 1.905 (<5); CPK CREATINE PHOSPHOKINASE 172 U/L (39-308); CREATININE FOR GFR 0.59 MG/DL (0.70-1.30); GLOMERULAR FILTRATION RATE > 60.0 (>42); GLUCOSE, FASTING 93 MG/DL (70-100); HDL CHOLESTEROL 74 MG/DL (>40); LDL CHOLESTEROL 56 MG/DL (<100); NON-HDL-C 67 MG/DL; NT-PRO BNP 694 PG/ML (<125); POTASSIUM SERUM 4.1 MEQ/L (3.5-5.1); SODIUM LEVEL 141 MEQ/L (136-145); TOTAL 25(OH) VITAMIN D 147.1 NG/ML (30.0-100.0); TOTAL PROTEIN 6.4 GM/DL (6.4-8.2); TRIGLYCERIDES LEVEL 56 MG/DL (<150); VITAMIN B12 LEVEL 355 PG/ML (247-911)
== END ==
LOC: M LAB 08:09
PROVIDERS: ATTEND Physician Assistant Medical
DX: E78.2 Mixed hyperlipidemia (principal); I50.32 Chronic diastolic (congestive) heart failure; D50.9 Iron deficiency anemia, unspecified; D75.89 Other specified diseases of blood and blood-forming organs; E55.9 Vitamin D deficiency, unspecified; Z12.5 Encounter for screening for malignant neoplasm of prostate; Z79.899 Other long term (current) drug therapy
CPT/HCPCS: 36415; 80053; 80061; 82306; 82550; 82607; 83880; 83970; 85025; G0103

== ENCOUNTER → 2021-07-23 | Outpatient (CLI) | payer MEDICARE, MEDICAID ==
--- NOTE | 2021-07-23 14:38 | REP ---
INDICATION: SWELLING. COMPARISON: None. TECHNIQUE: Four views. FINDINGS: There are degenerative changes. There is no acute fracture, dislocation, or subluxation. Limited evaluation of the os calcis shows no gross abnormality. IMPRESSION: No acute osseous abnormality is identified. <Electronically signed by Prieto Mg > 07/23/21 [id number]
== END ==
LOC: M WUC 14:15
PROVIDERS: ATTEND Physician Assistant
DX: M25.471 Effusion, right ankle (principal)
CPT/HCPCS: 73610; G0463

== ENCOUNTER → 2021-10-30 | Outpatient (CLI) | payer MEDICARE, MEDICAID ==
[~2021-10-30] MED LIST changes: -CEFD1CAP8 PO; +CEFD300C41 PO; +DONE-1 PO; -DONETAB6 PO
== END ==
LOC: M WUC 08:32
PROVIDERS: ATTEND Family Medicine
DX: I50.32 Chronic diastolic (congestive) heart failure (principal); D50.9 Iron deficiency anemia, unspecified; Z79.899 Other long term (current) drug therapy

== ENCOUNTER → 2021-12-05 | Outpatient (CLI) | payer MEDICARE, MEDICAID | LOC: M PLAIMG 14:46 | PROVIDERS: ATTEND Family Medicine | DX: F03.90 Unspecified dementia, unspecified severity, without behavioral disturbance, psychotic disturbance, mood disturbance, and anxiety (principal); N32.81 Overactive bladder ==

== ENCOUNTER 2022-03-25 07:28 | Inpatient (IN) | payer MEDICARE, MEDICAID ==
[~2022-03-25] VITALS: Ht 167.6 cm; Wt 61.8 kg
[~2022-03-25 07:28] MED LIST changes: +ALBU2.5V10 INH; -ALBU83IN INH
[2022-03-25 08:36] LABS: BASO % 0.2 % (0.0-1.0); EOS # 0.1 10^3/uL (0.0-0.5); EOS % 0.4 % (0.0-3.0); HEMATOCRIT 36.4 % (42.0-52.0); HEMOGLOBIN 11.5 g/dl (13.5-17.5); LYMPH # 0.7 10^3/uL (1.5-5.0); MEAN CORPUSCULAR HEMOGLOBIN 31.2 pg (27.0-33.0); MEAN CORPUSCULAR HGB CONC 31.6 g/dl (32.0-36.5); MEAN CORPUSCULAR VOLUME 98.6 fl (80.0-96.0); MONO % 13.7 % (2.0-8.0); NEUTROPHILS # 9.8 10^3/uL (1.5-8.5); NEUTROPHILS % 79.4 % (36.0-66.0); PLATELET COUNT, AUTOMATED 160 10^3/uL (150-450); RED BLOOD COUNT 3.69 10^6/uL (4.30-6.10); WHITE BLOOD COUNT 12.4 10^3/uL (4.0-10.0)
[2022-03-25 08:47] LABS: INR 1.3; PROTHROMBIN TIME 16.6 SECONDS (12.7-14.5)
[2022-03-25 08:48] LABS: PARTIAL THROMBOPLASTIN TIME 33.8 SECONDS (25.9-37.0)
[2022-03-25 09:01] LABS: MONO # 1.7 10^3/uL (0.0-0.8)
[2022-03-25 09:08] LABS: CK-MB VALUE MASS 1.7 NG/ML (<3.6); MB/CK RELATIVE INDEX 1.4 (< OR =4)
[2022-03-25 09:11] LABS: ALBUMIN 3.2 GM/DL (3.2-5.2); ALT/SGPT 35 U/L (12-78); BILIRUBIN,DIRECT 0.1 MG/DL (0.0-0.2); BILIRUBIN,TOTAL 0.3 MG/DL (0.2-1.0); BLOOD UREA NITROGEN 13 MG/DL (7-18); CALCIUM LEVEL 9.4 MG/DL (8.8-10.2); CARBON DIOXIDE LEVEL 38 MEQ/L (21-32); CHLORIDE LEVEL 103 MEQ/L (98-107); CREATININE FOR GFR 0.63 MG/DL (0.70-1.30); GLOMERULAR FILTRATION RATE > 60.0 (>42); GLUCOSE, FASTING 121 MG/DL (70-100); LIPASE 120 U/L (73-393); NT-PRO BNP 1811 PG/ML (<125); POTASSIUM SERUM 4.1 MEQ/L (3.5-5.1); SODIUM LEVEL 143 MEQ/L (136-145); TOTAL PROTEIN 6.5 GM/DL (6.4-8.2)
[2022-03-25] MEDS ORDERED: NS 500 ML IV ONE (09:20)
[2022-03-25] MEDS ORDERED: LIDOCAINE 2% 5ML JELLY UROJET TOP ONE (10:00)
[2022-03-25] MEDS ORDERED: ISOVUE-370 76% 100ML VIAL As Ordered ONE (10:18)
[2022-03-25] MEDS ORDERED: UREA39CR TOP (12:57)
[2022-03-25] MEDS ORDERED: PANT40TA29 PO (12:59)
[2022-03-25] MEDS ORDERED: RISP-7 PO (12:59)
[2022-03-25] MEDS ORDERED: CALC625T12 PO (13:00)
[2022-03-25] MEDS ORDERED: cefTRIAXone SOD 2 GM in D5W MINI-BAG PLUS 50 ML IV ONE (13:00)
[2022-03-25] MEDS ORDERED: ATOR1TAB21 PO (13:07)
[2022-03-25] MEDS ORDERED: VITA500079 PO (13:07)
[2022-03-25] MEDS ORDERED: HOME MED LIST COMPLETE! XX SCH (13:10)
[2022-03-25] MEDS ORDERED: AZITHROMYCIN INJ 500 MG, VIAL MATE ADAPTER 1 EACH in NS 250 ML IV ONE (14:00)
[2022-03-25] MEDS ORDERED: DEXTROSE 50% 50 ML SYRINGE IV PRN (14:55)
[2022-03-25] MEDS ORDERED: GLUCAGON INJ 1MG VIAL SC PRN (14:55)
[2022-03-25] MEDS ORDERED: GLUCOSE 4GM CHEW TABLET PO PRN (14:55)
[2022-03-25 15:48] VITALS: BP 134/62
[2022-03-25] MEDS: D5W/0.45% SODIUM CHLORIDE 1,000 ML IV SCH (16:05)
[2022-03-25] MEDS: DOXYCYCLINE HYCLATE 100 MG in D5W MINI-BAG PLUS 100 ML IV SCH (16:06)
[2022-03-25] MEDS: IPRATROPIUM 0.5MG/ALBUTEROL 2.5MG INH SOL UD 3ML (DUONEB) NEB SCH ×2 (16:41→20:27)
[2022-03-25 17:22] LABS: ABG BASE EXCESS 9.9 (-2.0-2.0); ABG HCO3 36.4 MEQ/L (22.0-26.0); ABG O2 SATURATION 94.7 % (95.0-99.0); ABG PARTIAL PRESSURE CO2 58.7 mmHg (35.0-45.0); ABG PARTIAL PRESSURE O2 70.5 mmHg (75.0-100.0); ABG STANDARD HCO3 33.6 MEQ/L (22.0-26.0); ABG TOTAL CO2 38.2 MEQ/L (23.0-31.0)
[2022-03-25] MEDS: INSULIN LISPRO (NovoLOG) PER UNIT SC SCH ×2 (18:00→23:46)
[2022-03-25 18:42] LABS: APPEARANCE, URINE CLEAR (CLEAR); BACTERIA, URINE AUTO NEGATIVE (NEGATIVE); BILIRUBIN, URINE AUTO NEGATIVE (NEGATIVE); BLOOD, URINE BLOOD 2+ (NEGATIVE); COLOR, URINE YELLOW (YELLOW); GLUCOSE, URINE (UA) AUTO NEGATIVE (NEGATIVE); KETONE, URINE AUTO NEGATIVE (NEGATIVE); LEUKOCYTE ESTERASE, URINE AUTO TRACE (NEGATIVE); NITRITE, URINE AUTO NEGATIVE (NEGATIVE); PROTEIN, URINE AUTO 1+ mg/dL (NEGATIVE); RBC, URINE AUTO 142 /HPF (0-3); SPECIFIC GRAVITY URINE AUTO 1.036 (1.002-1.035); SQUAMOUS EPITHELIAL CELL UR AU 0 /HPF (0-6); UROBILINOGEN, URINE AUTO 0.2 mg/dL (0.0-2.0); WBC, URINE AUTO 15 /HPF (0-3)
[2022-03-25 18:53] LABS: AMPHETAMINES URINE REFLEX NEGATIVE (NEGATIVE); BARBITURATES URINE REFLEX NEGATIVE (NEGATIVE); BENZODIAZEPINES URINE REFLEX NEGATIVE (NEGATIVE); CANNABINOIDS URINE REFLEX NEGATIVE (NEGATIVE); COCAINE METABOLITE URINE REFLE NEGATIVE (NEGATIVE); METHADONE URINE REFLEX NEGATIVE (NEGATIVE); OPIATES URINE REFLEX NEGATIVE (NEGATIVE); PHENCYCLIDINE URINE REFLEX NEGATIVE (NEGATIVE)
[2022-03-25 20:00] VITALS: BP 101/51
[2022-03-25] MEDS ORDERED: IPRATROPIUM 0.5MG/ALBUTEROL 2.5MG INH SOL UD 3ML (DUONEB) NEB SCH (20:00)
[2022-03-25] MEDS: BUDESONIDE 0.5 MG/2 ML INHALATION SUSPENSION INH SCH (20:27)
[2022-03-25] MEDS: APIXABAN 5 MG TAB (ELIQUIS) PO SCH (20:56)
[2022-03-25] MEDS: DONEPEZIL 5 MG TAB PO SCH (20:56)
[2022-03-25] MEDS: ATORVASTATIN 20 MG TAB PO SCH (20:56)
[2022-03-25] MEDS: METOPROLOL TART 50 MG TAB PO SCH (20:57)
[2022-03-25] MEDS ORDERED: BUDESONIDE 180MCG INHALER (PULMICORT FLEXHALER) INH SCH (21:00)
[2022-03-25 22:11] LABS: ABG BASE EXCESS 7.1 (-2.0-2.0); ABG HCO3 33.7 MEQ/L (22.0-26.0); ABG O2 SATURATION 97.7 % (95.0-99.0); ABG PARTIAL PRESSURE CO2 58.5 mmHg (35.0-45.0); ABG PARTIAL PRESSURE O2 107.2 mmHg (75.0-100.0); ABG TOTAL CO2 35.5 MEQ/L (23.0-31.0); ABG pH (ARTERIAL) 7.378 UNITS (7.350-7.450)
[2022-03-25] MEDS ORDERED: ENOXAPARIN 60MG/0.6ML SYRINGE (J1650 PER 10MG) SC ONE (23:00)
[2022-03-26] VITALS (22 sets, daily range): BP systolic 108–141; BP diastolic 54–67; O2SAT 88–100
[2022-03-26] MEDS: DOXYCYCLINE HYCLATE 100 MG in D5W MINI-BAG PLUS 100 ML IV SCH ×2 (04:06→16:35)
[2022-03-26] MEDS: D5W/0.45% SODIUM CHLORIDE 1,000 ML IV SCH ×2 (04:18→19:46)
[2022-03-26 05:33] LABS: HEMATOCRIT 33.7 % (42.0-52.0); HEMOGLOBIN 10.7 g/dl (13.5-17.5); MEAN CORPUSCULAR HEMOGLOBIN 30.5 pg (27.0-33.0); MEAN CORPUSCULAR HGB CONC 31.8 g/dl (32.0-36.5); PLATELET COUNT, AUTOMATED 174 10^3/uL (150-450); RED BLOOD COUNT 3.51 10^6/uL (4.30-6.10); WHITE BLOOD COUNT 10.9 10^3/uL (4.0-10.0)
[2022-03-26] MEDS: INSULIN LISPRO (NovoLOG) PER UNIT SC SCH ×3 (06:00→18:00)
[2022-03-26 06:02] LABS: ABG BASE EXCESS 10.6 (-2.0-2.0); ABG HCO3 37.6 MEQ/L (22.0-26.0); ABG PARTIAL PRESSURE O2 91.8 mmHg (75.0-100.0); ABG STANDARD HCO3 34.4 MEQ/L (22.0-26.0); ABG TOTAL CO2 39.5 MEQ/L (23.0-31.0); ABG pH (ARTERIAL) 7.394 UNITS (7.350-7.450)
[2022-03-26 06:07] LABS: ABG PARTIAL PRESSURE CO2 62.9 mmHg (35.0-45.0)
[2022-03-26 06:07] LABS: ALBUMIN 2.7 GM/DL (3.2-5.2); ALT/SGPT 29 U/L (12-78); BILIRUBIN,TOTAL 0.7 MG/DL (0.2-1.0); BLOOD UREA NITROGEN 10 MG/DL (7-18); CALCIUM LEVEL 8.5 MG/DL (8.8-10.2); CARBON DIOXIDE LEVEL 39 MEQ/L (21-32); CHLORIDE LEVEL 101 MEQ/L (98-107); CREATININE FOR GFR 0.46 MG/DL (0.70-1.30); GLOMERULAR FILTRATION RATE > 60.0 (>42); GLUCOSE, FASTING 120 MG/DL (70-100); MAGNESIUM LEVEL 1.9 MG/DL (1.8-2.4); PHOSPHORUS LEVEL 2.5 MG/DL (2.5-4.9); POTASSIUM SERUM 3.8 MEQ/L (3.5-5.1); SODIUM LEVEL 141 MEQ/L (136-145); TOTAL PROTEIN 5.6 GM/DL (6.4-8.2)
[2022-03-26] MEDS: IPRATROPIUM 0.5MG/ALBUTEROL 2.5MG INH SOL UD 3ML (DUONEB) NEB SCH ×4 (07:32→20:47)
[2022-03-26] MEDS: BUDESONIDE 0.5 MG/2 ML INHALATION SUSPENSION INH SCH ×2 (07:32→20:47)
[2022-03-26] MEDS ORDERED: ENOXAPARIN 40MG/0.4ML SYRINGE (J1650 PER 10MG) SC SCH (09:00)
[2022-03-26] MEDS: PANTOPRAZOLE 40MG TAB (PROTONIX) PO SCH (12:10)
[2022-03-26] MEDS: METOPROLOL TART 50 MG TAB PO SCH ×2 (12:11→20:51)
[2022-03-26] MEDS: APIXABAN 5 MG TAB (ELIQUIS) PO SCH ×2 (12:11→20:26)
[2022-03-26] MEDS: cefTRIAXone SOD 1 GM in D5W MINI-BAG PLUS 50 ML IV SCH (12:16)
[2022-03-26] MEDS: ATORVASTATIN 20 MG TAB PO SCH (20:26)
[2022-03-26] MEDS: DONEPEZIL 5 MG TAB PO SCH (20:26)
[2022-03-27] VITALS (10 sets, daily range): BP systolic 118–138; BP diastolic 53–64; O2SAT 94–98
[2022-03-27] MEDS: DOXYCYCLINE HYCLATE 100 MG in D5W MINI-BAG PLUS 100 ML IV SCH ×2 (03:35→16:25)
[2022-03-27 05:38] LABS: HEMATOCRIT 32.9 % (42.0-52.0); HEMOGLOBIN 10.9 g/dl (13.5-17.5); MEAN CORPUSCULAR HEMOGLOBIN 31.3 pg (27.0-33.0); MEAN CORPUSCULAR HGB CONC 33.1 g/dl (32.0-36.5); MEAN CORPUSCULAR VOLUME 94.5 fl (80.0-96.0); PLATELET COUNT, AUTOMATED 186 10^3/uL (150-450); RED BLOOD COUNT 3.48 10^6/uL (4.30-6.10); WHITE BLOOD COUNT 7.9 10^3/uL (4.0-10.0)
[2022-03-27 05:57] LABS: ERYTHROCYTE SEDIMENTATION RATE 58 mm/hr (0-20)
[2022-03-27] MEDS: INSULIN LISPRO (NovoLOG) PER UNIT SC SCH ×2 (06:00)
[2022-03-27 06:02] LABS: ALBUMIN 2.5 GM/DL (3.2-5.2); ALT/SGPT 27 U/L (12-78); BILIRUBIN,TOTAL 0.4 MG/DL (0.2-1.0); BLOOD UREA NITROGEN 6 MG/DL (7-18); CARBON DIOXIDE LEVEL 35 MEQ/L (21-32); CHLORIDE LEVEL 103 MEQ/L (98-107); CREATININE FOR GFR 0.51 MG/DL (0.70-1.30); GLOMERULAR FILTRATION RATE > 60.0 (>42); GLUCOSE, FASTING 113 MG/DL (70-100); SODIUM LEVEL 142 MEQ/L (136-145); TOTAL PROTEIN 5.6 GM/DL (6.4-8.2)
[2022-03-27] MEDS: IPRATROPIUM 0.5MG/ALBUTEROL 2.5MG INH SOL UD 3ML (DUONEB) NEB SCH ×4 (07:08→20:10)
[2022-03-27] MEDS: BUDESONIDE 0.5 MG/2 ML INHALATION SUSPENSION INH SCH ×2 (07:09→20:10)
[2022-03-27 07:53] LABS: ABG BASE EXCESS 7.5 (-2.0-2.0); ABG HCO3 34.1 MEQ/L (22.0-26.0); ABG O2 SATURATION 95.2 % (95.0-99.0); ABG PARTIAL PRESSURE CO2 57.7 mmHg (35.0-45.0); ABG PARTIAL PRESSURE O2 73.4 mmHg (75.0-100.0); ABG STANDARD HCO3 31.3 MEQ/L (22.0-26.0); ABG TOTAL CO2 35.8 MEQ/L (23.0-31.0); ABG pH (ARTERIAL) 7.389 UNITS (7.350-7.450)
[2022-03-27] MEDS: D5W/0.45% SODIUM CHLORIDE 1,000 ML IV SCH (09:09)
[2022-03-27] MEDS: FERROUS SULFATE 325MG TAB PO SCH (09:12)
[2022-03-27] MEDS: PANTOPRAZOLE 40MG TAB (PROTONIX) PO SCH (09:12)
[2022-03-27] MEDS: METOPROLOL TART 50 MG TAB PO SCH ×2 (09:12→20:23)
[2022-03-27] MEDS: APIXABAN 5 MG TAB (ELIQUIS) PO SCH ×2 (09:12→20:23)
[2022-03-27] MEDS: cefTRIAXone SOD 1 GM in D5W MINI-BAG PLUS 50 ML IV SCH (13:17)
[2022-03-27] MEDS: ATORVASTATIN 20 MG TAB PO SCH (20:23)
[2022-03-27] MEDS: DONEPEZIL 5 MG TAB PO SCH (20:23)
[2022-03-28 04:12] VITALS: BP 133/61
[2022-03-28] MEDS: DOXYCYCLINE HYCLATE 100 MG in D5W MINI-BAG PLUS 100 ML IV SCH (04:20)
[2022-03-28 05:56] LABS: HEMATOCRIT 34.3 % (42.0-52.0); MEAN CORPUSCULAR HEMOGLOBIN 29.9 pg (27.0-33.0); MEAN CORPUSCULAR HGB CONC 32.1 g/dl (32.0-36.5); MEAN CORPUSCULAR VOLUME 93.2 fl (80.0-96.0); PLATELET COUNT, AUTOMATED 206 10^3/uL (150-450); RED BLOOD COUNT 3.68 10^6/uL (4.30-6.10)
[2022-03-28 06:23] LABS: ALBUMIN 2.4 GM/DL (3.2-5.2); ALT/SGPT 29 U/L (12-78); BILIRUBIN,TOTAL 0.3 MG/DL (0.2-1.0); BLOOD UREA NITROGEN 12 MG/DL (7-18); CALCIUM LEVEL 9.1 MG/DL (8.8-10.2); CARBON DIOXIDE LEVEL 36 MEQ/L (21-32); CHLORIDE LEVEL 103 MEQ/L (98-107); CREATININE FOR GFR 0.52 MG/DL (0.70-1.30); GLOMERULAR FILTRATION RATE > 60.0 (>42); GLUCOSE, FASTING 113 MG/DL (70-100); POTASSIUM SERUM 4.1 MEQ/L (3.5-5.1); SODIUM LEVEL 142 MEQ/L (136-145); TOTAL PROTEIN 5.7 GM/DL (6.4-8.2)
[2022-03-28] MEDS: BUDESONIDE 0.5 MG/2 ML INHALATION SUSPENSION INH SCH ×2 (07:15→20:21)
[2022-03-28] MEDS: IPRATROPIUM 0.5MG/ALBUTEROL 2.5MG INH SOL UD 3ML (DUONEB) NEB SCH ×4 (07:15→20:21)
[2022-03-28 08:20] VITALS: BP 122/60
[2022-03-28] MEDS: PANTOPRAZOLE 40MG TAB (PROTONIX) PO SCH (09:10)
[2022-03-28] MEDS: APIXABAN 5 MG TAB (ELIQUIS) PO SCH ×2 (09:10→20:12)
[2022-03-28] MEDS: METOPROLOL TART 50 MG TAB PO SCH ×2 (09:10→20:12)
[2022-03-28] MEDS: CEFDINIR 300 MG CAP (OMNICEF) PO SCH ×2 (11:31→20:12)
[2022-03-28] MEDS ORDERED: CALCIUM CARBONATE 500 MG CHEW U/D PO PRN (14:10)
[2022-03-28] MEDS ORDERED: MORPHINE 2 MG/ML 1ML VIAL IV PRN (14:10)
[2022-03-28 16:08] LABS: BODY FLUID CULTURE Not indicated. (.); LEGIONELLA ANTIGEN URINE Negative (Negative); ORGANISM ID Not indicated. (.); SPECIMEN SOURCE Urine (.); URINE STREP PNEUMONIAE ANTIGEN Negative (Negative)
[2022-03-28 16:24] VITALS: BP 131/61
[2022-03-28 20:00] VITALS: BP 135/64
[2022-03-28] MEDS: ATORVASTATIN 20 MG TAB PO SCH (20:12)
[2022-03-28] MEDS: DONEPEZIL 5 MG TAB PO SCH (20:12)
[2022-03-28] MEDS: DOXYCYCLINE HYCLATE 100MG TABLET PO SCH (20:12)
[2022-03-29 04:07] VITALS: BP 132/59
[2022-03-29 05:45] LABS: HEMATOCRIT 36.6 % (42.0-52.0); HEMOGLOBIN 12.1 g/dl (13.5-17.5); MEAN CORPUSCULAR HEMOGLOBIN 30.8 pg (27.0-33.0); MEAN CORPUSCULAR HGB CONC 33.1 g/dl (32.0-36.5); MEAN CORPUSCULAR VOLUME 93.1 fl (80.0-96.0); PLATELET COUNT, AUTOMATED 234 10^3/uL (150-450); RED BLOOD COUNT 3.93 10^6/uL (4.30-6.10); WHITE BLOOD COUNT 7.9 10^3/uL (4.0-10.0)
[2022-03-29 06:22] LABS: ALBUMIN 2.7 GM/DL (3.2-5.2); ALT/SGPT 29 U/L (12-78); BILIRUBIN,TOTAL 0.4 MG/DL (0.2-1.0); BLOOD UREA NITROGEN 11 MG/DL (7-18); CALCIUM LEVEL 9.6 MG/DL (8.8-10.2); CARBON DIOXIDE LEVEL 41 MEQ/L (21-32); CHLORIDE LEVEL 100 MEQ/L (98-107); CREATININE FOR GFR 0.54 MG/DL (0.70-1.30); GLOMERULAR FILTRATION RATE > 60.0 (>42); GLUCOSE, FASTING 105 MG/DL (70-100); POTASSIUM SERUM 4.5 MEQ/L (3.5-5.1); SODIUM LEVEL 139 MEQ/L (136-145); TOTAL PROTEIN 5.5 GM/DL (6.4-8.2)
[2022-03-29 07:31] VITALS: BP 140/60
[2022-03-29] MEDS: IPRATROPIUM 0.5MG/ALBUTEROL 2.5MG INH SOL UD 3ML (DUONEB) NEB SCH ×2 (07:52→11:54)
[2022-03-29] MEDS: BUDESONIDE 0.5 MG/2 ML INHALATION SUSPENSION INH SCH (07:52)
[2022-03-29 08:11] VITALS: BP 140/60
[2022-03-29] MEDS: METOPROLOL TART 50 MG TAB PO SCH (08:11)
[2022-03-29] MEDS: CEFDINIR 300 MG CAP (OMNICEF) PO SCH (08:11)
[2022-03-29] MEDS: DOXYCYCLINE HYCLATE 100MG TABLET PO SCH (08:11)
[2022-03-29] MEDS: APIXABAN 5 MG TAB (ELIQUIS) PO SCH (08:12)
[2022-03-29] MEDS: PANTOPRAZOLE 40MG TAB (PROTONIX) PO SCH (08:12)
[2022-03-29] MEDS: FERROUS SULFATE 325MG TAB PO SCH (08:12)
[2022-03-29] MEDS ORDERED: DOXY100T PO (09:36)
[2022-03-29] MEDS ORDERED: CEFD300CAP PO (09:36)
== END 2022-03-29 14:30 | disposition home or self-care (01) | DRG 193 ==
LOC: M ED 07:28 → M ED INP 13:42 → ENRESERV 14:24 → M PCU 15:24
PROVIDERS: ADMIT Internal Medicine Pulmonary Disease; ATTEND Internal Medicine
DX: J18.9 Pneumonia, unspecified organism (principal); G93.41 Metabolic encephalopathy; J90 Pleural effusion, not elsewhere classified; J44.0 Chronic obstructive pulmonary disease with (acute) lower respiratory infection; J96.12 Chronic respiratory failure with hypercapnia; F03.90 Unspecified dementia, unspecified severity, without behavioral disturbance, psychotic disturbance, mood disturbance, and anxiety; I48.0 Paroxysmal atrial fibrillation; E78.5 Hyperlipidemia, unspecified; K59.00 Constipation, unspecified; K44.9 Diaphragmatic hernia without obstruction or gangrene; K21.9 Gastro-esophageal reflux disease without esophagitis; D50.9 Iron deficiency anemia, unspecified; Z86.718 Personal history of other venous thrombosis and embolism; H40.9 Unspecified glaucoma; Z20.822 Contact with and (suspected) exposure to COVID-19; Z79.01 Long term (current) use of anticoagulants; Z79.899 Other long term (current) drug therapy; E11.9 Type 2 diabetes mellitus without complications; I10 Essential (primary) hypertension

== ENCOUNTER → 2022-04-16 | Outpatient (CLI) | payer MEDICARE, MEDICAID ==
[~2022-04-16] MED LIST changes: +ATOR1TAB21 PO; +CALC625T12 PO; +DOXY100T PO; +PANT40TA29 PO; +RISP-7 PO; +UREA39CR TOP; +VITA500079 PO
[2022-04-16 10:03] LABS: BASO % 0.8 % (0.0-1.0); EOS # 0.1 10^3/uL (0.0-0.5); EOS % 1.7 % (0.0-3.0); HEMATOCRIT 37.9 % (42.0-52.0); HEMOGLOBIN 12.2 g/dl (13.5-17.5); LYMPH # 1.5 10^3/uL (1.5-5.0); LYMPH % 28.1 % (24.0-44.0); MEAN CORPUSCULAR HEMOGLOBIN 31.1 pg (27.0-33.0); MEAN CORPUSCULAR HGB CONC 32.2 g/dl (32.0-36.5); MEAN CORPUSCULAR VOLUME 96.7 fl (80.0-96.0); MONO # 0.6 10^3/uL (0.0-0.8); MONO % 11.7 % (2.0-8.0); NEUTROPHILS % 57.3 % (36.0-66.0); PLATELET COUNT, AUTOMATED 212 10^3/uL (150-450); RED BLOOD COUNT 3.92 10^6/uL (4.30-6.10); WHITE BLOOD COUNT 5.3 10^3/uL (4.0-10.0)
[2022-04-16 10:10] LABS: AMORPHOUS SEDIMENT MODERATE (NEGATIVE); APPEARANCE, URINE CLOUDY (CLEAR); BACTERIA, URINE AUTO NEGATIVE (NEGATIVE); BILIRUBIN, URINE AUTO NEGATIVE (NEGATIVE); BLOOD, URINE BLOOD NEGATIVE (NEGATIVE); COLOR, URINE YELLOW (YELLOW); GLUCOSE, URINE (UA) AUTO NEGATIVE (NEGATIVE); KETONE, URINE AUTO NEGATIVE (NEGATIVE); LEUKOCYTE ESTERASE, URINE AUTO NEGATIVE (NEGATIVE); NITRITE, URINE AUTO NEGATIVE (NEGATIVE); PROTEIN, URINE AUTO NEGATIVE (NEGATIVE); RBC, URINE AUTO 0 /HPF (0-3); SQUAMOUS EPITHELIAL CELL UR AU 0 /HPF (0-6); UROBILINOGEN, URINE AUTO 0.2 mg/dL (0.0-2.0); WBC, URINE AUTO 0 /HPF (0-3)
[2022-04-16 10:26] LABS: ALBUMIN 3.5 GM/DL (3.2-5.2); ALT/SGPT 24 U/L (12-78); BILIRUBIN,TOTAL 0.4 MG/DL (0.2-1.0); BLOOD UREA NITROGEN 12 MG/DL (7-18); CALCIUM LEVEL 9.5 MG/DL (8.8-10.2); CARBON DIOXIDE LEVEL 37 MEQ/L (21-32); CHLORIDE LEVEL 102 MEQ/L (98-107); CREATININE FOR GFR 0.62 MG/DL (0.70-1.30); GLOMERULAR FILTRATION RATE > 60.0 (>42); GLUCOSE, FASTING 90 MG/DL (70-100); IRON (FE) 80 UG/DL (65-175); NT-PRO BNP 874 PG/ML (<125); PERCENT SATURATION 23.7 % (19.7-50.0); SODIUM LEVEL 144 MEQ/L (136-145); TOTAL IRON BINDING CAPACITY 338 UG/DL (250-450)
[2022-04-16 10:55] LABS: PTH INTACT 40.1 PG/ML (18.5-88.0)
== END ==
LOC: M WUC 08:03
PROVIDERS: ATTEND Family Medicine
DX: E55.9 Vitamin D deficiency, unspecified (principal); D50.9 Iron deficiency anemia, unspecified; F03.90 Unspecified dementia, unspecified severity, without behavioral disturbance, psychotic disturbance, mood disturbance, and anxiety; I50.32 Chronic diastolic (congestive) heart failure; N32.81 Overactive bladder

== ENCOUNTER 2022-05-31 08:15 | Emergency (ER) | payer MEDICARE, MEDICAID ==
[~2022-05-31 08:15] MED LIST changes: +SIMV-252 PO; -ZOCO10TA PO
[2022-05-31 12:12] VITALS: BP 140/60
== END 2022-05-31 12:24 | disposition home or self-care (01) ==
LOC: M ED 08:15
DX: K40.90 Unilateral inguinal hernia, without obstruction or gangrene, not specified as recurrent (principal); I48.91 Unspecified atrial fibrillation; E11.9 Type 2 diabetes mellitus without complications; I10 Essential (primary) hypertension; J44.9 Chronic obstructive pulmonary disease, unspecified; E78.5 Hyperlipidemia, unspecified; K21.9 Gastro-esophageal reflux disease without esophagitis; K58.9 Irritable bowel syndrome, unspecified; F70 Mild intellectual disabilities; Z86.73 Personal history of transient ischemic attack (TIA), and cerebral infarction without residual deficits; F03.90 Unspecified dementia, unspecified severity, without behavioral disturbance, psychotic disturbance, mood disturbance, and anxiety; H40.9 Unspecified glaucoma; Z87.891 Personal history of nicotine dependence; Z79.01 Long term (current) use of anticoagulants; Z79.899 Other long term (current) drug therapy

== ENCOUNTER → 2022-06-21 | Outpatient (CLI) | payer MEDICARE, MEDICAID ==
[2022-06-21 12:59] LABS: ALBUMIN 3.9 GM/DL (3.2-5.2); BLOOD UREA NITROGEN 15 MG/DL (7-18); CALCIUM LEVEL 9.4 MG/DL (8.8-10.2); CARBON DIOXIDE LEVEL 39 MEQ/L (21-32); CHLORIDE LEVEL 99 MEQ/L (98-107); CREATININE FOR GFR 0.68 MG/DL (0.70-1.30); GLOMERULAR FILTRATION RATE > 60.0 (>42); GLUCOSE, FASTING 84 MG/DL (70-100); PHOSPHORUS LEVEL 4.2 MG/DL (2.5-4.9); POTASSIUM SERUM 4.4 MEQ/L (3.5-5.1); SODIUM LEVEL 140 MEQ/L (136-145)
== END ==
LOC: M WUC 10:42
PROVIDERS: ATTEND Family Medicine
DX: E78.2 Mixed hyperlipidemia (principal)

== ENCOUNTER → 2022-06-24 | Outpatient (CLI) | payer MEDICARE, MEDICAID ==
[~2022-06-24] MED LIST changes: +ISOVUE-370 76% 100ML VIAL As Ordered ONE
== END ==
LOC: M RAD 13:31
PROVIDERS: ATTEND Family Medicine
DX: N28.89 Other specified disorders of kidney and ureter (principal); K40.90 Unilateral inguinal hernia, without obstruction or gangrene, not specified as recurrent; N13.30 Unspecified hydronephrosis
CPT/HCPCS: 74178; Q9967

== ENCOUNTER → 2022-07-02 | Outpatient (CLI) | payer MEDICARE, MEDICAID ==
[~2022-07-02] MED LIST changes: -ISOVUE-370 76% 100ML VIAL As Ordered ONE; +RISP0.5T21 PO
== END ==
LOC: M CARPUL 10:16
PROVIDERS: ATTEND Family Medicine
DX: I50.32 Chronic diastolic (congestive) heart failure (principal); I27.20 Pulmonary hypertension, unspecified

== ENCOUNTER → 2022-07-21 | Outpatient (CLI) | payer MEDICARE, MEDICAID ==
[2022-07-21 09:37] LABS: BASO # 0.1 10^3/uL (0.0-0.2); BASO % 0.9 % (0.0-1.0); EOS # 0.1 10^3/uL (0.0-0.5); EOS % 1.6 % (0.0-3.0); HEMATOCRIT 43.3 % (42.0-52.0); HEMOGLOBIN 13.8 g/dl (13.5-17.5); LYMPH # 0.9 10^3/uL (1.5-5.0); LYMPH % 13.8 % (24.0-44.0); MEAN CORPUSCULAR HEMOGLOBIN 30.1 pg (27.0-33.0); MEAN CORPUSCULAR HGB CONC 31.9 g/dl (32.0-36.5); MEAN CORPUSCULAR VOLUME 94.5 fl (80.0-96.0); MONO # 0.7 10^3/uL (0.0-0.8); MONO % 9.7 % (2.0-8.0); NEUTROPHILS # 4.9 10^3/uL (1.5-8.5); NEUTROPHILS % 73.4 % (36.0-66.0); PLATELET COUNT, AUTOMATED 207 10^3/uL (150-450); RED BLOOD COUNT 4.58 10^6/uL (4.30-6.10); WHITE BLOOD COUNT 6.7 10^3/uL (4.0-10.0)
[2022-07-21 10:00] LABS: INR 1.14; PROTHROMBIN TIME 14.8 SECONDS (12.5-14.5)
[2022-07-21 10:01] LABS: PARTIAL THROMBOPLASTIN TIME 28.6 SECONDS (24.8-34.2)
[2022-07-21 10:17] LABS: ALBUMIN 3.7 GM/DL (3.2-5.2); ALT/SGPT 29 U/L (12-78); BILIRUBIN,TOTAL 0.4 MG/DL (0.2-1.0); BLOOD UREA NITROGEN 13 MG/DL (7-18); CALCIUM LEVEL 9.2 MG/DL (8.8-10.2); CARBON DIOXIDE LEVEL 40 MEQ/L (21-32); CHLORIDE LEVEL 99 MEQ/L (98-107); CREATININE FOR GFR 0.75 MG/DL (0.70-1.30); GLOMERULAR FILTRATION RATE > 60.0 (>42); GLUCOSE, FASTING 108 MG/DL (70-100); POTASSIUM SERUM 4.1 MEQ/L (3.5-5.1); SODIUM LEVEL 138 MEQ/L (136-145); TOTAL PROTEIN 6.9 GM/DL (6.4-8.2)
== END ==
LOC: M LAB 08:43
PROVIDERS: ATTEND Family Medicine
DX: Z01.818 Encounter for other preprocedural examination (principal); R79.1 Abnormal coagulation profile

== ENCOUNTER → 2022-07-23 | Outpatient (CLI) | payer MEDICARE, MEDICAID ==
[2022-07-23 10:05] LABS: APPEARANCE, URINE MANUAL CLEAR (CLEAR); BILIRUBIN, URINE MANUAL NEGATIVE (NEGATIVE); BLOOD URINE MANUAL NEGATIVE (NEGATIVE); COLOR, URINE MANUAL LT YELLOW (YELLOW); GLUCOSE, URINE (UA) MANUAL NEGATIVE (NEGATIVE); KETONE, URINE MANUAL NEGATIVE (NEGATIVE); LEUKOCYTE ESTERASE, URINE MAN NEGATIVE (NEGATIVE); NITRITE, URINE MANUAL NEGATIVE (NEGATIVE); PROTEIN, URINE MANUAL NEGATIVE (NEGATIVE); UROBILINOGEN, URINE MANUAL NORMAL (NORMAL)
== END ==
LOC: M WUC 08:07
PROVIDERS: ATTEND Family Medicine
DX: Z01.818 Encounter for other preprocedural examination (principal)

== ENCOUNTER → 2022-07-24 | Outpatient (CLI) | payer MEDICARE, MEDICAID | LOC: M LABSMTC 09:31 | PROVIDERS: ATTEND Anesthesiology | DX: Z01.812 Encounter for preprocedural laboratory examination (principal); Z11.52 Encounter for screening for COVID-19 ==

== ENCOUNTER 2022-07-29 11:29 | Day surgery (SDC) | payer MEDICARE, MEDICAID ==
[~2022-07-29] VITALS: Ht 172.7 cm; Wt 64.4 kg
[~2022-07-29 11:29] MED LIST changes: +CelecoXIB 400 MG CAP PO ONE; +ceFAZolin SOD 2 GM in IV 1 EA IV ONE
[2022-07-29] MEDS ORDERED: LR 1,000 ML IV SCH ×2 (11:55→15:50)
[2022-07-29] MEDS ORDERED: LIDOCAINE 1% SDV 30ML VIAL As Ordered ONE (13:43)
[2022-07-29] MEDS ORDERED: BUPIVACAINE HCL 0.25% 30ML VIAL As Ordered ONE (13:43)
[2022-07-29] MEDS ORDERED: dexameTHASONE 4 MG/ML 1ML VIAL (J1100 PER 1MG) As Ordered ONE (14:32)
[2022-07-29] MEDS ORDERED: fentaNYL 250 MCG/5 ML INJECTION As Ordered ONE (14:32)
[2022-07-29] MEDS ORDERED: LIDOCAINE 2% 100MG/5ML SDV (FOR ANES.) As Ordered ONE (14:32)
[2022-07-29] MEDS ORDERED: SUGAMMADEX SODIUM 500 MG/5 ML VIAL (BRIDION) As Ordered ONE (14:32)
[2022-07-29] MEDS ORDERED: MIDAZOLAM INJ 2MG/2ML VIAL (J2250 PER 1MG) As Ordered ONE (14:32)
[2022-07-29] MEDS ORDERED: KETOROLAC 60MG 2ML VIAL As Ordered ONE (14:32)
[2022-07-29] MEDS ORDERED: propofoL 200 MG/20 ML VIAL As Ordered ONE (14:32)
[2022-07-29] MEDS ORDERED: ONDANSETRON 4MG 2ML VIAL As Ordered ONE (14:32)
[2022-07-29] MEDS ORDERED: ROCURONIUM BROMIDE 50 MG/5 ML VIAL As Ordered ONE (14:32)
[2022-07-29] MEDS ORDERED: ACETAMINOPHEN 1000MG 100ML IV BTL (OFIRMEV) (J0131 PER 10MG) As Ordered ONE (14:33)
[2022-07-29] MEDS ORDERED: PHENYLephrine 500MCG 5ML (100MCG/ML) SYRINGE As Ordered ONE (14:40)
[2022-07-29] MEDS ORDERED: ePHEDrine SULFATE 25 MG/5 ML(5MG/ML) SYRINGE As Ordered ONE (15:01)
[2022-07-29] MEDS ORDERED: ONDANSETRON 4MG 2ML VIAL IV PRN (15:50)
[2022-07-29] MEDS ORDERED: HYDROMORPHONE HCL 0.5 MG/ 0.5 ML SYRINGE (J1170 PER 1) IV PRN (15:50)
[2022-07-29] MEDS ORDERED: oxyCODONE 5MG TAB PO PRN (15:50)
[2022-07-29] MEDS ORDERED: fentaNYL 100 MCG/2 ML INJECTION IV PRN (15:50)
[2022-07-29] MEDS ORDERED: NORCO, ANEXSIA 5/325MG TABLET (HYDROcodone/ACETAMINOPHEN) PO PRN (16:55)
[2022-07-29 17:35] VITALS: BP 139/61
[2022-07-29] MEDS ORDERED: KETOROLAC 30 MG/ML 1ML VIAL IV PRN (21:00)
== END 2022-07-29 17:49 | disposition home or self-care (01) ==
LOC: M SDC 11:29
PROVIDERS: ATTEND Surgery
DX: K40.90 Unilateral inguinal hernia, without obstruction or gangrene, not specified as recurrent (principal); I10 Essential (primary) hypertension; E78.5 Hyperlipidemia, unspecified; F70 Mild intellectual disabilities; F03.90 Unspecified dementia, unspecified severity, without behavioral disturbance, psychotic disturbance, mood disturbance, and anxiety; K57.90 Diverticulosis of intestine, part unspecified, without perforation or abscess without bleeding; K44.9 Diaphragmatic hernia without obstruction or gangrene; Z99.81 Dependence on supplemental oxygen; Z79.01 Long term (current) use of anticoagulants; Z86.718 Personal history of other venous thrombosis and embolism
CPT/HCPCS: 49650; C1781; J0131; J0690; J1100; J1170; J1885; J2370; J2405; J3010; S2900

== ENCOUNTER → 2022-08-05 | Outpatient (CLI) | payer MEDICARE, MEDICAID ==
[~2022-08-05] MED LIST changes: -CelecoXIB 400 MG CAP PO ONE; -ceFAZolin SOD 2 GM in IV 1 EA IV ONE
[2022-08-05 13:05] LABS: BASO # 0.1 10^3/uL (0.0-0.2); EOS # 0.2 10^3/uL (0.0-0.5); EOS % 2.5 % (0.0-3.0); HEMATOCRIT 41.7 % (42.0-52.0); HEMOGLOBIN 13.4 g/dl (13.5-17.5); LYMPH # 1.4 10^3/uL (1.5-5.0); LYMPH % 19.9 % (24.0-44.0); MEAN CORPUSCULAR HEMOGLOBIN 30.6 pg (27.0-33.0); MEAN CORPUSCULAR HGB CONC 32.1 g/dl (32.0-36.5); MEAN CORPUSCULAR VOLUME 95.2 fl (80.0-96.0); MONO # 0.9 10^3/uL (0.0-0.8); MONO % 13.1 % (2.0-8.0); NEUTROPHILS # 4.3 10^3/uL (1.5-8.5); NEUTROPHILS % 62.8 % (36.0-66.0); PLATELET COUNT, AUTOMATED 214 10^3/uL (150-450); RED BLOOD COUNT 4.38 10^6/uL (4.30-6.10); WHITE BLOOD COUNT 6.8 10^3/uL (4.0-10.0)
[2022-08-05 15:21] LABS: ALBUMIN 3.6 GM/DL (3.2-5.2); ALT/SGPT 25 U/L (12-78); BILIRUBIN,TOTAL 0.4 MG/DL (0.2-1.0); BLOOD UREA NITROGEN 17 MG/DL (7-18); CALCIUM LEVEL 9.6 MG/DL (8.8-10.2); CARBON DIOXIDE LEVEL 37 MEQ/L (21-32); CHLORIDE LEVEL 101 MEQ/L (98-107); CREATININE FOR GFR 0.68 MG/DL (0.70-1.30); FERRITIN 582 NG/ML (26-388); GLOMERULAR FILTRATION RATE > 60.0 (>42); GLUCOSE, FASTING 93 MG/DL (70-100); MAGNESIUM LEVEL 2.2 MG/DL (1.8-2.4); NT-PRO BNP 331 PG/ML (<125); PHOSPHORUS LEVEL 3.1 MG/DL (2.5-4.9); POTASSIUM SERUM 4.2 MEQ/L (3.5-5.1); SODIUM LEVEL 141 MEQ/L (136-145)
== END ==
LOC: M WUC 08:04
PROVIDERS: ATTEND Family Medicine
DX: E55.9 Vitamin D deficiency, unspecified (principal); D50.9 Iron deficiency anemia, unspecified; I50.32 Chronic diastolic (congestive) heart failure

== ENCOUNTER → 2022-08-29 | Outpatient (CLI) | payer MEDICARE, MEDICAID | LOC: M RAD 13:05 | PROVIDERS: ATTEND Family Medicine | DX: N13.30 Unspecified hydronephrosis (principal) ==

== ENCOUNTER → 2022-12-03 | Outpatient (CLI) | payer MEDICARE, MEDICAID ==
[2022-12-03 13:39] LABS: BASO # 0.1 10^3/uL (0.0-0.2); EOS # 0.1 10^3/uL (0.0-0.5); EOS % 1.2 % (0.0-3.0); HEMATOCRIT 40.5 % (42.0-52.0); HEMOGLOBIN 13.1 g/dl (13.5-17.5); LYMPH # 1.2 10^3/uL (1.5-5.0); LYMPH % 19.7 % (24.0-44.0); MEAN CORPUSCULAR HGB CONC 32.3 g/dl (32.0-36.5); MEAN CORPUSCULAR VOLUME 95.7 fl (80.0-96.0); MONO # 0.7 10^3/uL (0.0-0.8); MONO % 11.1 % (2.0-8.0); NEUTROPHILS % 66.5 % (36.0-66.0); PLATELET COUNT, AUTOMATED 178 10^3/uL (150-450); RED BLOOD COUNT 4.23 10^6/uL (4.30-6.10)
[2022-12-03 14:15] LABS: ALBUMIN 3.7 G/DL (3.2-5.2); ALKALINE PHOSPHATASE 79 U/L (46-116); ALT/SGPT 20 U/L (7.0-40); AST/SGOT 24 U/L (<34); BILIRUBIN,TOTAL 0.6 MG/DL (0.3-1.2); BLOOD UREA NITROGEN 9 MG/DL (9-23); CALCIUM LEVEL 9.3 MG/DL (8.3-10.6); CARBON DIOXIDE LEVEL 39 MMOL/L (20-31); CHLORIDE LEVEL 98 MMOL/L (98-107); CHOLESTEROL LEVEL 166 MG/DL (<200); CHOLESTEROL RISK RATIO 2.29 (<5); CREATININE FOR GFR 0.64 MG/DL (0.70-1.30); FERRITIN 534.7 NG/ML (10.5-307.3); FREE T4 1.28 NG/DL (0.89-1.76); GLOMERULAR FILTRATION RATE > 60.0 (>42); GLUCOSE, FASTING 105 MG/DL (74-106); HDL CHOLESTEROL 72.4 MG/DL (>40); MAGNESIUM LEVEL 1.9 MG/DL (1.8-2.4); NON-HDL-C 94 MG/DL; POTASSIUM SERUM 4.3 MMOL/L (3.5-5.1); SODIUM LEVEL 141 MMOL/L (136-145); THYROID STIMULATING HORMONE 1.607 uIU/ML (0.55-4.78); TOTAL PROTEIN 5.8 G/DL (5.7-8.2); TRIGLYCERIDES LEVEL 98 MG/DL (<150)
[2022-12-03 14:25] LABS: HEMOGLOBIN A1c 5.4 % (4.0-6.0)
== END ==
LOC: M WUC 08:30
PROVIDERS: ATTEND Family Medicine
DX: I50.32 Chronic diastolic (congestive) heart failure (principal); R73.01 Impaired fasting glucose; E78.2 Mixed hyperlipidemia; Z12.5 Encounter for screening for malignant neoplasm of prostate
CPT/HCPCS: 36415; 80053; 80061; 82728; 83036; 83735; 83880; 84439; 84443; 85025; 85046; G0103

== ENCOUNTER 2022-12-24 15:38 | Emergency (ER) | payer MEDICARE, MEDICAID ==
[2022-12-24 18:11] LABS: BASO # 0.1 10^3/uL (0.0-0.2); BASO % 0.7 % (0.0-1.0); EOS # 0.1 10^3/uL (0.0-0.5); EOS % 1.3 % (0.0-3.0); HEMATOCRIT 41.1 % (42.0-52.0); HEMOGLOBIN 13.4 g/dl (13.5-17.5); LYMPH # 1.5 10^3/uL (1.5-5.0); LYMPH % 16.7 % (24.0-44.0); MEAN CORPUSCULAR HEMOGLOBIN 30.2 pg (27.0-33.0); MEAN CORPUSCULAR HGB CONC 32.6 g/dl (32.0-36.5); MEAN CORPUSCULAR VOLUME 92.8 fl (80.0-96.0); MONO % 11.6 % (2.0-8.0); NEUTROPHILS # 6.1 10^3/uL (1.5-8.5); NEUTROPHILS % 69.2 % (36.0-66.0); PLATELET COUNT, AUTOMATED 199 10^3/uL (150-450); RED BLOOD COUNT 4.43 10^6/uL (4.30-6.10); WHITE BLOOD COUNT 8.8 10^3/uL (4.0-10.0)
[2022-12-24 18:33] LABS: ERYTHROCYTE SEDIMENTATION RATE 13 mm/hr (0-20)
[2022-12-24 18:36] LABS: C REACTIVE PROTEIN QUANTITATIV < 0.40 MG/DL (<1.0)
[2022-12-24 18:37] LABS: RHEUMATOID FACTOR QUANT < 3.5 IU/ML (<14)
[2022-12-24 18:41] LABS: ALBUMIN 3.9 G/DL (3.2-5.2); ALKALINE PHOSPHATASE 92 U/L (46-116); ALT/SGPT 19 U/L (7.0-40); AST/SGOT 27 U/L (<34); BILIRUBIN,DIRECT < 0.1 MG/DL (<0.4); BILIRUBIN,TOTAL 0.4 MG/DL (0.3-1.2); TOTAL PROTEIN 6.9 G/DL (5.7-8.2)
[2022-12-24 20:17] LABS: INR 0.92; PROTHROMBIN TIME 12.6 SECONDS (12.5-14.5)
[2022-12-24 20:18] LABS: PARTIAL THROMBOPLASTIN TIME 25.6 SECONDS (24.8-34.2)
[2022-12-24 20:20] LABS: D-DIMER QUANT 470.64 ng/ml (<500)
[2022-12-24 21:14] VITALS: BP 163/84
== END 2022-12-24 21:20 | disposition home or self-care (01) ==
LOC: M ED 15:38
DX: M70.21 Olecranon bursitis, right elbow (principal); R22.42 Localized swelling, mass and lump, left lower limb; E11.65 Type 2 diabetes mellitus with hyperglycemia; I10 Essential (primary) hypertension; E78.5 Hyperlipidemia, unspecified; K21.9 Gastro-esophageal reflux disease without esophagitis; F60.3 Borderline personality disorder; Z79.899 Other long term (current) drug therapy

== ENCOUNTER → 2023-01-09 | Outpatient (CLI) | payer MEDICARE, MEDICAID | LOC: M SOG 12:10 | PROVIDERS: ATTEND Physician Assistant | DX: M79.661 Pain in right lower leg (principal) ==

== ENCOUNTER → 2023-03-10 | Outpatient (REF) | payer MEDICARE, MEDICAID | LOC: EEVIPCON 12:03 → M LAB REF 12:03 | PROVIDERS: ATTEND Student in an Organized Health Care Education/Training Program | DX: L03.116 Cellulitis of left lower limb (principal) ==

== ENCOUNTER → 2023-04-02 | Outpatient (CLI) | payer MEDICARE, MEDICAID ==
[2023-04-02 11:08] LABS: BLOOD UREA NITROGEN 9 MG/DL (9-23); CARBON DIOXIDE LEVEL 35 MMOL/L (20-31); CHLORIDE LEVEL 100 MMOL/L (98-107); CREATININE FOR GFR 0.55 MG/DL (0.70-1.30); GLOMERULAR FILTRATION RATE > 60.0 (>42); GLUCOSE, FASTING 91 MG/DL (74-106); POTASSIUM SERUM 4.1 MMOL/L (3.5-5.1); SODIUM LEVEL 141 MMOL/L (136-145)
== END ==
LOC: M WUC 08:31
PROVIDERS: ATTEND Physician Assistant
DX: N13.30 Unspecified hydronephrosis (principal)

== ENCOUNTER → 2023-04-04 | Outpatient (CLI) | payer MEDICARE, MEDICAID ==
[~2023-04-04] MED LIST changes: +ISOVUE-370 76% 100ML VIAL As Ordered ONE
== END ==
LOC: M RAD 13:17
PROVIDERS: ATTEND Physician Assistant
DX: N13.30 Unspecified hydronephrosis (principal)
CPT/HCPCS: 74178; Q9967

== ENCOUNTER → 2023-04-30 | Outpatient (CLI) | payer MEDICARE, MEDICAID ==
[~2023-04-30] MED LIST changes: -ISOVUE-370 76% 100ML VIAL As Ordered ONE
[2023-04-30 17:12] LABS: BASO # 0.1 10^3/uL (0.0-0.2); BASO % 1.1 % (0.0-1.0); EOS # 0.1 10^3/uL (0.0-0.5); EOS % 1.1 % (0.0-3.0); HEMATOCRIT 39.9 % (42.0-52.0); HEMOGLOBIN 12.6 g/dl (13.5-17.5); LYMPH # 1.3 10^3/uL (1.5-5.0); LYMPH % 17.3 % (24.0-44.0); MEAN CORPUSCULAR HEMOGLOBIN 29.9 pg (27.0-33.0); MEAN CORPUSCULAR HGB CONC 31.6 g/dl (32.0-36.5); MEAN CORPUSCULAR VOLUME 94.8 fl (80.0-96.0); MONO # 0.9 10^3/uL (0.0-0.8); MONO % 11.4 % (2.0-8.0); NEUTROPHILS # 5.1 10^3/uL (1.5-8.5); NEUTROPHILS % 68.3 % (36.0-66.0); PLATELET COUNT, AUTOMATED 239 10^3/uL (150-450); RED BLOOD COUNT 4.21 10^6/uL (4.30-6.10); WHITE BLOOD COUNT 7.5 10^3/uL (4.0-10.0)
[2023-04-30 17:31] LABS: ALBUMIN 3.5 G/DL (3.2-5.2); ALKALINE PHOSPHATASE 102 U/L (46-116); ALT/SGPT 14 U/L (7.0-40); AST/SGOT 15 U/L (<34); BILIRUBIN,TOTAL 0.3 MG/DL (0.3-1.2); BLOOD UREA NITROGEN 12 MG/DL (9-23); CALCIUM LEVEL 9.3 MG/DL (8.3-10.6); CARBON DIOXIDE LEVEL 40 MMOL/L (20-31); CHLORIDE LEVEL 98 MMOL/L (98-107); CREATININE FOR GFR 0.83 MG/DL (0.70-1.30); GLOMERULAR FILTRATION RATE > 60.0 (>42); GLUCOSE, FASTING 100 MG/DL (74-106); IRON (FE) 47 UG/DL (65-175); MAGNESIUM LEVEL 1.9 MG/DL (1.8-2.4); PERCENT SATURATION 14.7 % (19.7-50.0); POTASSIUM SERUM 4.2 MMOL/L (3.5-5.1); SODIUM LEVEL 141 MMOL/L (136-145); TOTAL IRON BINDING CAPACITY 319 UG/DL (250-425); TOTAL PROTEIN 6.5 G/DL (5.7-8.2)
== END ==
LOC: M WUC 14:13
PROVIDERS: ATTEND Family Medicine
DX: I50.32 Chronic diastolic (congestive) heart failure (principal); D50.9 Iron deficiency anemia, unspecified

== ENCOUNTER → 2023-05-08 | Outpatient (REF) | payer MEDICARE, MEDICAID | LOC: M SFHCPLAZ 18:19 | PROVIDERS: ATTEND Family Medicine | DX: I50.32 Chronic diastolic (congestive) heart failure (principal); D50.9 Iron deficiency anemia, unspecified; E55.9 Vitamin D deficiency, unspecified; Z12.5 Encounter for screening for malignant neoplasm of prostate ==

== ENCOUNTER → 2023-05-26 | Outpatient (REF) | payer MEDICARE, MEDICAID ==
[2023-05-26 11:07] LABS: ALBUMIN 3.6 G/DL (3.2-5.2); ALKALINE PHOSPHATASE 97 U/L (46-116); ALT/SGPT 19 U/L (7.0-40); AST/SGOT 16 U/L (<34); BILIRUBIN,TOTAL 0.4 MG/DL (0.3-1.2); BLOOD UREA NITROGEN 14 MG/DL (9-23); CALCIUM LEVEL 9.5 MG/DL (8.3-10.6); CARBON DIOXIDE LEVEL 40 MMOL/L (20-31); CHLORIDE LEVEL 98 MMOL/L (98-107); CREATININE FOR GFR 0.64 MG/DL (0.70-1.30); GLOMERULAR FILTRATION RATE > 60.0 (>42); GLUCOSE, FASTING 96 MG/DL (74-106); POTASSIUM SERUM 4.3 MMOL/L (3.5-5.1); SODIUM LEVEL 143 MMOL/L (136-145); TOTAL PROTEIN 6.8 G/DL (5.7-8.2)
== END ==
LOC: M LABWUC 09:44
PROVIDERS: ATTEND Family Medicine
DX: I50.32 Chronic diastolic (congestive) heart failure (principal)

== ENCOUNTER 2023-07-05 13:56 | Emergency (ER) | payer MEDICARE, MEDICAID ==
[~2023-07-05 13:56] MED LIST changes: +EZET10TA58 PO; -ZETI10TA16 PO
[2023-07-05 14:41] VITALS: TEMP 98.4
[2023-07-05 15:41] VITALS: BP 162/72; O2SAT 98
== END 2023-07-05 16:35 | disposition home or self-care (01) ==
LOC: EDBD 13:56 → M ED 15:37
DX: S20.212A Contusion of left front wall of thorax, initial encounter (principal); W01.0XXA Fall on same level from slipping, tripping and stumbling without subsequent striking against object, initial encounter; F03.94 Unspecified dementia, unspecified severity, with anxiety; J44.9 Chronic obstructive pulmonary disease, unspecified; I10 Essential (primary) hypertension; F79 Unspecified intellectual disabilities; Z86.718 Personal history of other venous thrombosis and embolism; Z79.01 Long term (current) use of anticoagulants; Z79.52 Long term (current) use of systemic steroids; Z79.02 Long term (current) use of antithrombotics/antiplatelets; Z79.899 Other long term (current) drug therapy; Y92.009 Unspecified place in unspecified non-institutional (private) residence as the place of occurrence of the external cause; Y93.9 Activity, unspecified; Y99.9 Unspecified external cause status

== ENCOUNTER → 2023-08-01 | Outpatient (REF) | payer MEDICARE, MEDICAID ==
[~2023-08-01] MED LIST changes: -CEFD300C41 PO; +CEFD300C42 PO
[2023-08-01 17:53] LABS: ALBUMIN 3.4 G/DL (3.2-5.2); BLOOD UREA NITROGEN 16 MG/DL (9-23); CALCIUM LEVEL 9.1 MG/DL (8.3-10.6); CARBON DIOXIDE LEVEL 38 MMOL/L (20-31); CHLORIDE LEVEL 97 MMOL/L (98-107); CREATININE FOR GFR 0.65 MG/DL (0.70-1.30); GLOMERULAR FILTRATION RATE > 60.0 (>42); GLUCOSE, FASTING 80 MG/DL (74-106); PHOSPHORUS LEVEL 4.8 MG/DL (2.4-5.1); SODIUM LEVEL 142 MMOL/L (136-145)
[2023-08-01 17:55] LABS: TOTAL 25(OH) VITAMIN D 144.3 NG/ML (20.0-100.0)
== END ==
LOC: M WUC 16:26
PROVIDERS: ATTEND Family Medicine
DX: T50.901A Poisoning by unspecified drugs, medicaments and biological substances, accidental (unintentional), initial encounter (principal); Z79.899 Other long term (current) drug therapy

== ENCOUNTER → 2023-10-02 | Outpatient (CLI) | payer MEDICARE, MEDICAID ==
[~2023-10-02] MED LIST changes: +CEFD1CAP9 PO; -CEFD300C42 PO
[2023-10-02 12:18] LABS: BASO # 0.1 10^3/uL (0.0-0.2); BASO % 0.7 % (0.0-1.0); EOS # 0.1 10^3/uL (0.0-0.5); EOS % 1.9 % (0.0-3.0); HEMOGLOBIN 13.1 g/dl (13.5-17.5); LYMPH # 1.7 10^3/uL (1.5-5.0); LYMPH % 22.7 % (24.0-44.0); MEAN CORPUSCULAR HEMOGLOBIN 30.7 pg (27.0-33.0); MONO # 0.7 10^3/uL (0.0-0.8); MONO % 9.9 % (2.0-8.0); NEUTROPHILS # 4.8 10^3/uL (1.5-8.5); NEUTROPHILS % 64.3 % (36.0-66.0); PLATELET COUNT, AUTOMATED 225 10^3/uL (150-450); RED BLOOD COUNT 4.27 10^6/uL (4.30-6.10); WHITE BLOOD COUNT 7.4 10^3/uL (4.0-10.0)
[2023-10-02 12:22] LABS: PERCENT SATURATION 23.9 % (19.7-50.0)
== END ==
LOC: M WUC 10:12
PROVIDERS: ATTEND Physician Assistant
DX: D64.9 Anemia, unspecified (principal)

== ENCOUNTER 2023-11-25 08:57 | Emergency (ER) | payer MEDICARE, MEDICAID ==
[~2023-11-25 08:57] MED LIST changes: -RISP-7 PO; +RISP0.5T82 PO
[2023-11-25 09:27] VITALS: TEMP 97.2
[2023-11-25] MEDS: IPRATROPIUM 0.5MG/ALBUTEROL 2.5MG INH SOL UD 3ML (DUONEB) NEB PRN (09:57)
[2023-11-25 10:01] LABS: BASO # 0.1 10^3/uL (0.0-0.2); BASO % 0.6 % (0.0-1.0); EOS # 0.1 10^3/uL (0.0-0.5); EOS % 1.2 % (0.0-3.0); HEMATOCRIT 41.5 % (42.0-52.0); HEMOGLOBIN 13.3 g/dl (13.5-17.5); LYMPH # 1.3 10^3/uL (1.5-5.0); LYMPH % 15.9 % (24.0-44.0); MEAN CORPUSCULAR HEMOGLOBIN 30.5 pg (27.0-33.0); MEAN CORPUSCULAR VOLUME 95.2 fl (80.0-96.0); MONO # 0.8 10^3/uL (0.0-0.8); MONO % 9.2 % (2.0-8.0); NEUTROPHILS # 6.1 10^3/uL (1.5-8.5); NEUTROPHILS % 72.6 % (36.0-66.0); PLATELET COUNT, AUTOMATED 222 10^3/uL (150-450); RED BLOOD COUNT 4.36 10^6/uL (4.30-6.10); WHITE BLOOD COUNT 8.5 10^3/uL (4.0-10.0)
[2023-11-25 10:24] LABS: CK-MB VALUE MASS 2.3 NG/ML (<3.6)
[2023-11-25 10:27] LABS: CPK CREATINE PHOSPHOKINASE 103 U/L (46-171); MB/CK RELATIVE INDEX 2.23 (< OR =4)
[2023-11-25 11:02] LABS: ALBUMIN 3.2 G/DL (3.2-5.2); ALKALINE PHOSPHATASE 95 U/L (46-116); ALT/SGPT 17 U/L (7.0-40); AST/SGOT 16 U/L (<34); BILIRUBIN,DIRECT < 0.1 MG/DL (<0.4); BILIRUBIN,TOTAL 0.3 MG/DL (0.3-1.2); BLOOD UREA NITROGEN 16 MG/DL (9-23); CALCIUM LEVEL 9.5 MG/DL (8.3-10.6); CARBON DIOXIDE LEVEL > 40.0 MMOL/L (20-31); CHLORIDE LEVEL 101 MMOL/L (98-107); CREATININE FOR GFR 0.63 MG/DL (0.70-1.30); GLOMERULAR FILTRATION RATE > 60.0 (>42); GLUCOSE, FASTING 128 MG/DL (74-106); POTASSIUM SERUM 4.6 MMOL/L (3.5-5.1); SODIUM LEVEL 143 MMOL/L (136-145); TOTAL PROTEIN 6.3 G/DL (5.7-8.2)
[2023-11-25 14:00] VITALS: BP 106/55; O2SAT 95
[2023-11-25] MEDS ORDERED: PRED10TA2 PO (14:10)
[2023-11-25] MEDS ORDERED: CVS13CRE TOP (15:21)
[2023-11-25] MEDS ORDERED: TRIPOIN9 TOP (15:21)
[2023-11-25] MEDS ORDERED: CLON0.25 PO (15:21)
[2023-11-25] MEDS ORDERED: DIVA1TAB48 PO (15:21)
[2023-11-25] MEDS ORDERED: GUAI100L6 PO (15:21)
[2023-11-25] MEDS ORDERED: HOME MED LIST COMPLETE! XX SCH (15:35)
== END 2023-11-25 14:06 | disposition home or self-care (01) ==
LOC: EDBD 08:57 → M ED 08:57
DX: J44.1 Chronic obstructive pulmonary disease with (acute) exacerbation (principal); E78.5 Hyperlipidemia, unspecified; I10 Essential (primary) hypertension; K58.9 Irritable bowel syndrome, unspecified; F70 Mild intellectual disabilities; Z79.01 Long term (current) use of anticoagulants; Z86.718 Personal history of other venous thrombosis and embolism; Z79.52 Long term (current) use of systemic steroids; Z79.899 Other long term (current) drug therapy; Z79.02 Long term (current) use of antithrombotics/antiplatelets

== ENCOUNTER 2023-12-12 17:49 | Inpatient (IN) | payer MEDICARE, MEDICAID ==
[~2023-12-12] VITALS: Ht 175.3 cm; Wt 82.7 kg
[~2023-12-12 17:49] MED LIST changes: +CLON0.25 PO; +CVS13CRE TOP; +DIVA1TAB48 PO; +GUAI100L6 PO; +TRIPOIN9 TOP
[2023-12-12 18:41] LABS: ABG BASE EXCESS 12.4 (-2.0-2.0); ABG HCO3 42.4 MMOL/L (22.0-26.0); ABG O2 SATURATION 93.8 % (95.0-99.0); ABG STANDARD HCO3 36.1 MMOL/L. (22.0-26.0); ABG TOTAL CO2 45.1 MMOL/L (23.0-31.0); ABG pH (ARTERIAL) 7.313 UNITS (7.350-7.450)
[2023-12-12 18:43] LABS: ABG PARTIAL PRESSURE CO2 85.6 mmHg (35.0-45.0)
[2023-12-12 19:14] LABS: BASO % 0.3 % (0.0-1.0); EOS # 0.1 10^3/uL (0.0-0.5); EOS % 1.5 % (0.0-3.0); HEMATOCRIT 40.5 % (42.0-52.0); HEMOGLOBIN 12.7 g/dl (13.5-17.5); LYMPH # 0.8 10^3/uL (1.5-5.0); LYMPH % 8.1 % (24.0-44.0); MEAN CORPUSCULAR HEMOGLOBIN 30.7 pg (27.0-33.0); MEAN CORPUSCULAR HGB CONC 31.4 g/dl (32.0-36.5); MEAN CORPUSCULAR VOLUME 97.8 fl (80.0-96.0); MONO # 0.6 10^3/uL (0.0-0.8); MONO % 6.2 % (2.0-8.0); NEUTROPHILS # 7.8 10^3/uL (1.5-8.5); NEUTROPHILS % 82.8 % (36.0-66.0); PLATELET COUNT, AUTOMATED 174 10^3/uL (150-450); RED BLOOD COUNT 4.14 10^6/uL (4.30-6.10); WHITE BLOOD COUNT 9.4 10^3/uL (4.0-10.0)
[2023-12-12] MEDS: IPRATROPIUM 0.5MG/ALBUTEROL 2.5MG INH SOL UD 3ML (DUONEB) NEB ONE (19:23)
[2023-12-12 19:32] LABS: CK-MB VALUE MASS 3.5 NG/ML (<3.6)
[2023-12-12 19:35] LABS: CPK CREATINE PHOSPHOKINASE 95 U/L (46-171); MB/CK RELATIVE INDEX 3.68 (< OR =4)
[2023-12-12 19:36] LABS: THYROXINE (T4) 10.5 UG/DL (4.5-10.9)
[2023-12-12 19:37] LABS: THYROID STIMULATING HORMONE 1.155 uIU/ML (0.55-4.78)
[2023-12-12 19:50] LABS: ALBUMIN 3.3 G/DL (3.2-5.2); ALKALINE PHOSPHATASE 81 U/L (46-116); ALT/SGPT 23 U/L (7.0-40); AST/SGOT 15 U/L (<34); BILIRUBIN,DIRECT 0.1 MG/DL (<0.4); BILIRUBIN,TOTAL 0.3 MG/DL (0.3-1.2); BLOOD UREA NITROGEN 11 MG/DL (9-23); CARBON DIOXIDE LEVEL > 40.0 MMOL/L (20-31); CHLORIDE LEVEL 97 MMOL/L (98-107); CREATININE FOR GFR 0.61 MG/DL (0.70-1.30); GLOMERULAR FILTRATION RATE > 60.0 (>42); GLUCOSE, FASTING 166 MG/DL (74-106); POTASSIUM SERUM 4.9 MMOL/L (3.5-5.1); SODIUM LEVEL 139 MMOL/L (136-145); TOTAL PROTEIN 6.1 G/DL (5.7-8.2)
[2023-12-12] MEDS: methylPREDNISolone 125MG 2ML VIAL IV ONE (19:50)
[2023-12-12] MEDS: ATORVASTATIN 20 MG TAB PO SCH (21:00)
[2023-12-12] MEDS: APIXABAN 5 MG TAB (ELIQUIS) PO SCH (21:00)
[2023-12-12] MEDS: DIVALPROEX 125 MG TAB PO SCH (21:00)
[2023-12-12 21:11] LABS: ABG BASE EXCESS 10.6 (-2.0-2.0); ABG HCO3 39.1 MMOL/L (22.0-26.0); ABG O2 SATURATION 93.7 % (95.0-99.0); ABG PARTIAL PRESSURE O2 67.1 mmHg (75.0-100.0); ABG STANDARD HCO3 34.3 MMOL/L. (22.0-26.0); ABG TOTAL CO2 41.2 MMOL/L (23.0-31.0); ABG pH (ARTERIAL) 7.359 UNITS (7.350-7.450)
[2023-12-12 21:14] LABS: ABG PARTIAL PRESSURE CO2 70.9 mmHg (35.0-45.0)
[2023-12-12 21:34] LABS: CK-MB VALUE MASS 3.1 NG/ML (<3.6); MB/CK RELATIVE INDEX 4.07 (< OR =4)
[2023-12-12] MEDS ORDERED: ALBUTEROL SULFATE 2.5MG/0.5ML INH NEB SOLN NEB PRN (22:20)
[2023-12-12] MEDS ORDERED: HOME MED LIST COMPLETE! XX SCH (22:40)
[2023-12-12 23:53] VITALS: BP 133/60; TEMP 100.2; O2SAT 98
[2023-12-13] VITALS (18 sets, daily range): BP systolic 84–161; BP diastolic 46–72; TEMP 97.5–99.2; O2SAT 90–98
[2023-12-13] MEDS: DOXYCYCLINE HYCLATE 100 MG in D5W MINI-BAG PLUS 100 ML IV SCH (00:24)
[2023-12-13] MEDS ORDERED: METOPROLOL 5 MG/5 ML VIAL IV SCH (01:10)
[2023-12-13] MEDS: IPRATROPIUM 0.5MG/ALBUTEROL 2.5MG INH SOL UD 3ML (DUONEB) NEB SCH (01:28)
[2023-12-13 01:45] LABS: ABG BASE EXCESS 11.8 (-2.0-2.0); ABG HCO3 39.1 MMOL/L (22.0-26.0); ABG O2 SATURATION 99.4 % (95.0-99.0); ABG PARTIAL PRESSURE CO2 64.1 mmHg (35.0-45.0); ABG PARTIAL PRESSURE O2 187.7 mmHg (75.0-100.0); ABG STANDARD HCO3 35.7 MMOL/L. (22.0-26.0); ABG TOTAL CO2 41.1 MMOL/L (23.0-31.0); ABG pH (ARTERIAL) 7.403 UNITS (7.350-7.450)
[2023-12-13 05:49] LABS: HEMATOCRIT 39.2 % (42.0-52.0); HEMOGLOBIN 12.6 g/dl (13.5-17.5); MEAN CORPUSCULAR HEMOGLOBIN 30.1 pg (27.0-33.0); MEAN CORPUSCULAR HGB CONC 32.1 g/dl (32.0-36.5); MEAN CORPUSCULAR VOLUME 93.6 fl (80.0-96.0); PLATELET COUNT, AUTOMATED 166 10^3/uL (150-450); RED BLOOD COUNT 4.19 10^6/uL (4.30-6.10)
[2023-12-13 05:59] LABS: ABG BASE EXCESS 11.9 (-2.0-2.0); ABG PARTIAL PRESSURE CO2 55.6 mmHg (35.0-45.0); ABG PARTIAL PRESSURE O2 87.3 mmHg (75.0-100.0); ABG STANDARD HCO3 35.6 MMOL/L. (22.0-26.0); ABG TOTAL CO2 39.7 MMOL/L (23.0-31.0); ABG pH (ARTERIAL) 7.452 UNITS (7.350-7.450)
[2023-12-13] MEDS: SYMBICORT 160/4.5MCG INHALER 6GM INH SCH (07:34)
[2023-12-13 08:32] LABS: BLOOD UREA NITROGEN 12 MG/DL (9-23); CALCIUM LEVEL 8.9 MG/DL (8.3-10.6); CARBON DIOXIDE LEVEL 40 MMOL/L (20-31); CHLORIDE LEVEL 96 MMOL/L (98-107); CREATININE FOR GFR 0.48 MG/DL (0.70-1.30); GLOMERULAR FILTRATION RATE > 60.0 (>42); GLUCOSE, FASTING 225 MG/DL (74-106); MAGNESIUM LEVEL 1.8 MG/DL (1.8-2.4); POTASSIUM SERUM 4.3 MMOL/L (3.5-5.1); SODIUM LEVEL 139 MMOL/L (136-145)
[2023-12-13] MEDS: METOPROLOL TART 50 MG TAB PO SCH (08:42)
[2023-12-13] MEDS: FUROSEMIDE 20 MG TAB PO SCH (08:42)
[2023-12-13] MEDS: methylPREDNISolone 40MG 1ML VIAL IV SCH (08:42)
[2023-12-13] MEDS ORDERED: PILL CUTTER 1 EACH XX PRN (11:00)
[2023-12-13] MEDS: risperiDONE 0.5 MG TAB PO SCH (11:46)
[2023-12-13] MEDS: clonazePAM 0.5 MG TAB PO SCH (11:46)
[2023-12-13] MEDS ORDERED: PRED10PA PO (14:32)
[2023-12-13] MEDS: PANTOPRAZOLE 40MG TAB (PROTONIX) PO SCH (14:33)
[2023-12-14 00:09] VITALS: BP 114/56; TEMP 96.5; O2SAT 94
[2023-12-14 04:01] VITALS: BP 162/77; TEMP 96.1; O2SAT 95
[2023-12-14 08:00] VITALS: BP 117/57; TEMP 97.6; O2SAT 90
[2023-12-14 08:30] LABS: BASO % 0.1 % (0.0-1.0); EOS % 0.1 % (0.0-3.0); HEMATOCRIT 38.3 % (42.0-52.0); HEMOGLOBIN 12.4 g/dl (13.5-17.5); LYMPH # 1.4 10^3/uL (1.5-5.0); LYMPH % 12.3 % (24.0-44.0); MEAN CORPUSCULAR HEMOGLOBIN 30.1 pg (27.0-33.0); MEAN CORPUSCULAR HGB CONC 32.4 g/dl (32.0-36.5); MONO # 0.9 10^3/uL (0.0-0.8); MONO % 8.4 % (2.0-8.0); NEUTROPHILS # 8.7 10^3/uL (1.5-8.5); NEUTROPHILS % 78.4 % (36.0-66.0); PLATELET COUNT, AUTOMATED 165 10^3/uL (150-450); RED BLOOD COUNT 4.12 10^6/uL (4.30-6.10); WHITE BLOOD COUNT 11.1 10^3/uL (4.0-10.0)
[2023-12-14 09:02] LABS: BLOOD UREA NITROGEN 14 MG/DL (9-23); CALCIUM LEVEL 9.4 MG/DL (8.3-10.6); CARBON DIOXIDE LEVEL > 40.0 MMOL/L (20-31); CHLORIDE LEVEL 101 MMOL/L (98-107); CREATININE FOR GFR 0.52 MG/DL (0.70-1.30); GLOMERULAR FILTRATION RATE > 60.0 (>42); GLUCOSE, FASTING 92 MG/DL (74-106); POTASSIUM SERUM 4.5 MMOL/L (3.5-5.1); SODIUM LEVEL 143 MMOL/L (136-145)
[2023-12-14 10:00] VITALS: BP 117/57
[2023-12-14 10:19] LABS: VENOUS BASE EXCESS 10.9 (-2.0-2.0); VENOUS HCO3 37.2 MMOL/L (23.0-27.0); VENOUS O2 SATURATION 99.3 % (60.0-80.0); VENOUS PARTIAL PRESSURE CO2 56.8 mmHg (38.0-50.0); VENOUS PARTIAL PRESSURE O2 190.6 mmHg (30.0-50.0); VENOUS PH 7.434 UNITS (7.330-7.430); VENOUS STANDARD HCO3 34.7 MMOL/L; VENOUS TOTAL CO2 38.9 MMOL/L (24.0-28.0)
[2023-12-14 11:33] VITALS: BP 132/65; TEMP 97.6; O2SAT 96
[2023-12-14] MEDS ORDERED: ANOR1AER PO (16:50)
== END 2023-12-14 12:35 | disposition home or self-care (01) | DRG 190 ==
LOC: EDBD 17:49 → M ED 17:49 → M ED INP 22:53 → M ICU 23:55 → M PCU 12-13 15:18
PROVIDERS: ADMIT Internal Medicine Pulmonary Disease; ATTEND Internal Medicine
DX: J44.1 Chronic obstructive pulmonary disease with (acute) exacerbation (principal); J96.21 Acute and chronic respiratory failure with hypoxia; G93.41 Metabolic encephalopathy; J96.22 Acute and chronic respiratory failure with hypercapnia; E87.4 Mixed disorder of acid-base balance; F02.80 Dementia in other diseases classified elsewhere, unspecified severity, without behavioral disturbance, psychotic disturbance, mood disturbance, and anxiety; G30.9 Alzheimer's disease, unspecified; I48.0 Paroxysmal atrial fibrillation; E78.5 Hyperlipidemia, unspecified; K44.9 Diaphragmatic hernia without obstruction or gangrene; K21.9 Gastro-esophageal reflux disease without esophagitis; D50.9 Iron deficiency anemia, unspecified; I87.2 Venous insufficiency (chronic) (peripheral); H40.9 Unspecified glaucoma; Z99.81 Dependence on supplemental oxygen; Z86.718 Personal history of other venous thrombosis and embolism; Z79.01 Long term (current) use of anticoagulants; Z79.899 Other long term (current) drug therapy; Z11.52 Encounter for screening for COVID-19

== ENCOUNTER → 2023-12-17 | Outpatient (CLI) | payer MEDICARE, MEDICAID ==
[~2023-12-17] MED LIST changes: +ANOR1AER PO; +PRED10PA PO
[2023-12-17 10:32] LABS: HEMATOCRIT 42.3 % (42.0-52.0)
[2023-12-17 10:45] LABS: BASO % 0.2 % (0.0-1.0); EOS # 0.1 10^3/uL (0.0-0.5); EOS % 1.2 % (0.0-3.0); HEMATOCRIT 41.3 % (42.0-52.0); HEMOGLOBIN 13.4 g/dl (13.5-17.5); LYMPH # 1.4 10^3/uL (1.5-5.0); LYMPH % 16.6 % (24.0-44.0); MEAN CORPUSCULAR HEMOGLOBIN 30.2 pg (27.0-33.0); MEAN CORPUSCULAR HGB CONC 32.4 g/dl (32.0-36.5); MONO # 0.9 10^3/uL (0.0-0.8); MONO % 10.2 % (2.0-8.0); NEUTROPHILS % 70.7 % (36.0-66.0); PLATELET COUNT, AUTOMATED 200 10^3/uL (150-450); RED BLOOD COUNT 4.44 10^6/uL (4.30-6.10); WHITE BLOOD COUNT 8.5 10^3/uL (4.0-10.0)
[2023-12-17 11:11] LABS: FERRITIN 585.2 NG/ML (10.5-307.3); FREE T4 1.41 NG/DL (0.89-1.76); THYROID STIMULATING HORMONE 1.445 uIU/ML (0.55-4.78)
[2023-12-17 11:22] LABS: VALPROIC ACID (DEPAKOTE) 32.5 UG/ML (50.0-100.0)
[2023-12-17 11:25] LABS: CHOLESTEROL RISK RATIO 2.51 (<5); HDL CHOLESTEROL 64.8 MG/DL (>40); LDL CHOLESTEROL 60.4 MG/DL (<100); NON-HDL-C 98.2 MG/DL
== END ==
LOC: M WUC 08:19
PROVIDERS: ATTEND Family Medicine
DX: D50.9 Iron deficiency anemia, unspecified (principal); E78.2 Mixed hyperlipidemia; F03.90 Unspecified dementia, unspecified severity, without behavioral disturbance, psychotic disturbance, mood disturbance, and anxiety

== ENCOUNTER → 2023-12-23 | Outpatient (REF) | payer MEDICARE, MEDICAID ==
[~2023-12-23] MED LIST changes: +ACET-683 PO; +AZIT500T5 PO; +DIVA250T67 PO; +DULC10SU2 PR; +SENN-52 PO
== END ==
LOC: M SFHCPLAZ 10:38
PROVIDERS: ATTEND Family Medicine
DX: D50.9 Iron deficiency anemia, unspecified (principal); I50.32 Chronic diastolic (congestive) heart failure

== ENCOUNTER 2023-12-24 11:20 | Inpatient (IN) | payer MEDICARE, MEDICAID ==
[~2023-12-24] VITALS: Ht 172.7 cm; Wt 84.7 kg
[~2023-12-24 11:20] MED LIST changes: -ACET-683 PO; -AZIT500T5 PO; -DIVA250T67 PO; -DULC10SU2 PR; -SENN-52 PO
[2023-12-24] MEDS: ACETAMINOPHEN 500 MG TAB PO ONE (12:34)
[2023-12-24 12:41] LABS: BASO % 0.2 % (0.0-1.0); EOS # 0.1 10^3/uL (0.0-0.5); EOS % 0.7 % (0.0-3.0); HEMATOCRIT 38.5 % (42.0-52.0); HEMOGLOBIN 12.1 g/dl (13.5-17.5); LYMPH # 0.6 10^3/uL (1.5-5.0); LYMPH % 7.1 % (24.0-44.0); MEAN CORPUSCULAR HEMOGLOBIN 30.9 pg (27.0-33.0); MEAN CORPUSCULAR HGB CONC 31.4 g/dl (32.0-36.5); MEAN CORPUSCULAR VOLUME 98.2 fl (80.0-96.0); MONO # 0.5 10^3/uL (0.0-0.8); MONO % 5.9 % (2.0-8.0); NEUTROPHILS # 6.9 10^3/uL (1.5-8.5); PLATELET COUNT, AUTOMATED 186 10^3/uL (150-450); RED BLOOD COUNT 3.92 10^6/uL (4.30-6.10); WHITE BLOOD COUNT 8.2 10^3/uL (4.0-10.0)
[2023-12-24 12:43] LABS: ABG BASE EXCESS 15.2 (-2.0-2.0); ABG HCO3 44.2 MMOL/L (22.0-26.0); ABG O2 SATURATION 85.8 % (95.0-99.0); ABG STANDARD HCO3 38.8 MMOL/L. (22.0-26.0); ABG TOTAL CO2 46.7 MMOL/L (23.0-31.0); ABG pH (ARTERIAL) 7.365 UNITS (7.350-7.450)
[2023-12-24 12:48] LABS: ABG PARTIAL PRESSURE CO2 79.2 mmHg (35.0-45.0); ABG PARTIAL PRESSURE O2 49.4 mmHg (75.0-100.0)
[2023-12-24 13:11] LABS: ETHYL ALCOHOL (ETHANOL) 0.005 % (0.000-0.010)
[2023-12-24 13:12] LABS: SALICYLATE LEVEL < 3.0 MG/DL (<30)
[2023-12-24 13:14] LABS: THYROID STIMULATING HORMONE 1.078 uIU/ML (0.55-4.78)
[2023-12-24 13:15] LABS: ALBUMIN 3.1 G/DL (3.2-5.2); ALKALINE PHOSPHATASE 67 U/L (46-116); ALT/SGPT 19 U/L (7.0-40); AST/SGOT 12 U/L (<34); BILIRUBIN,DIRECT 0.1 MG/DL (<0.4); BILIRUBIN,TOTAL 0.3 MG/DL (0.3-1.2); BLOOD UREA NITROGEN 10 MG/DL (9-23); CALCIUM LEVEL 9.2 MG/DL (8.3-10.6); CARBON DIOXIDE LEVEL > 40.0 MMOL/L (20-31); CHLORIDE LEVEL 95 MMOL/L (98-107); CREATININE FOR GFR 0.56 MG/DL (0.70-1.30); GLOMERULAR FILTRATION RATE > 60.0 (>42); GLUCOSE, FASTING 143 MG/DL (74-106); POTASSIUM SERUM 4.7 MMOL/L (3.5-5.1); SODIUM LEVEL 142 MMOL/L (136-145); TOTAL PROTEIN 5.8 G/DL (5.7-8.2)
[2023-12-24] MEDS ORDERED: DIVA250T67 PO (13:34)
[2023-12-24] MEDS ORDERED: ACET-683 PO (13:34)
[2023-12-24] MEDS ORDERED: PRED10TA2 PO (13:34)
[2023-12-24] MEDS ORDERED: HOME MED LIST COMPLETE! XX SCH (13:35)
[2023-12-24 16:04] LABS: VALPROIC ACID (DEPAKOTE) 23.3 UG/ML (50.0-100.0)
[2023-12-24 17:03] LABS: ABG BASE EXCESS 15.2 (-2.0-2.0); ABG O2 SATURATION 92.2 % (95.0-99.0); ABG PARTIAL PRESSURE O2 66.4 mmHg (75.0-100.0); ABG TOTAL CO2 47.7 MMOL/L (23.0-31.0); ABG pH (ARTERIAL) 7.338 UNITS (7.350-7.450)
[2023-12-24 17:05] LABS: ABG PARTIAL PRESSURE CO2 85.8 mmHg (35.0-45.0)
[2023-12-24] MEDS ORDERED: ISOVUE-370 76% 100ML VIAL As Ordered ONE (17:17)
[2023-12-24] MEDS: IPRATROPIUM 0.5MG/ALBUTEROL 2.5MG INH SOL UD 3ML (DUONEB) NEB SCH (17:39)
[2023-12-24] MEDS: methylPREDNISolone 125MG 2ML VIAL IV ONE (17:46)
[2023-12-24] MEDS: clonazePAM 0.5 MG TAB PO ONE (19:27)
[2023-12-24] MEDS: METOPROLOL TART 50 MG TAB PO STA (20:33)
[2023-12-24 20:55] LABS: ABG BASE EXCESS 16.6 (-2.0-2.0); ABG HCO3 43.9 MMOL/L (22.0-26.0); ABG O2 SATURATION 95.7 % (95.0-99.0); ABG PARTIAL PRESSURE CO2 65.6 mmHg (35.0-45.0); ABG PARTIAL PRESSURE O2 75.6 mmHg (75.0-100.0); ABG STANDARD HCO3 40.5 MMOL/L. (22.0-26.0); ABG TOTAL CO2 45.9 MMOL/L (23.0-31.0); ABG pH (ARTERIAL) 7.443 UNITS (7.350-7.450)
[2023-12-24] MEDS ORDERED: guaiFENesin SYRUP 200MG 10ML UDC PO PRN (21:05)
[2023-12-24] MEDS ORDERED: GLUCOSE 4GM CHEW TABLET PO PRN (21:20)
[2023-12-24] MEDS ORDERED: PILL CUTTER 1 EACH XX PRN (21:20)
[2023-12-24] MEDS ORDERED: LEVALBUTEROL 1.25MG 0.5ML CONCENTRATE NEB INH PRN (21:20)
[2023-12-24] MEDS ORDERED: GLUCAGON INJ 1MG VIAL SC PRN (21:20)
[2023-12-24] MEDS ORDERED: DEXTROSE 50% 50ML SYRINGE IV PRN (21:20)
[2023-12-24] MEDS: BUDESONIDE 0.5 MG/2 ML INHALATION SUSPENSION INH SCH (21:25)
[2023-12-24] MEDS: APIXABAN 5 MG TAB (ELIQUIS) PO SCH (21:43)
[2023-12-24] MEDS: DIVALPROEX 250MG TAB PO SCH (21:43)
[2023-12-24] MEDS: risperiDONE 0.5 MG TAB PO SCH (21:43)
[2023-12-24] MEDS: ATORVASTATIN 20 MG TAB PO SCH (21:43)
[2023-12-25] VITALS (15 sets, daily range): BP systolic 114–157; BP diastolic 57–76; TEMP 96.7–99; O2SAT 92–100
[2023-12-25] MEDS: methylPREDNISolone 40MG 1ML VIAL IV SCH ×2 (00:46→18:00)
[2023-12-25] MEDS: IPRATROPIUM 0.5MG/ALBUTEROL 2.5MG INH SOL UD 3ML (DUONEB) NEB SCH (01:32)
[2023-12-25 06:14] LABS: BLOOD UREA NITROGEN 11 MG/DL (9-23); CALCIUM LEVEL 8.7 MG/DL (8.3-10.6); CARBON DIOXIDE LEVEL > 40.0 MMOL/L (20-31); CHLORIDE LEVEL 95 MMOL/L (98-107); CREATININE FOR GFR 0.45 MG/DL (0.70-1.30); GLOMERULAR FILTRATION RATE > 60.0 (>42); GLUCOSE, FASTING 173 MG/DL (74-106); POTASSIUM SERUM 4.6 MMOL/L (3.5-5.1); SODIUM LEVEL 142 MMOL/L (136-145)
[2023-12-25 06:16] LABS: ABG BASE EXCESS 15.2 (-2.0-2.0); ABG HCO3 46.3 MMOL/L (22.0-26.0); ABG O2 SATURATION 99.1 % (95.0-99.0); ABG PARTIAL PRESSURE O2 167.7 mmHg (75.0-100.0); ABG STANDARD HCO3 39.1 MMOL/L. (22.0-26.0); ABG TOTAL CO2 49.5 MMOL/L (23.0-31.0); ABG pH (ARTERIAL) 7.269 UNITS (7.350-7.450)
[2023-12-25 06:20] LABS: ABG PARTIAL PRESSURE CO2 103.4 mmHg (35.0-45.0)
[2023-12-25] MEDS: INSULIN LISPRO (NovoLOG) PER UNIT SC SCH (07:30)
[2023-12-25] MEDS: clonazePAM 0.5 MG TAB PO SCH (09:00)
[2023-12-25 09:45] LABS: VENOUS BASE EXCESS 13.4 (-2.0-2.0); VENOUS HCO3 38.1 MMOL/L (23.0-27.0); VENOUS O2 SATURATION 99.3 % (60.0-80.0); VENOUS PARTIAL PRESSURE CO2 47.9 mmHg (38.0-50.0); VENOUS PARTIAL PRESSURE O2 237.1 mmHg (30.0-50.0); VENOUS PH 7.518 UNITS (7.330-7.430); VENOUS STANDARD HCO3 37.3 MMOL/L; VENOUS TOTAL CO2 39.5 MMOL/L (24.0-28.0)
[2023-12-25] MEDS: METOPROLOL TART 50 MG TAB PO SCH (10:18)
[2023-12-25] MEDS: AZITHROMYCIN INJ 500 MG, VIAL MATE ADAPTER 1 EACH in NS 250 ML IV SCH (10:20)
[2023-12-25] MEDS: PANTOPRAZOLE 40MG VIAL IV SCH (10:20)
[2023-12-25] MEDS: BISACODYL 10MG SUPP PR ONE (10:20)
[2023-12-25] MEDS: SENOKOT S TAB PO SCH (20:16)
[2023-12-25] MEDS: BISACODYL 10MG SUPP PR SCH (20:16)
[2023-12-25] MEDS: DIVALPROEX SPRINKLE 125 MG CAP PO SCH (20:33)
[2023-12-25] MEDS ORDERED: INSULIN LISPRO (NovoLOG) PER UNIT SC SCH (21:00)
[2023-12-26 00:06] VITALS: BP 154/74; TEMP 98; O2SAT 99
[2023-12-26 04:00] VITALS: BP 149/71; TEMP 98.5; O2SAT 99
[2023-12-26 05:13] LABS: BASO % 0.3 % (0.0-1.0); EOS % 0.6 % (0.0-3.0); HEMATOCRIT 32.5 % (42.0-52.0); HEMOGLOBIN 10.6 g/dl (13.5-17.5); LYMPH # 1.1 10^3/uL (1.5-5.0); LYMPH % 15.4 % (24.0-44.0); MEAN CORPUSCULAR HEMOGLOBIN 30.5 pg (27.0-33.0); MEAN CORPUSCULAR HGB CONC 32.6 g/dl (32.0-36.5); MEAN CORPUSCULAR VOLUME 93.7 fl (80.0-96.0); MONO # 0.8 10^3/uL (0.0-0.8); MONO % 10.4 % (2.0-8.0); NEUTROPHILS # 5.3 10^3/uL (1.5-8.5); NEUTROPHILS % 72.5 % (36.0-66.0); PLATELET COUNT, AUTOMATED 170 10^3/uL (150-450); RED BLOOD COUNT 3.47 10^6/uL (4.30-6.10); WHITE BLOOD COUNT 7.2 10^3/uL (4.0-10.0)
[2023-12-26 05:46] LABS: BLOOD UREA NITROGEN 13 MG/DL (9-23); CARBON DIOXIDE LEVEL > 40.0 MMOL/L (20-31); CHLORIDE LEVEL 98 MMOL/L (98-107); CREATININE FOR GFR 0.51 MG/DL (0.70-1.30); GLOMERULAR FILTRATION RATE > 60.0 (>42); GLUCOSE, FASTING 87 MG/DL (74-106); PHOSPHORUS LEVEL 2.6 MG/DL (2.4-5.1); POTASSIUM SERUM 3.8 MMOL/L (3.5-5.1); SODIUM LEVEL 140 MMOL/L (136-145)
[2023-12-26 08:00] VITALS: BP 154/73; TEMP 98.4; O2SAT 94
[2023-12-26] MEDS: AZITHROMYCIN 250MG TABLET PO SCH (09:05)
[2023-12-26 12:00] VITALS: BP 145/67; TEMP 97.9; O2SAT 94
[2023-12-26] MEDS ORDERED: PRED20TA PO (15:18)
[2023-12-26] MEDS ORDERED: SENN-52 PO (15:18)
[2023-12-26] MEDS ORDERED: AZIT500T5 PO (15:18)
[2023-12-26] MEDS ORDERED: DULC10SU2 PR (15:18)
[2023-12-27] MEDS ORDERED: predniSONE 20 MG TAB PO SCH (09:00)
== END 2023-12-26 16:41 | DRG 189 ==
LOC: EDBD 11:20 → M ED 11:20 → M ED INP 21:01 → ENRESERV 12-25 01:28 → M PCU 12-25 02:10 → M ICU 12-25 06:44
PROVIDERS: ADMIT Internal Medicine; ATTEND Internal Medicine
DX: J96.22 Acute and chronic respiratory failure with hypercapnia (principal); G93.41 Metabolic encephalopathy; J44.1 Chronic obstructive pulmonary disease with (acute) exacerbation; F02.818 Dementia in other diseases classified elsewhere, unspecified severity, with other behavioral disturbance; E87.3 Alkalosis; F13.20 Sedative, hypnotic or anxiolytic dependence, uncomplicated; G30.9 Alzheimer's disease, unspecified; I48.0 Paroxysmal atrial fibrillation; Z66 Do not resuscitate; I87.2 Venous insufficiency (chronic) (peripheral); E78.5 Hyperlipidemia, unspecified; H40.9 Unspecified glaucoma; K21.9 Gastro-esophageal reflux disease without esophagitis; G47.33 Obstructive sleep apnea (adult) (pediatric); K59.00 Constipation, unspecified; J96.21 Acute and chronic respiratory failure with hypoxia; K58.9 Irritable bowel syndrome, unspecified; F31.9 Bipolar disorder, unspecified; D50.9 Iron deficiency anemia, unspecified; I27.20 Pulmonary hypertension, unspecified; Z87.891 Personal history of nicotine dependence; Z79.899 Other long term (current) drug therapy; Z79.01 Long term (current) use of anticoagulants; Z79.52 Long term (current) use of systemic steroids; Z11.52 Encounter for screening for COVID-19; Z99.81 Dependence on supplemental oxygen; Z86.718 Personal history of other venous thrombosis and embolism

== ENCOUNTER → 2024-01-02 | Outpatient (CLI) | payer MEDICARE, MEDICAID ==
[~2024-01-02] MED LIST changes: +ACET-683 PO; +AZIT500T5 PO; +BISA10SU4 PR; +DIVA250T67 PO; +DOCU8.6T PO; +DULC10SU2 PR; +FURO40TA2 PO; +SENN-52 PO
[2024-01-02 10:38] LABS: BASO % 0.5 % (0.0-1.0); EOS # 0.2 10^3/uL (0.0-0.5); EOS % 2.2 % (0.0-3.0); HEMATOCRIT 39.4 % (42.0-52.0); HEMOGLOBIN 12.4 g/dl (13.5-17.5); LYMPH # 0.7 10^3/uL (1.5-5.0); LYMPH % 9.2 % (24.0-44.0); MEAN CORPUSCULAR HGB CONC 31.5 g/dl (32.0-36.5); MEAN CORPUSCULAR VOLUME 95.2 fl (80.0-96.0); MONO # 0.9 10^3/uL (0.0-0.8); MONO % 10.8 % (2.0-8.0); NEUTROPHILS % 76.3 % (36.0-66.0); PLATELET COUNT, AUTOMATED 200 10^3/uL (150-450); RED BLOOD COUNT 4.14 10^6/uL (4.30-6.10); WHITE BLOOD COUNT 7.9 10^3/uL (4.0-10.0)
[2024-01-02 10:57] LABS: IRON (FE) 42 UG/DL (65-175); PERCENT SATURATION 15.5 % (19.7-50.0); TOTAL IRON BINDING CAPACITY 271 UG/DL (250-425)
[2024-01-02 11:00] LABS: FERRITIN 657.4 NG/ML (10.5-307.3)
[2024-01-02 11:12] LABS: ALBUMIN 3.2 G/DL (3.2-5.2); ALKALINE PHOSPHATASE 64 U/L (46-116); ALT/SGPT 21 U/L (7.0-40); AST/SGOT 19 U/L (<34); BILIRUBIN,TOTAL 0.4 MG/DL (0.3-1.2); BLOOD UREA NITROGEN 14 MG/DL (9-23); CALCIUM LEVEL 9.4 MG/DL (8.3-10.6); CARBON DIOXIDE LEVEL > 40.0 MMOL/L (20-31); CHLORIDE LEVEL 98 MMOL/L (98-107); CREATININE FOR GFR 0.57 MG/DL (0.70-1.30); GLOMERULAR FILTRATION RATE > 60.0 (>42); GLUCOSE, FASTING 120 MG/DL (74-106); POTASSIUM SERUM 4.2 MMOL/L (3.5-5.1); SODIUM LEVEL 144 MMOL/L (136-145); TOTAL PROTEIN 5.7 G/DL (5.7-8.2)
== END ==
LOC: M WUC 08:24
PROVIDERS: ATTEND Physician Assistant
DX: I50.32 Chronic diastolic (congestive) heart failure (principal); J96.12 Chronic respiratory failure with hypercapnia; J44.9 Chronic obstructive pulmonary disease, unspecified; K59.09 Other constipation

== ENCOUNTER 2024-01-04 10:05 | Inpatient (IN) | payer MEDICARE, MEDICAID ==
[~2024-01-04] VITALS: Ht 175.3 cm; Wt 83.5 kg
[2024-01-04] VITALS (9 sets, daily range): BP systolic 107–126; BP diastolic 52–73; TEMP 97.5–98.2; O2SAT 86–98
[~2024-01-04 10:05] MED LIST changes: -BISA10SU4 PR; -DOCU8.6T PO; -FURO40TA2 PO
[2024-01-04] MEDS: dexAMETHasone 20MG/5ML VIAL IV ONE (10:38)
[2024-01-04] MEDS: IPRATROPIUM 0.5MG/ALBUTEROL 2.5MG INH SOL UD 3ML (DUONEB) NEB PRN (10:46)
[2024-01-04 10:50] LABS: BASO % 0.4 % (0.0-1.0); EOS # 0.2 10^3/uL (0.0-0.5); EOS % 1.9 % (0.0-3.0); HEMATOCRIT 38.4 % (42.0-52.0); LYMPH # 0.7 10^3/uL (1.5-5.0); LYMPH % 7.2 % (24.0-44.0); MEAN CORPUSCULAR HEMOGLOBIN 30.8 pg (27.0-33.0); MEAN CORPUSCULAR HGB CONC 31.3 g/dl (32.0-36.5); MEAN CORPUSCULAR VOLUME 98.5 fl (80.0-96.0); MONO # 1.2 10^3/uL (0.0-0.8); MONO % 11.1 % (2.0-8.0); NEUTROPHILS # 8.1 10^3/uL (1.5-8.5); PLATELET COUNT, AUTOMATED 192 10^3/uL (150-450); WHITE BLOOD COUNT 10.3 10^3/uL (4.0-10.0)
[2024-01-04 10:52] LABS: ABG HCO3 48.7 MMOL/L (22.0-26.0); ABG O2 SATURATION 83.1 % (95.0-99.0); ABG STANDARD HCO3 41.8 MMOL/L. (22.0-26.0); ABG TOTAL CO2 51.6 MMOL/L (23.0-31.0); ABG pH (ARTERIAL) 7.325 UNITS (7.350-7.450)
[2024-01-04 10:53] LABS: ABG PARTIAL PRESSURE CO2 95.5 mmHg (35.0-45.0)
[2024-01-04 10:54] LABS: ABG PARTIAL PRESSURE O2 47.1 mmHg (75.0-100.0)
[2024-01-04 11:20] LABS: BLOOD UREA NITROGEN 14 MG/DL (9-23); CALCIUM LEVEL 9.2 MG/DL (8.3-10.6); CARBON DIOXIDE LEVEL > 40.0 MMOL/L (20-31); CHLORIDE LEVEL 98 MMOL/L (98-107); CREATININE FOR GFR 0.49 MG/DL (0.70-1.30); GLOMERULAR FILTRATION RATE > 60.0 (>42); GLUCOSE, FASTING 111 MG/DL (74-106); POTASSIUM SERUM 4.4 MMOL/L (3.5-5.1); SODIUM LEVEL 142 MMOL/L (136-145)
[2024-01-04] MEDS ORDERED: BISA10SU4 PR (13:39)
[2024-01-04] MEDS ORDERED: DOCU8.6T PO (13:39)
[2024-01-04] MEDS ORDERED: FURO40TA2 PO (13:39)
[2024-01-04] MEDS ORDERED: HOME MED LIST COMPLETE! XX SCH (13:40)
[2024-01-04] MEDS: IPRATROPIUM 0.5MG/ALBUTEROL 2.5MG INH SOL UD 3ML (DUONEB) NEB SCH (14:52)
[2024-01-04] MEDS: AZITHROMYCIN INJ 500 MG, VIAL MATE ADAPTER 1 EACH in NS 250 ML IV SCH (15:29)
[2024-01-04] MEDS: METOCLOPRAMIDE INJ 10MG/2ML VIAL IV ONE (15:30)
[2024-01-04] MEDS: diphenhydrAMINE 50MG/ML VIAL IV ONE (15:30)
[2024-01-04] MEDS: methylPREDNISolone 125MG 2ML VIAL IV SCH (18:16)
[2024-01-04] MEDS: VALPROATE SOD INJ 125 MG in D5W 50 ML IV SCH (20:23)
[2024-01-04] MEDS: ENOXAPARIN 80MG/0.8ML SYRINGE (J1650 PER 10MG) SC SCH (20:23)
[2024-01-05] VITALS (24 sets, daily range): BP systolic 86–139; BP diastolic 57–80; TEMP 97–98.2; O2SAT 88–100
[2024-01-05 04:15] LABS: BASO % 0.2 % (0.0-1.0); HEMATOCRIT 37.2 % (42.0-52.0); HEMOGLOBIN 11.4 g/dl (13.5-17.5); LYMPH # 0.4 10^3/uL (1.5-5.0); LYMPH % 6.8 % (24.0-44.0); MEAN CORPUSCULAR HEMOGLOBIN 30.1 pg (27.0-33.0); MEAN CORPUSCULAR HGB CONC 30.6 g/dl (32.0-36.5); MEAN CORPUSCULAR VOLUME 98.2 fl (80.0-96.0); MONO # 0.1 10^3/uL (0.0-0.8); MONO % 2.5 % (2.0-8.0); NEUTROPHILS # 4.9 10^3/uL (1.5-8.5); NEUTROPHILS % 88.7 % (36.0-66.0); PLATELET COUNT, AUTOMATED 175 10^3/uL (150-450); RED BLOOD COUNT 3.79 10^6/uL (4.30-6.10); WHITE BLOOD COUNT 5.6 10^3/uL (4.0-10.0)
[2024-01-05 04:45] LABS: PROCALCITONIN <0.04 ng/ml
[2024-01-05 04:50] LABS: BLOOD UREA NITROGEN 15 MG/DL (9-23); CALCIUM LEVEL 9.2 MG/DL (8.3-10.6); CARBON DIOXIDE LEVEL > 40.0 MMOL/L (20-31); CHLORIDE LEVEL 95 MMOL/L (98-107); CREATININE FOR GFR 0.43 MG/DL (0.70-1.30); GLOMERULAR FILTRATION RATE > 60.0 (>42); GLUCOSE, FASTING 198 MG/DL (74-106); MAGNESIUM LEVEL 1.8 MG/DL (1.8-2.4); SODIUM LEVEL 140 MMOL/L (136-145)
[2024-01-05] MEDS: OLANZapine INTRAMUSCULAR 10MG VIAL IM ONE (09:34)
[2024-01-05] MEDS: HALOPERIDOL 5MG/ML 1ML VIAL IV PRN (13:06)
[2024-01-05] MEDS: D5W/0.45% SODIUM CHLORIDE 1,000 ML IV SCH (18:48)
[2024-01-05] MEDS ORDERED: TOPIRAMATE (TopAMAX) 25 MG TAB PO SCH (21:00)
[2024-01-06 00:37] VITALS: BP 107/53; TEMP 96.7; O2SAT 98
[2024-01-06 04:30] LABS: BASO % 0.1 % (0.0-1.0); HEMATOCRIT 33.5 % (42.0-52.0); HEMOGLOBIN 10.4 g/dl (13.5-17.5); LYMPH # 0.5 10^3/uL (1.5-5.0); LYMPH % 4.4 % (24.0-44.0); MEAN CORPUSCULAR HEMOGLOBIN 30.5 pg (27.0-33.0); MEAN CORPUSCULAR VOLUME 98.2 fl (80.0-96.0); MONO # 0.6 10^3/uL (0.0-0.8); MONO % 5.6 % (2.0-8.0); NEUTROPHILS # 9.6 10^3/uL (1.5-8.5); NEUTROPHILS % 89.3 % (36.0-66.0); PLATELET COUNT, AUTOMATED 173 10^3/uL (150-450); RED BLOOD COUNT 3.41 10^6/uL (4.30-6.10); WHITE BLOOD COUNT 10.7 10^3/uL (4.0-10.0)
[2024-01-06 04:37] VITALS: BP 93/49; TEMP 96.9; O2SAT 99
[2024-01-06 05:36] LABS: BLOOD UREA NITROGEN 16 MG/DL (9-23); CALCIUM LEVEL 9.1 MG/DL (8.3-10.6); CARBON DIOXIDE LEVEL > 40.0 MMOL/L (20-31); CHLORIDE LEVEL 96 MMOL/L (98-107); CREATININE FOR GFR 0.49 MG/DL (0.70-1.30); GLOMERULAR FILTRATION RATE > 60.0 (>42); GLUCOSE, FASTING 170 MG/DL (74-106); MAGNESIUM LEVEL 2.1 MG/DL (1.8-2.4); POTASSIUM SERUM 4.4 MMOL/L (3.5-5.1); SODIUM LEVEL 141 MMOL/L (136-145)
[2024-01-06 06:10] VITALS: BP 93/49; TEMP 96.9; O2SAT 99
[2024-01-06 08:00] VITALS: BP 112/53; TEMP 97.4; O2SAT 95
[2024-01-06] MEDS: OLANZapine INTRAMUSCULAR 10MG VIAL IM PRN (15:25)
[2024-01-06 16:00] VITALS: BP 117/58; TEMP 98; O2SAT 98
[2024-01-06] MEDS: methylPREDNISolone 40MG 1ML VIAL IV SCH (17:08)
[2024-01-06 20:07] VITALS: BP 127/59; TEMP 98.2; O2SAT 97
[2024-01-07] VITALS (9 sets, daily range): BP systolic 124–136; BP diastolic 57–68; TEMP 97.4–98.6; O2SAT 72–96
[2024-01-07 05:32] LABS: BASO % 0.1 % (0.0-1.0); HEMATOCRIT 35.5 % (42.0-52.0); HEMOGLOBIN 10.9 g/dl (13.5-17.5); LYMPH # 0.6 10^3/uL (1.5-5.0); LYMPH % 6.4 % (24.0-44.0); MEAN CORPUSCULAR HEMOGLOBIN 30.4 pg (27.0-33.0); MEAN CORPUSCULAR HGB CONC 30.7 g/dl (32.0-36.5); MEAN CORPUSCULAR VOLUME 99.2 fl (80.0-96.0); MONO # 0.7 10^3/uL (0.0-0.8); MONO % 6.9 % (2.0-8.0); NEUTROPHILS # 8.5 10^3/uL (1.5-8.5); NEUTROPHILS % 85.5 % (36.0-66.0); PLATELET COUNT, AUTOMATED 180 10^3/uL (150-450); RED BLOOD COUNT 3.58 10^6/uL (4.30-6.10)
[2024-01-07 06:36] LABS: BLOOD UREA NITROGEN 16 MG/DL (9-23); CALCIUM LEVEL 9.4 MG/DL (8.3-10.6); CARBON DIOXIDE LEVEL > 40.0 MMOL/L (20-31); CHLORIDE LEVEL 97 MMOL/L (98-107); CREATININE FOR GFR 0.52 MG/DL (0.70-1.30); GLOMERULAR FILTRATION RATE > 60.0 (>42); GLUCOSE, FASTING 122 MG/DL (74-106); MAGNESIUM LEVEL 2.5 MG/DL (1.8-2.4); POTASSIUM SERUM 4.7 MMOL/L (3.5-5.1); SODIUM LEVEL 145 MMOL/L (136-145)
[2024-01-08] VITALS (18 sets, daily range): BP systolic 98–153; BP diastolic 50–75; TEMP 98–98.8; O2SAT 63–100
[2024-01-08 06:03] LABS: BLOOD UREA NITROGEN 19 MG/DL (9-23); CALCIUM LEVEL 9.3 MG/DL (8.3-10.6); CARBON DIOXIDE LEVEL > 40.0 MMOL/L (20-31); CHLORIDE LEVEL 99 MMOL/L (98-107); GLOMERULAR FILTRATION RATE > 60.0 (>42); GLUCOSE, FASTING 137 MG/DL (74-106); MAGNESIUM LEVEL 2.3 MG/DL (1.8-2.4); POTASSIUM SERUM 5.4 MMOL/L (3.5-5.1); SODIUM LEVEL 144 MMOL/L (136-145)
[2024-01-08 07:38] LABS: BASO % 0.4 % (0.0-1.0); EOS % 0.1 % (0.0-3.0); HEMATOCRIT 36.8 % (42.0-52.0); HEMOGLOBIN 11.4 g/dl (13.5-17.5); LYMPH # 0.3 10^3/uL (1.5-5.0); LYMPH % 3.8 % (24.0-44.0); MEAN CORPUSCULAR HEMOGLOBIN 30.2 pg (27.0-33.0); MEAN CORPUSCULAR VOLUME 97.4 fl (80.0-96.0); MONO # 0.5 10^3/uL (0.0-0.8); NEUTROPHILS # 6.1 10^3/uL (1.5-8.5); NEUTROPHILS % 85.6 % (36.0-66.0); PLATELET COUNT, AUTOMATED 154 10^3/uL (150-450); RED BLOOD COUNT 3.78 10^6/uL (4.30-6.10); WHITE BLOOD COUNT 7.1 10^3/uL (4.0-10.0)
[2024-01-08] MEDS: DIVALPROEX SPRINKLE 125 MG CAP PO SCH (20:27)
[2024-01-08] MEDS: METOPROLOL TART 50 MG TAB PO SCH (21:04)
[2024-01-08] MEDS: NS 1,000 ML IV ONE (21:35)
[2024-01-08 21:53] LABS: VENOUS BASE EXCESS 17.5 (-2.0-2.0); VENOUS HCO3 47.1 MMOL/L (23.0-27.0); VENOUS O2 SATURATION 84.5 % (60.0-80.0); VENOUS PARTIAL PRESSURE CO2 90.5 mmHg (38.0-50.0); VENOUS PARTIAL PRESSURE O2 47.3 mmHg (30.0-50.0); VENOUS PH 7.334 UNITS (7.330-7.430); VENOUS STANDARD HCO3 41.2 MMOL/L; VENOUS TOTAL CO2 49.9 MMOL/L (24.0-28.0)
[2024-01-08 22:01] LABS: BASO % 0.2 % (0.0-1.0); HEMATOCRIT 32.5 % (42.0-52.0); LYMPH # 0.4 10^3/uL (1.5-5.0); LYMPH % 3.3 % (24.0-44.0); MEAN CORPUSCULAR HEMOGLOBIN 30.7 pg (27.0-33.0); MEAN CORPUSCULAR HGB CONC 30.8 g/dl (32.0-36.5); MEAN CORPUSCULAR VOLUME 99.7 fl (80.0-96.0); MONO # 1.2 10^3/uL (0.0-0.8); MONO % 10.1 % (2.0-8.0); NEUTROPHILS # 10.3 10^3/uL (1.5-8.5); NEUTROPHILS % 85.6 % (36.0-66.0); PLATELET COUNT, AUTOMATED 163 10^3/uL (150-450); RED BLOOD COUNT 3.26 10^6/uL (4.30-6.10)
[2024-01-08 22:22] LABS: CK-MB VALUE MASS 1.4 NG/ML (<3.6)
[2024-01-08 22:24] LABS: BLOOD UREA NITROGEN 22 MG/DL (9-23); CALCIUM LEVEL 9.1 MG/DL (8.3-10.6); CARBON DIOXIDE LEVEL > 40.0 MMOL/L (20-31); CHLORIDE LEVEL 99 MMOL/L (98-107); CPK CREATINE PHOSPHOKINASE 74 U/L (46-171); CREATININE FOR GFR 0.45 MG/DL (0.70-1.30); GLOMERULAR FILTRATION RATE > 60.0 (>42); GLUCOSE, FASTING 116 MG/DL (74-106); MAGNESIUM LEVEL 2.1 MG/DL (1.8-2.4); MB/CK RELATIVE INDEX 1.89 (< OR =4); SODIUM LEVEL 149 MMOL/L (136-145)
[2024-01-09] VITALS (8 sets, daily range): BP systolic 99–128; BP diastolic 54–73; TEMP 97.3–97.9; O2SAT 82–97
[2024-01-09] MEDS: METOPROLOL TART 25 MG TABLET PO ONE ×2 (01:02→05:30)
[2024-01-09] MEDS: IPRATROPIUM 0.5MG/ALBUTEROL 2.5MG INH SOL UD 3ML (DUONEB) NEB PRN (05:06)
[2024-01-09] MEDS: ACETAMINOPHEN TAB 650MG DOSE (2X325MG) PO PRN (05:30)
[2024-01-09 06:44] LABS: BASO % 0.1 % (0.0-1.0); HEMATOCRIT 33.6 % (42.0-52.0); HEMOGLOBIN 10.1 g/dl (13.5-17.5); LYMPH # 0.4 10^3/uL (1.5-5.0); MEAN CORPUSCULAR HEMOGLOBIN 30.3 pg (27.0-33.0); MEAN CORPUSCULAR HGB CONC 30.1 g/dl (32.0-36.5); MEAN CORPUSCULAR VOLUME 100.9 fl (80.0-96.0); MONO # 0.9 10^3/uL (0.0-0.8); MONO % 9.6 % (2.0-8.0); NEUTROPHILS # 7.8 10^3/uL (1.5-8.5); NEUTROPHILS % 85.6 % (36.0-66.0); PLATELET COUNT, AUTOMATED 155 10^3/uL (150-450); RED BLOOD COUNT 3.33 10^6/uL (4.30-6.10); WHITE BLOOD COUNT 9.1 10^3/uL (4.0-10.0)
[2024-01-09 07:46] LABS: BLOOD UREA NITROGEN 22 MG/DL (9-23); CALCIUM LEVEL 9.2 MG/DL (8.3-10.6); CARBON DIOXIDE LEVEL > 40.0 MMOL/L (20-31); CHLORIDE LEVEL 100 MMOL/L (98-107); GLOMERULAR FILTRATION RATE > 60.0 (>42); GLUCOSE, FASTING 89 MG/DL (74-106); MAGNESIUM LEVEL 2.2 MG/DL (1.8-2.4); POTASSIUM SERUM 4.4 MMOL/L (3.5-5.1); SODIUM LEVEL 149 MMOL/L (136-145)
[2024-01-09] MEDS: FUROSEMIDE 40MG/4ML VIAL IV ONE (09:00)
[2024-01-09] MEDS: predniSONE 20 MG TAB PO SCH (09:00)
[2024-01-09] MEDS ORDERED: MORPHINE 10MG/0.5ML ORAL CONCENTRATE SOLUTION U/D SL PRN (11:35)
[2024-01-09] MEDS ORDERED: ONDANSETRON 4MG 2ML VIAL IV PRN (11:35)
[2024-01-09] MEDS: LORazepam 2 MG/ML 1ML VIAL IV PRN (11:55)
[2024-01-09] MEDS: HALOPERIDOL 5MG/ML 1ML VIAL IV PRN (11:59)
== END 2024-01-09 16:00 | disposition expired | DRG 189 ==
LOC: EDBD 10:05 → M ED 10:05 → M ED INP 12:13 → INTOOBSV 12:13 → M PCU 15:51 → M MSPAV 01-08 15:16 → OBSVTOIN 01-09 09:07
PROVIDERS: ADMIT Internal Medicine; ATTEND Internal Medicine
DX: J96.21 Acute and chronic respiratory failure with hypoxia (principal); G93.41 Metabolic encephalopathy; J81.0 Acute pulmonary edema; J18.9 Pneumonia, unspecified organism; I50.31 Acute diastolic (congestive) heart failure; F02.811 Dementia in other diseases classified elsewhere, unspecified severity, with agitation; E87.29 Other acidosis; J44.1 Chronic obstructive pulmonary disease with (acute) exacerbation; J44.0 Chronic obstructive pulmonary disease with (acute) lower respiratory infection; F72 Severe intellectual disabilities; Z51.5 Encounter for palliative care; J96.22 Acute and chronic respiratory failure with hypercapnia; Z66 Do not resuscitate; K21.9 Gastro-esophageal reflux disease without esophagitis; G40.909 Epilepsy, unspecified, not intractable, without status epilepticus; I48.0 Paroxysmal atrial fibrillation; G30.9 Alzheimer's disease, unspecified; E78.5 Hyperlipidemia, unspecified; D50.9 Iron deficiency anemia, unspecified; K58.1 Irritable bowel syndrome with constipation; G47.30 Sleep apnea, unspecified; I87.2 Venous insufficiency (chronic) (peripheral); H40.9 Unspecified glaucoma; Z99.81 Dependence on supplemental oxygen; Z79.01 Long term (current) use of anticoagulants; Z79.899 Other long term (current) drug therapy; Z86.718 Personal history of other venous thrombosis and embolism